=== PATIENT | female | born 1955 | race Caucasian/White ===

== ENCOUNTER 2016-05-05 12:58 | Emergency (ER) | payer MEDICARE, OTHER ==
[~2016-05-05] VITALS: Ht 172.7 cm; Wt 81.6 kg
[2016-05-05] MEDS ORDERED: HYDROCODONE/APAP 5/325MG TABLET. PO ONE (14:00)
[2016-05-05] MEDS ORDERED: IBUPROFEN 600 MG TABLET. PO ONE (14:00)
--- NOTE | 2016-05-05 15:07 | RAD ---
EXAM: 1. Left hand 3 views. 2. Left forearm 2 views. HISTORY: Fall with left hand and forearm pain/swelling. COMPARISON: None. FINDINGS: There are projectional limitations. There is a comminuted intra-articular fracture of the distal radius with 30 degrees dorsal inclination of the distal radial articular surface. A coronally oriented fracture line results in a 4 mm articular surface gap. A sagittally oriented fracture line results in a 5 mm gap. The distal radioulnar joint is also involved but normally aligned. There is mild distraction fracture of the ulnar styloid. Radiocarpal and intercarpal joint spaces and alignment appear maintained. The fingers are not fully extended, but no fractures are appreciated within the hand. Osteopenia is at least moderate. There is diffuse soft tissue swelling throughout the dorsum of the hand and distal forearm. No fractures are appreciated within the proximal forearm. Joint spaces and alignment at the elbow appear maintained. IMPRESSION: 1. Comminuted intra-articular fracture of the distal radius with approximately 30 degrees dorsal angulation of the distal radial articular surface, and articular surface gaps that measure up to 5 mm. 2. Ulnar styloid fracture.
[2016-05-05] MEDS ORDERED: OXYCODONE IR 5 MG TABLET. PO ONE (15:15)
[2016-05-05] MEDS ORDERED: IBUP-1007 PO (15:28)
[2016-05-05] MEDS ORDERED: OXYC-323 PO (15:28)
--- NOTE | 2016-05-05 15:28 | PHYS DOC ---
Past Medical History Past Medical History: Depression, Diabetes-Type II, Other Additional Past Medical Histor: "liver problems", Past Surgical History: Appendectomy, Hysterectomy, Tonsillectomy Alcohol Use: None Drug Use: None Adult General Chief Complaint Chief Complaint: UPPER EXTREMITY INJURY HPI HPI Patient is a 60 year old female who presents status post mechanical fall. Patient reports 2 days ago she was sitting on a couch, was wrapped up in the covers. When she tries to stand, her legs were tangled in the covers and she fell, landing on her left wrist. She did not hit her head or lose consciousness. She presents now with persistent pain and swelling in her left hand and wrist. She has tried Tylenol at home with insufficient relief. No other acute complaints. Review of Systems Review of Systems Constitutional: Denies fever or chills Respiratory: Denies cough or shortness of breath Cardiovascular: Denies chest pain GI: Denies abdominal pain, nausea, vomiting, or diarrhea Neurologic: Denies headache, focal weakness or sensory changes Musculoskeletal: L wrist/hand pain Current Medications Current Medications Current Medications Medications (Trade) Dose Ordered Sig/Jevon Start Time Stop Time Status Last Admin Dose Admin Acetaminophen/ Hydrocodone Bitart (Lortab 5/325) 1 tab 1X ONCE 05/05/16 14:00 05/05/16 14:01 DC 05/05/16 14:08 1 TAB Ibuprofen (Motrin) 600 mg 1X ONCE 05/05/16 14:00 05/05/16 14:01 DC 05/05/16 14:08 600 MG Oxycodone HCl (Roxicodone) 5 mg 1X ONCE 05/05/16 15:15 05/05/16 15:16 DC 05/05/16 15:26 5 MG Allergies Allergies Allergies Coded Allergies Type Severity Reaction Last Updated Verified No Known Drug Allergies 05/05/16 No Physical Exam Physical Exam Constitutional: Well developed, well nourished, no acute distress, non-toxic appearance HENT: Normocephalic, atraumatic, bilateral external ears normal; dyskinetic movements of mouth and tongue Eyes: EOMI, conjunctiva normal, no discharge Neck: Normal range of motion, no stridor. No midline tenderness, no stepoff Cardiovascular: Heart rate normal, regular rhythm, no murmur Lungs & Thorax: Bilateral breath sounds clear to auscultation Abdomen: Bowel sounds normal, soft, non-distended, no TTP Skin: Warm, dry, no erythema, no rash Back: No midline tenderness, no stepoff Extremities: L hand and wrist swollen and bruised compared to R; motor function preserved (albeit with pain), sensation to light touch intact; 2+ radial pulse Neurologic: Alert and oriented X 3, no gross deficits noted Current Patient Data Vital Signs Vital Signs Date Time Temp Pulse Resp B/P Pulse Ox O2 Delivery O2 Flow Rate FiO2 05/05/16 15:26 16 Room Air 05/05/16 13:07 98.0 96 170/80 96 98.0 EKG EKG [] Radiology/Procedures Radiology/Procedures X-ray L hand/wrist/forearm: IMPRESSION: 1. Comminuted intra-articular fracture of the distal radius with approximately 30 degrees dorsal angulation of the distal radial articular surface, and articular surface gaps that measure up to 5 mm. 2. Ulnar styloid fracture. Course & Med Decision Making Course & Med Decision Making Pertinent Labs and Imaging studies reviewed. (See chart for details) Patient is 60-year-old female who presents with left hand and wrist swelling and pain after a mechanical fall 2 days ago. Will obtain x-rays to evaluate for fracture. Oral pain medication ordered for patient comfort. Imaging results as above. Does not appear amenable to attempt at reduction. Discussed results with patient. Splint applied, with sensation, motor function in fingers, and cap refill all intact afterward. Will discharge with prescription for pain medication, instructions for close follow-up with ortho, return precautions. Dragon Disclaimer Dragon Disclaimer This electronic medical record was generated, in whole or in part, using a voice recognition dictation system. Departure Departure Impression: Primary Impression: Wrist fracture, left Disposition: 01 HOME, SELF-CARE Condition: STABLE Referrals: JOSEPH HODGE (PCP) MO LOO MD Patient Instructions: Wrist Exercises, Generic-SportsMed Additional Instructions: Thank you for allowing us to provide care today in the Emergency Department. Take the provided medication as directed. Use caution after taking the pain medication as it can make you drowsy. Schedule a follow up appointment with an orthopedic surgeon using the provided contact information. Return promptly to the Emergency Department if you develop any new or concerning symptoms. Scripts Ibuprofen 600 Mg [id number] Mg PO PRN Q6HRS PRN PAIN #25 TAB Prov:JARROD PRYOR MD 05/05/16 Oxycodone/Apap 5-325 (Percocet 5-325 Mg Tablet)1 Each Tablet1 Tab PO Q4-6HRS PRN PAIN #25 TAB Ref 0 Prov:JARROD PRYOR MD 05/05/16 JARROD PRYOR MD May 05, 2016 15:28
[2016-05-05 16:00] VITALS: BP 159/90
[2016-05-10] MEDS ORDERED: ATOR20TA58 PO (17:06)
[2016-05-10] MEDS ORDERED: GLIP5TAB10 PO (17:06)
[2016-05-10] MEDS ORDERED: SERT100T PO (17:07)
[2016-05-10] MEDS ORDERED: ASPI-482 PO (17:22)
[2016-05-10] MEDS ORDERED: MILK500C PO (17:24)
== END 2016-05-05 16:11 | disposition home or self-care (01) ==
LOC: ER 12:58
DX: S62.102A Fracture of unspecified carpal bone, left wrist, initial encounter for closed fracture (principal); E11.9 Type 2 diabetes mellitus without complications; W17.89XA Other fall from one level to another, initial encounter; Y93.89 Activity, other specified; Y92.89 Other specified places as the place of occurrence of the external cause; Y99.8 Other external cause status
CPT/HCPCS: 29125; 73090; 73130; 99284-25

== ENCOUNTER 2016-05-17 11:18 | Day surgery (SDC) | payer OTHER ==
[~2016-05-17] VITALS: Ht 172.7 cm; Wt 81.6 kg
[~2016-05-17 11:18] MED LIST: ASPI-482 PO; ATOR20TA58 PO; CEFAZOLIN 1GM IVPB FOR OMNI 50 ML IV ONE; FENTANYL PF 100 MCG/2 ML VIAL. IV PRN; GLIP5TAB10 PO; HYDROMORPHONE 2 MG/ML VIAL. IV PRN; IBUP-1007 PO; IV RINGERS,LACTATED 1000ML 1,000 ML IV SCH; LIDOCAINE 1% 1 ML SYRINGE. ID PRN; MILK500C PO; MORPHINE SULFATE 2 MG/ML DISP.SYRIN. IV PRN; ONDANSETRON PF 4 MG/2 ML VIAL. IV PRN; OXYC-323 PO; PROCHLORPERAZINE 10 MG/2 ML VIAL. IV PRN; SERT100T PO
[2016-05-17] MEDS ORDERED: FAMOTIDINE 20 MG/2 ML VIAL ONE (12:14)
[2016-05-17] MEDS ORDERED: LIDOCAINE 2% 100 MG/5 ML DISP.SYRIN. ONE (12:14)
[2016-05-17] MEDS ORDERED: PROPOFOL 20 ML IV ONE (12:14)
[2016-05-17] MEDS ORDERED: DEXAMETHASONE SOD PHOS 20 MG/5 ML VIAL. ONE (12:14)
[2016-05-17] MEDS ORDERED: FENTANYL PF 100 MCG/2 ML VIAL. ONE (12:15)
[2016-05-17] MEDS ORDERED: ROCURONIUM 50 MG/5 ML VIAL. ONE ×2 (12:15→12:16)
[2016-05-17] MEDS ORDERED: ONDANSETRON PF 4 MG/2 ML VIAL. ONE (12:15)
[2016-05-17] MEDS ORDERED: GLYCOPYRROLATE 1 MG/5 ML VIAL. ONE (12:38)
[2016-05-17] MEDS ORDERED: NEOSTIGMINE METHYLSULFATE 5 MG/5 ML SYRINGE. ONE (12:38)
[2016-05-17] MEDS ORDERED: KETOROLAC 60 MG/2 ML SYRINGE FOR OR. ONE (12:38)
[2016-05-17] MEDS ORDERED: DESFLURANE > 120 MINUTES IH ONE (12:49)
--- NOTE | 2016-05-17 13:08 | DISCH ---
DISCHARGE INSTRUCTIONS Condition on Discharge Condition on Discharge: Stable Activity After Discharge Activity Instructions for Disc: Other, see below Bathing Instructions: Shower-keep dressing dry Weight Bearing Status after Di: Non weight bearing Diet after Discharge Diet after Discharge: Regular Wound Incision Care Wound/Incision Care: Ice to area for comfort, Keep wound/cast CDI, Keep wound elevated, Do not change dressing Contacting the DRMaira after DC Call your doctor for: Concerns you may have Follow-Up Follow up with: Ananda in 2wks ALEK CRUZ II, MD May 17, 2016 13:08
--- NOTE | 2016-05-17 13:09 | PDOC ---
BRIEF OPERATIVE NOTE Date: May 17, 2016 Pre-Op Diagnosis Displaced, closed, L DR cox Post-Op Diagnosis same Procedure Performed ORIF L DR cox Surgeon Ananda Anesthesiologist [facility] Anesthesia Type: General Blood Loss 25mL Complications none ALEK CRUZ II, MD May 17, 2016 13:09
[2016-05-17] MEDS ORDERED: BUPIVACAINE MPF 0.5% 30 ML VIAL. ONE (13:35)
[2016-05-17] MEDS ORDERED: LIDOCAINE 1% 20 ML VIAL. ONE (13:35)
[2016-05-17] MEDS ORDERED: ACETAMINOPHEN INTRAVENOUS 100 ML IV ONE (13:57)
[2016-05-17] MEDS ORDERED: CEFAZOLIN 1GM IVPB FOR OMNI 50 ML IV ONE (13:57)
[2016-05-17] MEDS ORDERED: SEVOFLURANE 61 TO 120 MINUTES. IH ONE (14:53)
[2016-05-17] MEDS ORDERED: ONDA4TAB10 SL (15:24)
[2016-05-17] MEDS ORDERED: OXYC-244 PO (15:24)
[2016-05-17] MEDS: FENTANYL PF 100 MCG/2 ML VIAL. IV PRN ×4 (15:32→16:00)
[2016-05-17] MEDS ORDERED: OXYCODONE/APAP 7.5/325 TABLET. PO ONE (16:00)
[2016-05-17 16:32] VITALS: BP 121/74
--- NOTE | 2016-05-17 18:59 | OP ---
DATE OF SURGERY: 05/17/2016 SURGEON: Israel Cruz MD. CUT IN WORKER: None. ANESTHESIA: General. PREOPERATIVE DIAGNOSIS: Displaced malangulated comminuted intra-articular closed left distal radius fracture. POSTOPERATIVE DIAGNOSIS: Displaced malangulated comminuted intraarticular closed left distal radius fracture. PROCEDURE PERFORMED: Open reduction and internal fixation of left distal radius fracture. COMPONENTS INSERTED: 1. Quesada and Nephew standard with volar distal radius locking plate. TOURNIQUET TIME: 37 minutes. ESTIMATED BLOOD LOSS: 25 mL. COMPLICATIONS: None. REASON FOR PROCEDURE: The patient is a very pleasant 61-year-old female who sustained a ground-level fall onto an outstretched left upper extremity and presented to our Emergency Department where she underwent splinting and referral to my clinic for definitive management. Because of the fracture pattern, I had a discussion of risks, benefits, alternatives of proceeding with the above surgery, and she elected to proceed. DESCRIPTION OF PROCEDURE: The patient was greeted in the preoperative area by myself. Correct extremity was marked and verified. She was taken to the operative suite and antibiotics were started en route. Once in the OR, she was transferred gently supine to the OR table and secured to the bed with all pressure points padded and underwent successful induction of general anesthesia. We then applied a nonsterile tourniquet to her left arm as well as the arm board attachment to the bed. We then proceeded to pre-scrub her arm with chlorhexidine and then dried, and she underwent our standard prepping and draping. We then conducted our standard preoperative timeout. I palpated and marked for FCR tendon and radial pulses and made a skin staci for my standard volar distal radius approach. The extremity was exsanguinated with an Esmarch and tourniquet insufflated to 200 mmHg. I then made my skin incision. I cauterized bleeders with electrocautery and dissected down just on the radial border of the FCR tendon with tenotomy. I incised the fascia in line with skin incision and bluntly dissected down the level of the pronator quadratus and divided this with the needle tip electrocautery. I then used an elevator to sweep aside the periosteum and muscle in anticipation of my plate application. I identified the fracture site and debrided this. She did not have much soft callus at all present. I then performed a reduction maneuver recreating the fracture deformity followed by pulling traction through digits 2 and 3 and direct digital pressure. I then used a [place] elevator to the fracture site to try to hold in good position as well. Once I was satisfied with this, I provisionally pinned the plate into position and then checked my C-arm images. I then placed 2 nonlocking screws through the medial 2 holes and secured the distal end of the plate to the fracture site followed by a locking screw there. I then placed another screw into the radial styloid. I did not have really any purchase at all, so I removed and placed 1 at the hole just proximal to that. I had checked trajectory of my screws on fluoroscopy to ensure extraarticular position. After this, I levered the plate back into place and apposed it against the radial shaft. I then secured it with 3 nonlocking screws. I then took my final images and was happy with the plate position and fracture reduction. I then irrigated out the operative field with sterile normal saline and then let the tourniquet down and cauterized a couple of bleeders with bipolar electrocautery. I then reapproximated the pronator quadratus with a [id number] 2-0 Vicryl. I then closed subcutaneous tissue with inverted interrupted 2-0 followed by 3-0 nylon in a mattress fashion. After this, I cleansed out the arm and injected approximately 5 mL of a local anesthetic mixture after ensuring extravascular placement with the needle into the alba-incisional area. I then placed Steri-Strips, Xeroform, sterile dressing, and sterile cast padding. We then took the drapes and the tourniquet down, and I applied a well-padded sugar-tong splint and held the mold. The patient was then awakened from anesthesia. She tolerated surgery well. Prior to completion of wound closure, all counts were reported correct x 2. No complications. Postop plan is to discharge her home. She was given splint care instructions. She will follow up with me in 2 weeks, sooner should problems arise. ISRAEL CRUZ MD DR: MAGDI/gio JOB#: [id number] / [id number] MTDD
== END 2016-05-17 17:00 | disposition home or self-care (01) ==
LOC: SURG 11:18
PROVIDERS: ATTEND Orthopaedic Surgery Sports Medicine
DX: S52.572A Other intraarticular fracture of lower end of left radius, initial encounter for closed fracture (principal); E78.00 Pure hypercholesterolemia, unspecified; E66.9 Obesity, unspecified; I48.91 Unspecified atrial fibrillation; M19.90 Unspecified osteoarthritis, unspecified site; X58.XXXA Exposure to other specified factors, initial encounter; Y93.9 Activity, unspecified; Y92.9 Unspecified place or not applicable; Y99.9 Unspecified external cause status; Z72.89 Other problems related to lifestyle
CPT/HCPCS: 25607; 76000; 82947; C1713; J0131; J0690; J0780; J1100; J1885; J2405; J2704; J2710; J3010; J3490; S0028

== ENCOUNTER 2016-06-07 08:10 | Day surgery (SDC) | payer MEDICARE ==
[~2016-06-07] VITALS: Ht 172.7 cm; Wt 89.4 kg
[~2016-06-07 08:10] MED LIST changes: -MORPHINE SULFATE 2 MG/ML DISP.SYRIN. IV PRN; +ONDA4TAB10 SL; +OXYC-244 PO; +OXYC-250 PO; -PROCHLORPERAZINE 10 MG/2 ML VIAL. IV PRN
[2016-06-07] MEDS ORDERED: BUPIVACAINE MPF 0.5% 30 ML VIAL. ONE (08:17)
[2016-06-07] MEDS ORDERED: LIDOCAINE 1% 20 ML VIAL. ONE (08:17)
[2016-06-07] MEDS ORDERED: IV RINGERS,LACTATED 1000ML 1,000 ML IV SCH (09:00)
[2016-06-07] MEDS ORDERED: LIDOCAINE 1% PF 5 ML VIAL. ONE (09:20)
[2016-06-07] MEDS ORDERED: ROCURONIUM 50 MG/5 ML VIAL. ONE (09:20)
[2016-06-07] MEDS ORDERED: FAMOTIDINE 20 MG/2 ML VIAL ONE (09:20)
[2016-06-07] MEDS ORDERED: DEXAMETHASONE SOD PHOS 20 MG/5 ML VIAL. ONE (09:20)
[2016-06-07] MEDS ORDERED: ONDANSETRON PF 4 MG/2 ML VIAL. ONE (09:20)
[2016-06-07] MEDS ORDERED: MIDAZOLAM HCL/PF 2 MG/2 ML VIAL. ONE (09:20)
[2016-06-07] MEDS ORDERED: PROPOFOL 20 ML IV ONE (09:20)
[2016-06-07] MEDS ORDERED: FENTANYL PF 100 MCG/2 ML VIAL. ONE ×2 (09:21→10:15)
--- NOTE | 2016-06-07 09:43 | DISCH ---
DISCHARGE INSTRUCTIONS Condition on Discharge Condition on Discharge: Stable Activity After Discharge Activity Instructions for Disc: Other, see below Other activity instructions: No use of LUE Bathing Instructions: Shower-keep dressing dry Weight Bearing Status after Di: Non weight bearing Diet after Discharge Diet after Discharge: Regular Wound Incision Care Wound/Incision Care: Ice to area for comfort, Keep wound/cast CDI, Keep wound elevated, Do not change dressing Contacting the DR. after DC Call your doctor for: Concerns you may have Follow-Up Follow up with: Cody in 2 wks Treatment/Equipment after DC Adaptive Equipment Issued: None ALEK CRUZ II, MD Jun 07, 2016 09:43
[2016-06-07] MEDS ORDERED: LABETALOL 20 MG/4 ML DISP.SYRIN. ONE (10:30)
[2016-06-07] MEDS ORDERED: NEOSTIGMINE METHYLSULFATE 5 MG/5 ML SYRINGE. ONE (11:00)
[2016-06-07] MEDS ORDERED: GLYCOPYRROLATE 1 MG/5 ML VIAL. ONE (11:00)
[2016-06-07] MEDS ORDERED: SEVOFLURANE 61 TO 120 MINUTES. IH ONE (11:09)
[2016-06-07] MEDS: PROCHLORPERAZINE 10 MG/2 ML VIAL. IV PRN ×2 (11:45→12:27)
[2016-06-07] MEDS: FENTANYL PF 100 MCG/2 ML VIAL. IV PRN ×4 (11:46→12:27)
[2016-06-07] MEDS: MORPHINE SULFATE 2 MG/ML DISP.SYRIN. IV PRN ×4 (11:47→12:29)
[2016-06-07] MEDS ORDERED: OXYCODONE ER 10 MG TAB.ER.12H. PO ONE (12:00)
[2016-06-07] MEDS ORDERED: OXYCODONE/APAP 10/325 TABLET. PO ONE (12:00)
[2016-06-07] MEDS ORDERED: OXYC10TA32 PO (12:21)
[2016-06-07] MEDS ORDERED: DOCU-27 PO (12:22)
[2016-06-07 12:49] VITALS: BP 156/70
--- NOTE | 2016-06-07 18:13 | OP ---
DATE OF SURGERY: 06/07/2016 SURGEON: Israel Cruz M.D. HUMAN RESOURCE CONSULTANT: None. PREOPERATIVE DIAGNOSIS: Malunion after a fall, after open reduction and internal fixation left distal radius. POSTOPERATIVE DIAGNOSIS: Malunion after a fall, after open reduction and internal fixation left distal radius. PROCEDURE PERFORMED: Revision open reduction internal fixation of left distal radius fracture. COMPLICATIONS: None. ESTIMATED BLOOD LOSS: 10 mL. TOURNIQUET TIME: 54 minutes. COMPONENTS INSERTED: A Quesada and Nephew standard with volar distal radius locking plate. FINDINGS: Intraoperatively, there is essentially no evident callus present. REASON FOR PROCEDURE: The patient is a very pleasant 61-year-old female, who sustained a left distal radius fracture treated with surgery by myself initially, approximately 3 weeks ago. She presented to our outpatient orthopedic surgery clinic for followup and revealed she had a fall and tried to catch herself with her left arm. She has developed a lot of pain after that. X-rays revealed a malpositioned hardware and loss of reduction. Therefore, I had discussion of risks, benefits, alternatives of proceeding with a revision surgery, and she elected to proceed. DESCRIPTION OF PROCEDURE: The patient was greeted in the preoperative area with myself where the correct extremity was marked and verified. She was taken to the operative suite and antibiotics were started en route. Once in the OR, she was transferred gently supine to the OR table and secured to the bed with all pressure points padded. Tourniquet was placed on her left upper extremity. We then proceeded to prep and drape of the left upper extremity in usual sterile fashion and conducted a standard preoperative timeout. I then exsanguinated the extremity with an Esmarch and insufflated the tourniquet to 250 mmHg. I then incised skin through my prior volar distal radius incision and identified the FCR tendon. I incised her scar tissue just radial to this. I then bluntly dissected down. The pronator quadratus was noted overlying the distal radius. I did use a combination of a [place] and a brown handled round elevator to free up the adherent fibrotic tissue over the plate. I then dissected the subcutaneous tissue ulnar to the FCR tendon and identified the prominent screw head there and removed that screw without complication. I then proceeded to remove the rest of the screws and removed the plate. I did feel that the plate still had a good position, and that this was essentially new trauma and loss of fixation at the screw bone interface, but nonetheless I opted to place a different plate. I sized for a standard and wide, her bone was too narrow for the wide plate. Therefore, I opened the standard with the packaging. After this, I performed a repeat reduction maneuver consisting of retrieving the fracture deformity and pulling traction. Her radial: Indirect pressure of the fracture fragments. I then felt that the reduction was then as good as I wanted it after checking under AP, oblique, and lateral imaging. Therefore, I inserted [place] to the fracture site. I then carefully weathered the fragments back into better position and pinning with the K wires through the radial styloid and this achieved better alignment. I then placed my plate down and sizing it provisionally, pinned it after I had an acceptable position. I then placed a nonlocking screw in the distal column to secure the plate to the bone, followed by filling the remainder of the holes with locking screws. I then traded out the nonlocking screw and replaced it with a locking screw. I did take fluoroscopic images with each screw to ensure extraarticular placement. I then secured the plate to bone with a nonlocking screw and then placed two more locking screws to secure the plate to the shaft. I traded all my initial locking screw as it was a little too long. After this, I took my final images and was happy with the plate position and fracture reduction. I then irrigated out the operative field with sterile normal saline, let the tourniquet down. There was some venous oozing that I cauterized. I then closed subcutaneous tissue with inverted interrupted 2-0 followed by 2-0 nylon in mattress fashion. The arm was then cleansed and dried and sterile dressing was applied followed by a well-padded sugar-tong splint. Postop plan is for her to be nonweightbearing x 6 weeks. We will see her back in my clinic in 2 weeks, sooner should problems arise. Prior to completion of wound closure, all counts reported correct x 2. At the conclusion of the surgery, she was awakened from anesthesia, extubated, and transferred gently supine to the recovery room cart and taken to PACU in stable and extubated condition. ISRAEL CRUZ MD DR: MAGDI/gio JOB#: [id number] / [id number] MTDD
== END 2016-06-07 13:34 | disposition home or self-care (01) ==
LOC: SURG 08:10
PROVIDERS: ATTEND Orthopaedic Surgery Sports Medicine
DX: T85.628D Displacement of other specified internal prosthetic devices, implants and grafts, subsequent encounter (principal); E78.00 Pure hypercholesterolemia, unspecified; E66.9 Obesity, unspecified; M19.90 Unspecified osteoarthritis, unspecified site; F41.9 Anxiety disorder, unspecified; F32.9 Major depressive disorder, single episode, unspecified; E11.9 Type 2 diabetes mellitus without complications; Z72.89 Other problems related to lifestyle
CPT/HCPCS: 25400; 76000; 82947; C1713; J0690; J0780; J1100; J2250; J2270; J2405; J2704; J2710; J3010; J3490; J7120; S0028

== ENCOUNTER 2018-05-28 00:52 | Inpatient (IN) | payer MEDICARE ==
[~2018-05-28] VITALS: Ht 172.7 cm; Wt 89.9 kg
[~2018-05-28 00:52] MED LIST changes: -CEFAZOLIN 1GM IVPB FOR OMNI 50 ML IV ONE; +DOCU-109 PO; -FENTANYL PF 100 MCG/2 ML VIAL. IV PRN; -HYDROMORPHONE 2 MG/ML VIAL. IV PRN; -IV RINGERS,LACTATED 1000ML 1,000 ML IV SCH; -LIDOCAINE 1% 1 ML SYRINGE. ID PRN; -ONDANSETRON PF 4 MG/2 ML VIAL. IV PRN; -OXYC-244 PO; -OXYC-250 PO; -OXYC-323 PO; +OXYC10TA46 PO; +OXYC1TAB15 PO; +OXYC1TAB19 PO; +OXYC1TAB22 PO
[2018-05-28 01:26] LABS: BASE EXCESS COOX 1 mmol/L (-3-3); HCO3 COOX 31 mmol/L (21-28); METHEMOGLOBIN 0.1 % (0.0-1.9); OXYHEMOGLOBIN 91.8 %; PO2 COOX 75 mmHg (65-108); SAT O2 COOX 93 % (92-99)
[2018-05-28] MEDS ORDERED: IPRATRPIUM/ALBUTEROL 0.5/2.5MG 3 ML NEBU. NEB ONE (01:30)
[2018-05-28] MEDS ORDERED: methylPREDNISolone SOD SUCC PF 125 MG/2 ML VIAL. IV ONE (01:30)
[2018-05-28] MEDS ORDERED: ASPIRIN 325 MG TABLET PO ONE (01:30)
[2018-05-28 01:33] LABS: BASO % 0 % (0-3); EOS % 0 % (0-3); HEMATOCRIT 48.5 % (36.0-47.0); HEMOGLOBIN 16.2 g/dL (12.0-15.5); LYMPH # 0.5 x10^3/uL (1.0-4.8); LYMPH % 5 % (24-48); MEAN CORPUSCULAR HEMOGLOBIN 30 pg (25-35); MEAN CORPUSCULAR HGB CONC 33 g/dL (31-37); MEAN CORPUSCULAR VOLUME 88 fL (79-100); MONO # 0.8 x10^3/uL (0.0-1.1); MONO % 7 % (0-9); NEUT # 9.6 x10^3uL (1.8-7.7); NEUT % 88 % (31-73); PLATELET COUNT 160 x10^3/uL (140-400); RED CELL DISTRIBUTION WIDTH 14.2 % (11.5-14.5); WHITE BLOOD COUNT 10.9 x10^3/uL (4.0-11.0)
[2018-05-28] MEDS ORDERED: IV NORMAL SALINE 1000ML BAG 1,000 ML IV SCH (01:42)
--- NOTE | 2018-05-28 01:42 | PHYS DOC ---
Past Medical History Past Medical History: COPD, Depression, Diabetes-Type II, Other Additional Past Medical Histor: "liver problems", Past Surgical History: Appendectomy, Hysterectomy, Tonsillectomy Additional Information: 2PACK DAILY Alcohol Use: None Drug Use: None Adult General Chief Complaint Chief Complaint: SHORTNESS OF BREATH [facility] HPI Patient is a 63 year old female presented to the ER today for evaluation of shortness of air and productive cough for 3 days. She is a heavy smoker, has history of COPD, not on any oxygen at home. She has coughed so much that her chest hurt. She denied any fever, no abdominal pain, no nausea or vomiting. EMS found her in respiratory distress, put her on nonrebreather, gave her a duoneb, bought her here for evaluation . Review of Systems Review of Systems Constitutional: Denies fever or chills [] Eyes: Denies change in visual acuity, redness, or eye pain [] HENT: Denies nasal congestion or sore throat [] Respiratory: Positive for cough and shortness of breath [] Cardiovascular: No additional information not addressed in HPI [] GI: Denies abdominal pain, nausea, vomiting, bloody stools or diarrhea [] : Denies dysuria or hematuria [] Musculoskeletal: Denies back pain or joint pain [] Integument: Denies rash or skin lesions [] Neurologic: Denies headache, focal weakness or sensory changes [] Endocrine: Denies polyuria or polydipsia [] All other systems were reviewed and found to be within normal limits, except as documented in this note. Current Medications Current Medications Current Medications Medications (Trade) Dose Ordered Sig/[facility] Start Time Stop Time Status Last Admin Dose Admin Albuterol/ Ipratropium (Duoneb) 3 ml 1X ONCE 05/28/18 01:30 05/28/18 01:31 DC 05/28/18 01:15 3 ML Aspirin (Linnette Aspirin) 325 mg 1X ONCE 05/28/18 01:30 05/28/18 01:31 DC 05/28/18 01:34 325 MG Methylprednisolone Sodium Succinate (SOLU-Medrol 125MG VIAL) 125 mg 1X ONCE 05/28/18 01:30 05/28/18 01:31 DC 05/28/18 01:34 125 MG Allergies Allergies Allergies Coded Allergies Type Severity Reaction Last Updated Verified No Known Drug Allergies 4/10/17 No Physical Exam Physical Exam Constitutional: Well developed, well nourished, IN MODERATE acute distress DUE TO SHORTNESS OF AIR, non-toxic appearance. [] HENT: Normocephalic, atraumatic, bilateral external ears normal, oropharynx moist, no oral exudates, nose normal. [] Eyes: PERRLA, EOMI, conjunctiva normal, no discharge. [] Neck: Normal range of motion, no tenderness, supple, no stridor. [] Cardiovascular: Sinus tachycardia, with regular rhythm, no murmur [] Lungs & Thorax: tachypnic, decreased air movement in all lung guerra. Abdomen: Bowel sounds normal, soft, no tenderness, no masses, no pulsatile masses. [] Skin: Warm, dry, no erythema, no rash. [] Back: No tenderness, no CVA tenderness. [] Extremities: No tenderness, no cyanosis, no clubbing, ROM intact, no edema. [] Neurologic: Alert and oriented X 3, normal motor function, normal sensory function, no focal deficits noted. [] Psychologic: Affect normal, judgement normal, mood normal. [] Current Patient Data Vital Signs Vital Signs Date Time Temp Pulse Resp B/P (MAP) Pulse Ox O2 Delivery O2 Flow Rate FiO2 05/28/18 01:36 94 BiPAP/CPAP 05/28/18 01:33 118 26 182/83 (116) 05/28/18 01:17 15.0 05/28/18 01:00 97.8 97.8 Lab Values Laboratory Tests Test 05/28/18 01:00 05/28/18 01:09 O2 Saturation 93 % (92-99) Arterial Blood pH 7.27 (7.35-7.45) L Arterial Blood pCO2 at Patient Temp 68 mmHg (35-46) *H Arterial Blood pO2 at Patient Temp 75 mmHg (65-108) Arterial Blood HCO3 31 mmol/L (21-28) H Arterial Blood Base Excess 1 mmol/L (-3-3) Oxyhemoglobin 91.8 % Methemoglobin 0.1 % (0.0-1.9) Carbon Monoxide, Quantitative 1.5 % (0.0-1.9) FiO2 50 White Blood Count 10.9 x10^3/uL (4.0-11.0) Red Blood Count 5.50 x10^6/uL (3.50-5.40) H Hemoglobin 16.2 g/dL (12.0-15.5) H Hematocrit 48.5 % (36.0-47.0) H Mean Corpuscular Volume 88 fL (79-100) Mean Corpuscular Hemoglobin 30 pg (25-35) Mean Corpuscular Hemoglobin Concent 33 g/dL (31-37) Red Cell Distribution Width 14.2 % (11.5-14.5) Platelet Count 160 x10^3/uL (140-400) Neutrophils (%) (Auto) 88 % (31-73) H Lymphocytes (%) (Auto) 5 % (24-48) L Monocytes (%) (Auto) 7 % (0-9) Eosinophils (%) (Auto) 0 % (0-3) Basophils (%) (Auto) 0 % (0-3) Neutrophils # (Auto) 9.6 x10^3uL (1.8-7.7) H Lymphocytes # (Auto) 0.5 x10^3/uL (1.0-4.8) L Monocytes # (Auto) 0.8 x10^3/uL (0.0-1.1) Eosinophils # (Auto) 0.0 x10^3/uL (0.0-0.7) Basophils # (Auto) 0.0 x10^3/uL (0.0-0.2) Platelet Estimate Pending Prothrombin Time 14.5 SEC (11.7-14.0) H Prothrombin Time INR 1.2 (0.8-1.1) H Sodium Level 135 mmol/L (136-145) L Potassium Level 3.8 mmol/L (3.5-5.1) Chloride Level 93 mmol/L (98-107) L Carbon Dioxide Level 31 mmol/L (21-32) Anion Gap 11 (6-14) Blood Urea Nitrogen 9 mg/dL (7-20) Creatinine 0.8 mg/dL (0.6-1.0) Estimated GFR (Cockcroft-Gault) 72.0 BUN/Creatinine Ratio 11 (6-20) Glucose Level 300 mg/dL (70-99) H Calcium Level 9.1 mg/dL (8.5-10.1) Magnesium Level 2.1 mg/dL (1.8-2.4) Total Bilirubin 0.7 mg/dL (0.2-1.0) Aspartate Amino Transferase (AST) 46 U/L (15-37) H Alanine Aminotransferase (ALT) 30 U/L (14-59) Alkaline Phosphatase 116 U/L (46-116) Creatine Kinase 1178 U/L (26-192) H Creatine Kinase MB (Mass) 12.3 ng/mL (0.0-3.6) H Creatine Kinase MB Relative Index 1.0 % (0-4) Troponin I Quantitative 0.083 ng/mL (0.000-0.055) GQ-Nxy-H-Type Natriuretic Peptide 2981 pg/mL (0-124) H Total Protein 7.2 g/dL (6.4-8.2) Albumin 3.7 g/dL (3.4-5.0) Albumin/Globulin Ratio 1.1 (1.0-1.7) Lipase 38 U/L (73-393) L Laboratory Tests 05/28/18 01:09 Laboratory Tests 05/28/18 01:09 EKG EKG EKG was read by this physician at 0105, rate of 119 BPM, sinus rhythm , no STEMI. Radiology/Procedures Radiology/Procedures CHEST XRAY: NO ACUTE CONSOLIDATION OR INFILTRATION. Course & Med Decision Making Course & Med Decision Making Pertinent Labs and Imaging studies reviewed. (See chart for details) [] Dragon Disclaimer Dragon Disclaimer This electronic medical record was generated, in whole or in part, using a voice recognition dictation system. Departure Departure Impression: Primary Impression: COPD exacerbation Disposition: ADMITTED INPATIENT Admitting Physician: David Del Rio Condition: IMPROVED Referrals: JOSEPH HODGE (PCP) ESTEFANIA HANSEN DO May 28, 2018 01:42
[2018-05-28 01:43] LABS: PROTHROMBIN TIME PATIENT 14.5 SEC (11.7-14.0)
[2018-05-28] MEDS ORDERED: NITROGLYCERIN SUBLINGUAL 0.4 MG BOTTLE OF 25. SL PRN (01:45)
[2018-05-28] MEDS ORDERED: ONDANSETRON PF 4 MG/2 ML VIAL. IV PRN (01:45)
[2018-05-28] MEDS ORDERED: MORPHINE SULFATE 2 MG/ML VIAL. IV PRN (01:45)
[2018-05-28 01:46] LABS: PCO2 COOX 68 mmHg (35-46)
[2018-05-28 01:49] LABS: CALCIUM 9.1 mg/dL (8.5-10.1); CREATININE 0.8 mg/dL (0.6-1.0); POTASSIUM 3.8 mmol/L (3.5-5.1)
--- NOTE | 2018-05-28 02:01 | RAD ---
PORTABLE CHEST 1V Clinical History: SHORT OF AIR Technique: AP view of the chest was obtained at 05/28/2018 1:00 AM. Comparison: None. Findings: The cardiomediastinal silhouette is normal. The pulmonary vasculature is normal. The lungs and pleural margins are clear. Impression: No evidence of an acute cardiopulmonary process. Electronically signed by: Morris Toribio III, MD (05/28/2018 1:57 AM) [id number]
[2018-05-28 02:05] LABS: ALBUMIN 3.7 g/dL (3.4-5.0); ALBUMIN/GLOBULIN RATIO 1.1 (1.0-1.7); MAGNESIUM 2.1 mg/dL (1.8-2.4); TOTAL BILIRUBIN 0.7 mg/dL (0.2-1.0); TOTAL PROTEIN 7.2 g/dL (6.4-8.2)
[2018-05-28 02:30] VITALS: BP 141/69
[2018-05-28] MEDS ORDERED: METF10007 (03:27)
[2018-05-28] MEDS ORDERED: DULO30CA43 (03:27)
[2018-05-28] MEDS ORDERED: DULO60CA44 (03:27)
[2018-05-28 05:19] LABS: % BANDS 12 % (0-9); % LYMPHS 3 % (24-48); % MONOS 3 % (0-10); % SEGS 82 % (35-66); PLT ESTIMATE ADEQUATE (ADEQUATE)
[2018-05-28 07:00] VITALS: BP 148/83
[2018-05-28] MEDS ORDERED: IPRATRPIUM/ALBUTEROL 0.5/2.5MG 3 ML NEBU. NEB SCH (08:00)
[2018-05-28] MEDS ORDERED: ALBUTEROL SULFATE 2.5 MG/3 ML NEBU. NEB PRN (09:15)
[2018-05-28] MEDS ORDERED: BENZOCAINE/MENTHOL LOZENGE. PO PRN (09:15)
[2018-05-28] MEDS ORDERED: DEXTROSE 50% 25 GM / 50ML DISP.SYRIN. IV PRN (09:15)
--- NOTE | 2018-05-28 09:19 | PDOC1 ---
History and Physical Date of Admission Date of Admission DATE: 05/28/18 TIME: 09:12 Identification/Chief Complaint Chief Complaint soa, cough x 3 days, productive Source Source: Caregiver, Chart review, Patient History of Present Illness History of Present Illness 2 pack a day smoker, 3 day hx productive cough, no fever, severe soa, even just walking to bathroom, CXR no infiltrates, but needing BIPAP, first time, NEver intubated, AN+BG pH 7.27 Co2 68, O2 good - NO recent sick contacts/travel, Asks when she can go home Past Medical History Pulmonary: Bronchitis, COPD Endocrine: Diabetes Past Surgical History Past Surgical History: No pertinent history Family History Family History: No Significant Social History Smoke: 2 packs per day ALCOHOL: none Drugs: None Current Problem List Problem List Problems Medical Problems: (1) COPD exacerbation Status: Acute Current Medications Current Medications Current Medications Aspirin (Linnette Aspirin) 325 mg 1X ONCE PO Last administered on 05/28/18at 01:34 ; Start 05/28/18 at 01:30; Stop 05/28/18 at 01:31; Status DC Albuterol/ Ipratropium (Duoneb) 3 ml 1X ONCE NEB Last administered on at 01:15; Start 05/28/18 at 01:30; Stop 05/28/18 at 01:31; Status DC Methylprednisolone Sodium Succinate (SOLU-Medrol 125MG VIAL) 125 mg 1X ONCE IV Last administered on 05/28/18at 01:34; Start 05/28/18 at 01:30; Stop 05/28/18 at 01:31; Status DC Ondansetron HCl (Zofran) 4 mg PRN Q8HRS PRN IV NAUSEA/VOMITING 1ST CHOICE; Start 05/28/18 at 01:45; Stop 05/29/18 at 01:44 Morphine Sulfate (Morphine Sulfate) 2 mg PRN Q2HR PRN IV SEVERE PAIN; Start at 01:45; Stop 05/29/18 at 01:44 Sodium Chloride 1,000 ml @ 75 mls/hr [id number] IV Last administered on at 03:39; Start 05/28/18 at 01:42; Stop 05/29/18 at 01:41 Nitroglycerin (Nitrostat) 0.4 mg PRN Q5MIN PRN SL CHEST PAIN; Start 05/28/18 at 01:45; Stop 05/29/18 at 01:44 Albuterol/ Ipratropium (Duoneb) 3 ml RTQID NEB Last administered on 05/28/18at 08:19; Start 05/28/18 at 08:00; Stop 05/29/18 at 07:59 Active Scripts Active Reported Duloxetine Hcl 30 Mg Capsule. 30 DAILY Duloxetine Hcl 60 Mg Capsule. 60 DAILY Metformin Hcl 1,000 Mg Tablet 1,000 BID Milk Thistle 500 Mg Capsule 2,000 Mg PO DAILY Aspir 81 (Aspirin) 81 Mg Tablet. 1 Tab PO DAILY Atorvastatin Calcium 20 Mg Tablet 1 Tab PO QHS Glipizide 5 Mg Tablet 1 Tab PO BID Allergies Allergies: Coded Allergies: No Known Drug Allergies (Unverified , 06/07/16) ROS Review of System as per HPI< rest of 14 pt neg Physical Exam General: Alert, Oriented X3, Cooperative, No acute distress HEENT: Atraumatic, PERRLA Lungs: Normal air movement, Other (SCE< some wheezing, no crackles) Cardiovascular: S1, S2, Other (sinus tachy) Rectal Exam: not examined PELVIC: Nml ext genitalia Extremities: No clubbing, No cyanosis, No edema, Normal pulses, No tenderness/ swelling Skin: No rashes, No breakdown, No significant lesion Neuro: Normal gait, Normal speech, Strength at 5/5 X4 ext, Normal tone, Sensation intact, Cranial nerves 3-12 NL, Reflexes 2+ Psych/Mental Status: Mental status NL, Mood NL Vitals Vitals Vital Signs Date Time Temp Pulse Resp B/P (MAP) Pulse Ox O2 Delivery O2 Flow Rate FiO2 05/28/18 08:11 94 BiPAP/CPAP 05/28/18 07:00 97.3 91 25 148/83 (104) 97.3 05/28/18 02:15 12.0 Labs Labs Laboratory Tests Test 05/28/18 01:00 05/28/18 01:09 O2 Saturation 93 % (92-99) Arterial Blood pH 7.27 (7.35-7.45) Arterial Blood pCO2 at Patient Temp 68 mmHg (35-46) Arterial Blood pO2 at Patient Temp 75 mmHg (65-108) Arterial Blood HCO3 31 mmol/L (21-28) Arterial Blood Base Excess 1 mmol/L (-3-3) Oxyhemoglobin 91.8 % Methemoglobin 0.1 % (0.0-1.9) Carbon Monoxide, Quantitative 1.5 % (0.0-1.9) FiO2 50 White Blood Count 10.9 x10^3/uL (4.0-11.0) Red Blood Count 5.50 x10^6/uL (3.50-5.40) Hemoglobin 16.2 g/dL (12.0-15.5) Hematocrit 48.5 % (36.0-47.0) Mean Corpuscular Volume 88 fL (79-100) Mean Corpuscular Hemoglobin 30 pg (25-35) Mean Corpuscular Hemoglobin Concent 33 g/dL (31-37) Red Cell Distribution Width 14.2 % (11.5-14.5) Platelet Count 160 x10^3/uL (140-400) Neutrophils (%) (Auto) 88 % (31-73) Lymphocytes (%) (Auto) 5 % (24-48) Monocytes (%) (Auto) 7 % (0-9) Eosinophils (%) (Auto) 0 % (0-3) Basophils (%) (Auto) 0 % (0-3) Neutrophils # (Auto) 9.6 x10^3uL (1.8-7.7) Lymphocytes # (Auto) 0.5 x10^3/uL (1.0-4.8) Monocytes # (Auto) 0.8 x10^3/uL (0.0-1.1) Eosinophils # (Auto) 0.0 x10^3/uL (0.0-0.7) Basophils # (Auto) 0.0 x10^3/uL (0.0-0.2) Segmented Neutrophils % 82 % (35-66) Band Neutrophils % 12 % (0-9) Lymphocytes % 3 % (24-48) Monocytes % 3 % (0-10) Platelet Estimate Adequate (ADEQUATE) Prothrombin Time 14.5 SEC (11.7-14.0) Prothromb Time International Ratio 1.2 (0.8-1.1) Sodium Level 135 mmol/L (136-145) Potassium Level 3.8 mmol/L (3.5-5.1) Chloride Level 93 mmol/L (98-107) Carbon Dioxide Level 31 mmol/L (21-32) Anion Gap 11 (6-14) Blood Urea Nitrogen 9 mg/dL (7-20) Creatinine 0.8 mg/dL (0.6-1.0) Estimated GFR (Cockcroft-Gault) 72.0 BUN/Creatinine Ratio 11 (6-20) Glucose Level 300 mg/dL (70-99) Calcium Level 9.1 mg/dL (8.5-10.1) Magnesium Level 2.1 mg/dL (1.8-2.4) Total Bilirubin 0.7 mg/dL (0.2-1.0) Aspartate Amino Transf (AST/SGOT) 46 U/L (15-37) Alanine Aminotransferase (ALT/SGPT) 30 U/L (14-59) Alkaline Phosphatase 116 U/L (46-116) Creatine Kinase 1178 U/L (26-192) Creatine Kinase MB (Mass) 12.3 ng/mL (0.0-3.6) Creatine Kinase MB Relative Index 1.0 % (0-4) Troponin I Quantitative 0.083 ng/mL (0.000-0.055) SS-Ysd-D-Type Natriuretic Peptide 2981 pg/mL (0-124) Total Protein 7.2 g/dL (6.4-8.2) Albumin 3.7 g/dL (3.4-5.0) Albumin/Globulin Ratio 1.1 (1.0-1.7) Lipase 38 U/L (73-393) Laboratory Tests Test 05/28/18 01:00 05/28/18 01:09 O2 Saturation 93 % (92-99) Arterial Blood pH 7.27 (7.35-7.45) Arterial Blood pCO2 at Patient Temp 68 mmHg (35-46) Arterial Blood pO2 at Patient Temp 75 mmHg (65-108) Arterial Blood HCO3 31 mmol/L (21-28) Arterial Blood Base Excess 1 mmol/L (-3-3) Oxyhemoglobin 91.8 % Methemoglobin 0.1 % (0.0-1.9) Carbon Monoxide, Quantitative 1.5 % (0.0-1.9) FiO2 50 White Blood Count 10.9 x10^3/uL (4.0-11.0) Red Blood Count 5.50 x10^6/uL (3.50-5.40) Hemoglobin 16.2 g/dL (12.0-15.5) Hematocrit 48.5 % (36.0-47.0) Mean Corpuscular Volume 88 fL (79-100) Mean Corpuscular Hemoglobin 30 pg (25-35) Mean Corpuscular Hemoglobin Concent 33 g/dL (31-37) Red Cell Distribution Width 14.2 % (11.5-14.5) Platelet Count 160 x10^3/uL (140-400) Neutrophils (%) (Auto) 88 % (31-73) Lymphocytes (%) (Auto) 5 % (24-48) Monocytes (%) (Auto) 7 % (0-9) Eosinophils (%) (Auto) 0 % (0-3) Basophils (%) (Auto) 0 % (0-3) Neutrophils # (Auto) 9.6 x10^3uL (1.8-7.7) Lymphocytes # (Auto) 0.5 x10^3/uL (1.0-4.8) Monocytes # (Auto) 0.8 x10^3/uL (0.0-1.1) Eosinophils # (Auto) 0.0 x10^3/uL (0.0-0.7) Basophils # (Auto) 0.0 x10^3/uL (0.0-0.2) Segmented Neutrophils % 82 % (35-66) Band Neutrophils % 12 % (0-9) Lymphocytes % 3 % (24-48) Monocytes % 3 % (0-10) Platelet Estimate Adequate (ADEQUATE) Prothrombin Time 14.5 SEC (11.7-14.0) Prothromb Time International Ratio 1.2 (0.8-1.1) Sodium Level 135 mmol/L (136-145) Potassium Level 3.8 mmol/L (3.5-5.1) Chloride Level 93 mmol/L (98-107) Carbon Dioxide Level 31 mmol/L (21-32) Anion Gap 11 (6-14) Blood Urea Nitrogen 9 mg/dL (7-20) Creatinine 0.8 mg/dL (0.6-1.0) Estimated GFR (Cockcroft-Gault) 72.0 BUN/Creatinine Ratio 11 (6-20) Glucose Level 300 mg/dL (70-99) Calcium Level 9.1 mg/dL (8.5-10.1) Magnesium Level 2.1 mg/dL (1.8-2.4) Total Bilirubin 0.7 mg/dL (0.2-1.0) Aspartate Amino Transf (AST/SGOT) 46 U/L (15-37) Alanine Aminotransferase (ALT/SGPT) 30 U/L (14-59) Alkaline Phosphatase 116 U/L (46-116) Creatine Kinase 1178 U/L (26-192) Creatine Kinase MB (Mass) 12.3 ng/mL (0.0-3.6) Creatine Kinase MB Relative Index 1.0 % (0-4) Troponin I Quantitative 0.083 ng/mL (0.000-0.055) HB-Cnf-G-Type Natriuretic Peptide 2981 pg/mL (0-124) Total Protein 7.2 g/dL (6.4-8.2) Albumin 3.7 g/dL (3.4-5.0) Albumin/Globulin Ratio 1.1 (1.0-1.7) Lipase 38 U/L (73-393) VTE Prophylaxis Ordered VTE Prophylaxis Devices: Yes VTE Pharmacological Prophylaxi: Yes Assessment/Plan Assessment/Plan acute bronchitis COPD exacerbation 2 pack a day smoker HYpercpneic RF on NIPPV Obesity BMI 31 DM 2 on OHA PLAN: BIPAP< pulmo ADA SSI SOlu 40 IV q 8 COugh med, nebs ABG maybe tmr or later tpday - recheck Response of Co2 to bipap HOme meds I have reconciled SMOking cessation 1:1 done < 30 mins ROHINI FRANCIS MD May 28, 2018 09:19
[2018-05-28] MEDS ORDERED: DULoxetine HCL 30 MG CAPSULE.DR PO SCH (09:30)
--- NOTE | 2018-05-28 09:43 | EKG ---
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
[2018-05-28] MEDS: ASPIRIN ENTERIC COATED 81 MG TABLET.DR. PO SCH (09:52)
[2018-05-28] MEDS: glipiZIDE 5 MG TABLET PO SCH ×2 (09:52→16:43)
[2018-05-28] MEDS: BENZONATATE 100 MG CAPSULE. PO SCH ×3 (09:52→20:43)
[2018-05-28] MEDS: metFORMIN 500 MG TABLET PO SCH ×2 (09:52→16:43)
[2018-05-28] MEDS: DULoxetine HCL 30 MG CAPSULE.DR PO SCH (10:11)
[2018-05-28] MEDS: methylPREDNISolone SOD SUCC PF 40 MG/ML VIAL. IV SCH ×2 (10:47→22:17)
[2018-05-28 10:52] VITALS: BP 135/77
[2018-05-28] MEDS: IPRATRPIUM/ALBUTEROL 0.5/2.5MG 3 ML NEBU. NEB SCH ×3 (11:48→20:13)
[2018-05-28] MEDS: INSULIN LISPRO 300 UNITS/3 ML INSULN.PEN. SQ SCH ×2 (12:29→16:47)
--- NOTE | 2018-05-28 13:59 | PDOC ---
PULMONARY PROGRESS NOTES Vitals Vital Signs Date Time Temp Pulse Resp B/P (MAP) Pulse Ox O2 Delivery O2 Flow Rate FiO2 05/28/18 12:53 94 BiPAP/CPAP 05/28/18 10:52 97.5 107 21 135/77 (96) 97.5 05/28/18 08:00 12.0 Cardiovascular: S1, S2, Other (sinus tachy) Labs Laboratory Tests Test 05/28/18 01:00 05/28/18 01:09 05/28/18 12:16 05/28/18 12:20 O2 Saturation 93 % (92-99) Arterial Blood pH 7.27 (7.35-7.45) Arterial Blood pCO2 at Patient Temp 68 mmHg (35-46) Arterial Blood pO2 at Patient Temp 75 mmHg (65-108) Arterial Blood HCO3 31 mmol/L (21-28) Arterial Blood Base Excess 1 mmol/L (-3-3) Oxyhemoglobin 91.8 % Methemoglobin 0.1 % (0.0-1.9) Carbon Monoxide, Quantitative 1.5 % (0.0-1.9) FiO2 50 White Blood Count 10.9 x10^3/uL (4.0-11.0) Red Blood Count 5.50 x10^6/uL (3.50-5.40) Hemoglobin 16.2 g/dL (12.0-15.5) Hematocrit 48.5 % (36.0-47.0) Mean Corpuscular Volume 88 fL (79-100) Mean Corpuscular Hemoglobin 30 pg (25-35) Mean Corpuscular Hemoglobin Concent 33 g/dL (31-37) Red Cell Distribution Width 14.2 % (11.5-14.5) Platelet Count 160 x10^3/uL (140-400) Neutrophils (%) (Auto) 88 % (31-73) Lymphocytes (%) (Auto) 5 % (24-48) Monocytes (%) (Auto) 7 % (0-9) Eosinophils (%) (Auto) 0 % (0-3) Basophils (%) (Auto) 0 % (0-3) Neutrophils # (Auto) 9.6 x10^3uL (1.8-7.7) Lymphocytes # (Auto) 0.5 x10^3/uL (1.0-4.8) Monocytes # (Auto) 0.8 x10^3/uL (0.0-1.1) Eosinophils # (Auto) 0.0 x10^3/uL (0.0-0.7) Basophils # (Auto) 0.0 x10^3/uL (0.0-0.2) Segmented Neutrophils % 82 % (35-66) Band Neutrophils % 12 % (0-9) Lymphocytes % 3 % (24-48) Monocytes % 3 % (0-10) Platelet Estimate Adequate (ADEQUATE) Prothrombin Time 14.5 SEC (11.7-14.0) Prothromb Time International Ratio 1.2 (0.8-1.1) Sodium Level 135 mmol/L (136-145) Potassium Level 3.8 mmol/L (3.5-5.1) Chloride Level 93 mmol/L (98-107) Carbon Dioxide Level 31 mmol/L (21-32) Anion Gap 11 (6-14) Blood Urea Nitrogen 9 mg/dL (7-20) Creatinine 0.8 mg/dL (0.6-1.0) Estimated GFR (Cockcroft-Gault) 72.0 BUN/Creatinine Ratio 11 (6-20) Glucose Level 300 mg/dL (70-99) Calcium Level 9.1 mg/dL (8.5-10.1) Magnesium Level 2.1 mg/dL (1.8-2.4) Total Bilirubin 0.7 mg/dL (0.2-1.0) Aspartate Amino Transf (AST/SGOT) 46 U/L (15-37) Alanine Aminotransferase (ALT/SGPT) 30 U/L (14-59) Alkaline Phosphatase 116 U/L (46-116) Creatine Kinase 1178 U/L (26-192) Creatine Kinase MB (Mass) 12.3 ng/mL (0.0-3.6) Creatine Kinase MB Relative Index 1.0 % (0-4) Troponin I Quantitative 0.083 ng/mL (0.000-0.055) 0.102 ng/mL (0.000-0.055) JX-Vpe-I-Type Natriuretic Peptide 2981 pg/mL (0-124) Total Protein 7.2 g/dL (6.4-8.2) Albumin 3.7 g/dL (3.4-5.0) Albumin/Globulin Ratio 1.1 (1.0-1.7) Lipase 38 U/L (73-393) Glucose (Fingerstick) 312 mg/dL (70-99) Laboratory Tests Test 05/28/18 01:00 05/28/18 01:09 05/28/18 12:16 05/28/18 12:20 O2 Saturation 93 % (92-99) Arterial Blood pH 7.27 (7.35-7.45) Arterial Blood pCO2 at Patient Temp 68 mmHg (35-46) Arterial Blood pO2 at Patient Temp 75 mmHg (65-108) Arterial Blood HCO3 31 mmol/L (21-28) Arterial Blood Base Excess 1 mmol/L (-3-3) Oxyhemoglobin 91.8 % Methemoglobin 0.1 % (0.0-1.9) Carbon Monoxide, Quantitative 1.5 % (0.0-1.9) FiO2 50 White Blood Count 10.9 x10^3/uL (4.0-11.0) Red Blood Count 5.50 x10^6/uL (3.50-5.40) Hemoglobin 16.2 g/dL (12.0-15.5) Hematocrit 48.5 % (36.0-47.0) Mean Corpuscular Volume 88 fL (79-100) Mean Corpuscular Hemoglobin 30 pg (25-35) Mean Corpuscular Hemoglobin Concent 33 g/dL (31-37) Red Cell Distribution Width 14.2 % (11.5-14.5) Platelet Count 160 x10^3/uL (140-400) Neutrophils (%) (Auto) 88 % (31-73) Lymphocytes (%) (Auto) 5 % (24-48) Monocytes (%) (Auto) 7 % (0-9) Eosinophils (%) (Auto) 0 % (0-3) Basophils (%) (Auto) 0 % (0-3) Neutrophils # (Auto) 9.6 x10^3uL (1.8-7.7) Lymphocytes # (Auto) 0.5 x10^3/uL (1.0-4.8) Monocytes # (Auto) 0.8 x10^3/uL (0.0-1.1) Eosinophils # (Auto) 0.0 x10^3/uL (0.0-0.7) Basophils # (Auto) 0.0 x10^3/uL (0.0-0.2) Segmented Neutrophils % 82 % (35-66) Band Neutrophils % 12 % (0-9) Lymphocytes % 3 % (24-48) Monocytes % 3 % (0-10) Platelet Estimate Adequate (ADEQUATE) Prothrombin Time 14.5 SEC (11.7-14.0) Prothromb Time International Ratio 1.2 (0.8-1.1) Sodium Level 135 mmol/L (136-145) Potassium Level 3.8 mmol/L (3.5-5.1) Chloride Level 93 mmol/L (98-107) Carbon Dioxide Level 31 mmol/L (21-32) Anion Gap 11 (6-14) Blood Urea Nitrogen 9 mg/dL (7-20) Creatinine 0.8 mg/dL (0.6-1.0) Estimated GFR (Cockcroft-Gault) 72.0 BUN/Creatinine Ratio 11 (6-20) Glucose Level 300 mg/dL (70-99) Calcium Level 9.1 mg/dL (8.5-10.1) Magnesium Level 2.1 mg/dL (1.8-2.4) Total Bilirubin 0.7 mg/dL (0.2-1.0) Aspartate Amino Transf (AST/SGOT) 46 U/L (15-37) Alanine Aminotransferase (ALT/SGPT) 30 U/L (14-59) Alkaline Phosphatase 116 U/L (46-116) Creatine Kinase 1178 U/L (26-192) Creatine Kinase MB (Mass) 12.3 ng/mL (0.0-3.6) Creatine Kinase MB Relative Index 1.0 % (0-4) Troponin I Quantitative 0.083 ng/mL (0.000-0.055) 0.102 ng/mL (0.000-0.055) HN-Iqo-R-Type Natriuretic Peptide 2981 pg/mL (0-124) Total Protein 7.2 g/dL (6.4-8.2) Albumin 3.7 g/dL (3.4-5.0) Albumin/Globulin Ratio 1.1 (1.0-1.7) Lipase 38 U/L (73-393) Glucose (Fingerstick) 312 mg/dL (70-99) Medications Active Scripts Medications Dose Route/Sig Max Daily Dose Days Date Category Duloxetine Hcl 30 Mg Capsule. 30 DAILY 05/28/18 Reported Duloxetine Hcl 60 Mg Capsule.dr 60 DAILY 05/28/18 Reported Metformin Hcl 1,000 Mg Tablet 1,000 BID 05/28/18 Reported Milk Thistle 500 Mg Capsule 2,000 Mg PO DAILY 05/10/16 Reported Aspir 81 (Aspirin) 81 Mg Tablet.dr 1 Tab PO DAILY 05/10/16 Reported Atorvastatin Calcium 20 Mg Tablet 1 Tab PO QHS 05/10/16 Reported Glipizide 5 Mg Tablet 1 Tab PO BID 05/10/16 Reported Impression . A/C RESP FAILURE AECOPD SEE ORDERS THANKS HOLA RAIN MD May 28, 2018 13:59
[2018-05-28 15:37] VITALS: BP 143/73
[2018-05-28 19:00] VITALS: BP 155/74
[2018-05-28] MEDS: ATORVASTATIN CALCIUM 20 MG TABLET PO SCH (20:43)
[2018-05-28] MEDS: MONTELUKAST SODIUM 10 MG TABLET. PO SCH (20:43)
[2018-05-28] MEDS ORDERED: INSULIN LISPRO 300 UNITS/3 ML INSULN.PEN. SQ ONE (22:15)
[2018-05-28] MEDS ORDERED: ZOLP10TA4 PO (22:16)
[2018-05-28] MEDS ORDERED: CLON1TAB11 PO (22:16)
[2018-05-28] MEDS: diphenhydrAMINE HCL 25 MG CAPSULE PO PRN (22:17)
[2018-05-28 23:00] VITALS: BP 125/69
[2018-05-29 03:00] VITALS: BP 98/79
[2018-05-29] MEDS: MORPHINE SULFATE 2 MG/ML VIAL. IV PRN ×4 (03:30→11:00)
[2018-05-29] MEDS: oxyCODONE/APAP 5/325 1 TAB TABLET PO PRN ×2 (05:35→13:42)
[2018-05-29] MEDS: methylPREDNISolone SOD SUCC PF 40 MG/ML VIAL. IV SCH ×3 (05:35→20:34)
[2018-05-29 07:00] VITALS: BP 164/50
[2018-05-29] MEDS: glipiZIDE 5 MG TABLET PO SCH ×2 (07:52→16:42)
[2018-05-29] MEDS ORDERED: DULOXETINE HCL SCH (09:00)
[2018-05-29] MEDS ORDERED: MILK THISTLE PO SCH (09:00)
--- NOTE | 2018-05-29 09:02 | PDOC ---
PULMONARY PROGRESS NOTES Subjective PT FEELS BETTER OFF BIPAP NOW ON 3 LITERS Vitals Vital Signs Date Time Temp Pulse Resp B/P (MAP) Pulse Ox O2 Delivery O2 Flow Rate FiO2 05/29/18 07:56 22 BiPAP/CPAP 05/29/18 07:00 97.4 85 164/50 (88) 98 97.4 05/28/18 22:50 20.0 ROS: No Nausea, No Chest Pain, No Increase Cough Lungs: Other (POOR AIRFLOW) Cardiovascular: S1, S2, Other (sinus tachy) Abdomen: Soft Neuro Exam: Alert Extremities: No Edema Skin: Warm Labs Laboratory Tests Test 05/28/18 01:00 05/28/18 01:09 05/28/18 12:16 05/28/18 12:20 O2 Saturation 93 % (92-99) Arterial Blood pH 7.27 (7.35-7.45) Arterial Blood pCO2 at Patient Temp 68 mmHg (35-46) Arterial Blood pO2 at Patient Temp 75 mmHg (65-108) Arterial Blood HCO3 31 mmol/L (21-28) Arterial Blood Base Excess 1 mmol/L (-3-3) Oxyhemoglobin 91.8 % Methemoglobin 0.1 % (0.0-1.9) Carbon Monoxide, Quantitative 1.5 % (0.0-1.9) FiO2 50 White Blood Count 10.9 x10^3/uL (4.0-11.0) Red Blood Count 5.50 x10^6/uL (3.50-5.40) Hemoglobin 16.2 g/dL (12.0-15.5) Hematocrit 48.5 % (36.0-47.0) Mean Corpuscular Volume 88 fL (79-100) Mean Corpuscular Hemoglobin 30 pg (25-35) Mean Corpuscular Hemoglobin Concent 33 g/dL (31-37) Red Cell Distribution Width 14.2 % (11.5-14.5) Platelet Count 160 x10^3/uL (140-400) Neutrophils (%) (Auto) 88 % (31-73) Lymphocytes (%) (Auto) 5 % (24-48) Monocytes (%) (Auto) 7 % (0-9) Eosinophils (%) (Auto) 0 % (0-3) Basophils (%) (Auto) 0 % (0-3) Neutrophils # (Auto) 9.6 x10^3uL (1.8-7.7) Lymphocytes # (Auto) 0.5 x10^3/uL (1.0-4.8) Monocytes # (Auto) 0.8 x10^3/uL (0.0-1.1) Eosinophils # (Auto) 0.0 x10^3/uL (0.0-0.7) Basophils # (Auto) 0.0 x10^3/uL (0.0-0.2) Segmented Neutrophils % 82 % (35-66) Band Neutrophils % 12 % (0-9) Lymphocytes % 3 % (24-48) Monocytes % 3 % (0-10) Platelet Estimate Adequate (ADEQUATE) Prothrombin Time 14.5 SEC (11.7-14.0) Prothromb Time International Ratio 1.2 (0.8-1.1) Sodium Level 135 mmol/L (136-145) Potassium Level 3.8 mmol/L (3.5-5.1) Chloride Level 93 mmol/L (98-107) Carbon Dioxide Level 31 mmol/L (21-32) Anion Gap 11 (6-14) Blood Urea Nitrogen 9 mg/dL (7-20) Creatinine 0.8 mg/dL (0.6-1.0) Estimated GFR (Cockcroft-Gault) 72.0 BUN/Creatinine Ratio 11 (6-20) Glucose Level 300 mg/dL (70-99) Calcium Level 9.1 mg/dL (8.5-10.1) Magnesium Level 2.1 mg/dL (1.8-2.4) Total Bilirubin 0.7 mg/dL (0.2-1.0) Aspartate Amino Transf (AST/SGOT) 46 U/L (15-37) Alanine Aminotransferase (ALT/SGPT) 30 U/L (14-59) Alkaline Phosphatase 116 U/L (46-116) Creatine Kinase 1178 U/L (26-192) Creatine Kinase MB (Mass) 12.3 ng/mL (0.0-3.6) Creatine Kinase MB Relative Index 1.0 % (0-4) Troponin I Quantitative 0.083 ng/mL (0.000-0.055) 0.102 ng/mL (0.000-0.055) ES-Cfx-O-Type Natriuretic Peptide 2981 pg/mL (0-124) Total Protein 7.2 g/dL (6.4-8.2) Albumin 3.7 g/dL (3.4-5.0) Albumin/Globulin Ratio 1.1 (1.0-1.7) Lipase 38 U/L (73-393) Glucose (Fingerstick) 312 mg/dL (70-99) Test 05/28/18 16:39 05/28/18 18:15 05/28/18 21:00 05/29/18 00:01 Glucose (Fingerstick) 201 mg/dL (70-99) 148 mg/dL (70-99) Troponin I Quantitative 0.104 ng/mL (0.000-0.055) 0.097 ng/mL (0.000-0.055) Laboratory Tests Test 05/28/18 12:16 05/28/18 12:20 05/28/18 16:39 05/28/18 18:15 Glucose (Fingerstick) 312 mg/dL (70-99) 201 mg/dL (70-99) Troponin I Quantitative 0.102 ng/mL (0.000-0.055) 0.104 ng/mL (0.000-0.055) Test 05/28/18 21:00 05/29/18 00:01 Glucose (Fingerstick) 148 mg/dL (70-99) Troponin I Quantitative 0.097 ng/mL (0.000-0.055) Medications Active Scripts Medications Dose Route/Sig Max Daily Dose Days Date Category Duloxetine Hcl 30 Mg Capsule.dr 30 DAILY 05/28/18 Reported Duloxetine Hcl 60 Mg Capsule.dr 60 DAILY 05/28/18 Reported Metformin Hcl 1,000 Mg Tablet 1,000 BID 05/28/18 Reported Milk Thistle 500 Mg Capsule 2,000 Mg PO DAILY 05/10/16 Reported Aspir 81 (Aspirin) 81 Mg Tablet.dr 1 Tab PO DAILY 05/10/16 Reported Atorvastatin Calcium 20 Mg Tablet 1 Tab PO QHS 05/10/16 Reported Glipizide 5 Mg Tablet 1 Tab PO BID 05/10/16 Reported Impression . IMPRESSION: 1. Acute on chronic hypoxemic hypercapnic respiratory failure. 2. Acute exacerbation of chronic obstructive pulmonary disease. 3. Polycythemia, suspect secondary to chronic hypoxemia. 4. Tobacco dependence. 5. Obesity. Plan . PRN BIPAP D/C SMOKING 6 MW PRIOR TO D/C RESP STATUS SIGHTLY BETTER TODAY 1. The patient will continue BiPAP. 2. Steroids. 3. The patient instructed on the importance of discontinuing tobacco use. 4. Add Singulair for possible allergies. 5. Nebulized treatments. 6. DVT and GI prophylaxis. HOLA RAIN MD May 29, 2018 09:02
--- NOTE | 2018-05-29 09:05 | PDOC ---
PROGRESS NOTES Chief Complaint Chief Complaint Acute bronchitis COPD exacerbation 2 pack a day smoker Acute Hypercapneic RF on NIPPV Obesity BMI 31 DM 2 on OHA History of Present Illness History of Present Illness Ms Woods is a 2 pack a day smoker, 3 day hx productive cough, no fever, severe sob, even just walking to bathroom, CXR no infiltrates, but needing BIPAP for ABG pH 7.27 Co2 68, O2 good - NO recent sick contacts/travel. Seen by pulmonology. On BIPAP almost 36 hours, off BIPAP now. Still with severe wheezing. Unable to expectorate well. Plan: Aggressive pulm toileting Nicotine patch Vitals Vitals Vital Signs Date Time Temp Pulse Resp B/P (MAP) Pulse Ox O2 Delivery O2 Flow Rate FiO2 05/29/18 07:56 22 BiPAP/CPAP 05/29/18 07:00 97.4 85 164/50 (88) 98 97.4 05/28/18 22:50 20.0 Physical Exam General: Alert, Oriented X3, Cooperative, No acute distress Extremities: No clubbing, No cyanosis, No edema, Normal pulses, No tenderness/ swelling Skin: No rashes, No breakdown, No significant lesion Labs LABS Laboratory Tests Test 05/28/18 12:16 05/28/18 12:20 05/28/18 16:39 05/28/18 18:15 Glucose (Fingerstick) 312 mg/dL (70-99) 201 mg/dL (70-99) Troponin I Quantitative 0.102 ng/mL (0.000-0.055) 0.104 ng/mL (0.000-0.055) Test 05/28/18 21:00 05/29/18 00:01 Glucose (Fingerstick) 148 mg/dL (70-99) Troponin I Quantitative 0.097 ng/mL (0.000-0.055) Assessment and Plan Assessmemt and Plan Problems Medical Problems: (1) COPD exacerbation Status: Acute Comment Review of Relevant I have reviewed the following items staci (where applicable) has been applied. Labs Laboratory Tests Test 05/28/18 01:00 05/28/18 01:09 05/28/18 12:16 05/28/18 12:20 O2 Saturation 93 % (92-99) Arterial Blood pH 7.27 (7.35-7.45) Arterial Blood pCO2 at Patient Temp 68 mmHg (35-46) Arterial Blood pO2 at Patient Temp 75 mmHg (65-108) Arterial Blood HCO3 31 mmol/L (21-28) Arterial Blood Base Excess 1 mmol/L (-3-3) Oxyhemoglobin 91.8 % Methemoglobin 0.1 % (0.0-1.9) Carbon Monoxide, Quantitative 1.5 % (0.0-1.9) FiO2 50 White Blood Count 10.9 x10^3/uL (4.0-11.0) Red Blood Count 5.50 x10^6/uL (3.50-5.40) Hemoglobin 16.2 g/dL (12.0-15.5) Hematocrit 48.5 % (36.0-47.0) Mean Corpuscular Volume 88 fL (79-100) Mean Corpuscular Hemoglobin 30 pg (25-35) Mean Corpuscular Hemoglobin Concent 33 g/dL (31-37) Red Cell Distribution Width 14.2 % (11.5-14.5) Platelet Count 160 x10^3/uL (140-400) Neutrophils (%) (Auto) 88 % (31-73) Lymphocytes (%) (Auto) 5 % (24-48) Monocytes (%) (Auto) 7 % (0-9) Eosinophils (%) (Auto) 0 % (0-3) Basophils (%) (Auto) 0 % (0-3) Neutrophils # (Auto) 9.6 x10^3uL (1.8-7.7) Lymphocytes # (Auto) 0.5 x10^3/uL (1.0-4.8) Monocytes # (Auto) 0.8 x10^3/uL (0.0-1.1) Eosinophils # (Auto) 0.0 x10^3/uL (0.0-0.7) Basophils # (Auto) 0.0 x10^3/uL (0.0-0.2) Segmented Neutrophils % 82 % (35-66) Band Neutrophils % 12 % (0-9) Lymphocytes % 3 % (24-48) Monocytes % 3 % (0-10) Platelet Estimate Adequate (ADEQUATE) Prothrombin Time 14.5 SEC (11.7-14.0) Prothromb Time International Ratio 1.2 (0.8-1.1) Sodium Level 135 mmol/L (136-145) Potassium Level 3.8 mmol/L (3.5-5.1) Chloride Level 93 mmol/L (98-107) Carbon Dioxide Level 31 mmol/L (21-32) Anion Gap 11 (6-14) Blood Urea Nitrogen 9 mg/dL (7-20) Creatinine 0.8 mg/dL (0.6-1.0) Estimated GFR (Cockcroft-Gault) 72.0 BUN/Creatinine Ratio 11 (6-20) Glucose Level 300 mg/dL (70-99) Calcium Level 9.1 mg/dL (8.5-10.1) Magnesium Level 2.1 mg/dL (1.8-2.4) Total Bilirubin 0.7 mg/dL (0.2-1.0) Aspartate Amino Transf (AST/SGOT) 46 U/L (15-37) Alanine Aminotransferase (ALT/SGPT) 30 U/L (14-59) Alkaline Phosphatase 116 U/L (46-116) Creatine Kinase 1178 U/L (26-192) Creatine Kinase MB (Mass) 12.3 ng/mL (0.0-3.6) Creatine Kinase MB Relative Index 1.0 % (0-4) Troponin I Quantitative 0.083 ng/mL (0.000-0.055) 0.102 ng/mL (0.000-0.055) MT-Faa-H-Type Natriuretic Peptide 2981 pg/mL (0-124) Total Protein 7.2 g/dL (6.4-8.2) Albumin 3.7 g/dL (3.4-5.0) Albumin/Globulin Ratio 1.1 (1.0-1.7) Lipase 38 U/L (73-393) Glucose (Fingerstick) 312 mg/dL (70-99) Test 05/28/18 16:39 05/28/18 18:15 05/28/18 21:00 05/29/18 00:01 Glucose (Fingerstick) 201 mg/dL (70-99) 148 mg/dL (70-99) Troponin I Quantitative 0.104 ng/mL (0.000-0.055) 0.097 ng/mL (0.000-0.055) Laboratory Tests Test 05/28/18 12:16 05/28/18 12:20 05/28/18 16:39 05/28/18 18:15 Glucose (Fingerstick) 312 mg/dL (70-99) 201 mg/dL (70-99) Troponin I Quantitative 0.102 ng/mL (0.000-0.055) 0.104 ng/mL (0.000-0.055) Test 05/28/18 21:00 05/29/18 00:01 Glucose (Fingerstick) 148 mg/dL (70-99) Troponin I Quantitative 0.097 ng/mL (0.000-0.055) Medications Current Medications Aspirin (Linnette Aspirin) 325 mg 1X ONCE PO Last administered on 05/28/18at 01:34 ; Start 05/28/18 at 01:30; Stop 05/28/18 at 01:31; Status DC Albuterol/ Ipratropium (Duoneb) 3 ml 1X ONCE NEB Last administered on at 01:15; Start 05/28/18 at 01:30; Stop 05/28/18 at 01:31; Status DC Methylprednisolone Sodium Succinate (SOLU-Medrol 125MG VIAL) 125 mg 1X ONCE IV Last administered on 05/28/18at 01:34; Start 05/28/18 at 01:30; Stop 05/28/18 at 01:31; Status DC Ondansetron HCl (Zofran) 4 mg PRN Q8HRS PRN IV NAUSEA/VOMITING 1ST CHOICE; Start 05/28/18 at 01:45; Stop 05/29/18 at 01:44; Status DC Morphine Sulfate (Morphine Sulfate) 2 mg PRN Q2HR PRN IV SEVERE PAIN Last administered on 05/28/18at 22:18; Start 05/28/18 at 01:45; Stop 05/29/18 at 01:44 ; Status DC Sodium Chloride 1,000 ml @ 75 mls/hr [id number] IV Last administered on at 03:39; Start 05/28/18 at 01:42; Stop 05/28/18 at 09:17; Status DC Nitroglycerin (Nitrostat) 0.4 mg PRN Q5MIN PRN SL CHEST PAIN; Start 05/28/18 at 01:45; Stop 05/29/18 at 01:44; Status DC Albuterol/ Ipratropium (Duoneb) 3 ml RTQID NEB Last administered on 05/28/18 08:19; Start 05/28/18 at 08:00; Stop 05/28/18 at 10:28; Status DC Aspirin (Ecotrin) 81 mg DAILY PO Last administered on 05/28/18at 09:52; Start at 09:30 Atorvastatin Calcium (Lipitor) 20 mg QHS PO Last administered on 05/28/18at 20: 43; Start 05/28/18 at 21:00 Duloxetine HCl (Cymbalta) 30 mg DAILY PO ; Start 05/28/18 at 09:30; Stop at 09:43; Status DC Glipizide (Glucotrol) 5 mg BIDAC PO Last administered on 05/29/18at 07:52; Start 05/28/18 at 09:30 Non-Formulary Medication (Duloxetine Hcl ) 60 % DAILY .ROUTE ; Start 05/29/18 at 09:00; Stop 05/29/18 at 09:00; Status DC Metformin HCl (Glucophage) 1,000 mg BIDWMEALS PO Last administered on 16:43; Start 05/28/18 at 09:30 Non-Formulary Medication (Milk Thistle ) 2,000 mg DAILY PO ; Start 05/29/18 at 09 :00; Status UNV Albuterol/ Ipratropium (Duoneb) 3 ml RTQID NEB Last administered on 05/28/18at 20:13; Start 05/28/18 at 12:00 Benzonatate (Tessalon Perle) 100 mg [id number] PO Last administered on 05/28/18at 20 :43; Start 05/28/18 at 09:30 Guaifenesin (Robitussin Dm) 10 ml PRN Q6HRS PRN PO COUGH; Start 05/28/18 at 09: 15 Diphenhydramine HCl (Benadryl) 25 mg PRN QHS PRN PO INSOMNIA Last administered on 05/28/18at 22:17; Start 05/28/18 at 09:15 Albuterol Sulfate (Ventolin Neb Soln) 2.5 mg PRN Q4HRS PRN NEB SHORTNESS OF BREATH; Start 05/28/18 at 09:15 Throat Lozenges (Cepacol Sore Throat Lozenge) 1 tracy PRN Q2HRS PRN PO SORE THROAT; Start 05/28/18 at 09:15 Methylprednisolone Sodium Succinate (SOLU-Medrol 40MG VIAL) 40 mg Q8HRS IV Last administered on 05/29/18at 05:35; Start 05/28/18 at 11:00 Insulin Human Lispro (HumaLOG) 0-9 UNITS TIDWMEALS SQ Last administered on 05/28at 16:47; Start 05/28/18 at 12:00 Dextrose (Dextrose 50%-Water Syringe) 12.5 gm PRN Q15MIN PRN IV SEE COMMENTS; Start 05/28/18 at 09:15 Duloxetine HCl (Cymbalta) 120 mg DAILY PO Last administered on 05/28/18at 10:11 ; Start 05/28/18 at 10:00 Montelukast Sodium (Singulair) 10 mg QHS PO Last administered on 05/28/18at 20: 43; Start 05/28/18 at 21:00 Insulin Human Lispro (HumaLOG) 3 units 1X ONCE SQ ; Start 05/28/18 at 22:15; Stop 05/28/18 at 22:16; Status Cancel Oxycodone/ Acetaminophen (Percocet 5/325) 1 tab PRN Q6HRS PRN PO SEVERE PAIN Last administered on 05/29/18at 05:35; Start 05/29/18 at 03:15 Morphine Sulfate (Morphine Sulfate) 2 mg PRN Q2HR PRN IV SEVERE PAIN Last administered on 05/29/18at 07:56; Start 05/29/18 at 03:15 Active Scripts Active Reported Zolpidem Tartrate 10 Mg Tablet 10 Mg PO HS Clonazepam 1 Mg Tablet 1 Mg PO TID MDD 3mg Duloxetine Hcl 30 Mg Capsule. 30 DAILY Duloxetine Hcl 60 Mg Capsule.dr 60 DAILY Metformin Hcl 1,000 Mg Tablet 1,000 BID Milk Thistle 500 Mg Capsule 2,000 Mg PO DAILY Aspir 81 (Aspirin) 81 Mg Tablet. 1 Tab PO DAILY Atorvastatin Calcium 20 Mg Tablet 1 Tab PO QHS Glipizide 5 Mg Tablet 1 Tab PO BID Vitals/I & O Vital Sign - Last 24 Hours 05/28/18 05/28/18 05/28/18 3/31/19 10:52 11:44 12:53 15:37 Temp 97.5 97.3 97.5 97.3 Pulse 107 63 Resp 21 27 B/P (MAP) 135/77 (96) 143/73 (96) Pulse Ox 92 94 94 92 O2 Delivery BiPAP/CPAP BiPAP/CPAP BiPAP/CPAP BiPAP/CPAP 05/28/18 05/28/18 05/28/18 05/28/18 16:12 19:00 20:13 20:30 Temp 99.6 99.6 Pulse 99 Resp 27 B/P (MAP) 155/74 (101) Pulse Ox 95 92 96 O2 Delivery BiPAP/CPAP BiPAP/CPAP BiPAP/CPAP Bi-pap O2 Flow Rate 20.0 05/28/18 05/28/18 05/28/18 05/28/18 22:18 22:50 23:00 23:35 Temp 98.0 98.0 Pulse 90 Resp 18 B/P (MAP) 125/69 (87) Pulse Ox 96 98 O2 Delivery BiPAP/CPAP BiPAP/CPAP BiPAP/CPAP BiPAP/CPAP O2 Flow Rate 20.0 20.0 05/29/18 05/29/18 05/29/18 05/29/18 01:30 03:00 03:30 04:27 Temp 98.9 98.9 Pulse 102 Resp 16 B/P (MAP) 98/79 (85) Pulse Ox 97 98 99 O2 Delivery BiPAP/CPAP BiPAP/CPAP BiPAP/CPAP BiPAP/CPAP 05/29/18 05/29/18 05/29/18 05/29/18 05:35 05:35 06:05 06:20 O2 Delivery BiPAP/CPAP BiPAP/CPAP BiPAP/CPAP BiPAP/CPAP 05/29/18 05/29/18 07:00 07:56 Temp 97.4 97.4 Pulse 85 Resp 18 22 B/P (MAP) 164/50 (88) Pulse Ox 98 O2 Delivery BiPAP/CPAP BiPAP/CPAP TEODORO BETTENCOURT MD May 29, 2018 09:05
[2018-05-29] MEDS: metFORMIN 500 MG TABLET PO SCH ×2 (09:21→16:42)
[2018-05-29] MEDS: DULoxetine HCL 30 MG CAPSULE.DR PO SCH (09:21)
[2018-05-29] MEDS: BENZONATATE 100 MG CAPSULE. PO SCH ×3 (09:21→20:34)
[2018-05-29] MEDS: ASPIRIN ENTERIC COATED 81 MG TABLET.DR. PO SCH (09:21)
[2018-05-29] MEDS: IPRATRPIUM/ALBUTEROL 0.5/2.5MG 3 ML NEBU. NEB SCH ×4 (09:26→19:14)
[2018-05-29] MEDS: guaiFENesin DM 200MG/20MG 10 ML SYRUP PO PRN ×2 (10:06→15:50)
[2018-05-29] MEDS: INSULIN LISPRO 300 UNITS/3 ML INSULN.PEN. SQ SCH ×3 (10:11→16:59)
[2018-05-29] MEDS: NICOTINE 21MG PATCH. TD SCH (10:14)
[2018-05-29 11:00] VITALS: BP 155/45
--- NOTE | 2018-05-29 11:13 | CONS ---
DATE OF CONSULTATION: 05/28/2018 ATTENDING PHYSICIAN: Dr. Green. REASON FOR CONSULTATION: The patient is seen in pulmonary consultation at the request of Dr. Green for acute on chronic hypoxemic hypercapnic respiratory failure. HISTORY OF PRESENT ILLNESS: The patient is a 63-year-old with COPD, continued to smoke up to 2 packs a day, increasing shortness of breath, cough productive of some discolored sputum. No fever or chills. She normally does not wear oxygen at home. She presented with the above complaint. She had an arterial blood gas revealing a pH of 7.27, PaCO2 of 68, pO2 of 75. She is on BiPAP. She is awake, alert, following commands. Denies any hemoptysis. She normally follows a primary care doctor at [facility]. PAST MEDICAL HISTORY: Tobacco dependence, COPD, suspect severe chronic bronchitis, type 2 diabetes. PAST SURGICAL HISTORY: None. FAMILY HISTORY: No family history of early lung disorders. SOCIAL HISTORY: She continues to smoke. ALLERGIES: No known drug allergies. REVIEW OF SYSTEMS: As indicated above, otherwise, a 10-point system was reviewed and negative. PHYSICAL EXAMINATION: VITAL SIGNS: Stable. O2 saturation greater than 92%, currently on BiPAP. HEENT: Eyes, the sclerae were nonicteric. NECK: Jugular venous distention was not elevated. No lymphadenopathy. CHEST: Full expansion. LUNGS: Poor airway flow with expiratory wheeze. CARDIOVASCULAR: Regular rate and rhythm with S1, S2. No S3. ABDOMEN: Soft, nontender, nondistended. EXTREMITIES: No clubbing, cyanosis or edema. NEUROLOGIC: The patient was awake, alert, following commands. A detailed neuro exam was not performed. LABORATORY DATA: Reviewed. White count was 10,000, hemoglobin 16, hematocrit of 48, platelet count was 160. Electrolytes were noted. Sodium was low. Arterial blood gas as indicated above. IMPRESSION: 1. Acute on chronic hypoxemic hypercapnic respiratory failure. 2. Acute exacerbation of chronic obstructive pulmonary disease. 3. Polycythemia, suspect secondary to chronic hypoxemia. 4. Tobacco dependence. 5. Obesity. PLAN: 1. The patient will continue BiPAP. 2. Steroids. 3. The patient instructed on the importance of discontinuing tobacco use. 4. Add Singulair for possible allergies. 5. Nebulized treatments. 6. DVT and GI prophylaxis. I do appreciate the privilege in sharing in the patient's care. HOLA RAIN MD DR: JENNIFER/gio JOB#: [id number] / [id number]
[2018-05-29 15:00] VITALS: BP 125/61
--- NOTE | 2018-05-29 16:38 | NUR ---
SW following for discharge planning. Discussed with RN, pt is from home was on bipap this morning, however is now on 3L NC. Pt does not have oxygen at home currently. SW will continue to follow for discharge planning.
[2018-05-29 19:00] VITALS: BP 167/71
[2018-05-29] MEDS: MONTELUKAST SODIUM 10 MG TABLET. PO SCH (20:34)
[2018-05-29] MEDS: ATORVASTATIN CALCIUM 20 MG TABLET PO SCH (20:34)
[2018-05-29] MEDS: diphenhydrAMINE HCL 25 MG CAPSULE PO PRN (20:58)
[2018-05-29] MEDS: ZOLPIDEM 5 MG TABLET. PO PRN (21:18)
[2018-05-29 23:00] VITALS: BP 135/63
[2018-05-30 03:00] VITALS: BP 129/66
[2018-05-30] MEDS: guaiFENesin DM 200MG/20MG 10 ML SYRUP PO PRN (03:21)
[2018-05-30] MEDS: oxyCODONE/APAP 5/325 1 TAB TABLET PO PRN ×4 (03:22→19:48)
[2018-05-30] MEDS: IPRATRPIUM/ALBUTEROL 0.5/2.5MG 3 ML NEBU. NEB SCH ×4 (07:20→19:34)
[2018-05-30] MEDS: glipiZIDE 5 MG TABLET PO SCH ×2 (07:43→17:09)
[2018-05-30] MEDS: metFORMIN 500 MG TABLET PO SCH ×2 (07:43→17:09)
[2018-05-30 07:51] VITALS: BP 131/99
[2018-05-30] MEDS: INSULIN LISPRO 300 UNITS/3 ML INSULN.PEN. SQ SCH ×3 (07:51→18:24)
[2018-05-30] MEDS: methylPREDNISolone SOD SUCC PF 40 MG/ML VIAL. IV SCH (07:55)
[2018-05-30] MEDS: ASPIRIN ENTERIC COATED 81 MG TABLET.DR. PO SCH (09:12)
[2018-05-30] MEDS: BENZONATATE 100 MG CAPSULE. PO SCH ×3 (09:12→20:37)
[2018-05-30] MEDS: DULoxetine HCL 30 MG CAPSULE.DR PO SCH (09:12)
[2018-05-30] MEDS: NICOTINE 21MG PATCH. TD SCH (09:13)
--- NOTE | 2018-05-30 09:58 | PDOC ---
PROGRESS NOTES Chief Complaint Chief Complaint Acute bronchitis COPD exacerbation 2 pack a day smoker Acute Hypercapneic RF on NIPPV Obesity BMI 31 DM 2 on OHA History of Present Illness History of Present Illness Ms Woods is a 2 pack a day smoker, 3 day hx productive cough, no fever, severe sob, even just walking to bathroom, CXR no infiltrates, but needing BIPAP for ABG pH 7.27 Co2 68, O2 good - NO recent sick contacts/travel. Seen by pulmonology. On BIPAP almost 36 hours, off BIPAP now. Still with severe wheezing. Unable to expectorate well. Overnight was tachycardic, telemetry and EKG with PVCs and sinus tachy. Very small elevation of troponin, likely demand 48 hours ago. Her ABG is better this morning, O2 is still 69 on 3L NCO2 Plan: Aggressive pulm toileting 6 minute walk, likely needs home O2 Nicotine patch D/w pulm, may be ok for home today if O2 status can be assessed and home O2 arranged. Vitals Vitals Vital Signs Date Time Temp Pulse Resp B/P (MAP) Pulse Ox O2 Delivery O2 Flow Rate FiO2 05/30/18 09:14 20 Nasal Cannula 3.0 05/30/18 08:11 95 05/30/18 07:51 98.2 89 131/99 (110) 98.2 Physical Exam General: Alert, Oriented X3, Cooperative, No acute distress Lungs: Other (POOR AIRFLOW) Extremities: No clubbing, No cyanosis, No edema, Normal pulses, No tenderness/ swelling Skin: No rashes, No breakdown, No significant lesion Labs LABS Laboratory Tests Test 05/29/18 11:35 05/29/18 16:49 05/30/18 07:23 Glucose (Fingerstick) 176 mg/dL (70-99) 240 mg/dL (70-99) 187 mg/dL (70-99) Assessment and Plan Assessmemt and Plan Problems Medical Problems: (1) COPD exacerbation Status: Acute Comment Review of Relevant I have reviewed the following items staci (where applicable) has been applied. Labs Laboratory Tests Test 05/28/18 12:16 05/28/18 12:20 05/28/18 16:39 05/28/18 18:15 Glucose (Fingerstick) 312 mg/dL (70-99) 201 mg/dL (70-99) Troponin I Quantitative 0.102 ng/mL (0.000-0.055) 0.104 ng/mL (0.000-0.055) Test 05/28/18 21:00 05/29/18 00:01 05/29/18 09:51 05/29/18 11:35 Glucose (Fingerstick) 148 mg/dL (70-99) 228 mg/dL (70-99) 176 mg/dL (70-99) Troponin I Quantitative 0.097 ng/mL (0.000-0.055) Test 05/29/18 16:49 05/30/18 07:23 Glucose (Fingerstick) 240 mg/dL (70-99) 187 mg/dL (70-99) Laboratory Tests Test 05/29/18 11:35 05/29/18 16:49 05/30/18 07:23 Glucose (Fingerstick) 176 mg/dL (70-99) 240 mg/dL (70-99) 187 mg/dL (70-99) Medications Current Medications Aspirin (Linnette Aspirin) 325 mg 1X ONCE PO Last administered on 05/28/18at 01:34 ; Start 05/28/18 at 01:30; Stop 05/28/18 at 01:31; Status DC Albuterol/ Ipratropium (Duoneb) 3 ml 1X ONCE NEB Last administered on at 01:15; Start 05/28/18 at 01:30; Stop 05/28/18 at 01:31; Status DC Methylprednisolone Sodium Succinate (SOLU-Medrol 125MG VIAL) 125 mg 1X ONCE IV Last administered on 05/28/18at 01:34; Start 05/28/18 at 01:30; Stop 05/28/18 at 01:31; Status DC Ondansetron HCl (Zofran) 4 mg PRN Q8HRS PRN IV NAUSEA/VOMITING 1ST CHOICE; Start 05/28/18 at 01:45; Stop 05/29/18 at 01:44; Status DC Morphine Sulfate (Morphine Sulfate) 2 mg PRN Q2HR PRN IV SEVERE PAIN Last administered on 05/28/18at 22:18; Start 05/28/18 at 01:45; Stop 05/29/18 at 01:44 ; Status DC Sodium Chloride 1,000 ml @ 75 mls/hr [id number] IV Last administered on at 03:39; Start 05/28/18 at 01:42; Stop 05/28/18 at 09:17; Status DC Nitroglycerin (Nitrostat) 0.4 mg PRN Q5MIN PRN SL CHEST PAIN; Start 05/28/18 at 01:45; Stop 05/29/18 at 01:44; Status DC Albuterol/ Ipratropium (Duoneb) 3 ml RTQID NEB Last administered on 05/28/18at 08:19; Start 05/28/18 at 08:00; Stop 05/28/18 at 10:28; Status DC Aspirin (Ecotrin) 81 mg DAILY PO Last administered on 05/30/18 09:12; Start at 09:30 Atorvastatin Calcium (Lipitor) 20 mg QHS PO Last administered on 05/29/18at 20:34 ; Start 05/28/18 at 21:00 Duloxetine HCl (Cymbalta) 30 mg DAILY PO ; Start 05/28/18 at 09:30; Stop at 09:43; Status DC Glipizide (Glucotrol) 5 mg BIDAC PO Last administered on 05/30/18at 07:43; Start 05/28/18 at 09:30 Non-Formulary Medication (Duloxetine Hcl ) 60 % DAILY .ROUTE ; Start 05/29/18 at 09:00; Stop 05/29/18 at 09:00; Status DC Metformin HCl (Glucophage) 1,000 mg BIDWMEALS PO Last administered on 05/30/18at 07:43; Start 05/28/18 at 09:30 Non-Formulary Medication (Milk Thistle ) 2,000 mg DAILY PO ; Start 05/29/18 at 09 :00; Status UNV Albuterol/ Ipratropium (Duoneb) 3 ml RTQID NEB Last administered on 05/30/18at 07 :20; Start 05/28/18 at 12:00 Benzonatate (Tessalon Perle) 100 mg [id number] PO Last administered on 05/30/18at 09: 12; Start 05/28/18 at 09:30 Guaifenesin (Robitussin Dm) 10 ml PRN Q6HRS PRN PO COUGH Last administered on 03:21; Start 05/28/18 at 09:15 Diphenhydramine HCl (Benadryl) 25 mg PRN QHS PRN PO INSOMNIA Last administered on 05/29/18 20:58; Start 05/28/18 at 09:15 Albuterol Sulfate (Ventolin Neb Soln) 2.5 mg PRN Q4HRS PRN NEB SHORTNESS OF BREATH; Start 05/28/18 at 09:15 Throat Lozenges (Cepacol Sore Throat Lozenge) 1 tracy PRN Q2HRS PRN PO SORE THROAT Last administered on 05/29/18 12:02; Start 05/28/18 at 09:15 Methylprednisolone Sodium Succinate (SOLU-Medrol 40MG VIAL) 40 mg Q8HRS IV Last administered on 05/30/18 07:55; Start 05/28/18 at 11:00 Insulin Human Lispro (HumaLOG) 0-9 UNITS TIDWMEALS SQ Last administered on 07:51; Start 05/28/18 at 12:00 Dextrose (Dextrose 50%-Water Syringe) 12.5 gm PRN Q15MIN PRN IV SEE COMMENTS; Start 05/28/18 at 09:15 Duloxetine HCl (Cymbalta) 120 mg DAILY PO Last administered on 05/30/18 09:12; Start 05/28/18 at 10:00 Montelukast Sodium (Singulair) 10 mg QHS PO Last administered on 05/29/18 20:34 ; Start 05/28/18 at 21:00 Insulin Human Lispro (HumaLOG) 3 units 1X ONCE SQ ; Start 05/28/18 at 22:15; Stop 05/28/18 at 22:16; Status Cancel Oxycodone/ Acetaminophen (Percocet 5/325) 1 tab PRN Q6HRS PRN PO SEVERE PAIN Last administered on 05/30/18 09:14; Start 05/29/18 at 03:15 Morphine Sulfate (Morphine Sulfate) 2 mg PRN Q2HR PRN IV SEVERE PAIN Last administered on 05/29/18 11:00; Start 05/29/18 at 03:15 Nicotine (Nicoderm Cq 21mg) 1 patch DAILY TD Last administered on 4/2/19at 09: 13; Start 05/29/18 at 10:30 Zolpidem Tartrate (Ambien) 5 mg PRN QHS PRN PO INSOMNIA Last administered on 05/29/18at 21:18; Start 05/29/18 at 21:15 Active Scripts Active Reported Zolpidem Tartrate 10 Mg Tablet 10 Mg PO HS Clonazepam 1 Mg Tablet 1 Mg PO TID MDD 3mg Duloxetine Hcl 30 Mg Capsule. 30 DAILY Duloxetine Hcl 60 Mg Capsule.dr 60 DAILY Metformin Hcl 1,000 Mg Tablet 1,000 BID Milk Thistle 500 Mg Capsule 2,000 Mg PO DAILY Aspir 81 (Aspirin) 81 Mg Tablet. 1 Tab PO DAILY Atorvastatin Calcium 20 Mg Tablet 1 Tab PO QHS Glipizide 5 Mg Tablet 1 Tab PO BID Vitals/I & O Vital Sign - Last 24 Hours 05/29/18 05/29/18 05/29/18 05/29/18 11:00 11:00 11:42 12:14 Temp 97.6 97.6 Pulse 82 Resp 24 B/P (MAP) 155/45 (81) Pulse Ox 97 91 O2 Delivery BiPAP/CPAP Simple Mask Room Air O2 Flow Rate 15.0 05/29/18 05/29/18 05/29/18 05/29/18 13:42 15:00 15:17 15:43 Temp 97.6 97.6 Pulse 91 Resp 22 B/P (MAP) 125/61 (82) Pulse Ox 96 96 O2 Delivery Nasal Cannula High Flow Nasal Cannula Nasal Cannula Nasal Cannula O2 Flow Rate 3.0 3.0 3.0 05/29/18 05/29/18 05/29/18 05/29/18 19:00 19:15 20:20 23:00 Temp 98.1 97.7 98.1 97.7 Pulse 90 96 Resp 18 B/P (MAP) 167/71 (103) 135/63 (87) Pulse Ox 96 95 96 O2 Delivery High Flow Nasal Cannula Nasal Cannula High Flow Nasal Cannula O2 Flow Rate 3.0 3.0 05/30/18 05/30/18 05/30/18 05/30/18 03:00 03:22 07:51 08:11 Temp 97.6 98.2 97.6 98.2 Pulse 100 89 Resp 16 20 20 B/P (MAP) 129/66 (87) 131/99 (110) Pulse Ox 92 94 95 O2 Delivery High Flow Nasal Cannula Nasal Cannula High Flow Nasal Cannula O2 Flow Rate 3.0 3.0 05/30/18 09:14 Resp 20 O2 Delivery Nasal Cannula O2 Flow Rate 3.0 Intake and Output 05/29/18 05/29/18 05/30/18 14:59 22:59 06:59 Intake Total 1200 ml 240 ml Balance 1200 ml 240 ml TEODORO BETTENCOURT MD May 30, 2018 09:58
[2018-05-30 11:02] LABS: BASE EXCESS ABG 9 mmol/L (-3-3); HCO3 ABG 36 mmol/L (21-28); PCO2 ABG 57 mmHg (35-46); PO2 ABG 69 mmHg (65-108); SAT O2 ABG 93 % (92-99)
[2018-05-30 11:21] VITALS: BP 109/54
--- NOTE | 2018-05-30 13:22 | PDOC ---
PULMONARY PROGRESS NOTES Subjective PT FEELS BETTER OFF BIPAP NOW ON 3 LITERS Vitals Vital Signs Date Time Temp Pulse Resp B/P (MAP) Pulse Ox O2 Delivery O2 Flow Rate FiO2 05/30/18 11:28 96 3.0 05/30/18 11:21 97.3 78 20 109/54 (72) Nasal Cannula 97.3 ROS: No Nausea, No Chest Pain, No Increase Cough Lungs: Clear Cardiovascular: S1, S2, Other (sinus tachy) Abdomen: Soft Neuro Exam: Alert Extremities: No Edema Skin: Warm Labs Laboratory Tests Test 05/28/18 16:39 05/28/18 18:15 05/28/18 21:00 05/29/18 00:01 Glucose (Fingerstick) 201 mg/dL (70-99) 148 mg/dL (70-99) Troponin I Quantitative 0.104 ng/mL (0.000-0.055) 0.097 ng/mL (0.000-0.055) Test 05/29/18 09:51 05/29/18 11:35 05/29/18 16:49 05/30/18 07:23 Glucose (Fingerstick) 228 mg/dL (70-99) 176 mg/dL (70-99) 240 mg/dL (70-99) 187 mg/dL (70-99) Test 05/30/18 11:58 Glucose (Fingerstick) 92 mg/dL (70-99) Laboratory Tests Test 05/29/18 16:49 05/30/18 07:23 05/30/18 11:58 Glucose (Fingerstick) 240 mg/dL (70-99) 187 mg/dL (70-99) 92 mg/dL (70-99) Medications Active Scripts Medications Dose Route/Sig Max Daily Dose Days Date Category Duloxetine Hcl 30 Mg Capsule. 30 DAILY 05/28/18 Reported Duloxetine Hcl 60 Mg Capsule. 60 DAILY 05/28/18 Reported Metformin Hcl 1,000 Mg Tablet 1,000 BID 05/28/18 Reported Milk Thistle 500 Mg Capsule 2,000 Mg PO DAILY 05/10/16 Reported Aspir 81 (Aspirin) 81 Mg Tablet. 1 Tab PO DAILY 05/10/16 Reported Atorvastatin Calcium 20 Mg Tablet 1 Tab PO QHS 05/10/16 Reported Glipizide 5 Mg Tablet 1 Tab PO BID 05/10/16 Reported Impression . IMPRESSION: 1. Acute on chronic hypoxemic hypercapnic respiratory failure. 2. Acute exacerbation of chronic obstructive pulmonary disease. 3. Polycythemia, suspect secondary to chronic hypoxemia. 4. Tobacco dependence. 5. Obesity. Plan . PRN BIPAP D/C SMOKING 6 MW PRIOR TO D/C RESP STATUS BETTER TODAY 1. Repeat ABG ordered this am , not done yet 2. Steroids taper 3. The patient instructed on the importance of discontinuing tobacco use. 4. Singulair for possible allergies. 5. Nebulized treatments. 6. DVT and GI prophylaxis. dc home if ABG compensated JOHN JAMES MD May 30, 2018 13:22
[2018-05-30 13:44] LABS: FIO2 ABG 32
[2018-05-30] MEDS ORDERED: BUDE10.22 IH (14:34)
[2018-05-30] MEDS ORDERED: ALBU2.5V8 NEB (14:34)
[2018-05-30] MEDS ORDERED: MONT10TA9 PO (14:34)
[2018-05-30] MEDS ORDERED: PRED20TA PO (14:34)
[2018-05-30] MEDS ORDERED: DOXY100T PO (14:34)
[2018-05-30] MEDS: predniSONE 20 MG TABLET PO SCH (14:40)
[2018-05-30 15:00] VITALS: BP 145/86
[2018-05-30] MEDS: DOXYCYCLINE HYCLATE 100 MG TABLET PO SCH ×2 (15:54→20:37)
--- NOTE | 2018-05-30 15:56 | NUR ---
SW following, pt had 6 minute walk, script written for 2LNC at rest, and 4LNC with exertion. Pt does not have a preference as to which provider, just wants to make sure it isn't going to cost her too much money, and that the will deliver to [place]. SW contacted [facility], they take pt's insurance and are checking about serving [place]. Pt is not discharging today, SW will follow up in the morning (05/31/18).
[2018-05-30 19:30] VITALS: BP 143/79
[2018-05-30] MEDS: BUDESONIDE 0.5 MG/2 ML NEBU. NEB SCH (19:34)
[2018-05-30] MEDS: ATORVASTATIN CALCIUM 20 MG TABLET PO SCH (20:37)
[2018-05-30] MEDS: MONTELUKAST SODIUM 10 MG TABLET. PO SCH (20:37)
[2018-05-30] MEDS: ZOLPIDEM 5 MG TABLET. PO PRN (20:37)
[2018-05-30 23:46] VITALS: BP 128/68
[2018-05-31] MEDS: guaiFENesin DM 200MG/20MG 10 ML SYRUP PO PRN (00:13)
[2018-05-31] MEDS: oxyCODONE/APAP 5/325 1 TAB TABLET PO PRN ×3 (00:14→09:03)
[2018-05-31 03:23] VITALS: BP 129/60
[2018-05-31 07:00] VITALS: BP 150/60
[2018-05-31] MEDS: BUDESONIDE 0.5 MG/2 ML NEBU. NEB SCH (07:37)
[2018-05-31] MEDS: IPRATRPIUM/ALBUTEROL 0.5/2.5MG 3 ML NEBU. NEB SCH ×2 (07:37→11:46)
[2018-05-31] MEDS: INSULIN LISPRO 300 UNITS/3 ML INSULN.PEN. SQ SCH (08:00)
[2018-05-31] MEDS: glipiZIDE 5 MG TABLET PO SCH (08:02)
[2018-05-31] MEDS: metFORMIN 500 MG TABLET PO SCH (08:03)
[2018-05-31] MEDS: DULoxetine HCL 30 MG CAPSULE.DR PO SCH (09:02)
[2018-05-31] MEDS: DOXYCYCLINE HYCLATE 100 MG TABLET PO SCH (09:02)
[2018-05-31] MEDS: BENZONATATE 100 MG CAPSULE. PO SCH (09:02)
[2018-05-31] MEDS: predniSONE 20 MG TABLET PO SCH (09:02)
[2018-05-31] MEDS: ASPIRIN ENTERIC COATED 81 MG TABLET.DR. PO SCH (09:03)
[2018-05-31] MEDS: NICOTINE 21MG PATCH. TD SCH (09:04)
--- NOTE | 2018-05-31 10:10 | NUR ---
SW following. Discussed with RN, SW faxed referral to [facility] for pt's oxygen. SW awaiting confirmation on whether there will be a copay for pt. SW will continue to follow.
[2018-05-31 11:00] VITALS: BP 132/86
--- NOTE | 2018-05-31 11:23 | PDOC ---
PULMONARY PROGRESS NOTES Subjective PT FEELS BETTER OFF BIPAP NOW ON 3 LITERS Vitals Vital Signs Date Time Temp Pulse Resp B/P (MAP) Pulse Ox O2 Delivery O2 Flow Rate FiO2 05/31/18 10:03 18 Nasal Cannula 3.0 05/31/18 07:39 100 05/31/18 07:00 97.9 64 150/60 (90) 97.9 ROS: No Nausea, No Chest Pain, No Increase Cough Lungs: Clear Cardiovascular: S1, S2, Other (sinus tachy) Abdomen: Soft Neuro Exam: Alert Extremities: No Edema Skin: Warm Labs Laboratory Tests Test 05/29/18 11:35 05/29/18 16:49 05/30/18 07:23 05/30/18 08:15 Glucose (Fingerstick) 176 mg/dL (70-99) 240 mg/dL (70-99) 187 mg/dL (70-99) O2 Saturation 93 % (92-99) Arterial Blood pH 7.41 (7.35-7.45) Arterial Blood pCO2 at Patient Temp 57 mmHg (35-46) Arterial Blood pO2 at Patient Temp 69 mmHg (65-108) Arterial Blood HCO3 36 mmol/L (21-28) Arterial Blood Base Excess 9 mmol/L (-3-3) FiO2 32 Test 05/30/18 11:58 05/30/18 17:16 05/30/18 21:06 05/31/18 07:56 Glucose (Fingerstick) 92 mg/dL (70-99) 335 mg/dL (70-99) 130 mg/dL (70-99) 63 mg/dL (70-99) Test 05/31/18 10:44 Glucose (Fingerstick) 93 mg/dL (70-99) Laboratory Tests Test 05/30/18 11:58 05/30/18 17:16 05/30/18 21:06 05/31/18 07:56 Glucose (Fingerstick) 92 mg/dL (70-99) 335 mg/dL (70-99) 130 mg/dL (70-99) 63 mg/dL (70-99) Test 05/31/18 10:44 Glucose (Fingerstick) 93 mg/dL (70-99) Medications Active Scripts Medications Dose Route/Sig Max Daily Dose Days Date Category Duloxetine Hcl 30 Mg Capsule.dr 30 DAILY 05/28/18 Reported Duloxetine Hcl 60 Mg Capsule. 60 DAILY 05/28/18 Reported Metformin Hcl 1,000 Mg Tablet 1,000 BID 05/28/18 Reported Milk Thistle 500 Mg Capsule 2,000 Mg PO DAILY 05/10/16 Reported Aspir 81 (Aspirin) 81 Mg Tablet. 1 Tab PO DAILY 05/10/16 Reported Atorvastatin Calcium 20 Mg Tablet 1 Tab PO QHS 05/10/16 Reported Glipizide 5 Mg Tablet 1 Tab PO BID 05/10/16 Reported Impression . IMPRESSION: 1. Acute on chronic hypoxemic hypercapnic respiratory failure. 2. Acute exacerbation of chronic obstructive pulmonary disease. 3. Polycythemia, suspect secondary to chronic hypoxemia. 4. Tobacco dependence. 5. Obesity. Plan . OFF BIPAP D/C SMOKING 6 MW DONE, WILL NEED HOME OXYGEN RESP STATUS BETTER 1. Repeat ABG COMPENSATED 2. Steroids taper 3. The patient instructed on the importance of discontinuing tobacco use. 4. Singulair for possible allergies. 5. Nebulized treatments. 6. DVT and GI prophylaxis. [facility] JOHN JAMES MD May 31, 2018 11:23
[2018-05-31] MEDS ORDERED: GUAI118L13 PO (11:59)
[2018-05-31] MEDS ORDERED: NICO1PAT21 TP (11:59)
--- NOTE | 2018-05-31 12:03 | PDOC ---
PROGRESS NOTES Chief Complaint Chief Complaint Acute bronchitis COPD exacerbation 2 pack a day smoker Acute Hypercapneic RF on NIPPV Obesity BMI 31 DM 2 on OHA History of Present Illness History of Present Illness Ms Woods is a 2 pack a day smoker, 3 day hx productive cough, no fever, severe sob, even just walking to bathroom, CXR no infiltrates, but needing BIPAP for ABG pH 7.27 Co2 68, O2 good - NO recent sick contacts/travel. Seen by pulmonology. On BIPAP almost 36 hours, off BIPAP now. Still with severe wheezing. Unable to expectorate well. 05/29: Overnight was tachycardic, telemetry and EKG with PVCs and sinus tachy. Very small elevation of troponin, likely demand 48 hours ago. Her ABG is better this morning, O2 was still 69 on 3L NCO2. Needed 4L on 6 minute walk and 2L at rest. Today breathing is better. O2 sats at rest and on ambulation are 89-92%. She has coughed up considerable mucous Plan: Aggressive pulm toileting 6 minute walk, does not need home O2, the extra overnight helped Nicotine patch, cough D/w pulm, may be ok for home today as she no longer needs home O2 arranged. Vitals Vitals Vital Signs Date Time Temp Pulse Resp B/P (MAP) Pulse Ox O2 Delivery O2 Flow Rate FiO2 05/31/18 11:00 98.0 64 18 132/86 (101) 92 Nasal Cannula 3.0 98.0 Physical Exam General: Alert, Oriented X3, Cooperative, No acute distress Lungs: Clear Extremities: No clubbing, No cyanosis, No edema, Normal pulses, No tenderness/ swelling Skin: No rashes, No breakdown, No significant lesion Labs LABS Laboratory Tests Test 05/30/18 17:16 05/30/18 21:06 05/31/18 07:56 05/31/18 10:44 Glucose (Fingerstick) 335 mg/dL (70-99) 130 mg/dL (70-99) 63 mg/dL (70-99) 93 mg/dL (70-99) Assessment and Plan Assessmemt and Plan Problems Medical Problems: (1) COPD exacerbation Status: Acute Comment Review of Relevant I have reviewed the following items staci (where applicable) has been applied. Labs Laboratory Tests Test 05/29/18 16:49 05/30/18 07:23 05/30/18 08:15 05/30/18 11:58 Glucose (Fingerstick) 240 mg/dL (70-99) 187 mg/dL (70-99) 92 mg/dL (70-99) O2 Saturation 93 % (92-99) Arterial Blood pH 7.41 (7.35-7.45) Arterial Blood pCO2 at Patient Temp 57 mmHg (35-46) Arterial Blood pO2 at Patient Temp 69 mmHg (65-108) Arterial Blood HCO3 36 mmol/L (21-28) Arterial Blood Base Excess 9 mmol/L (-3-3) FiO2 32 Test 05/30/18 17:16 05/30/18 21:06 05/31/18 07:56 05/31/18 10:44 Glucose (Fingerstick) 335 mg/dL (70-99) 130 mg/dL (70-99) 63 mg/dL (70-99) 93 mg/dL (70-99) Laboratory Tests Test 05/30/18 17:16 05/30/18 21:06 05/31/18 07:56 05/31/18 10:44 Glucose (Fingerstick) 335 mg/dL (70-99) 130 mg/dL (70-99) 63 mg/dL (70-99) 93 mg/dL (70-99) Medications Current Medications Aspirin (Linnette Aspirin) 325 mg 1X ONCE PO Last administered on 05/28/18at 01:34 ; Start 05/28/18 at 01:30; Stop 05/28/18 at 01:31; Status DC Albuterol/ Ipratropium (Duoneb) 3 ml 1X ONCE NEB Last administered on at 01:15; Start 05/28/18 at 01:30; Stop 05/28/18 at 01:31; Status DC Methylprednisolone Sodium Succinate (SOLU-Medrol 125MG VIAL) 125 mg 1X ONCE IV Last administered on 05/28/18at 01:34; Start 05/28/18 at 01:30; Stop 05/28/18 at 01:31; Status DC Ondansetron HCl (Zofran) 4 mg PRN Q8HRS PRN IV NAUSEA/VOMITING 1ST CHOICE; Start 05/28/18 at 01:45; Stop 05/29/18 at 01:44; Status DC Morphine Sulfate (Morphine Sulfate) 2 mg PRN Q2HR PRN IV SEVERE PAIN Last administered on 05/28/18at 22:18; Start 05/28/18 at 01:45; Stop 05/29/18 at 01:44 ; Status DC Sodium Chloride 1,000 ml @ 75 mls/hr [id number] IV Last administered on at 03:39; Start 05/28/18 at 01:42; Stop 05/28/18 at 09:17; Status DC Nitroglycerin (Nitrostat) 0.4 mg PRN Q5MIN PRN SL CHEST PAIN; Start 05/28/18 at 01:45; Stop 05/29/18 at 01:44; Status DC Albuterol/ Ipratropium (Duoneb) 3 ml RTQID NEB Last administered on 05/28/18at 08:19; Start 05/28/18 at 08:00; Stop 05/28/18 at 10:28; Status DC Aspirin (Ecotrin) 81 mg DAILY PO Last administered on 05/31/18at 09:03; Start at 09:30 Atorvastatin Calcium (Lipitor) 20 mg QHS PO Last administered on 05/30/18at 20:37 ; Start 05/28/18 at 21:00 Duloxetine HCl (Cymbalta) 30 mg DAILY PO ; Start 05/28/18 at 09:30; Stop at 09:43; Status DC Glipizide (Glucotrol) 5 mg BIDAC PO Last administered on 05/31/18at 08:02; Start 05/28/18 at 09:30 Non-Formulary Medication (Duloxetine Hcl ) 60 % DAILY .ROUTE ; Start 05/29/18 at 09:00; Stop 05/29/18 at 09:00; Status DC Metformin HCl (Glucophage) 1,000 mg BIDWMEALS PO Last administered on 05/31/18at 08:03; Start 05/28/18 at 09:30 Non-Formulary Medication (Milk Thistle ) 2,000 mg DAILY PO ; Start 05/29/18 at 09 :00; Status UNV Albuterol/ Ipratropium (Duoneb) 3 ml RTQID NEB Last administered on 05/31/18at 07 :37; Start 05/28/18 at 12:00 Benzonatate (Tessalon Perle) 100 mg [id number] PO Last administered on 05/31/18 09: 02; Start 05/28/18 at 09:30 Guaifenesin (Robitussin Dm) 10 ml PRN Q6HRS PRN PO COUGH Last administered on 00:13; Start 05/28/18 at 09:15 Diphenhydramine HCl (Benadryl) 25 mg PRN QHS PRN PO INSOMNIA Last administered on 05/29/18 20:58; Start 05/28/18 at 09:15 Albuterol Sulfate (Ventolin Neb Soln) 2.5 mg PRN Q4HRS PRN NEB SHORTNESS OF BREATH; Start 05/28/18 at 09:15 Throat Lozenges (Cepacol Sore Throat Lozenge) 1 tracy PRN Q2HRS PRN PO SORE THROAT Last administered on 05/29/18 12:02; Start 05/28/18 at 09:15 Methylprednisolone Sodium Succinate (SOLU-Medrol 40MG VIAL) 40 mg Q8HRS IV Last administered on 05/30/18 07:55; Start 05/28/18 at 11:00; Stop 05/30/18 at 13 :03; Status DC Insulin Human Lispro (HumaLOG) 0-9 UNITS TIDWMEALS SQ Last administered on 18:24; Start 05/28/18 at 12:00 Dextrose (Dextrose 50%-Water Syringe) 12.5 gm PRN Q15MIN PRN IV SEE COMMENTS; Start 05/28/18 at 09:15 Duloxetine HCl (Cymbalta) 120 mg DAILY PO Last administered on 05/31/18 09:02; Start 05/28/18 at 10:00 Montelukast Sodium (Singulair) 10 mg QHS PO Last administered on 05/30/18 20:37 ; Start 05/28/18 at 21:00 Insulin Human Lispro (HumaLOG) 3 units 1X ONCE SQ ; Start 05/28/18 at 22:15; Stop 05/28/18 at 22:16; Status Cancel Oxycodone/ Acetaminophen (Percocet 5/325) 1 tab PRN Q6HRS PRN PO SEVERE PAIN Last administered on 05/30/18 14:51; Start 05/29/18 at 03:15; Stop 05/30/18 at 19: 31; Status DC Morphine Sulfate (Morphine Sulfate) 2 mg PRN Q2HR PRN IV SEVERE PAIN Last administered on 05/29/18 11:00; Start 05/29/18 at 03:15; Stop 05/30/18 at 13:03; Status DC Nicotine (Nicoderm Cq 21mg) 1 patch DAILY TD Last administered on 05/31/18 09: 04; Start 05/29/18 at 10:30 Zolpidem Tartrate (Ambien) 5 mg PRN QHS PRN PO INSOMNIA Last administered on 20:37; Start 05/29/18 at 21:15 Prednisone (Prednisone) 20 mg DAILY PO Last administered on 05/31/18 09:02; Start 05/30/18 at 13:15 Doxycycline Hyclate (Vibra-Tab) 100 mg BID PO Last administered on 05/31/18 09: 02; Start 05/30/18 at 14:30 Budesonide (Pulmicort) 0.5 mg RTBID NEB Last administered on 05/31/18 07:37; Start 05/30/18 at 20:00 Oxycodone/ Acetaminophen (Percocet 5/325) 1 tab PRN Q4HRS PRN PO SEVERE PAIN Last administered on 05/31/18 09:03; Start 05/30/18 at 19:45 Active Scripts Active Guaifenesin-Codeine Syrup (Guaifenesin/Codeine Phosphate) 118 Ml Liquid 5 Ml PO Q6HRS NICODERM CQ 21mg (Nicotine) 1 Each Patch.td24 1 Patch TP DAILY Proair Hfa (Albuterol Sulfate) 8.5 Gm Hfa.aer.ad 2.5 Mg NEB PRN Q4HRS PRN 30 Days Symbicort 80-4.5 Mcg Inhaler (Budesonide/Formoterol Fumarate) 10.2 Gm Hfa.aer.ad 2 Puff IH BID Prednisone 20 Mg Tablet 20 Mg PO DAILY 5 Days Montelukast Sodium Tablet (Montelukast Sodium) 10 Mg Tablet 10 Mg PO QHS 30 Days Doxycycline Hyclate 100 Mg Tablet 100 Mg PO BID 5 Days Reported Zolpidem Tartrate 10 Mg Tablet 10 Mg PO HS Clonazepam 1 Mg Tablet 1 Mg PO TID MDD 3mg Duloxetine Hcl 30 Mg Capsule.dr 30 DAILY Duloxetine Hcl 60 Mg Capsule.dr 60 DAILY Metformin Hcl 1,000 Mg Tablet 1,000 BID Milk Thistle 500 Mg Capsule 2,000 Mg PO DAILY Aspir 81 (Aspirin) 81 Mg Tablet. 1 Tab PO DAILY Atorvastatin Calcium 20 Mg Tablet 1 Tab PO QHS Glipizide 5 Mg Tablet 1 Tab PO BID Vitals/I & O Vital Sign - Last 24 Hours 05/30/18 05/30/18 05/30/18 05/30/18 14:51 15:00 15:30 19:30 Temp 98.3 98.0 98.3 98.0 Pulse 56 58 Resp 20 21 22 B/P (MAP) 145/86 (105) 143/79 (100) Pulse Ox 96 96 94 O2 Delivery Nasal Cannula Nasal Cannula Nasal Cannula O2 Flow Rate 3.0 3.0 3.0 05/30/18 05/30/18 05/30/18 05/30/18 19:35 19:36 19:48 19:55 Pulse Ox 96 96 O2 Delivery Nasal Cannula Nasal Cannula O2 Flow Rate 3.0 3.0 3.0 3.0 05/30/18 05/30/18 05/31/18 05/31/18 20:48 23:46 00:14 03:23 Temp 98.3 98.1 98.3 98.1 Pulse 125 69 Resp 18 18 B/P (MAP) 128/68 (88) 129/60 (83) Pulse Ox 96 99 99 97 O2 Delivery Nasal Cannula Nasal Cannula Nasal Cannula O2 Flow Rate 3.0 3.0 3.0 05/31/18 05/31/18 05/31/18 05/31/18 05:09 07:00 07:39 08:30 Temp 97.9 97.9 Pulse 64 Resp 18 B/P (MAP) 150/60 (90) Pulse Ox 97 63 100 O2 Delivery Nasal Cannula Room Air Nasal Cannula Nasal Cannula O2 Flow Rate 3.0 3.0 3.0 05/31/18 05/31/18 05/31/18 09:03 10:03 11:00 Temp 98.0 98.0 Pulse 64 Resp 20 18 18 B/P (MAP) 132/86 (101) Pulse Ox 92 O2 Delivery Nasal Cannula Nasal Cannula Nasal Cannula O2 Flow Rate 3.0 3.0 3.0 Intake and Output 05/30/18 05/30/18 05/31/18 15:00 23:00 07:00 Intake Total 480 ml Balance 480 ml TEODORO BETTENCOURT MD May 31, 2018 12:03
--- NOTE | 2018-05-31 12:12 | PDOC3 ---
Discharge Summary Visit Information Date of Admission: May 28, 2018 Date of Discharge: May 31, 2018 Admitting Diagnosis: COPD exacerbation Final Diagnosis Problems Medical Problems: (1) COPD exacerbation Status: Acute Brief Hospital Course Allergies Allergies Coded Allergies Type Severity Reaction Last Updated Verified No Known Drug Allergies 06/07/16 No Vital Signs Vital Signs Date Time Temp Pulse Resp B/P (MAP) Pulse Ox O2 Delivery O2 Flow Rate FiO2 05/31/18 11:00 98.0 64 18 132/86 (101) 92 Nasal Cannula 3.0 98.0 Lab Results Laboratory Tests Test 05/29/18 16:49 05/30/18 07:23 05/30/18 08:15 05/30/18 11:58 Glucose (Fingerstick) 240 mg/dL (70-99) 187 mg/dL (70-99) 92 mg/dL (70-99) O2 Saturation 93 % (92-99) Arterial Blood pH 7.41 (7.35-7.45) Arterial Blood pCO2 at Patient Temp 57 mmHg (35-46) Arterial Blood pO2 at Patient Temp 69 mmHg (65-108) Arterial Blood HCO3 36 mmol/L (21-28) Arterial Blood Base Excess 9 mmol/L (-3-3) FiO2 32 Test 05/30/18 17:16 05/30/18 21:06 05/31/18 07:56 05/31/18 10:44 Glucose (Fingerstick) 335 mg/dL (70-99) 130 mg/dL (70-99) 63 mg/dL (70-99) 93 mg/dL (70-99) Laboratory Tests Test 05/30/18 17:16 05/30/18 21:06 05/31/18 07:56 05/31/18 10:44 Glucose (Fingerstick) 335 mg/dL (70-99) 130 mg/dL (70-99) 63 mg/dL (70-99) 93 mg/dL (70-99) Brief Hospital Course Ms Woods is a 2 pack a day smoker, 3 day hx productive cough, no fever, severe sob, even just walking to bathroom, CXR no infiltrates, but needing BIPAP for ABG pH 7.27 Co2 68, O2 good - NO recent sick contacts/travel. Seen by pulmonology. On BIPAP almost 36 hours, off BIPAP now. Still with severe wheezing. Unable to expectorate well. 4/1: Overnight was tachycardic, telemetry and EKG with PVCs and sinus tachy. Very small elevation of troponin, likely demand 48 hours ago. Her ABG is better this morning, O2 was still 69 on 3L NCO2. Needed 4L on 6 minute walk and 2L at rest. Today breathing is better. O2 sats at rest and on ambulation are 89-92%. She has coughed up considerable mucous Plan: Aggressive pulm toileting 6 minute walk, does not need home O2, the extra overnight helped Nicotine patch, cough D/w pulm, may be ok for home today as she no longer needs home O2 arranged. Acute bronchitis COPD exacerbation 2 pack a day smoker Acute Hypercapneic RF on NIPPV Obesity BMI 31 DM 2 on OHA Greater than 30 minutes spent on discharge Discharge Information Condition at Discharge: Improved Follow Up: Weeks (2) Disposition/Orders: D/C to Home Scheduled Aspirin (Aspir 81) 81 Mg Tablet.dr, 1 TAB PO DAILY, #30 Ref 5 (Reported) Entered as Reported by: THA SWAN on 05/10/16 1722 Last Action: Continued on 05/28/18913 by ROHINI FRANCIS Atorvastatin Calcium (Atorvastatin Calcium) 20 Mg Tablet, 1 TAB PO QHS, #30 Ref 5 (Reported) Entered as Reported by: THA SWAN on 05/10/16 1706 Last Action: Continued on 05/28/1814 by ROHINI FRANCIS Budesonide/Formoterol Fumarate (Symbicort 80-4.5 Mcg Inhaler) 10.2 Gm Hfa.aer.ad , 2 PUFF IH BID for COPD, #10.2 Ref 5 Prescribed by: TEODORO BETTENCOURT MD on 05/30/18 1434 Clonazepam (Clonazepam) 1 Mg Tablet, 1 MG PO TID for Sleep MDD 3mg, (Reported) Entered as Reported by: EVERT GARCIA RN on 05/28/182215 Last Taken: Unknown Dose on Unknown Date & Time Last Action: New Order on 05/28/182215 by EVERT GARCIA RN Doxycycline Hyclate (Doxycycline Hyclate) 100 Mg Tablet, 100 MG PO BID for bronchitis for 5 Days, #10 Prescribed by: TEODORO BETTENCOURT MD on 05/30/18 1434 Duloxetine Hcl (Duloxetine Hcl) 60 Mg Capsule., 60 DAILY for Depression, ( Reported) Entered as Reported by: EVERT GARCIA RN on 05/28/18326 Last Taken: Unknown Dose on Unknown Date & Time Last Action: Converted on 05/28/18913 by ROHINI FRANCIS Duloxetine Hcl (Duloxetine Hcl) 30 Mg Capsule., 30 DAILY for Depression, ( Reported) Entered as Reported by: EVERT GARCIA RN on 05/28/18326 Last Taken: Unknown Dose on Unknown Date & Time Last Action: Continued on 05/28/18913 by ROHINI FRANCIS Glipizide (Glipizide) 5 Mg Tablet, 1 TAB PO BID, #60 Ref 3 (Reported) Entered as Reported by: THA SWAN on 05/10/16 1706 Last Action: Continued on 05/28/18913 by ROHINI FRANCIS Guaifenesin/Codeine Phosphate (Guaifenesin-Codeine Syrup) 118 Ml Liquid, 5 ML PO Q6HRS for Cough/Pain, #120 Prescribed by: TEODORO BETTENCOURT MD on 05/31/18 1159 Metformin Hcl (Metformin Hcl) 1,000 Mg Tablet, 1,000 BID for Diabetes, (Reported ) Entered as Reported by: EVERT GARCIA RN on 05/28/18326 Last Taken: Unknown Dose on Unknown Date & Time Last Action: Converted on 05/28/18913 by ROHINI FRANCIS Milk Thistle (Milk Thistle) 500 Mg Capsule, 2,000 MG PO DAILY, (Reported) Entered as Reported by: THA SWAN on 05/10/16 1724 Last Action: Converted on 05/28/18913 by ROHINI FRANCIS Montelukast Sodium (Montelukast Sodium Tablet) 10 Mg Tablet, 10 MG PO QHS for COPD for 30 Days, #30 Prescribed by: TEODORO BETTENCOURT MD on 05/30/18 1434 Nicotine (NICODERM CQ 21mg) 1 Each Patch.td24, 1 PATCH TP DAILY for SMoking cessation, #28 Ref 11 Prescribed by: TEODORO BETTENCOURT MD on 05/31/18 1159 Prednisone (Prednisone) 20 Mg Tablet, 20 MG PO DAILY for COPD exacerbation for 5 Days, #5 Prescribed by: TEODORO BETTENCOURT MD on 05/30/18 1434 Zolpidem Tartrate (Zolpidem Tartrate) 10 Mg Tablet, 10 MG PO HS for insomnia, ( Reported) Entered as Reported by: EVERT GARCIA RN on 05/28/182215 Last Taken: Unknown Dose on Unknown Date & Time Last Action: Converted on 05/29/182057 by TEODORO BETTENCOURT MD Scheduled PRN Albuterol Sulfate (Proair Hfa) 8.5 Gm Hfa.aer.ad, 2.5 MG NEB PRN Q4HRS PRN for SHORTNESS OF BREATH for 30 Days, #1 Ref 2 Prescribed by: TEODORO BETTENCOURT MD on 05/30/181433 Discontinued Medications Docusate Sodium (Colace) 100 Mg Capsule, 1 CAP PO BID for CONSTIPATION, #60 ( Reported) Entered as Reported by: EBONI MONTANO on 06/07/16 1222 Last Action: Discontinued on 05/28/18326 by EVERT GARCIA RN Ondansetron (Zofran Odt) 4 Mg Tab.rapdis, 1 TAB SL Q8HRS PRN for NAUSEA/VOMITING , #10 (Reported) Entered as Reported by: Mahendra Guzman on 05/17/16 1524 Last Action: Discontinued on 05/28/18326 by EVERT GARCIA RN Oxycodone Hcl (Oxycontin ) 10 Mg Tab.er.12h, 10 MG PO BID for PAIN, #10 ( Reported) LAST DOSE GIVEN: DATE: TIME: Entered as Reported by: EBONI MONTANO on 06/07/16 1221 Last Action: Discontinued on 05/28/18326 by EVERT GARCIA RN Oxycodone/Apap 10-325 (Percocet 10-325 Mg Tablet ) 1 Each Tablet, 2 TAB PO Q4- 6HRS, #40 (Reported) Entered as Reported by: CHIARA YEUNG on 06/02/16 1441 Last Action: Discontinued on 05/28/18326 by EVERT GARCIA RN Sertraline Hcl (Zoloft) 100 Mg Tablet, 1 TAB PO BID, #30 Ref 5 (Reported) Entered as Reported by: THA SWAN on 05/10/16 170 Last Action: Discontinued on 05/28/18 0327 by LUIS FELIPE RAVI CHRISTOPHER S MD May 31, 2018 12:12
--- NOTE | 2018-05-31 13:10 | NUR ---
Discharge orders placed. Discharge instructions/medications discussed with pt. Explained pt will need to fill rx's tonight so medication will resume at home. Pt voices understanding. Explained pt will need to f/u with Dr. Wellington and PCP in 2 weeks. Pt voices understanding. Oxygen saturation without O2 ranging between 89-90%. Pt wheeled out to hospital exit accompanied by YOUSUF Mcdonald without complications.
== END 2018-05-31 13:10 | disposition home or self-care (01) | DRG 189 ==
LOC: ER 00:52 → 4 NORTH 01:40
PROVIDERS: ADMIT Family Medicine; ATTEND Family Medicine
PROC: 5A09457 Assistance with Respiratory Ventilation, 24-96 Consecutive Hours, Continuous Positive Airway Pressure (ICD-10-PCS; principal; 2018-05-28)
DX: J96.21 Acute and chronic respiratory failure with hypoxia (principal); J44.1 Chronic obstructive pulmonary disease with (acute) exacerbation; J44.0 Chronic obstructive pulmonary disease with (acute) lower respiratory infection; J96.22 Acute and chronic respiratory failure with hypercapnia; J20.9 Acute bronchitis, unspecified; E66.9 Obesity, unspecified; F32.9 Major depressive disorder, single episode, unspecified; D75.1 Secondary polycythemia; E11.9 Type 2 diabetes mellitus without complications; F17.210 Nicotine dependence, cigarettes, uncomplicated; Z68.31 Body mass index [BMI] 31.0-31.9, adult; Z90.49 Acquired absence of other specified parts of digestive tract; Z90.710 Acquired absence of both cervix and uterus; Z79.84 Long term (current) use of oral hypoglycemic drugs; I49.3 Ventricular premature depolarization
CPT/HCPCS: 36415; 36600; 71045; 80053; 82550; 82553; 82805; 82962; 83690; 83735; 83880; 84484; 85007; 85025; 85610; 93005; 94618; 94640; 94660; 94760; J1815; J2270; J2920; J2930; J7030; J7512; J7620; J7626; Q0163; 97110; 97116; 97530; 97535; 99285-25

== ENCOUNTER 2020-02-05 23:57 | Inpatient (IN) | payer BC ==
[~2020-02-05] VITALS: Ht 172.7 cm; Wt 75.7 kg
[~2020-02-05 23:57] MED LIST changes: +ACET325T9 PO; +ALBU2.5V8 NEB; +BUDE10.22 IH; +CLONAZEPAM1 MG PO; +DOCU-153 PO; +DOXY100T PO; +DULO30CA44; +DULO60CA45; +GUAI118L13 PO; +METF10007; +MONT10TA49 PO; +NICO1PAT21 TP; +OLAN5TAB7 PO; +POTA20TA4 PO; +PRED20TA PO; +ZOLP10TA4 PO
[2020-02-06] VITALS (11 sets, daily range): BP systolic 115–141; BP diastolic 57–80
--- NOTE | 2020-02-06 00:12 | PHYS DOC ---
Past Medical History Past Medical History: COPD, Depression, Diabetes-Type II, Other Additional Past Medical Histor: "liver problems", Past Surgical History: Appendectomy, Hysterectomy, Tonsillectomy Smoking Status: Current Every Day Smoker Alcohol Use: None Drug Use: None General Adult EDM: Chief Complaint: LOWEREXTREMITY INJURY HPI: HPI: Patient is a 64 year old female patient reports she was at home chasing the cat, when she had tripped over the cat and fallen, landing on the floor and started have some discomfort in her left hip and leg. Patient states she laid on the floor for 20 to 30 minutes before they came to help her. States she was unable to get up. Denies hitting head, denies loss of consciousness, denies taking blood thinners. Denies any nausea, vomiting, diarrhea. Reports she can feel some discomfort all the way down to her toes Review of Systems: Review of Systems: Constitutional: Denies fever or chills. [] Eyes: Denies change in visual acuity. [] HENT: Denies nasal congestion or sore throat. [] Respiratory: Denies cough or shortness of breath. [] Cardiovascular: Denies chest pain or edema. [] GI: Denies abdominal pain, nausea, vomiting, bloody stools or diarrhea. [] : Denies dysuria. [] Musculoskeletal: Denies back pain or joint pain. Complains of pain to left hip and left leg [] Integument: Denies rash. [] Neurologic: Denies headache, focal weakness or sensory changes. [] Endocrine: Denies polyuria or polydipsia. [] Lymphatic: Denies swollen glands. [] Psychiatric: Denies depression or anxiety. [] Heart Score: Risk Factors: Risk Factors: DM, Current or recent (<one month) smoker, HTN, HLP, family history of CAD, obesity. Risk Scores: Score 0 - 3: 2.5% MACE over next 6 weeks - Discharge Home Score 4 - 6: 20.3% MACE over next 6 weeks - Admit for Clinical Observation Score 7 - 10: 72.7% MACE over next 6 weeks - Early Invasive Strategies Allergies: Allergies: Allergies Coded Allergies Type Severity Reaction Last Updated Verified No Known Drug Allergies 06/07/16 No Physical Exam: PE: Constitutional: Well developed, well nourished, no acute distress, non-toxic appearance. Conversational [] HENT: Normocephalic, atraumatic, bilateral external ears normal, oropharynx moist, no oral exudates, nose normal. [] Eyes: PERRLA, EOMI, conjunctiva normal, no discharge. [] Neck: Normal range of motion, no tenderness, supple, no stridor. [] Cardiovascular:Heart rate regular rhythm, no murmur [] Lungs & Thorax: Bilateral breath sounds clear to auscultation [] Abdomen: Bowel sounds normal, soft, no tenderness, no masses, no pulsatile deena s. [] Skin: Warm, dry, no erythema, no rash. [] Back: No tenderness, no CVA tenderness. [] Extremities: Tenderness noted to lateral aspect of hip, left leg noted externally rotated. Patient unable to raise left leg. Able to raise right leg with normal strength. Sensation intact distally to left leg. Brisk capillary refill.] Neurologic: Alert and oriented X 3, normal motor function, normal sensory function, no focal deficits noted. [] Psychologic: Affect normal, judgement normal, mood normal. [] EKG: EKG: [] Radiology/Procedures: Radiology/Procedures: []Per Dr Romo - unremarkable chest x ray. Left Hip with Intertrochanteric femur fracture. Course & Med Decision Making: Course & Med Decision Making Pertinent Labs and Imaging studies reviewed. (See chart for details) []@0027 - Discussed with Dr Ren, advising of findings. Admission to hospitalist, patient NPO. 0030 - Discussed with Dr Romo, will admit patient to hospitalist. Orders in Patient aware of plan. Harriet Disclaimer: Harriet Disclaimer: This electronic medical record was generated, in whole or in part, using a voice recognition dictation system. Departure Departure Impression: Primary Impression: Fracture, intertrochanteric, left femur Qualified Codes: S72.142A - Displaced intertrochanteric fracture of left femur, initial encounter for closed fracture Additional Impression: Fall as cause of accidental injury at home as place of occurrence Qualified Codes: W19.XXXA - Unspecified fall, initial encounter; Y92.009 - Unspecified place in unspecified non-institutional (private) residence as the place of occurrence of the external cause Disposition: 09 ADMITTED INPT THIS HOSP [facility] Referrals: JOSEPH HODGE (PCP) MANINDER SARABIA APRN Feb 06, 2020 00:12
[2020-02-06] MEDS ORDERED: fentaNYL PF VIAL 100 MCG/2 ML VIAL IVP PRN (00:15)
[2020-02-06 00:18] LABS: BASO # 0.1 x10^3/uL (0.0-0.2); BASO % 1 % (0-3); EOS # 0.3 x10^3/uL (0.0-0.7); EOS % 2 % (0-3); HEMATOCRIT 42.2 % (36.0-47.0); LYMPH # 3.2 x10^3/uL (1.0-4.8); LYMPH % 28 % (24-48); MEAN CORPUSCULAR HEMOGLOBIN 29 pg (25-35); MEAN CORPUSCULAR HGB CONC 33 g/dL (31-37); MEAN CORPUSCULAR VOLUME 88 fL (79-100); MONO # 0.7 x10^3/uL (0.0-1.1); MONO % 7 % (0-9); NEUT # 6.8 x10^3/uL (1.8-7.7); NEUT % 62 % (31-73); PLATELET COUNT 211 x10^3/uL (140-400); RED BLOOD COUNT 4.82 x10^6/uL (3.50-5.40); RED CELL DISTRIBUTION WIDTH 14.4 % (11.5-14.5); WHITE BLOOD COUNT 11.1 x10^3/uL (4.0-11.0)
[2020-02-06 00:22] LABS: CALCIUM 9.7 mg/dL (8.5-10.1); CREATININE 1.3 mg/dL (0.6-1.0); POTASSIUM 4.7 mmol/L (3.5-5.1)
[2020-02-06 00:28] LABS: ALBUMIN 3.5 g/dL (3.4-5.0); TOTAL BILIRUBIN 0.5 mg/dL (0.2-1.0); TOTAL PROTEIN 6.9 g/dL (6.4-8.2)
[2020-02-06] MEDS ORDERED: NICOTINE 21MG PATCH. TD PRN (00:45)
[2020-02-06] MEDS ORDERED: ONDANSETRON PF 4 MG/2 ML VIAL. IV PRN ×3 (00:45→13:00)
[2020-02-06] MEDS ORDERED: IV NORMAL SALINE 1000ML BAG 1,000 ML IV ONE (01:00)
[2020-02-06] MEDS: IV NORMAL SALINE 1000ML BAG 1,000 ML IV SCH ×3 (01:00→17:26)
--- NOTE | 2020-02-06 01:10 | RAD ---
CHEST AP ONLY History: Reason: left hip pain after fall / Spl. Instructions: / History: Comparison: January 12, 2020 Findings: Linear right basilar opacity. No consolidation or pleural effusion. No pneumothorax. Impression: 1. Mild right basilar linear atelectasis. Electronically signed by: Delano Carroll DO (02/06/2020 1:07 AM) [facility] [place]
--- NOTE | 2020-02-06 01:20 | RAD ---
HIP LEFT 2V WITH PELVIS History: Reason: left hip pain after fall / Spl. Instructions: / History: Technique: AP view the pelvis and 2 additional views of the left hip. Comparison: None. Findings: Acute displaced left intertrochanteric femur fracture. No dislocation. Lower lumbar spondylosis. Impression: 1. Acute displaced left intertrochanteric femur fracture. Electronically signed by: Delano Carroll DO (02/06/2020 1:17 AM) ESTRELLA
[2020-02-06] MEDS: fentaNYL PF VIAL 100 MCG/2 ML VIAL IV PRN ×6 (01:27→17:45)
[2020-02-06] MEDS: MORPHINE SULFATE 2 MG/ML VIAL. IV PRN ×5 (02:34→18:03)
[2020-02-06 02:46] LABS: BILIRUBIN,URINE NEGATIVE (NEG); CLARITY,URINE CLEAR; COLOR,URINE YELLOW; NITRITE,URINE NEGATIVE (NEG); PROTEIN,URINE NEGATIVE (NEG-TRACE); UROBILINOGEN,URINE 0.2 mg/dL (0.2 mg/dL)
[2020-02-06 02:58] LABS: BACTERIA,URINE 0 /HPF (0-FEW); HYALINE CASTS, URINE FEW /HPF; RBC,URINE 0 /HPF (0-2); WBC,URINE 0 /HPF (0-4)
--- NOTE | 2020-02-06 03:54 | NUR ---
ADMIT NOTE The patient, RHINA WILLIAMSON, 64 y/o, F admitted by BABAR PINEDA III, DO, was given written information regarding hospital policies, unit procedures and contact persons. Patient afebrile and VSS on admit to floor. Patient orientated to room, admit packet reviewed and plan of care discussed; reinforcement needed as pt noted to be confused and forgetful at times. Patient's allergies and home medication reviewed All patient belongings checked and left in room with patient. Patient given CHG bath and Delarosa catheter placed per fracture protocol. Patient declined placement of SCDs or Rikki hose d/t pain. Patient now in bed, bed in lowest/locked position, and call light within reach; no other needs voiced at this time.
[2020-02-06] MEDS ORDERED: OMEP40CA45 PO (04:56)
[2020-02-06] MEDS ORDERED: ATOR40TA59 PO (04:56)
[2020-02-06] MEDS ORDERED: LIOT25TA4 PO (04:56)
[2020-02-06] MEDS ORDERED: BUPR150T6 PO (04:56)
[2020-02-06] MEDS ORDERED: LITH450T PO (04:56)
[2020-02-06] MEDS ORDERED: ZOLP5TAB5 PO (04:56)
[2020-02-06] MEDS ORDERED: ARIP2TAB3 PO (04:56)
[2020-02-06] MEDS ORDERED: CLONAZEPAM1 MG PO (04:56)
[2020-02-06] MEDS ORDERED: ALPR2TAB5 PO (04:56)
[2020-02-06] MEDS ORDERED: CYCL10TA2 PO (04:56)
--- NOTE | 2020-02-06 07:25 | PDOC1 ---
History and Physical Date of Admission Date of Admission DATE: 02/06/20 TIME: 07:10 Identification/Chief Complaint Chief Complaint Fall Source Source: Chart review, Patient History of Present Illness History of Present Illness Ms Woods is a 64 year old female w/ PMHx 2ppd smoker, COPD, depression, DM2, fatty liver admitted after a fall at home. She was at home chasing the cat, when she had tripped over the cat and fallen, landing on the floor and started have some discomfort in her left hip and leg. Patient states she laid on the floor for 20 to 30 minutes before they came to help her. States she was unable to get up. Unable to bear weight in the ED with left leg appearing shorter than right. Denies hitting head, denies loss of consciousness, denies taking blood thinners. Denies any nausea, vomiting, diarrhea EKG with heart rate 77 beats per minute. No ST segment elevation prolonged QT interval 448 MS. Labs significant for WBC WBC 11.1, Hb 14 platelets 211, NA 136, K4.7, BUN 13, CR 1.3, glucose 116 Chest radiograph unchanged from prior no acute abnormality. Left hip x-ray confirms left intertrochanteric hip fracture. Admitted for further care. Past Medical History Pulmonary: COPD Past Surgical History Past Surgical History: Appendectomy, Tonsillectomy, Hysterectomy Family History Family History: Family History Unknown Social History Smoke: 1 pack per day ALCOHOL: none Drugs: None Current Problem List Problem List Problems Medical Problems: (1) Fall as cause of accidental injury at home as place of occurrence Status: Acute (2) Fracture, intertrochanteric, left femur Status: Acute Current Medications Current Medications Current Medications Fentanyl Citrate (Fentanyl 2ml Vial) 50 mcg PRN Q20MIN PRN IVP SEVERE PAIN 7- 10; Start 02/06/20 at 00:15; Stop 02/06/20 at 01:15; Status DC Sodium Chloride 1,000 ml @ 125 mls/hr 1X ONCE IV Last administered on 02/06/20at 00:56; Start 02/06/20 at 01:00; Stop 02/06/20 at 08:59 Ondansetron HCl (Zofran) 4 mg PRN Q8HRS PRN IV NAUSEA/VOMITING 1ST CHOICE Last administered on 02/06/20at 01:26; Start 02/06/20 at 00:45; Stop 02/07/20 at 00:44 Morphine Sulfate (Morphine Sulfate) 2 mg PRN Q2HR PRN IV SEVERE PAIN 7-10 Last administered on 02/06/20at 05:59; Start 02/06/20 at 00:45; Stop 02/07/20 at 00:44 Fentanyl Citrate (Fentanyl 2ml Vial) 50 mcg PRN Q1HR PRN IV SEVERE PAIN 7-10 Last administered on 02/06/20at 04:09; Start 02/06/20 at 00:45; Stop 02/07/20 at 00:44 Sodium Chloride 1,000 ml @ 125 mls/hr Q8H IV ; Start 02/06/20 at 01:00; Stop 02/07/20 at 00:59 Nicotine (Nicoderm Cq 21mg) 1 patch PRN DAILY PRN TD SMOKING CESSATION; Start 02/06/20 at 00:45 Active Scripts Active Dok (Docusate Sodium) 100 Mg Capsule 100 Mg PO PRN BID PRN 30 Days Olanzapine Odt (Olanzapine) 5 Mg Tab.rapdis 5 Mg PO PRN BID PRN 30 Days Tylenol (Acetaminophen) 325 Mg Tablet 650 Mg PO PRN Q4HRS PRN 30 Days NICODERM CQ 21mg (Nicotine) 1 Each Patch.td24 1 Patch TP DAILY Proair Hfa (Albuterol Sulfate) 8.5 Gm Hfa.aer.ad 2.5 Mg NEB PRN Q4HRS PRN 30 Days Symbicort 80-4.5 Mcg Inhaler (Budesonide/Formoterol Fumarate) 10.2 Gm Hfa.aer.ad 2 Puff IH BID Reported Zolpidem Tartrate 5 Mg Tablet 10 Mg PO PRN QHS PRN Omeprazole 40 Mg Capsule.dr 40 Mg PO DAILY Alprazolam 2 Mg Tablet 1 Tab PO BID PRN Cyclobenzaprine Hcl 10 Mg Tablet 1 Tab PO QHS Clonazepam 1 Mg Tablet 3 Mg PO HS Twilight Carbonate 450 Mg Tablet.er 450 Mg PO HS Abilify (Aripiprazole) 2 Mg Tablet 1 Tab PO DAILY 30 Days Bupropion Xl (Bupropion Hcl) 150 Mg Tab.er.24h 3 Tab PO DAILYWBKFT Liothyronine Sodium 25 Mcg Tablet 1 Tab PO DAILY 30 Days Atorvastatin Calcium 40 Mg Tablet 40 Mg PO DAILY Metformin Hcl 1,000 Mg Tablet 1,000 BID Aspir 81 (Aspirin) 81 Mg Tablet. 1 Tab PO DAILY Glipizide 5 Mg Tablet 1 Tab PO BID Allergies Allergies: Coded Allergies: No Known Drug Allergies (Unverified , 06/07/16) ROS General: YES: Fatigue, Malaise; No: Chills, Night Sweats, Appetite, Other PSYCHOLOGICAL ROS: No: Anxiety, Behavioral Disorder, Concentration difficultie, Decreased libido, Depression, Disorientation, Hallucinations, Hostility, Irritablity, Memory difficulties, Mood Swings, Obsessive thoughts, Physical abuse, Sexual abuse, Sleep disturbances, Suicidal ideation, Other Eyes: No Blurry vision, No Decreased vision, No Double vision, No Dry eyes, No Excessive tearing, No Eye Pain, No Itchy Eyes, No Loss of vision, No Photophobia, No Scotomata, No Uses contacts, No Uses glasses, No Other HEENT: No: Heacaches, Visual Changes, Hearing change, Nasal congestion, Nasal discharge, Oral lesions, Sinus pain, Sore Throat, Epistaxis, Sneezing, Snoring, Tinnitus, Vertigo, Vocal changes, Other ALLERGY AND IMMUNOLOGY: No: Hives, Insect Bite Sensitivity, Itchy/Watery Eyes, Nasal Congestion, Post Nasal Drip, Seasonal Allergies, Other Hematological and Lymphatic: No: Bleeding Problems, Blood Clots, Blood Transfusions, Brusing, Night Sweats, Pallor, Swollen Lymph Nodes, Other ENDOCRINE: No: Breast Changes, Galactorrhea, Hair Pattern Changes, Hot Flashes, Malaise/lethargy, Mood Swings, Palpitations, Polydipsia/polyuria, Skin Changes, Temperature Intolerance, Unexpected Weight Changes, Other Breast: No New/Changing Breast Lumps, No Nipple changes, No Nipple discharge, No Other Respiratory: No: Cough, Hemoptysis, Orthopnea, Pleuritic Pain, Shortness of breath, SOB with excertion, Sputum Changes, Stridor, Tachypnea, Wheezing, Other Cardiovascular: No Chest Pain, No Palpitations, No Orthopnea, No Paroxysmal Noc. Dyspnea, No Edema, No Lt Headedness, No Other Gastrointestinal: No Nausea, No Vomiting, No Abdominal Pain, No Diarrhea, No Constipation, No Melena, No Hematochezia, No Other Genitourinary: No Dysuria, No Frequency, No Incontinence, No Hematuria, No Retention, No Discharge, No Urgency, No Pain, No Flank Pain, No Other, No , No , No , No , No , No , No Musculoskeletal: Yes Gait Disturbance; No Joint Pain, No Joint Stiffness, No Joint Swelling, No Muscle Pain, No Muscular Weakness, No Pain In:, No Swelling In:, No Other Neurological: No Behavorial Changes, No Bowel/Bladder ControlChng, No Confusion, No Dizziness, No Gait Disturbance, No Headaches, No Impaired Coord/balance, No Memory Loss, No Numbness/Tingling, No Seizures, No Speech Problems, No Tremors, No Visual Changes, No Weakness, No Other Skin: No Dry Skin, No Eczema, No Hair Changes, No Lumps, No Mole Changes, No Mottling, No Nail Changes, No Pruritus, No Rash, No Skin Lesion Changes, No Other, No Acne Physical Exam General: Alert, Oriented X3, Cooperative, mild distress HEENT: Atraumatic, PERRLA, EOMI, Mucous membr. moist/pink Lungs: Other (Scattered wheezing bilaterally) Heart: S1S2, RRR, no thrills, no rubs, no gallops, no murmurs Abdomen: Normal bowel sounds, Soft, No tenderness, No hepatosplenomegaly, No masses Extremities: No clubbing, No cyanosis, No edema, Normal pulses, No tenderness/swelling Skin: No rashes, No breakdown, No significant lesion Neuro: Normal speech, Strength at 5/5 X4 ext, Normal tone, Sensation intact, Cranial nerves 3-12 NL, Reflexes 2+ Psych/Mental Status: Mental status NL, Mood NL Vitals Vitals Vital Signs Date Time Temp Pulse Resp B/P (MAP) Pulse Ox O2 Delivery O2 Flow Rate FiO2 02/06/20 06:29 14 95 Room Air 02/06/20 01:40 98.2 106 128/78 (95) 98.2 Labs Labs Laboratory Tests Test 02/06/20 00:01 02/06/20 00:50 02/06/20 02:20 White Blood Count 11.1 x10^3/uL (4.0-11.0) Red Blood Count 4.82 x10^6/uL (3.50-5.40) Hemoglobin 14.0 g/dL (12.0-15.5) Hematocrit 42.2 % (36.0-47.0) Mean Corpuscular Volume 88 fL (79-100) Mean Corpuscular Hemoglobin 29 pg (25-35) Mean Corpuscular Hemoglobin Concent 33 g/dL (31-37) Red Cell Distribution Width 14.4 % (11.5-14.5) Platelet Count 211 x10^3/uL (140-400) Neutrophils (%) (Auto) 62 % (31-73) Lymphocytes (%) (Auto) 28 % (24-48) Monocytes (%) (Auto) 7 % (0-9) Eosinophils (%) (Auto) 2 % (0-3) Basophils (%) (Auto) 1 % (0-3) Neutrophils # (Auto) 6.8 x10^3/uL (1.8-7.7) Lymphocytes # (Auto) 3.2 x10^3/uL (1.0-4.8) Monocytes # (Auto) 0.7 x10^3/uL (0.0-1.1) Eosinophils # (Auto) 0.3 x10^3/uL (0.0-0.7) Basophils # (Auto) 0.1 x10^3/uL (0.0-0.2) Sodium Level 136 mmol/L (136-145) Potassium Level 4.7 mmol/L (3.5-5.1) Chloride Level 100 mmol/L (98-107) Carbon Dioxide Level 28 mmol/L (21-32) Anion Gap 8 (6-14) Blood Urea Nitrogen 15 mg/dL (7-20) Creatinine 1.3 mg/dL (0.6-1.0) Estimated GFR (Cockcroft-Gault) 41.0 BUN/Creatinine Ratio 12 (6-20) Glucose Level 116 mg/dL (70-99) Calcium Level 9.7 mg/dL (8.5-10.1) Total Bilirubin 0.5 mg/dL (0.2-1.0) Aspartate Amino Transf (AST/SGOT) 28 U/L (15-37) Alanine Aminotransferase (ALT/SGPT) 38 U/L (14-59) Alkaline Phosphatase 144 U/L (46-116) Total Protein 6.9 g/dL (6.4-8.2) Albumin 3.5 g/dL (3.4-5.0) Albumin/Globulin Ratio 1.0 (1.0-1.7) SARS-CoV-2 Antigen (Rapid) Negative (NEGATIVE) Urine Collection Type Unknown Urine Color Yellow Urine Clarity Clear Urine pH 6.0 (<5.0-8.0) Urine Specific [place] 1.010 (1.000-1.030) Urine Protein Negative mg/dL (NEG-TRACE) Urine Glucose (UA) Negative mg/dL (NEG) Urine Ketones (Stick) Negative mg/dL (NEG) Urine Blood Negative (NEG) Urine Nitrite Negative (NEG) Urine Bilirubin Negative (NEG) Urine Urobilinogen Dipstick 0.2 mg/dL (0.2 mg/dL) Urine Leukocyte Esterase Negative (NEG) Urine RBC 0 /HPF (0-2) Urine WBC 0 /HPF (0-4) Urine Squamous Epithelial Cells Occ /LPF Urine Bacteria 0 /HPF (0-FEW) Urine Hyaline Casts Few /HPF Urine Mucus Slight /LPF Laboratory Tests Test 02/06/20 00:01 02/06/20 00:50 02/06/20 02:20 White Blood Count 11.1 x10^3/uL (4.0-11.0) Red Blood Count 4.82 x10^6/uL (3.50-5.40) Hemoglobin 14.0 g/dL (12.0-15.5) Hematocrit 42.2 % (36.0-47.0) Mean Corpuscular Volume 88 fL (79-100) Mean Corpuscular Hemoglobin 29 pg (25-35) Mean Corpuscular Hemoglobin Concent 33 g/dL (31-37) Red Cell Distribution Width 14.4 % (11.5-14.5) Platelet Count 211 x10^3/uL (140-400) Neutrophils (%) (Auto) 62 % (31-73) Lymphocytes (%) (Auto) 28 % (24-48) Monocytes (%) (Auto) 7 % (0-9) Eosinophils (%) (Auto) 2 % (0-3) Basophils (%) (Auto) 1 % (0-3) Neutrophils # (Auto) 6.8 x10^3/uL (1.8-7.7) Lymphocytes # (Auto) 3.2 x10^3/uL (1.0-4.8) Monocytes # (Auto) 0.7 x10^3/uL (0.0-1.1) Eosinophils # (Auto) 0.3 x10^3/uL (0.0-0.7) Basophils # (Auto) 0.1 x10^3/uL (0.0-0.2) Sodium Level 136 mmol/L (136-145) Potassium Level 4.7 mmol/L (3.5-5.1) Chloride Level 100 mmol/L (98-107) Carbon Dioxide Level 28 mmol/L (21-32) Anion Gap 8 (6-14) Blood Urea Nitrogen 15 mg/dL (7-20) Creatinine 1.3 mg/dL (0.6-1.0) Estimated GFR (Cockcroft-Gault) 41.0 BUN/Creatinine Ratio 12 (6-20) Glucose Level 116 mg/dL (70-99) Calcium Level 9.7 mg/dL (8.5-10.1) Total Bilirubin 0.5 mg/dL (0.2-1.0) Aspartate Amino Transf (AST/SGOT) 28 U/L (15-37) Alanine Aminotransferase (ALT/SGPT) 38 U/L (14-59) Alkaline Phosphatase 144 U/L (46-116) Total Protein 6.9 g/dL (6.4-8.2) Albumin 3.5 g/dL (3.4-5.0) Albumin/Globulin Ratio 1.0 (1.0-1.7) SARS-CoV-2 Antigen (Rapid) Negative (NEGATIVE) Urine Collection Type Unknown Urine Color Yellow Urine Clarity Clear Urine pH 6.0 (<5.0-8.0) Urine Specific [place] 1.010 (1.000-1.030) Urine Protein Negative mg/dL (NEG-TRACE) Urine Glucose (UA) Negative mg/dL (NEG) Urine Ketones (Stick) Negative mg/dL (NEG) Urine Blood Negative (NEG) Urine Nitrite Negative (NEG) Urine Bilirubin Negative (NEG) Urine Urobilinogen Dipstick 0.2 mg/dL (0.2 mg/dL) Urine Leukocyte Esterase Negative (NEG) Urine RBC 0 /HPF (0-2) Urine WBC 0 /HPF (0-4) Urine Squamous Epithelial Cells Occ /LPF Urine Bacteria 0 /HPF (0-FEW) Urine Hyaline Casts Few /HPF Urine Mucus Slight /LPF Images Images Chest Radiograph: Linear right basilar opacity. No consolidation or pleural effusion. No pneumothorax. Impression: 1. Mild right basilar linear atelectasis. Left Hip Radiograph: Acute displaced left intertrochanteric femur fracture. No dislocation. Lower lumbar spondylosis. Impression: 1. Acute displaced left intertrochanteric femur fracture. VTE Prophylaxis Ordered VTE Prophylaxis Devices: No VTE Pharmacological Prophylaxi: Yes Assessment/Plan Assessment/Plan A/P: Acute left intertrochanteric hip fracture - traumatic due to fall. NPO. Ortho consulted. Pain control iv. No further testing prior to surgery. Rapid COVID 19 pending Fall at home - traumatic per patient OPAL - likely vasomotor nephropathy, will hydrate Tobacco dependence - counseled on cessation COPD - will place on nebs prn Type 2 diabetes - will place on sliding scale Hearing impairment - not wearing hearing aides Mild cognitive impairment - likely progressing to Alzheimers dementia as her mother and father did. FEN - ADA diet PPX - lovenox FULL CODE Dispo - inpatient Justifications for Admission Other Justification TEODORO BETTENCOURT MD Feb 06, 2020 07:25
[2020-02-06] MEDS ORDERED: ALBUTEROL SULFATE 2.5 MG/3 ML NEBU. NEB PRN (07:30)
[2020-02-06] MEDS ORDERED: DOCUSATE SODIUM 100 MG CAPSULE. PO PRN (07:30)
[2020-02-06] MEDS ORDERED: ACETAMINOPHEN 325 MG TABLET. PO PRN (07:30)
[2020-02-06] MEDS: BUDESONIDE 0.5 MG/2 ML NEBU. NEB SCH ×3 (08:00→20:20)
[2020-02-06] MEDS: buPROPion XL 150 MG TAB.ER.24H. PO SCH (08:48)
[2020-02-06] MEDS: ARIPiprazole 2 MG TABLET PO SCH (08:48)
[2020-02-06] MEDS: ALBUTEROL SULFATE 2.5 MG/3 ML NEBU. NEB SCH ×4 (08:51→20:20)
[2020-02-06] MEDS: LIOTHYRONINE 5 MCG TABLET. PO SCH (09:00)
[2020-02-06] MEDS: glipiZIDE 5 MG TABLET PO SCH ×3 (09:00→21:38)
[2020-02-06] MEDS ORDERED: NON FORMULARY ITEM (Budesonide/Formoterol Fumarate (Symbicort 80-4.5 Mcg Inhaler) 2 PUFF) IH SCH (09:00)
[2020-02-06] MEDS ORDERED: ASPIRIN ENTERIC COATED 81 MG TABLET.DR. PO SCH (09:00)
--- NOTE | 2020-02-06 10:06 | NUR ---
SW following. Discussed with RN, pt from home alone, room air, NPO, rapid COVID-19 negative. Ortho consulted. Per RN, pt is wanting to go home, she does not want to go to a rehab. Pt discharged home with [facility] last admission. SW will continue to follow.
--- NOTE | 2020-02-06 10:38 | PDOC2 ---
CONSULT Date of Consult Date of Consult DATE: 02/06/20 TIME: 10:35 Reason for Consult Reason for Consult: left hip fracture Identification/Chief Complaint Chief Complaint left hip pain after a fall Source Source: Chart review, Patient History of Present Illness Reason for Visit: Ms. Woods is a 64 year old female w/ PMHx 2ppd smoker, COPD, depression, DM2, fatty liver admitted after a fall at home. She was at home chasing the cat, when she had tripped over the cat and fallen, landing on the floor and started have some discomfort in her left hip and leg. Patient states she laid on the floor for 20 to 30 minutes before they came to help her. States she was unable to get up. Unable to bear weight in the ED with left leg appearing shorter than right. Denies hitting head, denies loss of consciousness, and denies taking blood thinners. Denies any nausea, vomiting, diarrhea Past Medical History Pulmonary: COPD Past Surgical History Past Surgical History: Appendectomy, Tonsillectomy, Hysterectomy Family History Family History: Family History Unknown Social History 2 packs per day ALCOHOL: none Drugs: None Current Problem List Problem List Problems Medical Problems: (1) Fall as cause of accidental injury at home as place of occurrence Status: Acute (2) Fracture, intertrochanteric, left femur Status: Acute Current Medications Current Medications Current Medications Fentanyl Citrate (Fentanyl 2ml Vial) 50 mcg PRN Q20MIN PRN IVP SEVERE PAIN 7- 10; Start 02/06/20 at 00:15; Stop 02/06/20 at 01:15; Status DC Sodium Chloride 1,000 ml @ 125 mls/hr 1X ONCE IV Last administered on 02/06/20at 00:56; Start 02/06/20 at 01:00; Stop 02/06/20 at 08:59; Status DC Ondansetron HCl (Zofran) 4 mg PRN Q8HRS PRN IV NAUSEA/VOMITING 1ST CHOICE Last administered on 02/06/20at 01:26; Start 02/06/20 at 00:45; Stop 02/06/20 at 07:22; Status DC Morphine Sulfate (Morphine Sulfate) 2 mg PRN Q2HR PRN IV SEVERE PAIN 7-10 Last administered on 02/06/20at 08:47; Start 02/06/20 at 00:45; Stop 02/07/20 at 00:44 Fentanyl Citrate (Fentanyl 2ml Vial) 50 mcg PRN Q1HR PRN IV SEVERE PAIN 7-10 Last administered on 02/06/20at 09:55; Start 02/06/20 at 00:45; Stop 02/07/20 at 00:44 Sodium Chloride 1,000 ml @ 125 mls/hr Q8H IV Last administered on 02/06/20at 09:56; Start 02/06/20 at 01:00; Stop 02/07/20 at 00:59 Nicotine (Nicoderm Cq 21mg) 1 patch PRN DAILY PRN TD SMOKING CESSATION; Start 02/06/20 at 00:45 Ondansetron HCl (Zofran) 4 mg PRN Q4HRS PRN IV NAUSEA/VOMITING 1ST CHOICE Last administered on 02/06/20at 08:47; Start 02/06/20 at 07:30 Acetaminophen (Tylenol) 650 mg PRN Q4HRS PRN PO TEMP OVER 100.4F OR MILD PAIN; Start 02/06/20 at 07:30 Albuterol Sulfate (Ventolin Neb Soln) 2.5 mg PRN Q4HRS PRN NEB SHORTNESS OF BREATH; Start 02/06/20 at 07:30 Aripiprazole (Abilify) 2 mg DAILY PO Last administered on 02/06/20at 08:48; Start 02/06/20 at 09:00 Aspirin (Ecotrin) 81 mg DAILY PO ; Start 02/06/20 at 09:00 Atorvastatin Calcium (Lipitor) 40 mg QHS PO ; Start 02/06/20 at 21:00 Bupropion HCl (Wellbutrin Xl) 450 mg DAILYWBKFT PO Last administered on 02/06/20at 08:48; Start 02/06/20 at 08:00 Cyclobenzaprine HCl (Flexeril) 10 mg QHS PO ; Start 02/06/20 at 21:00 Docusate Sodium (Colace) 100 mg PRN BID PRN PO HARD STOOLS; Start 02/06/20 at 07:30 Glipizide (Glucotrol) 5 mg BID PO ; Start 02/06/20 at 09:00 Olanzapine (ZyPREXA ZYDIS) 5 mg PRN BID PRN PO ANXIETY / AGITATION; Start 02/06/20 at 07:30 Non-Formulary Medication (Budesonide/ Formoterol Fumarate (Symbicort 80-4.5 Mcg Inhaler)) 2 puff BID IH ; Start 02/06/20 at 09:00; Status UNV Liothyronine Sodium (Cytomel) 25 mcg DAILY PO ; Start 02/06/20 at 09:00 [place] Carbonate ([place] Carbonate) 450 mg HS PO ; Start 02/06/20 at 21:00 Alprazolam (Xanax) 1 mg PRN Q8HRS PRN PO ANXIETY / AGITATION; Start 02/06/20 at 07:30 Albuterol Sulfate (Ventolin Neb Soln) 2.5 mg RTQID NEB ; Start 02/06/20 at 08:00 Budesonide (Pulmicort) 0.5 mg RTBID NEB ; Start 02/06/20 at 08:00 Active Scripts Active Dok (Docusate Sodium) 100 Mg Capsule 100 Mg PO PRN BID PRN 30 Days Olanzapine Odt (Olanzapine) 5 Mg Tab.rapdis 5 Mg PO PRN BID PRN 30 Days Tylenol (Acetaminophen) 325 Mg Tablet 650 Mg PO PRN Q4HRS PRN 30 Days NICODERM CQ 21mg (Nicotine) 1 Each Patch.td24 1 Patch TP DAILY Proair Hfa (Albuterol Sulfate) 8.5 Gm Hfa.aer.ad 2.5 Mg NEB PRN Q4HRS PRN 30 Days Symbicort 80-4.5 Mcg Inhaler (Budesonide/Formoterol Fumarate) 10.2 Gm Hfa.aer.ad 2 Puff IH BID Reported Zolpidem Tartrate 5 Mg Tablet 10 Mg PO PRN QHS PRN Omeprazole 40 Mg Capsule.dr 40 Mg PO DAILY Alprazolam 2 Mg Tablet 1 Tab PO BID PRN Cyclobenzaprine Hcl 10 Mg Tablet 1 Tab PO QHS Clonazepam 1 Mg Tablet 3 Mg PO HS [place] Carbonate 450 Mg Tablet.er 450 Mg PO HS Abilify (Aripiprazole) 2 Mg Tablet 1 Tab PO DAILY 30 Days Bupropion Xl (Bupropion Hcl) 150 Mg Tab.er.24h 3 Tab PO DAILYWBKFT Liothyronine Sodium 25 Mcg Tablet 1 Tab PO DAILY 30 Days Atorvastatin Calcium 40 Mg Tablet 40 Mg PO DAILY Metformin Hcl 1,000 Mg Tablet 1,000 BID Aspir 81 (Aspirin) 81 Mg Tablet.dr 1 Tab PO DAILY Glipizide 5 Mg Tablet 1 Tab PO BID Allergies Allergies: Coded Allergies: No Known Drug Allergies (Unverified , 06/07/16) ROS General: No: Chills, Night Sweats PSYCHOLOGICAL ROS: YES: Concentration difficultie Eyes: No Double vision HEENT: No: Heacaches Hematological and Lymphatic: No: Blood Clots Respiratory: No: Cough, Shortness of breath Cardiovascular: No Chest Pain, No Palpitations, No Edema Gastrointestinal: No Nausea, No Vomiting, No Diarrhea, No Constipation Genitourinary: No Hematuria Musculoskeletal: Yes Joint Pain Neurological: Yes Memory Loss Skin: No Mole Changes Physical Exam General: Alert, Cooperative HEENT: Atraumatic Lungs: Normal air movement Heart: Regular rate Abdomen: Soft Extremities: Other (There is tenderness of the left hip. There is pain with any attempted motion. The skin is intact without ecchymosis. The extremity is shortened and externally rotated. Light touch sensation is intact at the foot and toes. Capillary refill and pulses are intact without evidence of ischemia. Slight dorsiflexion and plantarflexion are possible without evidence of sciatic nerve injury.) Skin: No breakdown, No significant lesion, Other (multiple actinic keratoses) Neuro: Normal speech, Sensation intact Psych/Mental Status: Mood NL, Other (confused at times, consistent with dementia) MUSCULOSKELETAL: Abnormal exam of left (hip as above) Vitals VITALS Vital Signs Date Time Temp Pulse Resp B/P (MAP) Pulse Ox O2 Delivery O2 Flow Rate FiO2 02/06/20 08:47 Nasal Cannula 02/06/20 07:00 98.0 106 17 131/72 (91) 93 98.0 Labs Labs Laboratory Tests Test 02/06/20 00:01 02/06/20 00:50 02/06/20 02:20 02/06/20 08:08 White Blood Count 11.1 x10^3/uL (4.0-11.0) Red Blood Count 4.82 x10^6/uL (3.50-5.40) Hemoglobin 14.0 g/dL (12.0-15.5) Hematocrit 42.2 % (36.0-47.0) Mean Corpuscular Volume 88 fL (79-100) Mean Corpuscular Hemoglobin 29 pg (25-35) Mean Corpuscular Hemoglobin Concent 33 g/dL (31-37) Red Cell Distribution Width 14.4 % (11.5-14.5) Platelet Count 211 x10^3/uL (140-400) Neutrophils (%) (Auto) 62 % (31-73) Lymphocytes (%) (Auto) 28 % (24-48) Monocytes (%) (Auto) 7 % (0-9) Eosinophils (%) (Auto) 2 % (0-3) Basophils (%) (Auto) 1 % (0-3) Neutrophils # (Auto) 6.8 x10^3/uL (1.8-7.7) Lymphocytes # (Auto) 3.2 x10^3/uL (1.0-4.8) Monocytes # (Auto) 0.7 x10^3/uL (0.0-1.1) Eosinophils # (Auto) 0.3 x10^3/uL (0.0-0.7) Basophils # (Auto) 0.1 x10^3/uL (0.0-0.2) Sodium Level 136 mmol/L (136-145) Potassium Level 4.7 mmol/L (3.5-5.1) Chloride Level 100 mmol/L (98-107) Carbon Dioxide Level 28 mmol/L (21-32) Anion Gap 8 (6-14) Blood Urea Nitrogen 15 mg/dL (7-20) Creatinine 1.3 mg/dL (0.6-1.0) Estimated GFR (Cockcroft-Gault) 41.0 BUN/Creatinine Ratio 12 (6-20) Glucose Level 116 mg/dL (70-99) Calcium Level 9.7 mg/dL (8.5-10.1) Total Bilirubin 0.5 mg/dL (0.2-1.0) Aspartate Amino Transf (AST/SGOT) 28 U/L (15-37) Alanine Aminotransferase (ALT/SGPT) 38 U/L (14-59) Alkaline Phosphatase 144 U/L (46-116) Total Protein 6.9 g/dL (6.4-8.2) Albumin 3.5 g/dL (3.4-5.0) Albumin/Globulin Ratio 1.0 (1.0-1.7) SARS-CoV-2 Antigen (Rapid) Negative (NEGATIVE) Urine Collection Type Unknown Urine Color Yellow Urine Clarity Clear Urine pH 6.0 (<5.0-8.0) Urine Specific Jerome 1.010 (1.000-1.030) Urine Protein Negative mg/dL (NEG-TRACE) Urine Glucose (UA) Negative mg/dL (NEG) Urine Ketones (Stick) Negative mg/dL (NEG) Urine Blood Negative (NEG) Urine Nitrite Negative (NEG) Urine Bilirubin Negative (NEG) Urine Urobilinogen Dipstick 0.2 mg/dL (0.2 mg/dL) Urine Leukocyte Esterase Negative (NEG) Urine RBC 0 /HPF (0-2) Urine WBC 0 /HPF (0-4) Urine Squamous Epithelial Cells Occ /LPF Urine Bacteria 0 /HPF (0-FEW) Urine Hyaline Casts Few /HPF Urine Mucus Slight /LPF Glucose (Fingerstick) 166 mg/dL (70-99) Laboratory Tests Test 02/06/20 00:01 02/06/20 00:50 02/06/20 02:20 02/06/20 08:08 White Blood Count 11.1 x10^3/uL (4.0-11.0) Red Blood Count 4.82 x10^6/uL (3.50-5.40) Hemoglobin 14.0 g/dL (12.0-15.5) Hematocrit 42.2 % (36.0-47.0) Mean Corpuscular Volume 88 fL (79-100) Mean Corpuscular Hemoglobin 29 pg (25-35) Mean Corpuscular Hemoglobin Concent 33 g/dL (31-37) Red Cell Distribution Width 14.4 % (11.5-14.5) Platelet Count 211 x10^3/uL (140-400) Neutrophils (%) (Auto) 62 % (31-73) Lymphocytes (%) (Auto) 28 % (24-48) Monocytes (%) (Auto) 7 % (0-9) Eosinophils (%) (Auto) 2 % (0-3) Basophils (%) (Auto) 1 % (0-3) Neutrophils # (Auto) 6.8 x10^3/uL (1.8-7.7) Lymphocytes # (Auto) 3.2 x10^3/uL (1.0-4.8) Monocytes # (Auto) 0.7 x10^3/uL (0.0-1.1) Eosinophils # (Auto) 0.3 x10^3/uL (0.0-0.7) Basophils # (Auto) 0.1 x10^3/uL (0.0-0.2) Sodium Level 136 mmol/L (136-145) Potassium Level 4.7 mmol/L (3.5-5.1) Chloride Level 100 mmol/L (98-107) Carbon Dioxide Level 28 mmol/L (21-32) Anion Gap 8 (6-14) Blood Urea Nitrogen 15 mg/dL (7-20) Creatinine 1.3 mg/dL (0.6-1.0) Estimated GFR (Cockcroft-Gault) 41.0 BUN/Creatinine Ratio 12 (6-20) Glucose Level 116 mg/dL (70-99) Calcium Level 9.7 mg/dL (8.5-10.1) Total Bilirubin 0.5 mg/dL (0.2-1.0) Aspartate Amino Transf (AST/SGOT) 28 U/L (15-37) Alanine Aminotransferase (ALT/SGPT) 38 U/L (14-59) Alkaline Phosphatase 144 U/L (46-116) Total Protein 6.9 g/dL (6.4-8.2) Albumin 3.5 g/dL (3.4-5.0) Albumin/Globulin Ratio 1.0 (1.0-1.7) SARS-CoV-2 Antigen (Rapid) Negative (NEGATIVE) Urine Collection Type Unknown Urine Color Yellow Urine Clarity Clear Urine pH 6.0 (<5.0-8.0) Urine Specific Jerome 1.010 (1.000-1.030) Urine Protein Negative mg/dL (NEG-TRACE) Urine Glucose (UA) Negative mg/dL (NEG) Urine Ketones (Stick) Negative mg/dL (NEG) Urine Blood Negative (NEG) Urine Nitrite Negative (NEG) Urine Bilirubin Negative (NEG) Urine Urobilinogen Dipstick 0.2 mg/dL (0.2 mg/dL) Urine Leukocyte Esterase Negative (NEG) Urine RBC 0 /HPF (0-2) Urine WBC 0 /HPF (0-4) Urine Squamous Epithelial Cells Occ /LPF Urine Bacteria 0 /HPF (0-FEW) Urine Hyaline Casts Few /HPF Urine Mucus Slight /LPF Glucose (Fingerstick) 166 mg/dL (70-99) Images Images Report reviewed and images independently reviewed. Traumatic appearing displaced intertrochanteric three-part left femur fracture. [facility] [address] [place], [place] [id number] IMAGING REPORT Signed PATIENT: RHINA WOODS ACCOUNT: [id number] : 1955 LOCATION: ER AGE: 64 SEX: F EXAM STATUS: REG ER ORD. PHYSICIAN: MANINDER SARABIA APRN REASON: left hip pain after fall PROCEDURE: HIP LEFT 2V WITH PELVIS HIP LEFT 2V WITH PELVIS History: Reason: left hip pain after fall / Spl. Instructions: / History: Technique: AP view the pelvis and 2 additional views of the left hip. Comparison: None. Findings: Acute displaced left intertrochanteric femur fracture. No dislocation. Lower lumbar spondylosis. Impression: 1. Acute displaced left intertrochanteric femur fracture. Electronically signed by: Delano Carroll DO (02/06/2020 1:17 AM) [facility] DICTATED and SIGNED BY: DELANO CARROLL DO DATE: 02/06/20 0117 Assessment/Plan Assessment/Plan Diagnosis Code S72.142A Displaced intertrochanteric fracture of left femur, initial encounter for closed fracture We discussed operative versus nonoperative management. I recommend surgery. The alternative to surgery is bedrest which is generally not well tolerated and has high risks of continued pain, bedsores, pneumonia, and blood clots. Surgery is likely safer than nonoperative treatment. Risks of intramedullary nailing would include malunion, nonunion or hardware failure requiring additional surgery, bleeding, blood clots, neurovascular injury, or other potential surgical or anesthetic complications. All of her questions about surgery were answered and she desires to proceed. GEORGES HAHN MD Feb 06, 2020 10:38
[2020-02-06] MEDS ORDERED: IV RINGERS,LACTATED 1000ML 1,000 ML IV SCH (13:00)
[2020-02-06] MEDS ORDERED: PROCHLORPERAZINE 10 MG/2 ML VIAL. IV PRN (13:00)
[2020-02-06] MEDS ORDERED: HYDROmorphone 2 MG/ML VIAL IV PRN (13:00)
[2020-02-06] MEDS ORDERED: fentaNYL PF VIAL 100 MCG/2 ML VIAL IV PRN ×2 (13:00)
[2020-02-06] MEDS ORDERED: LIDOCAINE 1% PF 2 ML VIAL. ID PRN (13:00)
[2020-02-06] MEDS ORDERED: [UNRECOGNIZED DRUG - REMARK] INT ART ONE (14:00)
[2020-02-06] MEDS ORDERED: LIDOCAINE 2% PF 5 ML VIAL. ONE (14:51)
[2020-02-06] MEDS ORDERED: PROPOFOL 10 MG/ML (20ML) VIAL. IV ONE (14:51)
[2020-02-06] MEDS ORDERED: ONDANSETRON PF 4 MG/2 ML VIAL. ONE (14:51)
[2020-02-06] MEDS ORDERED: DEXAMETHASONE SOD PHOS 4 MG/ML VIAL ONE (14:51)
[2020-02-06] MEDS ORDERED: SEVOFLURANE 61 TO 120 MINUTES. IH ONE (16:51)
[2020-02-06] MEDS ORDERED: fentaNYL PF VIAL 100 MCG/2 ML VIAL ONE ×2 (16:52→17:30)
--- NOTE | 2020-02-06 17:10 | PDOC4 ---
Operative Note Operative Note Date of Procedure: February 06, 2020 Pre-Op Diagnosis: Displaced intertrochanteric fracture of left femur, initial encounter for closed fracture, S72.142A Post-Op Diagnosis: same Procedure: left hip treatment of intertrochanteric femoral fracture with intramedullary implant, with interlocking screws, CPT 81402 Surgeon: Georges Ren MD Anesthesia Type: General EBL: 200 mL Specimens Obtained: none Complications: None Implant Company: [email or web address] Implants: Gamma 3 Locking Nail 11 mm x 180 mm x 125; Gamma 3 system Lag Screw Titanium 10.5 mm x 90 mm; locking screw fully threaded 5 mm x 40 mm INDICATION FOR PROCEDURE: This patient is 64 years old, and fell, sustaining a left hip fracture. X-rays show an unstable intertrochanteric hip fracture. The patient and I discussed the risks, benefits and alternatives of treatment. The alternative for treatment is bedrest, which I generally do not recommend. I recommended intramedullary nailing, and I talked to her about the potential risks of this, including bleeding, infection, blood clots, malunion, nonunion or other potential surgical or anesthetic complications. All of the questions about surgery were answered, and she desired to proceed. A written consent was obtained. PROCEDURE IN DETAIL: The patient was identified in the preoperative holding area. The correct left hip was marked by me. The patient was taken to the operating room, where the patient was anesthetized by the Department of Anesthesia. Preoperative antibiotics were given intravenously. The HANA table was used and the well leg was placed in a padded lithotomy leg tse while the foot of the left leg was placed in a traction foot boot. A time-out procedure was performed. The image intensifier was used, and a preliminary reduction performed. All of the images were interpreted intraoperatively by me, and the image intensifier was used throughout the case. The left hip area was prepared in sterile fashion with ChloraPrep solution and a sterile barrier Ioban hip drape was used. An incision was made over the superior aspect of the greater trochanter. A 3.2 mm guide pin was placed at the tip of the greater trochanter, and advanced into the intramedullary canal. The one step conical reamer was used over the guidewire, and a reamer sleeve was used to protect the soft tissues. No intram edullary reaming was required.The chosen nail was attached to the targeting device with the Nail Holding Screw. The nail was placed down the canal on the targeting device and the position confirmed on the image intensifier. A second incision was now used over the lower part of the greater trochanter, to place a guide pin through the guide, near the center-center position of the f emoral head, and measured. The tunnel for the lag screw was reamed using the cannulated Lag Screw Step Drill. The chosen lag screw was inserted using the guide and advanced until there was a low tip-apex distance, by using sequential checks on the image intensifier. Traction on the HANA table was released. A Set Screw was now placed to lock the Lag Screw. Finally, a 5.0 mm diameter Distal Cross Lock Screw was, using the targeting guide after predrilling, and measuring. Satisfactory fracture reduction and hardware position was obtained using image intensifier views in multiple planes. Copious irrigation was used and the fascia was closed with #2 Vicryl. Bovie electrocautery was used for hemostasis. I completed the closure with 2-0 Vicryl and janis. I used a multidrug injection for hemostasis and pain relief which includes ropivacaine, epinephrine, and morphine.A bulky sterile dressing was applied. The patient was gently transferred from the fracture table back to a hospital bed. There were no apparent complications. GEORGES REN MD Feb 06, 2020 17:10
[2020-02-06] MEDS ORDERED: DEXTROSE 50% 25 GM / 50ML DISP.SYRIN. IV PRN (17:15)
[2020-02-06] MEDS ORDERED: POLYETHYLENE GLYCOL 3350 17 GM PACKET. PO PRN (17:15)
[2020-02-06] MEDS ORDERED: MORPHINE SULFATE 2 MG/ML VIAL. IVP PRN (17:15)
[2020-02-06] MEDS ORDERED: MORPHINE SULFATE 2 MG/ML VIAL. ONE (17:51)
[2020-02-06] MEDS: ASPIRIN ENTERIC COATED 325 MG TABLET.DR. PO SCH (21:02)
[2020-02-06] MEDS: LITHIUM CARBONATE 150 MG CAPSULE. PO SCH (21:02)
[2020-02-06] MEDS: ALPRAZolam 1 MG TABLET PO PRN (21:02)
[2020-02-06] MEDS: ATORVASTATIN CALCIUM 40 MG TABLET. PO SCH (21:03)
[2020-02-06] MEDS: CYCLOBENZAPRINE 10 MG TABLET. PO SCH (21:03)
[2020-02-06] MEDS: oxyCODONE/APAP 5/325 1 TAB TABLET PO PRN (21:18)
[2020-02-06] MEDS: IV 1/2 NORMAL SALINE 1,000 ML IV SCH (21:19)
[2020-02-07 03:00] VITALS: BP 130/76
[2020-02-07] MEDS: oxyCODONE/APAP 5/325 1 TAB TABLET PO PRN ×4 (04:34→20:41)
[2020-02-07] MEDS: ALPRAZolam 1 MG TABLET PO PRN ×2 (05:35→20:41)
[2020-02-07] MEDS: IV 1/2 NORMAL SALINE 1,000 ML IV SCH ×2 (05:36→19:55)
[2020-02-07] MEDS ORDERED: MAGNESIUM HYDROXIDE 2,400 MG/30 ML ORAL.SUSP. PO PRN (06:00)
[2020-02-07 07:00] VITALS: BP 109/78
--- NOTE | 2020-02-07 07:23 | PDOC ---
[facility] PROGRESS NOTE Date of Service DOS: DATE: 02/07/20 TIME: 07:21 Chief Complaint Chief Complaint A/P: Acute left intertrochanteric hip fracture - traumatic due to fall. Ortho consulted s/p IM nailing. Pain control iv. Rapid COVID 19 negative. PT/OT post op Fall at home - traumatic per patient OPAL - likely vasomotor nephropathy, will hydrate Tobacco dependence - counseled on cessation COPD - will place on nebs prn Type 2 diabetes - will place on sliding scale Hearing impairment - not wearing hearing aides Mild cognitive impairment - likely progressing to Alzheimers dementia as her mother and father did. FEN - ADA diet PPX - lovenox FULL CODE Dispo - inpatient History of Present Illness History of Present Illness Ms Woods is a 64 year old female w/ PMHx 2ppd smoker, COPD, depression, DM2, fatty liver admitted after a fall at home. She was at home chasing the cat, when she had tripped over the cat and fallen, landing on the floor and started have some discomfort in her left hip and leg. Patient states she laid on the floor for 20 to 30 minutes before they came to help her. States she was unable to get up. Unable to bear weight in the ED with left leg appearing shorter than right. Denies hitting head, denies loss of consciousness, denies taking blood thinners. Denies any nausea, vomiting, diarrhea EKG with heart rate 77 beats per minute. No ST segment elevation prolonged QT interval 448 MS. Labs significant for WBC WBC 11.1, Hb 14 platelets 211, NA 136, K4.7, BUN 13, CR 1.3, glucose 116 Chest radiograph unchanged from prior no acute abnormality. Left hip x-ray confirms left intertrochanteric hip fracture. Admitted for further care. S/p intramedullary implant, with interlocking screws on 02/06/2020. Has some cramping in her right thigh. No CP or SOB. No swelling Vitals/I&O Vitals/I&O: Vital Signs Date Time Temp Pulse Resp B/P (MAP) Pulse Ox O2 Delivery O2 Flow Rate FiO2 02/07/20 05:36 14 97 Room Air 2.0 02/07/20 03:00 98.0 95 130/76 (94) 98.0 I & O 02/06/20 02/06/20 02/07/20 15:00 23:00 07:00 Intake Total 0 ml 1150 ml 950 ml Output Total 250 ml 2000 ml Balance 0 ml 900 ml -1050 ml Physical Exam General: Alert, Cooperative Heart: Regular rate Lungs: Clear, Wheezing Abdomen: Soft Extremities: Other (There is tenderness of the left hip. There is pain with any attempted motion. The skin is intact without ecchymosis. The extremity is shortened and externally rotated. Light touch sensation is intact at the foot and toes. Capillary refill and pulses are intact without evidence of ischemia. Slight dorsiflexion and plantarflexion are possible without evidence of sciatic nerve injury.) Skin: No breakdown, No significant lesion, Other (multiple actinic keratoses) Labs Labs: Laboratory Tests Test 02/06/20 08:08 02/06/20 11:28 02/06/20 14:17 02/06/20 17:29 Glucose (Fingerstick) 166 mg/dL (70-99) 137 mg/dL (70-99) 119 mg/dL (70-99) 145 mg/dL (70-99) Test 02/06/20 20:25 Glucose (Fingerstick) 245 mg/dL (70-99) Assessment and Plan Assessmemt and Plan Problems Medical Problems: (1) Fall as cause of accidental injury at home as place of occurrence Status: Acute (2) Fracture, intertrochanteric, left femur Status: Acute Comment Review of Relevant I have reviewed the following items staci (where applicable) has been applied. Medications: Current Medications Medications (Trade) Dose Ordered Sig/Jevon Route PRN Reason Start Time Stop Time Status Last Admin Dose Admin Ondansetron HCl (Zofran) 4 mg PRN Q4HRS PRN IV NAUSEA/VOMITING 1ST CHOICE 02/06/20 07:30 02/06/20 19:05 DC 02/06/20 08:47 Aripiprazole (Abilify) 2 mg DAILY PO 02/06/20 09:00 02/06/20 08:48 Atorvastatin Calcium (Lipitor) 40 mg QHS PO 02/06/20 21:00 02/06/20 21:03 Bupropion HCl (Wellbutrin Xl) 450 mg DAILYWBKFT PO 02/06/20 08:00 02/06/20 08:48 Cyclobenzaprine HCl (Flexeril) 10 mg QHS PO 02/06/20 21:00 02/06/20 21:03 Glipizide (Glucotrol) 5 mg BID PO 02/06/20 09:00 02/06/20 21:38 Olanzapine (ZyPREXA ZYDIS) 5 mg PRN BID PRN PO ANXIETY / AGITATION 02/06/20 07:30 02/07/20 00:47 [place] Carbonate ([place] Carbonate) 450 mg HS PO 02/06/20 21:00 02/06/20 21:02 Alprazolam (Xanax) 1 mg PRN Q8HRS PRN PO ANXIETY / AGITATION 02/06/20 07:30 02/07/20 05:35 Albuterol Sulfate (Ventolin Neb Soln) 2.5 mg RTQID NEB 02/06/20 08:00 02/06/20 20:20 Budesonide (Pulmicort) 0.5 mg RTBID NEB 02/06/20 08:00 02/06/20 20:20 Cefazolin Sodium/ Dextrose 50 ml @ 100 mls/hr 1X PREOP PRN IV SEE COMMENTS 02/06/20 11:00 02/06/20 19:05 DC 02/06/20 16:15 Ropivacaine 53.3 ml/Epinephrine HCl 0.6 mg/ Morphine Sulfate 5 mg/Sodium Chloride 100 ml @ 100 mls/hr 1X ONCE INT ART 02/06/20 14:00 02/06/20 14:59 DC 02/06/20 16:34 Morphine Sulfate (Morphine Sulfate) 1 mg PRN Q10MIN PRN IV SEVERE PAIN 7-10 02/06/20 13:00 02/07/20 12:59 02/06/20 18:03 Sodium Chloride 1,000 ml @ 75 mls/hr [id number] IV 02/06/20 17:15 02/06/20 21:19 Cefazolin Sodium/ Dextrose 50 ml @ 100 mls/hr Q6H IV 02/06/20 17:30 02/07/20 05:59 DC 02/07/20 05:36 Oxycodone/ Acetaminophen (Percocet 5/325) 1 tab PRN Q4HRS PRN PO PAIN 02/06/20 17:15 02/07/20 04:34 Aspirin (Ecotrin) 325 mg BID PO 12/9/20 21:00 02/06/20 21:02 Justifications for Admission Other Justification TEODORO BETTENCOURT MD Feb 07, 2020 07:23
[2020-02-07] MEDS: ALBUTEROL SULFATE 2.5 MG/3 ML NEBU. NEB SCH ×4 (07:39→21:00)
[2020-02-07] MEDS: BUDESONIDE 0.5 MG/2 ML NEBU. NEB SCH ×2 (07:39→21:00)
[2020-02-07] MEDS: buPROPion XL 150 MG TAB.ER.24H. PO SCH (07:51)
[2020-02-07] MEDS: glipiZIDE 5 MG TABLET PO SCH ×2 (07:51→20:41)
[2020-02-07] MEDS: MULTIVITAMIN with MINERAL TABLET. PO SCH (07:52)
[2020-02-07] MEDS: SENNOSIDES/DOCUSATE 8.6/50MG TABLET. PO SCH (07:52)
[2020-02-07] MEDS: LIOTHYRONINE 5 MCG TABLET. PO SCH (07:52)
[2020-02-07] MEDS: ASPIRIN ENTERIC COATED 325 MG TABLET.DR. PO SCH ×2 (07:52→20:41)
[2020-02-07] MEDS: ARIPiprazole 2 MG TABLET PO SCH (07:52)
[2020-02-07] MEDS: MORPHINE SULFATE 4 MG/ML VIAL. IVP PRN ×2 (07:53→17:56)
[2020-02-07] MEDS ORDERED: CHOLECALCIFEROL (VITAMIN D3) 1,000 UNIT TABLET PO SCH (09:00)
[2020-02-07 09:57] LABS: CALCIUM 9.4 mg/dL (8.5-10.1); GFR 55.5; POTASSIUM 4.7 mmol/L (3.5-5.1)
[2020-02-07] MEDS ORDERED: tiZANidine 4 MG TABLET. PO ONE (10:00)
--- NOTE | 2020-02-07 10:05 | NUR ---
SW following. Discussed with RN, pt on 1L oxygen, NPO. Pt had hip nailing done yesterday. Pt still wanting to go home. SW spoke with [facility], they actually never got pt on service with them as they could not make contact with the pt. [facility] Driscoll RN is planning to meet with pt today. PT/OT ordered. SW will continue to follow.
[2020-02-07 11:00] VITALS: BP 110/68
[2020-02-07] MEDS: ONDANSETRON PF 4 MG/2 ML VIAL. IVP PRN ×2 (13:15→17:56)
[2020-02-07] MEDS: fentaNYL PF VIAL 100 MCG/2 ML VIAL IVP PRN (13:18)
[2020-02-07 15:00] VITALS: BP 130/68
[2020-02-07] MEDS ORDERED: BISACODYL 10 MG SUPP.RECT. PR PRN (16:00)
[2020-02-07 17:52] LABS: HEMATOCRIT 34.2 % (36.0-47.0); HEMOGLOBIN 11.2 g/dL (12.0-15.5)
[2020-02-07] MEDS ORDERED: HALOPERIDOL LACTATE 5 MG/ML VIAL. IVP PRN (18:15)
[2020-02-07] MEDS: HALOPERIDOL 5 MG TABLET. PO PRN (18:23)
[2020-02-07 19:30] VITALS: BP 121/63
[2020-02-07] MEDS ORDERED: ZIPRASIDONE IM 20 MG VIAL. IM ONE (19:30)
[2020-02-07] MEDS: LITHIUM CARBONATE 150 MG CAPSULE. PO SCH (20:40)
[2020-02-07] MEDS: ATORVASTATIN CALCIUM 40 MG TABLET. PO SCH (20:41)
[2020-02-07] MEDS: CYCLOBENZAPRINE 10 MG TABLET. PO SCH (20:41)
[2020-02-07 23:13] VITALS: BP 103/63
--- NOTE | 2020-02-08 00:23 | NUR ---
Pt.'s sister Heidi called this evening to check on pt.'s status. Update was given by this RN. Will continue to monitor. Addendum: 02/08/20 at 0401 by TOMMY SALCIDO RN Pt.'s sister states pt. does not seem safe to go back home and thinks it is better to place patient in half-way care. Apparently patient has been very forgetful and confused for a while now. Heidi thinks pt. is lying to them about what she takes on a daily basis and feels like pt. takes too much of certain medications or is mixing medications with other substances.
[2020-02-08 03:16] VITALS: BP 108/60
[2020-02-08] MEDS: MORPHINE SULFATE 4 MG/ML VIAL. IVP PRN (05:42)
[2020-02-08 07:00] VITALS: BP 117/65
[2020-02-08] MEDS: ALBUTEROL SULFATE 2.5 MG/3 ML NEBU. NEB SCH ×4 (07:51→19:42)
[2020-02-08] MEDS: BUDESONIDE 0.5 MG/2 ML NEBU. NEB SCH ×2 (07:51→19:42)
--- NOTE | 2020-02-08 08:13 | PDOC ---
[facility] PROGRESS NOTE Date of Service DOS: DATE: 02/08/20 TIME: 08:12 Chief Complaint Chief Complaint A/P: Acute left intertrochanteric hip fracture - traumatic due to fall. Ortho consulted s/p IM nailing. Pain control iv. Rapid COVID 19 negative. PT/OT post op Fall at home - traumatic per patient OPAL - likely vasomotor nephropathy, will hydrate Tobacco dependence - counseled on cessation COPD - will place on nebs prn Type 2 diabetes - will place on sliding scale Hearing impairment - not wearing hearing aides Mild cognitive impairment - likely progressing to Alzheimers dementia as her mother and father did. Vitamin D deficiency - 5000u daily FEN - ADA diet PPX - lovenox FULL CODE Dispo - inpatient History of Present Illness History of Present Illness Ms Woods is a 64 year old female w/ PMHx 2ppd smoker, COPD, depression, DM2, fatty liver admitted after a fall at home. She was at home chasing the cat, when she had tripped over the cat and fallen, landing on the floor and started have some discomfort in her left hip and leg. Patient states she laid on the floor for 20 to 30 minutes before they came to help her. States she was unable to get up. Unable to bear weight in the ED with left leg appearing shorter than right. Denies hitting head, denies loss of consciousness, denies taking blood thinners. Denies any nausea, vomiting, diarrhea EKG with heart rate 77 beats per minute. No ST segment elevation prolonged QT interval 448 MS. Labs significant for WBC WBC 11.1, Hb 14 platelets 211, NA 136, K4.7, BUN 13, CR 1.3, glucose 116 Chest radiograph unchanged from prior no acute abnormality. Left hip x-ray confirms left intertrochanteric hip fracture. Admitted for further care. 02/06: S/p intramedullary implant, with interlocking screws on 02/06/2020. Has some cramping in her right thigh. No CP or SOB. No swelling Afebrile, sitting up in chair. A bit confused today. No CP or SOB. Asked me if I would like to get high with her. Vitals/I&O Vitals/I&O: Vital Signs Date Time Temp Pulse Resp B/P (MAP) Pulse Ox O2 Delivery O2 Flow Rate FiO2 02/08/20 07:52 94 Room Air 2.0 02/08/20 07:00 98.4 106 18 117/65 (82) 98.4 I & O 02/07/20 02/07/20 02/08/20 15:00 23:00 07:00 Intake Total 100 ml 240 ml Output Total 1500 ml 300 ml Balance 100 ml -1500 ml -60 ml Physical Exam General: Alert, Cooperative Heart: Regular rate Lungs: Clear, Wheezing Abdomen: Soft Extremities: Other (There is tenderness of the left hip. There is pain with any attempted motion. The skin is intact without ecchymosis. The extremity is shortened and externally rotated. Light touch sensation is intact at the foot and toes. Capillary refill and pulses are intact without evidence of ischemia. Slight dorsiflexion and plantarflexion are possible without evidence of sciatic nerve injury.) Skin: No breakdown, No significant lesion, Other (multiple actinic keratoses) Labs Labs: Laboratory Tests Test 02/07/20 08:40 02/07/20 10:56 02/07/20 16:56 02/07/20 17:45 Sodium Level 137 mmol/L (136-145) Potassium Level 4.7 mmol/L (3.5-5.1) Chloride Level 103 mmol/L (98-107) Carbon Dioxide Level 26 mmol/L (21-32) Anion Gap 8 (6-14) Blood Urea Nitrogen 15 mg/dL (7-20) Creatinine 1.0 mg/dL (0.6-1.0) Estimated GFR (Cockcroft-Gault) 55.5 Glucose Level 168 mg/dL (70-99) Calcium Level 9.4 mg/dL (8.5-10.1) 25-Hydroxy Vitamin D Total 6.6 ng/mL (30-100) Glucose (Fingerstick) 103 mg/dL (70-99) 105 mg/dL (70-99) Hemoglobin 11.2 g/dL (12.0-15.5) Hematocrit 34.2 % (36.0-47.0) Mean Corpuscular Hemoglobin Concent 33 g/dL (31-37) Test 02/08/20 07:19 Glucose (Fingerstick) 92 mg/dL (70-99) Assessment and Plan Assessmemt and Plan Problems Medical Problems: (1) Fall as cause of accidental injury at home as place of occurrence Status: Acute (2) Fracture, intertrochanteric, left femur Status: Acute Comment Review of Relevant I have reviewed the following items staci (where applicable) has been applied. Medications: Current Medications Medications (Trade) Dose Ordered Sig/Jevon Route PRN Reason Start Time Stop Time Status Last Admin Dose Admin Multivitamins (Thera M Plus) 1 tab DAILY PO 02/07/20 09:00 02/07/20 07:52 Senna/Docusate Sodium (Senna Plus) 1 tab DAILY PO 02/07/20 09:00 02/07/20 07:52 Vitamin D (Vitamin D3) 1,000 unit DAILY PO 02/07/20 09:00 02/07/20 07:52 Oxycodone/ Acetaminophen (Percocet 5/325) 2 tab PRN Q4HRS PRN PO SEVERE PAIN 02/07/20 09:30 02/07/20 20:41 Tizanidine HCl (Zanaflex) 4 mg 1X ONCE PO 02/07/20 10:00 02/07/20 10:01 DC 02/07/20 10:22 Haloperidol (Haldol) 5 mg PRN Q6HRS PRN PO AGITATION 02/07/20 18:15 02/07/20 18:23 Ziprasidone (Geodon Im) 10 mg 1X ONCE IM 02/07/20 19:30 02/07/20 19:31 DC 02/07/20 19:28 Justifications for Admission Other Justification TEODORO BETTENCOURT MD Feb 08, 2020 08:13
[2020-02-08] MEDS: buPROPion XL 150 MG TAB.ER.24H. PO SCH (08:34)
[2020-02-08] MEDS: LIOTHYRONINE 5 MCG TABLET. PO SCH (08:35)
[2020-02-08] MEDS: MULTIVITAMIN with MINERAL TABLET. PO SCH (08:36)
[2020-02-08] MEDS: SENNOSIDES/DOCUSATE 8.6/50MG TABLET. PO SCH (08:36)
[2020-02-08] MEDS: ASPIRIN ENTERIC COATED 325 MG TABLET.DR. PO SCH ×2 (08:36→20:43)
[2020-02-08] MEDS: ARIPiprazole 2 MG TABLET PO SCH (08:36)
[2020-02-08] MEDS: glipiZIDE 5 MG TABLET PO SCH ×2 (08:36→20:43)
[2020-02-08] MEDS: CHOLECALCIFEROL (VITAMIN D3) 5,000 UNIT CAPSULE PO SCH (08:38)
[2020-02-08] MEDS ORDERED: ENOXAPARIN 40 MG/0.4 ML SYRINGE. SQ SCH (09:00)
[2020-02-08] MEDS: IV 1/2 NORMAL SALINE 1,000 ML IV SCH ×2 (09:15→22:35)
[2020-02-08 10:37] VITALS: BP 141/72
[2020-02-08] MEDS: oxyCODONE/APAP 5/325 1 TAB TABLET PO PRN ×2 (10:46→20:43)
--- NOTE | 2020-02-08 12:36 | NUR ---
ADRIANNE following. Discussed with RN, pt from home, room air, ada diet. PT/OT recommending SNU. ADRIANNE met with pt (no isolation precautions at the time) pt does not want to go to SNU but did give SW permission to send facesheet to [facility] to check insurance benefits. Pt wants to think about whether she is agreeable to SNU or not. ADRIANNE phoned and faxed facesheet to [facility]. ADRIANNE will meet with pt again later today. ADRIANNE will continue to follow. Addendum: 02/08/20 at 1348 by IZABELLA SILVER RN contacted ADRIANNE to advise pt is agreeable to SNU after conversation with Dr. Linton. RN spoke with pt, pt does not have a preference of where to go just wants her own room. ADRIANNE faxed referral to [facility], awaiting acceptance decision and insurance auth. ADRIANNE will continue to follow. Addendum: 02/08/20 at 1437 by IZABELLA SILVER Pt accepted at [facility] pending insurance auth. RN notified.
[2020-02-08 14:44] VITALS: BP 113/75
[2020-02-08 19:20] VITALS: BP 146/79
[2020-02-08] MEDS: CYCLOBENZAPRINE 10 MG TABLET. PO SCH (20:42)
[2020-02-08] MEDS: ATORVASTATIN CALCIUM 40 MG TABLET. PO SCH (20:43)
[2020-02-08] MEDS: LITHIUM CARBONATE 150 MG CAPSULE. PO SCH (20:43)
[2020-02-08 23:06] VITALS: BP 135/83
[2020-02-08] MEDS: diphenhydrAMINE HCL 25 MG CAPSULE PO PRN (23:13)
[2020-02-08] MEDS: fentaNYL PF VIAL 100 MCG/2 ML VIAL IVP PRN (23:18)
[2020-02-09] MEDS: oxyCODONE/APAP 5/325 1 TAB TABLET PO PRN ×4 (02:09→20:47)
[2020-02-09 03:15] VITALS: BP 134/75
[2020-02-09 07:00] VITALS: BP 143/73
[2020-02-09] MEDS: BUDESONIDE 0.5 MG/2 ML NEBU. NEB SCH ×2 (07:48→19:47)
[2020-02-09] MEDS: ALBUTEROL SULFATE 2.5 MG/3 ML NEBU. NEB SCH ×4 (07:48→19:47)
[2020-02-09] MEDS: ARIPiprazole 2 MG TABLET PO SCH (08:28)
[2020-02-09] MEDS: buPROPion XL 150 MG TAB.ER.24H. PO SCH (08:28)
[2020-02-09] MEDS: LIOTHYRONINE 5 MCG TABLET. PO SCH (08:29)
[2020-02-09] MEDS: glipiZIDE 5 MG TABLET PO SCH ×2 (08:29→20:45)
[2020-02-09] MEDS: ASPIRIN ENTERIC COATED 325 MG TABLET.DR. PO SCH (08:29)
[2020-02-09] MEDS: SENNOSIDES/DOCUSATE 8.6/50MG TABLET. PO SCH (08:29)
[2020-02-09] MEDS: MULTIVITAMIN with MINERAL TABLET. PO SCH (08:29)
[2020-02-09] MEDS: CHOLECALCIFEROL (VITAMIN D3) 5,000 UNIT CAPSULE PO SCH (08:29)
[2020-02-09] MEDS: IV 1/2 NORMAL SALINE 1,000 ML IV SCH (08:31)
--- NOTE | 2020-02-09 08:33 | PDOC ---
[facility] PROGRESS NOTE Date of Service DOS: DATE: 02/09/20 TIME: 08:33 Chief Complaint Chief Complaint A/P: Acute left intertrochanteric hip fracture - traumatic due to fall. Ortho consulted s/p IM nailing. Pain control iv. Rapid COVID 19 negative. PT/OT post op Fall at home - traumatic per patient OPAL - likely vasomotor nephropathy, will hydrate Tobacco dependence - counseled on cessation COPD - will place on nebs prn Type 2 diabetes - will place on sliding scale Hearing impairment - not wearing hearing aides Mild cognitive impairment - likely progressing to Alzheimers dementia as her mother and father did. Vitamin D deficiency - 5000u daily FEN - ADA diet PPX - lovenox for Hip fracture surgery, ok to change to ASA possibly at day 5 post-operatively FULL CODE Dispo - inpatient History of Present Illness History of Present Illness Ms Woods is a 64 year old female w/ PMHx 2ppd smoker, COPD, depression, DM2, fatty liver admitted after a fall at home. She was at home chasing the cat, when she had tripped over the cat and fallen, landing on the floor and started have some discomfort in her left hip and leg. Patient states she laid on the floor for 20 to 30 minutes before they came to help her. States she was unable to get up. Unable to bear weight in the ED with left leg appearing shorter than right. Denies hitting head, denies loss of consciousness, denies taking blood thinners. Denies any nausea, vomiting, diarrhea EKG with heart rate 77 beats per minute. No ST segment elevation prolonged QT interval 448 MS. Labs significant for WBC WBC 11.1, Hb 14 platelets 211, NA 136, K4.7, BUN 13, CR 1.3, glucose 116 Chest radiograph unchanged from prior no acute abnormality. Left hip x-ray confirms left intertrochanteric hip fracture. Admitted for further care. 02/06: S/p intramedullary implant, with interlocking screws on 02/06/2020. Has some cramping in her right thigh. No CP or SOB. No swelling 02/07: Afebrile, sitting up in chair. A bit confused today. No CP or SOB. Asked me if I would like to get high with her. Afebrile, sitting in chair. Was smoking in room, counseled against this. Confused today. No CP or SOB. Vitals/I&O Vitals/I&O: Vital Signs Date Time Temp Pulse Resp B/P (MAP) Pulse Ox O2 Delivery O2 Flow Rate FiO2 02/09/20 07:48 97 Nasal Cannula 2.0 02/09/20 07:00 98.4 98 16 143/73 (96) 98.4 I & O 0 02/08/20 02/08/20 02/09/20 15:00 23:00 07:00 Intake Total 480 ml 600 ml Output Total 450 ml Balance 30 ml 600 ml Physical Exam General: Alert, Cooperative Heart: Regular rate Lungs: Clear, Wheezing Abdomen: Soft Extremities: Other (There is tenderness of the left hip. There is pain with any attempted motion. The skin is intact without ecchymosis. The extremity is shortened and externally rotated. Light touch sensation is intact at the foot and toes. Capillary refill and pulses are intact without evidence of ischemia. Slight dorsiflexion and plantarflexion are possible without evidence of sciatic nerve injury.) Skin: No breakdown, No significant lesion, Other (multiple actinic keratoses) Labs Labs: Laboratory Tests Test 02/08/20 11:12 02/08/20 16:15 02/08/20 20:01 02/09/20 07:57 Glucose (Fingerstick) 90 mg/dL (70-99) 107 mg/dL (70-99) 164 mg/dL (70-99) 108 mg/dL (70-99) Assessment and Plan Assessmemt and Plan Problems Medical Problems: (1) Fall as cause of accidental injury at home as place of occurrence Status: Acute (2) Fracture, intertrochanteric, left femur Status: Acute Comment Review of Relevant I have reviewed the following items staci (where applicable) has been applied. Medications: Current Medications Medications (Trade) Dose Ordered Sig/Jevon Route PRN Reason Start Time Stop Time Status Last Admin Dose Admin Enoxaparin Sodium (Lovenox 40mg Syringe) 40 mg DAILY SQ 02/08/20 09:00 02/08/20 15:28 DC 02/08/20 08:36 Vitamin D (Vitamin D3) 5,000 unit DAILY PO 02/08/20 09:00 02/09/20 08:29 Diphenhydramine HCl (Benadryl) 50 mg PRN QHS PRN PO INSOMNIA 02/08/20 23:00 02/08/20 23:13 Justifications for Admission Other Justification TEODORO BETTENCOURT MD Feb 09, 2020 08:33
[2020-02-09] MEDS: ENOXAPARIN 40 MG/0.4 ML SYRINGE. SQ SCH (09:27)
[2020-02-09 11:00] VITALS: BP 138/74
[2020-02-09] MEDS: HALOPERIDOL 5 MG TABLET. PO PRN (12:49)
[2020-02-09 15:00] VITALS: BP 129/82
[2020-02-09 19:30] VITALS: BP 136/82
[2020-02-09] MEDS: CYCLOBENZAPRINE 10 MG TABLET. PO SCH (20:45)
[2020-02-09] MEDS: LITHIUM CARBONATE 150 MG CAPSULE. PO SCH (20:46)
[2020-02-09] MEDS: ATORVASTATIN CALCIUM 40 MG TABLET. PO SCH (20:46)
[2020-02-09] MEDS: diphenhydrAMINE HCL 25 MG CAPSULE PO PRN (21:49)
[2020-02-09 23:14] VITALS: BP 126/73
[2020-02-10] MEDS: HALOPERIDOL 5 MG TABLET. PO PRN (00:44)
[2020-02-10] MEDS: oxyCODONE/APAP 5/325 1 TAB TABLET PO PRN ×2 (00:44→22:00)
[2020-02-10] MEDS: IV 1/2 NORMAL SALINE 1,000 ML IV SCH ×2 (01:15→10:27)
[2020-02-10 03:09] VITALS: BP 143/76
[2020-02-10 07:00] VITALS: BP 152/80
[2020-02-10] MEDS: buPROPion XL 150 MG TAB.ER.24H. PO SCH (08:00)
[2020-02-10] MEDS: BUDESONIDE 0.5 MG/2 ML NEBU. NEB SCH ×2 (08:10→20:35)
[2020-02-10] MEDS: ALBUTEROL SULFATE 2.5 MG/3 ML NEBU. NEB SCH ×4 (08:10→20:35)
--- NOTE | 2020-02-10 08:23 | PDOC ---
[facility] PROGRESS NOTE Date of Service DOS: DATE: 02/10/20 TIME: 08:21 Chief Complaint Chief Complaint A/P: Acute left intertrochanteric hip fracture - traumatic due to fall. Ortho consulted s/p IM nailing. Pain control iv. Rapid COVID 19 negative. PT/OT post op Fall at home - traumatic per patient OPAL - likely vasomotor nephropathy, will hydrate Tobacco dependence - counseled on cessation COPD - will place on nebs prn Type 2 diabetes - will place on sliding scale Hearing impairment - not wearing hearing aides Mild cognitive impairment - likely progressing to Alzheimers dementia as her mother and father did. Vitamin D deficiency - 5000u daily FEN - ADA diet PPX - lovenox for Hip fracture surgery, ok to change to ASA possibly at day 5 post-operatively FULL CODE Dispo - inpatient History of Present Illness History of Present Illness Ms Woods is a 64 year old female w/ PMHx 2ppd smoker, COPD, depression, DM2, fatty liver admitted after a fall at home. She was at home chasing the cat, when she had tripped over the cat and fallen, landing on the floor and started have some discomfort in her left hip and leg. Patient states she laid on the floor for 20 to 30 minutes before they came to help her. States she was unable to get up. Unable to bear weight in the ED with left leg appearing shorter than right. Denies hitting head, denies loss of consciousness, denies taking blood thinners. Denies any nausea, vomiting, diarrhea EKG with heart rate 77 beats per minute. No ST segment elevation prolonged QT interval 448 MS. Labs significant for WBC WBC 11.1, Hb 14 platelets 211, NA 136, K4.7, BUN 13, CR 1.3, glucose 116 Chest radiograph unchanged from prior no acute abnormality. Left hip x-ray confirms left intertrochanteric hip fracture. Admitted for further care. 02/06: S/p intramedullary implant, with interlocking screws on 02/06/2020. Has some cramping in her right thigh. No CP or SOB. No swelling 02/07: Afebrile, sitting up in chair. A bit confused today. No CP or SOB. Asked me if I would like to get high with her. 02/08: Afebrile, sitting in chair. Was smoking in room, counseled against this. Confused today. No CP or SOB. Afebrile. Seen in bed. Pain well controlled. No CP or SOB. Still confused Plan: Skilled rehab Check TSH, lithium level, CBC Cont PT, rehab Vitals/I&O Vitals/I&O: Vital Signs Date Time Temp Pulse Resp B/P (MAP) Pulse Ox O2 Delivery O2 Flow Rate FiO2 02/10/20 08:14 98 Nasal Cannula 2.0 02/10/20 07:00 98.1 106 16 152/80 (104) 98.1 I & O 02/09/20 02/09/20 02/10/20 15:00 23:00 07:00 Intake Total 350 ml 60 ml 480 ml Balance 350 ml 60 ml 480 ml Physical Exam General: Alert, Cooperative Heart: Regular rate Lungs: Clear, Wheezing Abdomen: Soft Extremities: Other (There is tenderness of the left hip. There is pain with any attempted motion. The skin is intact without ecchymosis. The extremity is shortened and externally rotated. Light touch sensation is intact at the foot and toes. Capillary refill and pulses are intact without evidence of ischemia. Slight dorsiflexion and plantarflexion are possible without evidence of sciatic nerve injury.) Skin: No breakdown, No significant lesion, Other (multiple actinic keratoses) Labs Labs: Laboratory Tests Test 02/09/20 11:41 02/09/20 16:59 02/09/20 20:48 02/10/20 07:58 Glucose (Fingerstick) 168 mg/dL (70-99) 337 mg/dL (70-99) 234 mg/dL (70-99) 184 mg/dL (70-99) Assessment and Plan Assessmemt and Plan Problems Medical Problems: (1) Fall as cause of accidental injury at home as place of occurrence Status: Acute (2) Fracture, intertrochanteric, left femur Status: Acute Comment Review of Relevant I have reviewed the following items staci (where applicable) has been applied. Medications: Current Medications Medications (Trade) Dose Ordered Sig/Jevon Route PRN Reason Start Time Stop Time Status Last Admin Dose Admin Enoxaparin Sodium (Lovenox 40mg Syringe) 40 mg Q24H SQ 02/09/20 09:00 02/11/20 09:01 02/09/20 09:27 Justifications for Admission Other Justification TEODORO BETTENCOURT MD Feb 10, 2020:23
[2020-02-10] MEDS: CHOLECALCIFEROL (VITAMIN D3) 5,000 UNIT CAPSULE PO SCH (09:00)
[2020-02-10] MEDS: ENOXAPARIN 40 MG/0.4 ML SYRINGE. SQ SCH (09:00)
[2020-02-10] MEDS: ARIPiprazole 2 MG TABLET PO SCH (09:00)
[2020-02-10] MEDS: MULTIVITAMIN with MINERAL TABLET. PO SCH (09:00)
[2020-02-10] MEDS: SENNOSIDES/DOCUSATE 8.6/50MG TABLET. PO SCH (09:00)
[2020-02-10] MEDS: LIOTHYRONINE 5 MCG TABLET. PO SCH (09:00)
[2020-02-10] MEDS: glipiZIDE 5 MG TABLET PO SCH ×2 (09:00→21:57)
[2020-02-10 11:00] VITALS: BP 155/71
[2020-02-10] MEDS ORDERED: NICOTINE POLACRILEX 2MG GUM PACKAGE of 12. BC PRN (14:45)
[2020-02-10 15:00] VITALS: BP 122/86
[2020-02-10 19:35] VITALS: BP 134/83
[2020-02-10] MEDS: CYCLOBENZAPRINE 10 MG TABLET. PO SCH (21:57)
[2020-02-10] MEDS: ATORVASTATIN CALCIUM 40 MG TABLET. PO SCH (21:57)
[2020-02-10] MEDS: LITHIUM CARBONATE 150 MG CAPSULE. PO SCH (21:57)
[2020-02-10 23:23] VITALS: BP 147/82
[2020-02-11 03:10] VITALS: BP 132/84
[2020-02-11] MEDS: IV 1/2 NORMAL SALINE 1,000 ML IV SCH (03:55)
[2020-02-11] MEDS: oxyCODONE/APAP 5/325 1 TAB TABLET PO PRN ×3 (06:20→16:24)
[2020-02-11 07:00] VITALS: BP 138/81
[2020-02-11] MEDS: ALBUTEROL SULFATE 2.5 MG/3 ML NEBU. NEB SCH ×2 (07:26→11:33)
[2020-02-11] MEDS: BUDESONIDE 0.5 MG/2 ML NEBU. NEB SCH (07:26)
[2020-02-11] MEDS: LIOTHYRONINE 5 MCG TABLET. PO SCH (08:39)
[2020-02-11] MEDS: MULTIVITAMIN with MINERAL TABLET. PO SCH (08:40)
[2020-02-11] MEDS: ARIPiprazole 2 MG TABLET PO SCH (08:40)
[2020-02-11] MEDS: SENNOSIDES/DOCUSATE 8.6/50MG TABLET. PO SCH (08:40)
[2020-02-11] MEDS: glipiZIDE 5 MG TABLET PO SCH (08:40)
[2020-02-11] MEDS: buPROPion XL 150 MG TAB.ER.24H. PO SCH (08:40)
[2020-02-11] MEDS: ENOXAPARIN 40 MG/0.4 ML SYRINGE. SQ SCH (08:41)
[2020-02-11] MEDS: CHOLECALCIFEROL (VITAMIN D3) 5,000 UNIT CAPSULE PO SCH (08:41)
[2020-02-11 09:23] LABS: BASO # 0.2 x10^3/uL (0.0-0.2); BASO % 1 % (0-3); EOS # 0.3 x10^3/uL (0.0-0.7); EOS % 2 % (0-3); HEMATOCRIT 33.5 % (36.0-47.0); HEMOGLOBIN 11.2 g/dL (12.0-15.5); LYMPH # 3.5 x10^3/uL (1.0-4.8); LYMPH % 23 % (24-48); MEAN CORPUSCULAR HEMOGLOBIN 30 pg (25-35); MEAN CORPUSCULAR HGB CONC 34 g/dL (31-37); MEAN CORPUSCULAR VOLUME 88 fL (79-100); MONO # 1.1 x10^3/uL (0.0-1.1); MONO % 7 % (0-9); NEUT % 66 % (31-73); PLATELET COUNT 284 x10^3/uL (140-400); RED BLOOD COUNT 3.79 x10^6/uL (3.50-5.40); RED CELL DISTRIBUTION WIDTH 14.5 % (11.5-14.5); WHITE BLOOD COUNT 15.1 x10^3/uL (4.0-11.0)
[2020-02-11 09:49] LABS: ALBUMIN 3.1 g/dL (3.4-5.0); ALBUMIN/GLOBULIN RATIO 0.8 (1.0-1.7); CALCIUM 9.9 mg/dL (8.5-10.1); CREATININE 1.2 mg/dL (0.6-1.0); GFR 44.9; TOTAL BILIRUBIN 0.9 mg/dL (0.2-1.0); TOTAL PROTEIN 7.1 g/dL (6.4-8.2)
--- NOTE | 2020-02-11 10:15 | PDOC ---
PROGRESS NOTES Date of Service: DATE: 02/11/20 TIME: 10:14 Chief Complaint Chief Complaint impression Acute left intertrochanteric hip fracture - traumatic due to fall. Ortho consulted s/p IM nailing. Pain control iv. Rapid COVID 19 negative. PT/OT post op Fall at home - traumatic per patient OPAL - likely vasomotor nephropathy, CONT hydrate Tobacco dependence - counseled on cessation COPD - will place on nebs prn Type 2 diabetes - will place on sliding scale Hearing impairment - not wearing hearing aides Mild cognitive impairment - likely progressing to Alzheimers dementia as her mother and father Vitamin D deficiency - 5000u daily GAIT INSTABILITY POST-OP FEN - ADA diet PPX - lovenox for Hip fracture surgery, ok to change to ASA possibly at day 5 post-operatively FULL CODE Dispo - inpatient pt/ot D/W RN PLAN TO SNF WHEN BED AVAILABLE History of Present Illness History of Present Illness Ms Woods is a 64 year old female w/ PMHx 2ppd smoker, COPD, depression, DM2, fatty liver admitted after a fall at home. She was at home chasing the cat, when she had tripped over the cat and fallen, landing on the floor and started have some discomfort in her left hip and leg. Patient states she laid on the floor for 20 to 30 minutes before they came to help her. States she was unable to get up. Unable to bear weight in the ED with left leg appearing shorter than right. Denies hitting head, denies loss of consciousness, denies taking blood thinners. Denies any nausea, vomiting, diarrhea EKG with heart rate 77 beats per minute. No ST segment elevation prolonged QT interval 448 MS. Labs significant for WBC WBC 11.1, Hb 14 platelets 211, NA 136, K4.7, BUN 13, CR 1.3, glucose 116 Chest radiograph unchanged from prior no acute abnormality. Left hip x-ray confirms left intertrochanteric hip fracture. Admitted for further care. 02/06: S/p intramedullary implant, with interlocking screws on 02/06/2020. Has some cramping in her right thigh. No CP or SOB. No swelling 02/07: Afebrile, sitting up in chair. A bit confused today. No CP or SOB. Asked me if I would like to get high with her. 02/08: Afebrile, sitting in chair. Was smoking in room, counseled against this. Confused today. No CP or SOB. Afebrile. Seen in bed. Pain well controlled. No CP or SOB. Still confused Plan: Skilled rehab Check TSH, lithium level, CBC Cont PT, rehab Vitals Vitals Vital Signs Date Time Temp Pulse Resp B/P (MAP) Pulse Ox O2 Delivery O2 Flow Rate FiO2 02/11/20 07:27 16 Room Air 02/11/20 07:26 94 02/11/20 07:00 97.8 102 138/81 (100) 97.8 02/10/20 11:43 2.0 Physical Exam Physical Exam General: Alert, Cooperative Heart: Regular rate Lungs: Clear, Wheezing Abdomen: Soft Extremities: skin is intact without ecchymosis.. Capillary refill and pulses are intact without evidence of ischemia. Slight dorsiflexion and plantarflexion are possible without evidence of sciatic nerve injury.) Skin: No breakdown, No significant lesion, Other (multiple actinic keratoses) General: Alert, Cooperative, No acute distress Heart: Regular rate, Normal S1 Lungs: Clear, Wheezing Abdomen: Soft Extremities: No cyanosis, Other (There is tenderness of the left hip. There is pain with any attempted motion. The skin is intact without ecchymosis. The extremity is shortened and externally rotated. Light touch sensation is intact at the foot and toes. Capillary refill and pulses are intact without evidence of ischemia. Slight dorsiflexion and plantarflexion are possible without evidence of sciatic nerve injury.) Skin: No breakdown, No significant lesion, Other (multiple actinic keratoses) Labs LABS Patient condition at conclusion of therapy * Pt in chair * Personal alarm on * Call light in reach * Phone in reach * PtIn no apparent distress * Pt denies further needs Communicated Patient Care With (Name, Title) * Mega RN; Leah KAHN Goal 1 - Bed Mobility Assistance Required * Supervision Goal 1 Assessment * Appropriate - Continue Goal 2 - Transfers Assistance Required * Supervision Goal 2 - Transfer Type * Sit to Stand Goal 2 Assessment * Appropriate - Continue Goal 3 - Ambulation Assistance Required * Contact Guard Assist Goal 3 - Ambulation Distance * 50' Goal 3 - Ambulation Device * Roller Walker Goal 3 Assessment * Goal Revised Treatment Plan * Therapeutic Exercise * Bed Mobility Training * Transfer training * Gait Training * Dynamic Balance Training Frequency of Treatment Expected * 12 visits/week Duration of Treatment Expected * 2 weeks Discharge Recommendations * Group Home Unit Discharge Recommendation - DME * Rolling Walker needed * in order to complete ADLs * and ambulation safely Discharge Recommendation Comments * cont. to assess REASON: left hip pain after fall PROCEDURE: HIP LEFT 2V WITH PELVIS HIP LEFT 2V WITH PELVIS History: Reason: left hip pain after fall / Spl. Instructions: / History: Technique: AP view the pelvis and 2 additional views of the left hip. Comparison: None. Findings: Acute displaced left intertrochanteric femur fracture. No dislocation. Lower lumbar spondylosis. Impression: 1. Acute displaced left intertrochanteric femur fracture. Electronically signed by: Delano Severino DO (02/06/2020 1:17 AM) [facility] DICTATED and SIGNED BY: DELANO SEVERINO DO DATE: 02/06/20 [id number] Laboratory Tests Test 02/10/20 10:57 02/10/20 16:54 02/10/20 21:04 02/11/20 06:46 Glucose (Fingerstick) 192 mg/dL (70-99) 220 mg/dL (70-99) 192 mg/dL (70-99) 128 mg/dL (70-99) Test 02/11/20 09:02 White Blood Count 15.1 x10^3/uL (4.0-11.0) Red Blood Count 3.79 x10^6/uL (3.50-5.40) Hemoglobin 11.2 g/dL (12.0-15.5) Hematocrit 33.5 % (36.0-47.0) Mean Corpuscular Volume 88 fL (79-100) Mean Corpuscular Hemoglobin 30 pg (25-35) Mean Corpuscular Hemoglobin Concent 34 g/dL (31-37) Red Cell Distribution Width 14.5 % (11.5-14.5) Platelet Count 284 x10^3/uL (140-400) Neutrophils (%) (Auto) 66 % (31-73) Lymphocytes (%) (Auto) 23 % (24-48) Monocytes (%) (Auto) 7 % (0-9) Eosinophils (%) (Auto) 2 % (0-3) Basophils (%) (Auto) 1 % (0-3) Neutrophils # (Auto) 10.0 x10^3/uL (1.8-7.7) Lymphocytes # (Auto) 3.5 x10^3/uL (1.0-4.8) Monocytes # (Auto) 1.1 x10^3/uL (0.0-1.1) Eosinophils # (Auto) 0.3 x10^3/uL (0.0-0.7) Basophils # (Auto) 0.2 x10^3/uL (0.0-0.2) Sodium Level 138 mmol/L (136-145) Potassium Level 4.0 mmol/L (3.5-5.1) Chloride Level 99 mmol/L (98-107) Carbon Dioxide Level 31 mmol/L (21-32) Anion Gap 8 (6-14) Blood Urea Nitrogen 27 mg/dL (7-20) Creatinine 1.2 mg/dL (0.6-1.0) Estimated GFR (Cockcroft-Gault) 44.9 BUN/Creatinine Ratio 23 (6-20) Glucose Level 193 mg/dL (70-99) Calcium Level 9.9 mg/dL (8.5-10.1) Total Bilirubin 0.9 mg/dL (0.2-1.0) Aspartate Amino Transf (AST/SGOT) 18 U/L (15-37) Alanine Aminotransferase (ALT/SGPT) 21 U/L (14-59) Alkaline Phosphatase 112 U/L (46-116) Total Protein 7.1 g/dL (6.4-8.2) Albumin 3.1 g/dL (3.4-5.0) Albumin/Globulin Ratio 0.8 (1.0-1.7) Thyroid Stimulating Hormone (TSH) 2.500 uIU/mL (0.358-3.74) [place] Level 1.0 mmol/L (0.6-1.2) [place] Last Dose Date 02/09/20 [place] Last Dose Time 2100 Assessment and Plan Assessmemt and Plan Problems Medical Problems: (1) Fall as cause of accidental injury at home as place of occurrence Status: Acute (2) Fracture, intertrochanteric, left femur Status: Acute Comment Review of Relevant I have reviewed the following items staci (where applicable) has been applied. Labs Laboratory Tests Test 02/09/20 11:41 02/09/20 16:59 02/09/20:48 02/10/20 07:58 Glucose (Fingerstick) 168 mg/dL (70-99) 337 mg/dL (70-99) 234 mg/dL (70-99) 184 mg/dL (70-99) Test 02/10/20 10:57 02/10/20 16:54 02/10/20 21:04 02/11/20 06:46 Glucose (Fingerstick) 192 mg/dL (70-99) 220 mg/dL (70-99) 192 mg/dL (70-99) 128 mg/dL (70-99) Test 02/11/20 09:02 White Blood Count 15.1 x10^3/uL (4.0-11.0) Red Blood Count 3.79 x10^6/uL (3.50-5.40) Hemoglobin 11.2 g/dL (12.0-15.5) Hematocrit 33.5 % (36.0-47.0) Mean Corpuscular Volume 88 fL (79-100) Mean Corpuscular Hemoglobin 30 pg (25-35) Mean Corpuscular Hemoglobin Concent 34 g/dL (31-37) Red Cell Distribution Width 14.5 % (11.5-14.5) Platelet Count 284 x10^3/uL (140-400) Neutrophils (%) (Auto) 66 % (31-73) Lymphocytes (%) (Auto) 23 % (24-48) Monocytes (%) (Auto) 7 % (0-9) Eosinophils (%) (Auto) 2 % (0-3) Basophils (%) (Auto) 1 % (0-3) Neutrophils # (Auto) 10.0 x10^3/uL (1.8-7.7) Lymphocytes # (Auto) 3.5 x10^3/uL (1.0-4.8) Monocytes # (Auto) 1.1 x10^3/uL (0.0-1.1) Eosinophils # (Auto) 0.3 x10^3/uL (0.0-0.7) Basophils # (Auto) 0.2 x10^3/uL (0.0-0.2) Sodium Level 138 mmol/L (136-145) Potassium Level 4.0 mmol/L (3.5-5.1) Chloride Level 99 mmol/L (98-107) Carbon Dioxide Level 31 mmol/L (21-32) Anion Gap 8 (6-14) Blood Urea Nitrogen 27 mg/dL (7-20) Creatinine 1.2 mg/dL (0.6-1.0) Estimated GFR (Cockcroft-Gault) 44.9 BUN/Creatinine Ratio 23 (6-20) Glucose Level 193 mg/dL (70-99) Calcium Level 9.9 mg/dL (8.5-10.1) Total Bilirubin 0.9 mg/dL (0.2-1.0) Aspartate Amino Transf (AST/SGOT) 18 U/L (15-37) Alanine Aminotransferase (ALT/SGPT) 21 U/L (14-59) Alkaline Phosphatase 112 U/L (46-116) Total Protein 7.1 g/dL (6.4-8.2) Albumin 3.1 g/dL (3.4-5.0) Albumin/Globulin Ratio 0.8 (1.0-1.7) Thyroid Stimulating Hormone (TSH) 2.500 uIU/mL (0.358-3.74) [place] Level 1.0 mmol/L (0.6-1.2) [place] Last Dose Date 02/09/20 [place] Last Dose Time 2100 Laboratory Tests Test 02/10/20 10:57 02/10/20 16:54 02/10/20 21:04 02/11/20 06:46 Glucose (Fingerstick) 192 mg/dL (70-99) 220 mg/dL (70-99) 192 mg/dL (70-99) 128 mg/dL (70-99) Test 02/11/20 09:02 White Blood Count 15.1 x10^3/uL (4.0-11.0) Red Blood Count 3.79 x10^6/uL (3.50-5.40) Hemoglobin 11.2 g/dL (12.0-15.5) Hematocrit 33.5 % (36.0-47.0) Mean Corpuscular Volume 88 fL (79-100) Mean Corpuscular Hemoglobin 30 pg (25-35) Mean Corpuscular Hemoglobin Concent 34 g/dL (31-37) Red Cell Distribution Width 14.5 % (11.5-14.5) Platelet Count 284 x10^3/uL (140-400) Neutrophils (%) (Auto) 66 % (31-73) Lymphocytes (%) (Auto) 23 % (24-48) Monocytes (%) (Auto) 7 % (0-9) Eosinophils (%) (Auto) 2 % (0-3) Basophils (%) (Auto) 1 % (0-3) Neutrophils # (Auto) 10.0 x10^3/uL (1.8-7.7) Lymphocytes # (Auto) 3.5 x10^3/uL (1.0-4.8) Monocytes # (Auto) 1.1 x10^3/uL (0.0-1.1) Eosinophils # (Auto) 0.3 x10^3/uL (0.0-0.7) Basophils # (Auto) 0.2 x10^3/uL (0.0-0.2) Sodium Level 138 mmol/L (136-145) Potassium Level 4.0 mmol/L (3.5-5.1) Chloride Level 99 mmol/L (98-107) Carbon Dioxide Level 31 mmol/L (21-32) Anion Gap 8 (6-14) Blood Urea Nitrogen 27 mg/dL (7-20) Creatinine 1.2 mg/dL (0.6-1.0) Estimated GFR (Cockcroft-Gault) 44.9 BUN/Creatinine Ratio 23 (6-20) Glucose Level 193 mg/dL (70-99) Calcium Level 9.9 mg/dL (8.5-10.1) Total Bilirubin 0.9 mg/dL (0.2-1.0) Aspartate Amino Transf (AST/SGOT) 18 U/L (15-37) Alanine Aminotransferase (ALT/SGPT) 21 U/L (14-59) Alkaline Phosphatase 112 U/L (46-116) Total Protein 7.1 g/dL (6.4-8.2) Albumin 3.1 g/dL (3.4-5.0) Albumin/Globulin Ratio 0.8 (1.0-1.7) Thyroid Stimulating Hormone (TSH) 2.500 uIU/mL (0.358-3.74) [place] Level 1.0 mmol/L (0.6-1.2) [place] Last Dose Date 02/09/20 [place] Last Dose Time 2100 Medications Current Medications Fentanyl Citrate (Fentanyl 2ml Vial) 50 mcg PRN Q20MIN PRN IVP SEVERE PAIN 7- 10; Start 02/06/20 at 00:15; Stop 02/06/20 at 01:15; Status DC Sodium Chloride 1,000 ml @ 125 mls/hr 1X ONCE IV Last administered on 02/06/20at 00:56; Start 02/06/20 at 01:00; Stop 02/06/20 at 08:59; Status DC Ondansetron HCl (Zofran) 4 mg PRN Q8HRS PRN IV NAUSEA/VOMITING 1ST CHOICE Last administered on 02/06/20at 01:26; Start 02/06/20 at 00:45; Stop 02/06/20 at 07:22; Status DC Morphine Sulfate (Morphine Sulfate) 2 mg PRN Q2HR PRN IV SEVERE PAIN 7-10 Last administered on 02/06/20at 08:47; Start 02/06/20 at 00:45; Stop 02/07/20 at 00:44; Status DC Fentanyl Citrate (Fentanyl 2ml Vial) 50 mcg PRN Q1HR PRN IV SEVERE PAIN 7-10 Last administered on 02/06/20at 17:45; Start 02/06/20 at 00:45; Stop 02/07/20 at 00:44; Status DC Sodium Chloride 1,000 ml @ 125 mls/hr Q8H IV Last administered on 02/06/20at 17:26; Start 02/06/20 at 01:00; Stop 02/07/20 at 00:59; Status DC Nicotine (Nicoderm Cq 21mg) 1 patch PRN DAILY PRN TD SMOKING CESSATION; Start 02/06/20 at 00:45 Ondansetron HCl (Zofran) 4 mg PRN Q4HRS PRN IV NAUSEA/VOMITING 1ST CHOICE Last administered on 02/06/20at 08:47; Start 02/06/20 at 07:30; Stop 02/06/20 at 19:05; Status DC Acetaminophen (Tylenol) 650 mg PRN Q4HRS PRN PO TEMP OVER 100.4F OR MILD PAIN; Start 02/06/20 at 07:30 Albuterol Sulfate (Ventolin Neb Soln) 2.5 mg PRN Q4HRS PRN NEB SHORTNESS OF BR EATH; Start 02/06/20 at 07:30 Aripiprazole (Abilify) 2 mg DAILY PO Last administered on 02/11/20 08:40; Start 02/06/20 at 09:00 Aspirin (Ecotrin) 81 mg DAILY PO ; Start 02/06/20 at 09:00; Stop 02/06/20 at 17:20; Status DC Atorvastatin Calcium (Lipitor) 40 mg QHS PO Last administered on 02/10/20 21:57; Start 02/06/20 at 21:00 Bupropion HCl (Wellbutrin Xl) 450 mg DAILYWBKFT PO Last administered on 02/11/20 08:40; Start 02/06/20 at 08:00 Cyclobenzaprine HCl (Flexeril) 10 mg QHS PO Last administered on 02/10/20 21:57; Start 02/06/20 at 21:00 Docusate Sodium (Colace) 100 mg PRN BID PRN PO HARD STOOLS; Start 02/06/20 at 07:30 Glipizide (Glucotrol) 5 mg BID PO Last administered on 02/11/20 08:40; Start 02/06/20 at 09:00 Olanzapine (ZyPREXA ZYDIS) 5 mg PRN BID PRN PO ANXIETY / AGITATION Last administered on 02/07/20 15:59; Start 02/06/20 at 07:30 Non-Formulary Medication (Budesonide/ Formoterol Fumarate (Symbicort 80-4.5 Mcg Inhaler)) 2 puff BID IH ; Start 02/06/20 at 09:00; Status UNV Liothyronine Sodium (Cytomel) 25 mcg DAILY PO Last administered on 02/11/20 08:39; Start 02/06/20 at 09:00 [place] Carbonate ([place] Carbonate) 450 mg HS PO Last administered on 02/10/20 21:57; Start 02/06/20 at 21:00 Alprazolam (Xanax) 1 mg PRN Q8HRS PRN PO ANXIETY / AGITATION Last administered on 02/07/20 20:41; Start 02/06/20 at 07:30 Albuterol Sulfate (Ventolin Neb Soln) 2.5 mg RTQID NEB Last administered on 02/11/20at 07:26; Start 02/06/20 at 08:00 Budesonide (Pulmicort) 0.5 mg RTBID NEB Last administered on 02/11/20at 07:26; Start 02/06/20 at 08:00 Cefazolin Sodium/ Dextrose 50 ml @ 100 mls/hr 1X PREOP PRN IV SEE COMMENTS Last administered on 02/06/20at 16:15; Start 02/06/20 at 11:00; Stop 02/06/20 at 19:05; Status DC Ropivacaine 53.3 ml/Epinephrine HCl 0.6 mg/ Morphine Sulfate 5 mg/Sodium Chloride 100 ml @ 100 mls/hr 1X ONCE INT ART Last administered on 02/06/20at 16:34; Start 02/06/20 at 14:00; Stop 02/06/20 at 14:59; Status DC Ondansetron HCl (Zofran) 4 mg PRN Q6HRS PRN IV NAUSEA/VOMITING; Start 02/06/20 at 13:00; Stop 02/07/20 at 09:18; Status DC Fentanyl Citrate (Fentanyl 2ml Vial) 25 mcg PRN Q5MIN PRN IV MILD PAIN 1-3; Start 02/06/20 at 13:00; Stop 02/07/20 at 09:18; Status DC Fentanyl Citrate (Fentanyl 2ml Vial) 50 mcg PRN Q5MIN PRN IV MODERATE TO SEVERE PAIN; Start 02/06/20 at 13:00; Stop 02/07/20 at 09:18; Status DC Morphine Sulfate (Morphine Sulfate) 1 mg PRN Q10MIN PRN IV SEVERE PAIN 7-10 Last administered on 02/06/20at 18:03; Start 02/06/20 at 13:00; Stop 02/07/20 at 09:18; Status DC Ringer's Solution 1,000 ml @ 30 mls/hr Q24H IV ; Start 02/06/20 at 13:00; Stop 02/07/20 at 00:59; Status DC Lidocaine HCl (Xylocaine-Mpf 1% 2ml Vial) 2 ml PRN 1X PRN ID PRIOR TO IV START; Start 02/06/20 at 13:00; Stop 02/07/20 at 09:18; Status DC Hydromorphone HCl (Dilaudid) 0.5 mg PRN Q10MIN PRN IV SEV PAIN, Second choice; Start 02/06/20 at 13:00; Stop 02/07/20 at 09:18; Status DC Prochlorperazine Edisylate (Compazine) 5 mg PACU PRN PRN IV NAUSEA, MRX1; Start 02/06/20 at 13:00; Stop 02/07/20 at 09:19; Status DC Propofol (Diprivan) 200 mg STK-MED ONCE IV ; Start 02/06/20 at 14:51; Stop 02/06/20 at 14:51; Status DC Dexamethasone Sodium Phosphate (Decadron) 4 mg STK-MED ONCE .ROUTE ; Start 02/06/20 at 14:51; Stop 02/06/20 at 14:51; Status DC Lidocaine HCl (Lidocaine Pf 2% Vial) 5 ml STK-MED ONCE .ROUTE ; Start 02/06/20 at 14:51; Stop 02/06/20 at 14:51; Status DC Ondansetron HCl (Zofran) 4 mg STK-MED ONCE .ROUTE ; Start 02/06/20 at 14:51; Stop 02/06/20 at 14:51; Status DC Sevoflurane (Ultane) 60 ml STK-MED ONCE IH ; Start 02/06/20 at 16:51; Stop 02/06/20 at 16:52; Status DC Fentanyl Citrate (Fentanyl 2ml Vial) 100 mcg STK-MED ONCE .ROUTE ; Start 02/06/20 at 16:52; Stop 02/06/20 at 16:52; Status DC Morphine Sulfate (Morphine Sulfate) 2 mg PRN Q1HR PRN IVP MILD PAIN 1-3; Start 02/06/20 at 17:15 Fentanyl Citrate (Fentanyl 2ml Vial) 25 mcg PRN Q1HR PRN IVP SEVERE PAIN 7-10 Last administered on 02/08/20at 23:18; Start 02/06/20 at 17:15 Multivitamins (Thera M Plus) 1 tab DAILY PO Last administered on 02/11/20at 08:40; Start 02/07/20 at 09:00 Senna/Docusate Sodium (Senna Plus) 1 tab DAILY PO Last administered on at 08:40; Start 02/07/20 at 09:00 Polyethylene Glycol (miraLAX PACKET) 17 gm PRN DAILY PRN PO CONSTIPATION; Start 02/06/20 at 17:15 Vitamin D (Vitamin D3) 1,000 unit DAILY PO Last administered on 02/07/20at 07:52; Start 02/07/20 at 09:00; Stop 02/08/20 at 08:13; Status DC Sodium Chloride 1,000 ml @ 75 mls/hr [id number] IV Last administered on 02/06/20at 21:19; Start 02/06/20 at 17:15; Stop 02/11/20 at 04:47; Status DC Ondansetron HCl (Zofran) 4 mg PRN Q4HRS PRN IVP NAUSEA/VOMITING Last administ ered on 02/07/20at 17:56; Start 02/06/20 at 17:15 Enoxaparin Sodium (Lovenox 40mg Syringe) 40 mg DAILY SQ Last administered on 02/08/20at 08:36; Start 02/08/20 at 09:00; Stop 02/08/20 at 15:28; Status DC Magnesium Hydroxide (Milk Of Magnesia) 2,400 mg 1X PRN PRN PO CONSTIPATION; Start 02/07/20 at 06:00; Stop 02/08/20 at 05:59; Status DC Bisacodyl (Dulcolax Supp) 10 mg 1X PRN PRN [place] CONSTIPATION; Start 02/07/20 at 16:00; Stop 02/08/20 at 15:59; Status DC Morphine Sulfate (Morphine Sulfate) 4 mg PRN Q2HR PRN IVP MODERATE PAIN Last administered on 02/08/20at 05:42; Start 02/06/20 at 17:15 Dextrose (Dextrose 50%-Water Syringe) 12.5 gm PRN Q15MIN PRN IV SEE COMMENTS; Start 02/06/20 at 17:15 Cefazolin Sodium/ Dextrose 50 ml @ 100 mls/hr Q6H IV Last administered on 02/07/20at 05:36; Start 02/06/20 at 17:30; Stop 02/07/20 at 05:59; Status DC Oxycodone/ Acetaminophen (Percocet 5/325) 1 tab PRN Q4HRS PRN PO MODERATE PAIN Last administered on 02/08/20at 20:43; Start 02/06/20 at 17:15 Aspirin (Ecotrin) 325 mg BID PO Last administered on 02/09/20at 08:29; Start 02/06/20 at 21:00; Stop 02/09/20 at 08:33; Status DC Fentanyl Citrate (Fentanyl 2ml Vial) 100 mcg STK-MED ONCE .ROUTE ; Start 02/06/20 at 17:30; Stop 02/06/20 at 17:30; Status DC Morphine Sulfate (Morphine Sulfate) 2 mg STK-MED ONCE .ROUTE ; Start 02/06/20 at 17:51; Stop 02/06/20 at 17:52; Status DC Oxycodone/ Acetaminophen (Percocet 5/325) 2 tab PRN Q4HRS PRN PO SEVERE PAIN Last administered on 02/11/20at 06:20; Start 02/07/20 at 09:30 Tizanidine HCl (Zanaflex) 4 mg 1X ONCE PO Last administered on 02/07/20at 10:22; Start 02/07/20 at 10:00; Stop 02/07/20 at 10:01; Status DC Haloperidol Lactate (Haldol Inj) 5 mg PRN Q6HRS PRN IVP AGITATION; Start 02/07/20 at 18:15 Haloperidol (Haldol) 5 mg PRN Q6HRS PRN PO AGITATION Last administered on 02/10/20at 00:44; Start 02/07/20 at 18:15 Ziprasidone (Geodon Im) 10 mg 1X ONCE IM Last administered on 02/07/20at 19:28; Start 02/07/20 at 19:30; Stop 02/07/20 at 19:31; Status DC Vitamin D (Vitamin D3) 5,000 unit DAILY PO Last administered on 02/11/20at 08:41; Start 02/08/20 at 09:00 Diphenhydramine HCl (Benadryl) 50 mg PRN QHS PRN PO INSOMNIA Last administered on 02/09/20at 21:49; Start 02/08/20 at 23:00 Aspirin (Ecotrin) 325 mg BID PO ; Start 02/11/20 at 21:00 Enoxaparin Sodium (Lovenox 40mg Syringe) 40 mg Q24H SQ Last administered on 02/11/20at 08:41; Start 02/09/20 at 09:00; Stop 02/11/20 at 09:01; Status DC Nicotine Polacrilex (Nicorette Gum) 1 each PRN Q1HR PRN BC SMOKING CESSATION Last administered on 02/10/20at 15:07; Start 02/10/20 at 14:45 Active Scripts Active Dok (Docusate Sodium) 100 Mg Capsule 100 Mg PO PRN BID PRN 30 Days Olanzapine Odt (Olanzapine) 5 Mg Tab.rapdis 5 Mg PO PRN BID PRN 30 Days Tylenol (Acetaminophen) 325 Mg Tablet 650 Mg PO PRN Q4HRS PRN 30 Days NICODERM CQ 21mg (Nicotine) 1 Each Patch.td24 1 Patch TP DAILY Proair Hfa (Albuterol Sulfate) 8.5 Gm Hfa.aer.ad 2.5 Mg NEB PRN Q4HRS PRN 30 Days Symbicort 80-4.5 Mcg Inhaler (Budesonide/Formoterol Fumarate) 10.2 Gm Hfa.aer.ad 2 Puff IH BID Reported Zolpidem Tartrate 5 Mg Tablet 10 Mg PO PRN QHS PRN Omeprazole 40 Mg Capsule.dr 40 Mg PO DAILY Alprazolam 2 Mg Tablet 1 Tab PO BID PRN Cyclobenzaprine Hcl 10 Mg Tablet 1 Tab PO QHS Clonazepam 1 Mg Tablet 3 Mg PO HS [place] Carbonate 450 Mg Tablet.er 450 Mg PO HS Abilify (Aripiprazole) 2 Mg Tablet 1 Tab PO DAILY 30 Days Bupropion Xl (Bupropion Hcl) 150 Mg Tab.er.24h 3 Tab PO DAILYWBKFT Liothyronine Sodium 25 Mcg Tablet 1 Tab PO DAILY 30 Days Atorvastatin Calcium 40 Mg Tablet 40 Mg PO DAILY Metformin Hcl 1,000 Mg Tablet 1,000 BID Aspir 81 (Aspirin) 81 Mg Tablet.dr 1 Tab PO DAILY Glipizide 5 Mg Tablet 1 Tab PO BID Vitals/I & O Vital Sign - Last 24 Hours 02/10/20 02/10/20 02/10/20 02/10/20 11:00 11:43 15:00 15:31 Temp 98.4 98.2 98.4 98.2 Pulse 109 102 Resp 18 16 B/P (MAP) 155/71 (99) 122/86 (98) Pulse Ox 94 97 96 97 O2 Delivery Room Air Nasal Cannula Room Air Room Air O2 Flow Rate 2.0 02/10/20 02/10/20 02/10/20 02/10/20 19:35 20:00 20:36 22:00 Temp 99.2 99.2 Pulse 104 Resp 22 B/P (MAP) 134/83 (100) Pulse Ox 95 96 O2 Delivery Room Air Room Air Room Air Room Air 02/10/20 02/10/20 02/11/20 02/11/20 23:11 23:23 03:10 06:20 Temp 98.0 98.3 98.0 98.3 Pulse 97 98 Resp 18 18 B/P (MAP) 147/82 (103) 132/84 (100) Pulse Ox 93 94 O2 Delivery Room Air Room Air Room Air Room Air 02/11/20 02/11/20 02/11/20 07:00 07:26 07:27 Temp 97.8 97.8 Pulse 102 Resp 18 16 B/P (MAP) 138/81 (100) Pulse Ox 99 94 O2 Delivery Room Air Room Air Room Air Intake and Output 02/10/20 02/10/20 02/11/20 15:00 23:00 07:00 Intake Total 250 ml 360 ml Balance 250 ml 360 ml Justicifation of Admission Dx: Justifications for Admission: Justification of Admission Dx: Yes Altered Mental Status: Altered Mental Status SHERIDAN CAMEJO MD Feb 11, 2020 10:15
[2020-02-11 10:45] VITALS: BP 126/51
--- NOTE | 2020-02-11 10:53 | NUR ---
ADRIANNE following. Discussed with RN, pt from home, room air, ada diet. Pt accepted at [facility] pending insurance auth. Family requesting [facility] ADRIANNE spoke with sister, Heidi - ADRIANNE explained the process of referral and insurance auth. Heidi verbalized understanding and is okay with [facility]. Awaiting insurance auth. ADRIANNE will continue to follow. Addendum: 02/11/20 at 1345 by IZABELLA SILVER Insurance approved pt to transfer to [facility] for [facility]. ADRIANNE notified Dr. Jasso - awaiting discharge orders. RN notified. ADRIANNE will continue to follow. Addendum: 02/11/20 at 1444 by IZABELLA SILVER Discharge orders faxed to [facility]. Transportation arranged with [facility] for between [id number]. RN and family notified.
--- NOTE | 2020-02-11 13:56 | PDOC3 ---
Discharge Summary Date of Admission: Feb 06, 2020 Date of Discharge: Feb 11, 2020 Follow-Up: 1-2 days Admitting Diagnosis comment: DISCHARGE DX Chief Complaint impression Acute left intertrochanteric hip fracture - traumatic due to fall. Ortho consulted s/p IM nailing. Pain control iv. Rapid COVID 19 negative. PT/OT post op Fall at home - traumatic per patient OPAL - likely vasomotor nephropathy, CONT hydrate Tobacco dependence - counseled on cessation COPD - will place on nebs prn Type 2 diabetes - will place on sliding scale Hearing impairment - not wearing hearing aides Mild cognitive impairment - likely progressing to Alzheimers dementia as her mother and father Vitamin D deficiency - 5000u daily GAIT INSTABILITY POST-OP FEN - ADA diet PPX - lovenox for Hip fracture surgery, ok to change to ASA possibly at day 5 post-operatively FULL CODE Dispo - inpatient pt/ot D/W RN PLAN TO SNF WHEN BED AVAILABLE D/C PLANNING 33 MIN History of Present Illness History of Present Illness Ms Woods is a 64 year old female w/ PMHx 2ppd smoker, COPD, depression, DM2, fatty liver admitted after a fall at home. She was at home chasing the cat, when she had tripped over the cat and fallen, landing on the floor and started have some discomfort in her left hip and leg. Patient states she laid on the floor for 20 to 30 minutes before they came to help her. States she was unable to get up. Unable to bear weight in the ED with left leg appearing shorter than right. Denies hitting head, denies loss of consciousness, denies taking blood thinners. Denies any nausea, vomiting, diarrhea EKG with heart rate 77 beats per minute. No ST segment elevation prolonged QT interval 448 MS. Labs significant for WBC WBC 11.1, Hb 14 platelets 211, NA 136, K4.7, BUN 13, CR 1.3, glucose 116 Chest radiograph unchanged from prior no acute abnormality. Left hip x-ray confirms left intertrochanteric hip fracture. Admitted for further care. 02/06: S/p intramedullary implant, with interlocking screws on 02/06/2020. Has some cramping in her right thigh. No CP or SOB. No swelling 02/07: Afebrile, sitting up in chair. A bit confused today. No CP or SOB. Asked me if I would like to get high with her. 02/08: Afebrile, sitting in chair. Was smoking in room, counseled against this. Confused today. No CP or SOB. Afebrile. Seen in bed. Pain well controlled. No CP or SOB. Still confused Plan: Skilled rehab Check TSH, lithium level, CBC Cont PT, rehab Vitals Vitals Vital Signs Date Time Temp Pulse Resp B/P (MAP) Pulse Ox O2 Delivery O2 Flow Rate FiO2 02/11/20 07:27 16 Room Air 02/11/20 07:26 94 02/11/20 07:00 97.8 102 138/81 (100) 97.8 02/10/20 11:43 2.0 Physical Exam Physical Exam General: Alert, Cooperative, CONFUSED TO DETAILS Heart: Regular rate Lungs: Clear, Wheezing Abdomen: Soft Extremities: skin is intact without ecchymosis.. Capillary refill and pulses are intact without evidence of ischemia. Skin: No breakdown, No significant lesion, Other (multiple actinic keratoses) General: Alert, Cooperative, No acute distress Heart: Regular rate, Normal S1 Lungs: Clear, Abdomen: Soft FINAL DIAGNOSIS Problems Medical Problems: (1) Fall as cause of accidental injury at home as place of occurrence Status: Acute (2) Fracture, intertrochanteric, left femur Status: Acute Brief Hospital Course Ms. Woods is a 64 old [sex] who presented with [LEFT HIP FRACTURE., FALL ] CONDITION AT DISCHARGE: Improved Discharge Medications Current Medications Fentanyl Citrate (Fentanyl 2ml Vial) 50 mcg PRN Q20MIN PRN IVP SEVERE PAIN 7- 10; Start 02/06/20 at 00:15; Stop 02/06/20 at 01:15; Status DC Sodium Chloride 1,000 ml @ 125 mls/hr 1X ONCE IV Last administered on 02/06/20at 00:56; Start 02/06/20 at 01:00; Stop 02/06/20 at 08:59; Status DC Ondansetron HCl (Zofran) 4 mg PRN Q8HRS PRN IV NAUSEA/VOMITING 1ST CHOICE Last administered on 02/06/20at 01:26; Start 02/06/20 at 00:45; Stop 02/06/20 at 07:22; Status DC Morphine Sulfate (Morphine Sulfate) 2 mg PRN Q2HR PRN IV SEVERE PAIN 7-10 Last administered on 02/06/20at 08:47; Start 02/06/20 at 00:45; Stop 02/07/20 at 00:44; Status DC Fentanyl Citrate (Fentanyl 2ml Vial) 50 mcg PRN Q1HR PRN IV SEVERE PAIN 7-10 Last administered on 02/06/20at 17:45; Start 02/06/20 at 00:45; Stop 02/07/20 at 00:44; Status DC Sodium Chloride 1,000 ml @ 125 mls/hr Q8H IV Last administered on 02/06/20at 17:26; Start 02/06/20 at 01:00; Stop 02/07/20 at 00:59; Status DC Nicotine (Nicoderm Cq 21mg) 1 patch PRN DAILY PRN TD SMOKING CESSATION; Start 02/06/20 at 00:45 Ondansetron HCl (Zofran) 4 mg PRN Q4HRS PRN IV NAUSEA/VOMITING 1ST CHOICE Last administered on 02/06/20at 08:47; Start 02/06/20 at 07:30; Stop 02/06/20 at 19:05; Status DC Acetaminophen (Tylenol) 650 mg PRN Q4HRS PRN PO TEMP OVER 100.4F OR MILD PAIN; Start 02/06/20 at 07:30 Albuterol Sulfate (Ventolin Neb Soln) 2.5 mg PRN Q4HRS PRN NEB SHORTNESS OF BREATH; Start 02/06/20 at 07:30 Aripiprazole (Abilify) 2 mg DAILY PO Last administered on 02/11/20at 08:40; Start 02/06/20 at 09:00 Aspirin (Ecotrin) 81 mg DAILY PO ; Start 02/06/20 at 09:00; Stop 02/06/20 at 17:20; Status DC Atorvastatin Calcium (Lipitor) 40 mg QHS PO Last administered on 02/10/20at 21:57; Start 02/06/20 at 21:00 Bupropion HCl (Wellbutrin Xl) 450 mg DAILYWBKFT PO Last administered on 02/11/20at 08:40; Start 02/06/20 at 08:00 Cyclobenzaprine HCl (Flexeril) 10 mg QHS PO Last administered on 02/10/20at 21:57; Start 02/06/20 at 21:00 Docusate Sodium (Colace) 100 mg PRN BID PRN PO HARD STOOLS; Start 02/06/20 at 07:30 Glipizide (Glucotrol) 5 mg BID PO Last administered on 02/11/20 08:40; Start 02/06/20 at 09:00 Olanzapine (ZyPREXA ZYDIS) 5 mg PRN BID PRN PO ANXIETY / AGITATION Last administered on 02/07/20at 15:59; Start 02/06/20 at 07:30 Non-Formulary Medication (Budesonide/ Formoterol Fumarate (Symbicort 80-4.5 Mcg Inhaler)) 2 puff BID IH ; Start 02/06/20 at 09:00; Status UNV Liothyronine Sodium (Cytomel) 25 mcg DAILY PO Last administered on 02/11/20at 08:39; Start 02/06/20 at 09:00 Remington Carbonate (Remington Carbonate) 450 mg HS PO Last administered on 02/10/20at 21:57; Start 02/06/20 at 21:00 Alprazolam (Xanax) 1 mg PRN Q8HRS PRN PO ANXIETY / AGITATION Last administered on 02/07/20at 20:41; Start 02/06/20 at 07:30 Albuterol Sulfate (Ventolin Neb Soln) 2.5 mg RTQID NEB Last administered on 02/11/20at 11:33; Start 02/06/20 at 08:00 Budesonide (Pulmicort) 0.5 mg RTBID NEB Last administered on 02/11/20at 07:26; Start 02/06/20 at 08:00 Cefazolin Sodium/ Dextrose 50 ml @ 100 mls/hr 1X PREOP PRN IV SEE COMMENTS Last administered on 02/06/20at 16:15; Start 02/06/20 at 11:00; Stop 02/06/20 at 19:05; Status DC Ropivacaine 53.3 ml/Epinephrine HCl 0.6 mg/ Morphine Sulfate 5 mg/Sodium Chloride 100 ml @ 100 mls/hr 1X ONCE INT ART Last administered on 02/06/20at 16:34; Start 02/06/20 at 14:00; Stop 02/06/20 at 14:59; Status DC Ondansetron HCl (Zofran) 4 mg PRN Q6HRS PRN IV NAUSEA/VOMITING; Start 02/06/20 at 13:00; Stop 02/07/20 at 09:18; Status DC Fentanyl Citrate (Fentanyl 2ml Vial) 25 mcg PRN Q5MIN PRN IV MILD PAIN 1-3; Start 02/06/20 at 13:00; Stop 02/07/20 at 09:18; Status DC Fentanyl Citrate (Fentanyl 2ml Vial) 50 mcg PRN Q5MIN PRN IV MODERATE TO SEVERE PAIN; Start 02/06/20 at 13:00; Stop 02/07/20 at 09:18; Status DC Morphine Sulfate (Morphine Sulfate) 1 mg PRN Q10MIN PRN IV SEVERE PAIN 7-10 Last administered on 02/06/20at 18:03; Start 02/06/20 at 13:00; Stop 02/07/20 at 09:18; Status DC Ringer's Solution 1,000 ml @ 30 mls/hr Q24H IV ; Start 02/06/20 at 13:00; Stop 02/07/20 at 00:59; Status DC Lidocaine HCl (Xylocaine-Mpf 1% 2ml Vial) 2 ml PRN 1X PRN ID PRIOR TO IV START; Start 02/06/20 at 13:00; Stop 02/07/20 at 09:18; Status DC Hydromorphone HCl (Dilaudid) 0.5 mg PRN Q10MIN PRN IV SEV PAIN, Second choice; Start 02/06/20 at 13:00; Stop 02/07/20 at 09:18; Status DC Prochlorperazine Edisylate (Compazine) 5 mg PACU PRN PRN IV NAUSEA, MRX1; Start 02/06/20 at 13:00; Stop 02/07/20 at 09:19; Status DC Propofol (Diprivan) 200 mg STK-MED ONCE IV ; Start 02/06/20 at 14:51; Stop 02/06/20 at 14:51; Status DC Dexamethasone Sodium Phosphate (Decadron) 4 mg STK-MED ONCE .ROUTE ; Start 02/06/20 at 14:51; Stop 02/06/20 at 14:51; Status DC Lidocaine HCl (Lidocaine Pf 2% Vial) 5 ml STK-MED ONCE .ROUTE ; Start 02/06/20 at 14:51; Stop 02/06/20 at 14:51; Status DC Ondansetron HCl (Zofran) 4 mg STK-MED ONCE .ROUTE ; Start 02/06/20 at 14:51; Stop 02/06/20 at 14:51; Status DC Sevoflurane (Ultane) 60 ml STK-MED ONCE IH ; Start 02/06/20 at 16:51; Stop 02/06/20 at 16:52; Status DC Fentanyl Citrate (Fentanyl 2ml Vial) 100 mcg STK-MED ONCE .ROUTE ; Start 02/06/20 at 16:52; Stop 02/06/20 at 16:52; Status DC Morphine Sulfate (Morphine Sulfate) 2 mg PRN Q1HR PRN IVP MILD PAIN 1-3; Start 02/06/20 at 17:15 Fentanyl Citrate (Fentanyl 2ml Vial) 25 mcg PRN Q1HR PRN IVP SEVERE PAIN 7-10 Last administered on 02/08/20at 23:18; Start 02/06/20 at 17:15 Multivitamins (Thera M Plus) 1 tab DAILY PO Last administered on 02/11/20at 08:40; Start 02/07/20 at 09:00 Senna/Docusate Sodium (Senna Plus) 1 tab DAILY PO Last administered on 02/11/20at 08:40; Start 02/07/20 at 09:00 Polyethylene Glycol (miraLAX PACKET) 17 gm PRN DAILY PRN PO CONSTIPATION; Start 02/06/20 at 17:15 Vitamin D (Vitamin D3) 1,000 unit DAILY PO Last administered on 02/07/20at 07 :52; Start 02/07/20 at 09:00; Stop 02/08/20 at 08:13; Status DC Sodium Chloride 1,000 ml @ 75 mls/hr [id number] IV Last administered on 02/06/20at 21:19; Start 02/06/20 at 17:15; Stop 02/11/20 at 04:47; Status DC Ondansetron HCl (Zofran) 4 mg PRN Q4HRS PRN IVP NAUSEA/VOMITING Last administered on 02/07/20at 17:56; Start 02/06/20 at 17:15 Enoxaparin Sodium (Lovenox 40mg Syringe) 40 mg DAILY SQ Last administered on 02/08/20at 08:36; Start 02/08/20 at 09:00; Stop 02/08/20 at 15:28; Status DC Magnesium Hydroxide (Milk Of Magnesia) 2,400 mg 1X PRN PRN PO CONSTIPATION; Start 02/07/20 at 06:00; Stop 02/08/20 at 05:59; Status DC Bisacodyl (Dulcolax Supp) 10 mg 1X PRN PRN [place] CONSTIPATION; Start 02/07/20 at 16:00; Stop 02/08/20 at 15:59; Status DC Morphine Sulfate (Morphine Sulfate) 4 mg PRN Q2HR PRN IVP MODERATE PAIN Last administered on 02/08/20at 05:42; Start 02/06/20 at 17:15 Dextrose (Dextrose 50%-Water Syringe) 12.5 gm PRN Q15MIN PRN IV SEE COMMENTS; Start 02/06/20 at 17:15 Cefazolin Sodium/ Dextrose 50 ml @ 100 mls/hr Q6H IV Last administered on 02/07/20at 05:36; Start 02/06/20 at 17:30; Stop 02/07/20 at 05:59; Status DC Oxycodone/ Acetaminophen (Percocet 5/325) 1 tab PRN Q4HRS PRN PO MODERATE PAIN Last administered on 02/08/20at 20:43; Start 02/06/20 at 17:15 Aspirin (Ecotrin) 325 mg BID PO Last administered on 02/09/20at 08:29; Start 02/06/20 at 21:00; Stop 02/09/20 at 08:33; Status DC Fentanyl Citrate (Fentanyl 2ml Vial) 100 mcg STK-MED ONCE .ROUTE ; Start 02/06/20 at 17:30; Stop 02/06/20 at 17:30; Status DC Morphine Sulfate (Morphine Sulfate) 2 mg STK-MED ONCE .ROUTE ; Start 02/06/20 at 17:51; Stop 02/06/20 at 17:52; Status DC Oxycodone/ Acetaminophen (Percocet 5/325) 2 tab PRN Q4HRS PRN PO SEVERE PAIN Last administered on 02/11/20at 11:25; Start 02/07/20 at 09:30 Tizanidine HCl (Zanaflex) 4 mg 1X ONCE PO Last administered on 02/07/20at 10:22; Start 02/07/20 at 10:00; Stop 02/07/20 at 10:01; Status DC Haloperidol Lactate (Haldol Inj) 5 mg PRN Q6HRS PRN IVP AGITATION; Start at 18:15 Haloperidol (Haldol) 5 mg PRN Q6HRS PRN PO AGITATION Last administered on 02/10/20at 00:44; Start 02/07/20 at 18:15 Ziprasidone (Geodon Im) 10 mg 1X ONCE IM Last administered on 02/07/20at 19:28; Start 02/07/20 at 19:30; Stop 02/07/20 at 19:31; Status DC Vitamin D (Vitamin D3) 5,000 unit DAILY PO Last administered on 02/11/20at 08:41; Start 02/08/20 at 09:00 Diphenhydramine HCl (Benadryl) 50 mg PRN QHS PRN PO INSOMNIA Last administered on 02/09/20at 21:49; Start 02/08/20 at 23:00 Aspirin (Ecotrin) 325 mg BID PO ; Start 02/11/20 at 21:00 Enoxaparin Sodium (Lovenox 40mg Syringe) 40 mg Q24H SQ Last administered on 02/11/20at 08:41; Start 02/09/20 at 09:00; Stop 02/11/20 at 09:01; Status DC Nicotine Polacrilex (Nicorette Gum) 1 each PRN Q1HR PRN BC SMOKING CESSATION Last administered on 02/10/20at 15:07; Start 02/10/20 at 14:45 Active Scripts Active Dok (Docusate Sodium) 100 Mg Capsule 100 Mg PO PRN BID PRN 30 Days Olanzapine Odt (Olanzapine) 5 Mg Tab.rapdis 5 Mg PO PRN BID PRN 30 Days Tylenol (Acetaminophen) 325 Mg Tablet 650 Mg PO PRN Q4HRS PRN 30 Days NICODERM CQ 21mg (Nicotine) 1 Each Patch.td24 1 Patch TP DAILY Proair Hfa (Albuterol Sulfate) 8.5 Gm Hfa.aer.ad 2.5 Mg NEB PRN Q4HRS PRN 30 Days Symbicort 80-4.5 Mcg Inhaler (Budesonide/Formoterol Fumarate) 10.2 Gm Hfa.aer.ad 2 Puff IH BID Reported Zolpidem Tartrate 5 Mg Tablet 10 Mg PO PRN QHS PRN Omeprazole 40 Mg Capsule.dr 40 Mg PO DAILY Alprazolam 2 Mg Tablet 1 Tab PO BID PRN Cyclobenzaprine Hcl 10 Mg Tablet 1 Tab PO QHS Clonazepam 1 Mg Tablet 3 Mg PO HS [place] Carbonate 450 Mg Tablet.er 450 Mg PO HS Abilify (Aripiprazole) 2 Mg Tablet 1 Tab PO DAILY 30 Days Bupropion Xl (Bupropion Hcl) 150 Mg Tab.er.24h 3 Tab PO DAILYWBKFT Liothyronine Sodium 25 Mcg Tablet 1 Tab PO DAILY 30 Days Atorvastatin Calcium 40 Mg Tablet 40 Mg PO DAILY Metformin Hcl 1,000 Mg Tablet 1,000 BID Aspir 81 (Aspirin) 81 Mg Tablet.dr 1 Tab PO DAILY Glipizide 5 Mg Tablet 1 Tab PO BID Vital Signs Vital Signs Date Time Temp Pulse Resp B/P (MAP) Pulse Ox O2 Delivery O2 Flow Rate FiO2 02/11/20 11:33 95 Room Air 02/11/20 10:45 97.8 99 18 126/51 (76) 97.8 02/10/20 11:43 2.0 Labs Laboratory Tests Test 02/09/20 16:59 02/09/20 20:48 02/10/20 07:58 02/10/20 10:57 Glucose (Fingerstick) 337 mg/dL (70-99) 234 mg/dL (70-99) 184 mg/dL (70-99) 192 mg/dL (70-99) Test 02/10/20 16:54 02/10/20 21:04 02/11/20 06:46 02/11/20 09:02 Glucose (Fingerstick) 220 mg/dL (70-99) 192 mg/dL (70-99) 128 mg/dL (70-99) White Blood Count 15.1 x10^3/uL (4.0-11.0) Red Blood Count 3.79 x10^6/uL (3.50-5.40) Hemoglobin 11.2 g/dL (12.0-15.5) Hematocrit 33.5 % (36.0-47.0) Mean Corpuscular Volume 88 fL (79-100) Mean Corpuscular Hemoglobin 30 pg (25-35) Mean Corpuscular Hemoglobin Concent 34 g/dL (31-37) Red Cell Distribution Width 14.5 % (11.5-14.5) Platelet Count 284 x10^3/uL (140-400) Neutrophils (%) (Auto) 66 % (31-73) Lymphocytes (%) (Auto) 23 % (24-48) Monocytes (%) (Auto) 7 % (0-9) Eosinophils (%) (Auto) 2 % (0-3) Basophils (%) (Auto) 1 % (0-3) Neutrophils # (Auto) 10.0 x10^3/uL (1.8-7.7) Lymphocytes # (Auto) 3.5 x10^3/uL (1.0-4.8) Monocytes # (Auto) 1.1 x10^3/uL (0.0-1.1) Eosinophils # (Auto) 0.3 x10^3/uL (0.0-0.7) Basophils # (Auto) 0.2 x10^3/uL (0.0-0.2) Sodium Level 138 mmol/L (136-145) Potassium Level 4.0 mmol/L (3.5-5.1) Chloride Level 99 mmol/L (98-107) Carbon Dioxide Level 31 mmol/L (21-32) Anion Gap 8 (6-14) Blood Urea Nitrogen 27 mg/dL (7-20) Creatinine 1.2 mg/dL (0.6-1.0) Estimated GFR (Cockcroft-Gault) 44.9 BUN/Creatinine Ratio 23 (6-20) Glucose Level 193 mg/dL (70-99) Calcium Level 9.9 mg/dL (8.5-10.1) Total Bilirubin 0.9 mg/dL (0.2-1.0) Aspartate Amino Transf (AST/SGOT) 18 U/L (15-37) Alanine Aminotransferase (ALT/SGPT) 21 U/L (14-59) Alkaline Phosphatase 112 U/L (46-116) Total Protein 7.1 g/dL (6.4-8.2) Albumin 3.1 g/dL (3.4-5.0) Albumin/Globulin Ratio 0.8 (1.0-1.7) Thyroid Stimulating Hormone (TSH) 2.500 uIU/mL (0.358-3.74) Remington Level 1.0 mmol/L (0.6-1.2) Remington Last Dose Date 02/09/20 [place]ington Last Dose Time 2100 Test 02/11/20 11:24 Glucose (Fingerstick) 162 mg/dL (70-99) Laboratory Tests Test 02/10/20 16:54 02/10/20 21:04 02/11/20 06:46 02/11/20 09:02 Glucose (Fingerstick) 220 mg/dL (70-99) 192 mg/dL (70-99) 128 mg/dL (70-99) White Blood Count 15.1 x10^3/uL (4.0-11.0) Red Blood Count 3.79 x10^6/uL (3.50-5.40) Hemoglobin 11.2 g/dL (12.0-15.5) Hematocrit 33.5 % (36.0-47.0) Mean Corpuscular Volume 88 fL (79-100) Mean Corpuscular Hemoglobin 30 pg (25-35) Mean Corpuscular Hemoglobin Concent 34 g/dL (31-37) Red Cell Distribution Width 14.5 % (11.5-14.5) Platelet Count 284 x10^3/uL (140-400) Neutrophils (%) (Auto) 66 % (31-73) Lymphocytes (%) (Auto) 23 % (24-48) Monocytes (%) (Auto) 7 % (0-9) Eosinophils (%) (Auto) 2 % (0-3) Basophils (%) (Auto) 1 % (0-3) Neutrophils # (Auto) 10.0 x10^3/uL (1.8-7.7) Lymphocytes # (Auto) 3.5 x10^3/uL (1.0-4.8) Monocytes # (Auto) 1.1 x10^3/uL (0.0-1.1) Eosinophils # (Auto) 0.3 x10^3/uL (0.0-0.7) Basophils # (Auto) 0.2 x10^3/uL (0.0-0.2) Sodium Level 138 mmol/L (136-145) Potassium Level 4.0 mmol/L (3.5-5.1) Chloride Level 99 mmol/L (98-107) Carbon Dioxide Level 31 mmol/L (21-32) Anion Gap 8 (6-14) Blood Urea Nitrogen 27 mg/dL (7-20) Creatinine 1.2 mg/dL (0.6-1.0) Estimated GFR (Cockcroft-Gault) 44.9 BUN/Creatinine Ratio 23 (6-20) Glucose Level 193 mg/dL (70-99) Calcium Level 9.9 mg/dL (8.5-10.1) Total Bilirubin 0.9 mg/dL (0.2-1.0) Aspartate Amino Transf (AST/SGOT) 18 U/L (15-37) Alanine Aminotransferase (ALT/SGPT) 21 U/L (14-59) Alkaline Phosphatase 112 U/L (46-116) Total Protein 7.1 g/dL (6.4-8.2) Albumin 3.1 g/dL (3.4-5.0) Albumin/Globulin Ratio 0.8 (1.0-1.7) Thyroid Stimulating Hormone (TSH) 2.500 uIU/mL (0.358-3.74) Remington Level 1.0 mmol/L (0.6-1.2) Remington Last Dose Date 02/09/20 Remington Last Dose Time 2100 Test 02/11/20 11:24 Glucose (Fingerstick) 162 mg/dL (70-99) Allergies Allergies Coded Allergies Type Severity Reaction Last Updated Verified No Known Drug Allergies 06/07/16 No Disposition/Orders: Other (D/C TO SNF, [facility]) Justicifation of Admission Dx: Justifications for Admission: Justification of Admission Dx: Yes Altered Mental Status: Altered Mental Status SHERIDAN CAMEJO MD Feb 11, 2020 13:56
[2020-02-11] MEDS ORDERED: MULT1TAB90 PO (14:02)
[2020-02-11] MEDS ORDERED: OXYC1TAB15 PO (14:02)
[2020-02-11] MEDS ORDERED: SENN-22 PO (14:02)
[2020-02-11] MEDS ORDERED: ASPI325T11 PO (14:02)
[2020-02-11] MEDS ORDERED: POLY17PO28 PO (14:02)
[2020-02-11] MEDS ORDERED: CHOL500051 PO (14:02)
--- NOTE | 2020-02-11 14:03 | SNU/HH DC ---
DISCHARGE ORDERS DISCHARGE INFORMATION: DISCHARGE DATE: Feb 11, 2020 FINAL DIAGNOSIS Problems Medical Problems: (1) Fall as cause of accidental injury at home as place of occurrence Status: Acute (2) Fracture, intertrochanteric, left femur Status: Acute CONDITION ON DISCHARGE: Stable CODE STATUS: Code Status: Full SENIOR CARE: SNF STAY <30 DAYS: Yes HOSPICE: HOSPICE: No HOSPICE EVAL & TREAT: No LTAC: ADMIT TO LTAC: No POST DISCHARGE ORDERS: ACTIVITY ORDERS: No restrictions, Resume previous activity, Activity as tolerated WEIGHT BEARING STATUS: No restrictions, Full weight bearing, As tolerated BATHING ORDERS: Shower-keep dressing dry DIET AFTER DISCHARGE: Cardiac WOUND/INCISION CARE: No wound care needed CHECKS AFTER DISCHARGE: CHECKS AFTER DISCHARGE: Check blood press - daily, Check blood sugar, ac/hs, Check your Temp as needed TREATMENT/EQUIPMENT ORDERS: ADAPTIVE EQUIPMENT NEEDED: None, Front wheeled walker Physical Therapy For: Evalulation/Treatment Occupational Therapy For: Evaluation/Treatment Speech Language Pathology For: Evaluation/Treatment DISCHARGE MEDICATIONS: Home Meds Active Scripts Oxycodone/Apap 5-325 (PERCOCET 5-325 MG TABLET ) 1 Each Tablet, 1 TAB PO PRN Q4HRS PRN for MODERATE PAIN for 10 Days, #30 TAB Prov:SHERIDAN CAMEJO MD 02/11/20 Multivits,Ca,Minerals/Iron/Fa (THERA-M TABLET) 1 Each Tablet, 1 TAB PO DAILY for SUPPLEMENT for 30 Days, #30 TAB Prov:SHERIDAN CAMEJO MD 02/11/20 Cholecalciferol (Vitamin D3) (Vitamin D3) 125 Mcg Capsule, 5000 UNIT PO DAILY for SUPPLEMENT for 30 Days, #30 CAP Prov:SHERIDAN CAMEJO MD 02/11/20 Sennosides/Docusate Sodium (SENNA-TIME S TABLET) 1 Each Tablet, 1 TAB PO DAILY for PRN CONSTIPATION for 14 Days, #14 TAB Prov:SHERIDAN CAMEJO MD 02/11/20 Polyethylene Glycol 3350 (POLYETHYLENE GLYCOL 3350) 17 Gm Powd.pack, 17 GM PO PRN DAILY PRN for CONSTIPATION for 14 Days, #14 PKT Prov:SHERIDAN CAMEJO MD 02/11/20 Aspirin (ASPIRIN EC) 325 Mg Tablet.dr, 325 MG PO BID for DVT PROPHYLAXIS for 30 Days, #60 TAB.SR Prov:SHERIDAN CAMEJO MD 02/11/20 Docusate Sodium (DOK) 100 Mg Capsule, 100 MG PO PRN BID PRN for HARD STOOLS for 30 Days, #60 CAP Prov:SHERIDAN CAMEJO MD 01/15/20 Olanzapine (OLANZAPINE ODT) 5 Mg Tab.rapdis, 5 MG PO PRN BID PRN for ANXIETY / AGITATION for 30 Days, #60 TAB Prov:SHERIDAN CAMEJO MD 01/15/20 Acetaminophen (TYLENOL) 325 Mg Tablet, 650 MG PO PRN Q4HRS PRN for TEMP OVER 100.4F OR MILD PAIN for 30 Days, #60 TAB Prov:SHERIDAN CAMEJO MD 01/15/20 Nicotine (NICODERM CQ 21mg) 1 Each Patch.td24, 1 PATCH TP DAILY for SMoking cessation, #28 PATCH 11 Refills Prov:TEODORO BETTENCOURT MD 05/31/18 Albuterol Sulfate (Proair Hfa) 8.5 Gm Hfa.aer.ad, 2.5 MG NEB PRN Q4HRS PRN for SHORTNESS OF BREATH for 30 Days, #1 INHALER 2 Refills Prov:TEODORO BETTENCOURT MD 05/30/18 Budesonide/Formoterol Fumarate (SYMBICORT 80-4.5 MCG INHALER) 10.2 Gm Hfa.aer.ad, 2 PUFF IH BID for COPD, #10.2 GM 5 Refills Prov:TEODORO BETTENCOURT MD 05/30/18 Reported Medications Omeprazole (OMEPRAZOLE) 40 Mg Capsule.dr, 40 MG PO DAILY for GERD, CAP 02/06/20 Alprazolam (ALPRAZOLAM) 2 Mg Tablet, 1 TAB PO BID PRN for ANXIETY / AGITATION, #60 TAB 02/06/20 Cyclobenzaprine Hcl (CYCLOBENZAPRINE HCL) 10 Mg Tablet, 1 TAB PO QHS for muscle spasms, #30 TAB 02/06/20 [place] Carbonate (LITHIUM CARBONATE) 450 Mg Tablet.er, 450 MG PO HS for bipolar, TAB.SR 02/06/20 Aripiprazole (ABILIFY) 2 Mg Tablet, 1 TAB PO DAILY for depression for 30 Days, #30 TAB 0 Refills 02/06/20 Bupropion Hcl (BUPROPION XL) 150 Mg Tab.er.24h, 3 TAB PO DAILYWBKFT for depression, #30 TAB 2 Refills 02/06/20 Liothyronine Sodium (LIOTHYRONINE SODIUM) 25 Mcg Tablet, 1 TAB PO DAILY for thyroid for 30 Days, #30 TAB 0 Refills 02/06/20 Atorvastatin Calcium (ATORVASTATIN CALCIUM) 40 Mg Tablet, 40 MG PO DAILY for FOR CHOLESTEROL, #30 TAB 0 Refills 02/06/20 Glipizide (GLIPIZIDE) 5 Mg Tablet, 1 TAB PO BID, #60 TAB 3 Refills 05/10/16 Discontinued Reported Medications Zolpidem Tartrate (ZOLPIDEM TARTRATE) 5 Mg Tablet, 10 MG PO PRN QHS PRN for IN SOMNIA, TAB 0 Refills 02/06/20 Clonazepam (CLONAZEPAM) 1 Mg Tablet, 3 MG PO HS for FOR ANXIETY, TAB 02/06/20 Metformin Hcl (METFORMIN HCL) 1,000 Mg Tablet, 1000 BID for Diabetes 05/28/18 Aspirin (ASPIR 81) 81 Mg Tablet., 1 TAB PO DAILY, #30 TAB 5 Refills 05/10/16 SHERIDAN CAMEJO MD Feb 11, 2020 14:03
--- NOTE | 2020-02-11 15:08 | NUR ---
Patient accepted at [facility]. Report given to Sabrina BRISCOE @[id number] ext line. 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 Addendum: 02/11/20 at 1634 by BOB MERCEDES RN RN Patient picked up by transport and taken to with daughter accompaning
[2020-02-11] MEDS ORDERED: ASPIRIN ENTERIC COATED 325 MG TABLET.DR. PO SCH (21:00)
== END 2020-02-11 16:46 | DRG 480 ==
LOC: ER 23:57 → 4 NORTH 02-06 00:28
PROVIDERS: ADMIT Internal Medicine; ATTEND Internal Medicine
PROC: 0QS706Z Reposition Left Upper Femur with Intramedullary Internal Fixation Device, Open Approach (ICD-10-PCS; principal; 2020-02-06 15:30)
DX: S72.142A Displaced intertrochanteric fracture of left femur, initial encounter for closed fracture (principal); N17.0 Acute kidney failure with tubular necrosis; J98.11 Atelectasis; E11.9 Type 2 diabetes mellitus without complications; E55.9 Vitamin D deficiency, unspecified; F02.80 Dementia in other diseases classified elsewhere, unspecified severity, without behavioral disturbance, psychotic disturbance, mood disturbance, and anxiety; F17.210 Nicotine dependence, cigarettes, uncomplicated; G30.9 Alzheimer's disease, unspecified; H91.90 Unspecified hearing loss, unspecified ear; J44.9 Chronic obstructive pulmonary disease, unspecified; K76.0 Fatty (change of) liver, not elsewhere classified; M47.816 Spondylosis without myelopathy or radiculopathy, lumbar region; Z20.828 Contact with and (suspected) exposure to other viral communicable diseases; Z90.49 Acquired absence of other specified parts of digestive tract; Z90.710 Acquired absence of both cervix and uterus; F32.9 Major depressive disorder, single episode, unspecified; W01.0XXA Fall on same level from slipping, tripping and stumbling without subsequent striking against object, initial encounter; R94.31 Abnormal electrocardiogram [ECG] [EKG]; Z71.6 Tobacco abuse counseling; R26.89 Other abnormalities of gait and mobility; W18.31XA Fall on same level due to stepping on an object, initial encounter; Y93.89 Activity, other specified; Y92.098 Other place in other non-institutional residence as the place of occurrence of the external cause; Y99.8 Other external cause status; Z79.899 Other long term (current) drug therapy
CPT/HCPCS: 36415; 71045; 73502; 76000; 80048; 80053; 80178; 81001; 82306; 82962; 84443; 85014; 85018; 85025; 87426; 87641; 94640; 94760; 96361; 96374; 96375; 96376; C1713; C1887; J0171; J0690; J1100; J1650; J2270; J2274; J2405; J2704; J2795; J3010; J3486; J3490; J7030; U0003; 97110-GP; 97116-GP; 97530-GO; 97530-GP; 97535-GO; 99285-25; G0378; J7613; J7626; Q0163

== ENCOUNTER → 2020-02-27 | Outpatient (CLI) | payer BC ==
[2020-02-11 10:45] VITALS: BP 126/51
[~2020-02-27] MED LIST changes: +ALPR1TAB6 PO; +ALPR2TAB5 PO; +ARIP2TAB3 PO; +ASPI325T11 PO; +ATOR40TA59 PO; +BUPR150T21 PO; +CHOL5000 PO; +CYCL10TA2 PO; +LIOT25TA4 PO; +LITH450T PO; +MIRT-7 PO; +MULT1TAB92 PO; +OMEP40CA7 PO; +POLY17PO52 PO; +SENN-22 PO; +ZOLP5TAB5 PO
[2020-02-27 10:17] LABS: BASO % 1 % (0-3); EOS # 0.2 x10^3/uL (0.0-0.7); EOS % 3 % (0-3); HEMATOCRIT 37.7 % (36.0-47.0); HEMOGLOBIN 12.2 g/dL (12.0-15.5); LYMPH # 1.7 x10^3/uL (1.0-4.8); LYMPH % 25 % (24-48); MEAN CORPUSCULAR HEMOGLOBIN 29 pg (25-35); MEAN CORPUSCULAR HGB CONC 32 g/dL (31-37); MEAN CORPUSCULAR VOLUME 89 fL (79-100); MONO # 0.4 x10^3/uL (0.0-1.1); MONO % 6 % (0-9); NEUT # 4.5 x10^3/uL (1.8-7.7); NEUT % 67 % (31-73); PLATELET COUNT 269 x10^3/uL (140-400); RED BLOOD COUNT 4.22 x10^6/uL (3.50-5.40); RED CELL DISTRIBUTION WIDTH 16.1 % (11.5-14.5); WHITE BLOOD COUNT 6.8 x10^3/uL (4.0-11.0)
[2020-02-27 10:35] LABS: CALCIUM 9.5 mg/dL (8.5-10.1); CREATININE 0.9 mg/dL (0.6-1.0); GFR 62.6; POTASSIUM 3.8 mmol/L (3.5-5.1)
== END ==
LOC: SPEC 09:15 → EDSTATUS 09:24 → SPEC 09:32
PROVIDERS: ATTEND Internal Medicine
DX: E78.5 Hyperlipidemia, unspecified (principal); J44.9 Chronic obstructive pulmonary disease, unspecified; Z87.891 Personal history of nicotine dependence
CPT/HCPCS: 36415; 80048; 85025

== ENCOUNTER 2020-03-02 18:25 | Inpatient (IN) | payer BC, MEDICARE ==
[~2020-03-02] VITALS: Ht 172.7 cm; Wt 75.2 kg
[~2020-03-02 18:25] MED LIST changes: -ALPR1TAB6 PO; -MIRT-7 PO
[2020-03-02 19:02] LABS: BASO # 0.1 x10^3/uL (0.0-0.2); BASO % 1 % (0-3); EOS # 0.2 x10^3/uL (0.0-0.7); EOS % 2 % (0-3); HEMATOCRIT 34.9 % (36.0-47.0); HEMOGLOBIN 11.5 g/dL (12.0-15.5); LYMPH # 1.8 x10^3/uL (1.0-4.8); LYMPH % 23 % (24-48); MEAN CORPUSCULAR HEMOGLOBIN 29 pg (25-35); MEAN CORPUSCULAR HGB CONC 33 g/dL (31-37); MEAN CORPUSCULAR VOLUME 89 fL (79-100); MONO # 0.5 x10^3/uL (0.0-1.1); MONO % 6 % (0-9); NEUT # 5.1 x10^3/uL (1.8-7.7); NEUT % 68 % (31-73); PLATELET COUNT 216 x10^3/uL (140-400); RED BLOOD COUNT 3.93 x10^6/uL (3.50-5.40); RED CELL DISTRIBUTION WIDTH 15.9 % (11.5-14.5); WHITE BLOOD COUNT 7.6 x10^3/uL (4.0-11.0)
[2020-03-02 19:12] LABS: CALCIUM 9.7 mg/dL (8.5-10.1); CREATININE 1.1 mg/dL (0.6-1.0); GFR 49.7; POTASSIUM 3.3 mmol/L (3.5-5.1)
[2020-03-02 19:18] LABS: ALBUMIN 3.1 g/dL (3.4-5.0); MAGNESIUM 2.2 mg/dL (1.8-2.4); TOTAL BILIRUBIN 0.5 mg/dL (0.2-1.0); TOTAL PROTEIN 6.2 g/dL (6.4-8.2)
--- NOTE | 2020-03-02 19:25 | RAD ---
Exam: CT head INDICATION: Altered mental status, fall TECHNIQUE: Sequential axial images through the head were obtained without the administration of IV co ntrast. Comparisons: 01/12/2020 FINDINGS: No focal parenchymal lesion or hemorrhage is identified. There is no midline shift or sulcal effaceme nt. Mild patchy evidence in the periventricular white matter, similar to prior exam. No acute vascular te rritory infarction is identified. Zhu-white distinction is preserved. The ventricular system is within normal limits without compression hydrocephalus. The basal cisterns are well maintained. The visualized portions of the paranasal sinuses and mastoid air cells are well-pneumatized. No acute fractures. IMPRESSION: No acute traumatic intracranial abnormality. Exposure: One or more of the following in the visualized dose reduction techniques were utilized for this examination: 1. Automated exposure control 2. Adjustment of the MA and/or KV according to patient size Use of iterative of reconstructive technique Electronically signed by: Wilner Lezama MD (03/02/2020 7:22 PM) [facility]
--- NOTE | 2020-03-02 20:25 | RAD ---
EXAM: 1. Frontal pelvis with two-view left hip. 2. Left knee 3 views. HISTORY: Fall, pain. COMPARISON: 02/26/2020. FINDINGS: There are changes of gamma nail fixation of a left femoral intertrochanteric fracture in ex pected alignment. The antegrade intramedullary nail is fixed distally by one screw. Developing perios teal reaction is consistent with healing response. Overlying subcutaneous swelling is noted. There is some heterotopic calcification along the left buttock. The joint spaces of both hips are maintained. Soft tissue swelling is noted throughout the remainder of the left leg. No fractures are appreciated at the left knee. There is no clear joint effusion. Osteophytosis indicates mild tricompartmental ost eoarthritis. IMPRESSION: 1. Healing internally fixed fracture of the left intertrochanteric femur. 2. 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 3. Diffuse soft tissue swelling of the left lower cavity. Electronically signed by: Donna Plunkett MD (03/02/2020 8:22 PM) [facility]
--- NOTE | 2020-03-02 20:36 | ED.ADGEN ---
Past Medical History Past Medical History: COPD, Depression, Diabetes-Type II, Other Additional Past Medical Histor: "liver problems", FALLS, POOR HISTORIAN Past Surgical History: Appendectomy, Hysterectomy, Tonsillectomy Smoking Status: Current Every Day Smoker Alcohol Use: Rarely Drug Use: None General Adult EDM: Chief Complaint: ALTERED MENTAL STATUS HPI: HPI: Patient is a 64 year old female who presents the emergency department via EMS after a reported fall. EMS reports that they were called out for a lift assist and when they got on the scene the patient began to complain of left knee pain. The patient took a Xanax while EMS was on the scene and is now less responsive than when EMS initially arrived. EMS reported the patient had been discharged from rehab 3 days prior. She had previously been admitted to rehab facility after a fall with a left hip dislocation and fracture. Patient is confused to year and president. Patient inappropriately answering questions when asked about her medical history, therefore HPI is limited. Review of Systems: Review of Systems: Complete ROS is negative unless otherwise noted in HPI. Allergies: Allergies: Allergies Coded Allergies Type Severity Reaction Last Updated Verified No Known Drug Allergies 06/07/16 No Physical Exam: PE: See Above Constitutional: Well developed, well nourished, no acute distress, non-toxic appearance. [] HENT: Normocephalic, atraumatic, bilateral external ears normal, nose normal. [] Eyes: PERRLA, EOMI, conjunctiva normal, no discharge. [] Neck: Normal range of motion, no stridor. [] Cardiovascular:Heart rate regular rhythm Lungs & Thorax: Respirations even and unlabored, no retractions, no respiratory distress Skin: Warm, dry, no erythema, no rash, fluid-filled blister noted to dorsal aspect of left foot. [] Extremities: Left knee: No obvious deformity, no crepitus, no cyanosis, ROM intact, 2+ edema; left hip: No obvious shortening or rotation, ROM intact, no bruising, no crepitus, lateral tenderness to palpation Neurologic: Alert and oriented X 2, no focal deficits noted. [] Psychologic: Affect normal, judgement normal, mood normal. [] Current Patient Data: Labs: Laboratory Tests Test 03/02/20 18:55 03/02/20 21:30 White Blood Count 7.6 x10^3/uL (4.0-11.0) Red Blood Count 3.93 x10^6/uL (3.50-5.40) Hemoglobin 11.5 g/dL (12.0-15.5) L Hematocrit 34.9 % (36.0-47.0) L Mean Corpuscular Volume 89 fL (79-100) Mean Corpuscular Hemoglobin 29 pg (25-35) Mean Corpuscular Hemoglobin Concent 33 g/dL (31-37) Red Cell Distribution Width 15.9 % (11.5-14.5) H Platelet Count 216 x10^3/uL (140-400) Neutrophils (%) (Auto) 68 % (31-73) Lymphocytes (%) (Auto) 23 % (24-48) L Monocytes (%) (Auto) 6 % (0-9) Eosinophils (%) (Auto) 2 % (0-3) Basophils (%) (Auto) 1 % (0-3) Neutrophils # (Auto) 5.1 x10^3/uL (1.8-7.7) Lymphocytes # (Auto) 1.8 x10^3/uL (1.0-4.8) Monocytes # (Auto) 0.5 x10^3/uL (0.0-1.1) Eosinophils # (Auto) 0.2 x10^3/uL (0.0-0.7) Basophils # (Auto) 0.1 x10^3/uL (0.0-0.2) Sodium Level 138 mmol/L (136-145) Potassium Level 3.3 mmol/L (3.5-5.1) L Chloride Level 99 mmol/L (98-107) Carbon Dioxide Level 32 mmol/L (21-32) Anion Gap 7 (6-14) Blood Urea Nitrogen 11 mg/dL (7-20) Creatinine 1.1 mg/dL (0.6-1.0) H Estimated GFR (Cockcroft-Gault) 49.7 BUN/Creatinine Ratio 10 (6-20) Glucose Level 129 mg/dL (70-99) H Calcium Level 9.7 mg/dL (8.5-10.1) Magnesium Level 2.2 mg/dL (1.8-2.4) Total Bilirubin 0.5 mg/dL (0.2-1.0) Aspartate Amino Transferase (AST) 17 U/L (15-37) Alanine Aminotransferase (ALT) 23 U/L (14-59) Alkaline Phosphatase 390 U/L (46-116) H Troponin I Quantitative < 0.017 ng/mL (0.000-0.055) LW-Byd-T-Type Natriuretic Peptide 109 pg/mL (0-124) Total Protein 6.2 g/dL (6.4-8.2) L Albumin 3.1 g/dL (3.4-5.0) L Albumin/Globulin Ratio 1.0 (1.0-1.7) Urine Collection Type Unknown Urine Color Yellow Urine Clarity Clear Urine pH 6.0 (<5.0-8.0) Urine Specific [place] <=1.005 (1.000-1.030) Urine Protein Negative mg/dL (NEG-TRACE) Urine Glucose (UA) Negative mg/dL (NEG) Urine Ketones (Stick) Negative mg/dL (NEG) Urine Blood Negative (NEG) Urine Nitrite Negative (NEG) Urine Bilirubin Negative (NEG) Urine Urobilinogen Dipstick 0.2 mg/dL (0.2 mg/dL) Urine Leukocyte Esterase Trace (NEG) Urine RBC 0 /HPF (0-2) Urine WBC Occ /HPF (0-4) Urine Squamous Epithelial Cells Mod /LPF Urine Bacteria Few /HPF (0-FEW) Urine Opiates Screen Neg (NEG) Urine Methadone Screen Neg (NEG) Urine Barbiturates Neg (NEG) Urine Phencyclidine Screen Neg (NEG) Urine Amphetamine/Methamphetamine Neg (NEG) Urine Benzodiazepines Screen Pos (NEG) Urine Cocaine Screen Neg (NEG) Urine Cannabinoids Screen Neg (NEG) Urine Ethyl Alcohol Neg (NEG) Laboratory Tests 03/02/20 18:55 Laboratory Tests 03/02/20 18:55 Vital Signs: Vital Signs Date Time Temp Pulse Resp B/P (MAP) Pulse Ox O2 Delivery O2 Flow Rate FiO2 03/02/20 21:06 88 16 98 03/02/20 18:30 125/69 (87) Room Air EKG: EK-sinus rhythm with rightward axis and incomplete right bundle branch block, no STEMI, rate 90, read by Dr. Sears [] Heart Score: Risk Factors: Risk Factors: DM, Current or recent (<one month) smoker, HTN, HLP, family history of CAD, obesity. Risk Scores: Score 0 - 3: 2.5% MACE over next 6 weeks - Discharge Home Score 4 - 6: 20.3% MACE over next 6 weeks - Admit for Clinical Observation Score 7 - 10: 72.7% MACE over next 6 weeks - Early Invasive Strategies Radiology/Procedures: Radiology/Procedures: PROCEDURE: KNEE LEFT 3V EXAM: 1. Frontal pelvis with two-view left hip. 2. Left knee 3 views. HISTORY: Fall, pain. COMPARISON: 02/26/2020. FINDINGS: There are changes of gamma nail fixation of a left femoral intertrochanteric fracture in expected alignment. The antegrade intramedullary nail is fixed distally by one screw. Developing periosteal reaction is consistent with healing response. Overlying subcutaneous swelling is noted. There is some heterotopic calcification along the left buttock. The joint spaces of both hips are maintained. Soft tissue swelling is noted throughout the remainder of the left leg. No fractures are appreciated at the left knee. There is no clear joint effusion. Osteophytosis indicates mild tricompartmental osteoarthritis. IMPRESSION: 1. Healing internally fixed fracture of the left intertrochanteric femur. 2. 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 3. Diffuse soft tissue swelling of the left lower cavity. PROCEDURE: CT HEAD WO CONTRAST Exam: CT head INDICATION: Altered mental status, fall TECHNIQUE: Sequential axial images through the head were obtained without the administration of IV contrast. Comparisons: 01/12/2020 FINDINGS: No focal parenchymal lesion or hemorrhage is identified. There is no midline shift or sulcal effacement. Mild patchy evidence in the periventricular white matter, similar to prior exam. No acute vascular territory infarction is identified. Zhu-white distinction is preserved. The ventricular system is within normal limits without compression hydrocephalus. The basal cisterns are well maintained. The visualized portions of the paranasal sinuses and mastoid air cells are well- pneumatized. No acute fractures. IMPRESSION: No acute traumatic intracranial abnormality. [] Course & Med Decision Making: Course & Med Decision Making Pertinent Labs and Imaging studies reviewed. (See chart for details) [id number] with Dr. Roman who is the admitting physician, and care was assumed following discussion of patient. Will admit the patient for altered mental status Patient's vital signs stable_. Patient remains afebrile, appears nontoxic, respirations even and unlabored. Patient will be admitted to the medical surgical floor. Patient's case and plan of care also discussed with Dr. Sears [] Harriet Disclaimer: Harriet Disclaimer: This electronic medical record was generated, in whole or in part, using a voice recognition dictation system. Departure Departure Impression: Primary Impression: Altered mental status Referrals: JOSEPH HODGE (PCP) Problem Qualifiers Primary Impression: Altered mental status Altered mental status type: unspecified Qualified Codes: R41.82 - Altered mental status, unspecified GRACIELA CLEMENTS FRENCH CORD BINDER Mar 02, 2020 20:35
[2020-03-02 21:34] LABS: BILIRUBIN,URINE NEGATIVE (NEG); CLARITY,URINE CLEAR; COLOR,URINE YELLOW; NITRITE,URINE NEGATIVE (NEG); PROTEIN,URINE NEGATIVE (NEG-TRACE); UROBILINOGEN,URINE 0.2 mg/dL (0.2 mg/dL)
[2020-03-02 21:40] LABS: BACTERIA,URINE FEW /HPF (0-FEW); RBC,URINE 0 /HPF (0-2); WBC,URINE OCC /HPF (0-4)
[2020-03-02 21:41] LABS: BARBITURATES NEG (NEG); BENZODIAZEPINES POS (NEG); CANNABINOIDS NEG (NEG); COCAINE NEG (NEG); METHADONE NEG (NEG); OPIATES NEG (NEG); PHENCYCLIDINE NEG (NEG)
[2020-03-02 21:45] LABS: AMPHETAMINE/METHAMPHETAMINE NEG (NEG)
[2020-03-03] MEDS ORDERED: ONDANSETRON PF 4 MG/2 ML VIAL. IVP PRN (02:45)
[2020-03-03 03:00] VITALS: BP 124/55
[2020-03-03] MEDS: MORPHINE SULFATE 2 MG/ML VIAL. IV PRN ×4 (03:17→20:43)
[2020-03-03] MEDS: IV NORMAL SALINE 1000ML BAG 1,000 ML IV SCH ×2 (03:22→16:20)
[2020-03-03 07:00] VITALS: BP 103/58
--- NOTE | 2020-03-03 07:29 | NUR ---
Pt. arrived around 0015 from ED. Pt. is A&Ox4 but a little forgetful and repetitive. Call light is within reach and bed in lowest locked position. Will continue to monitor.
--- NOTE | 2020-03-03 07:34 | PDOC1 ---
History and Physical Past Medical History Pulmonary: COPD Past Surgical History Past Surgical History: Appendectomy, Tonsillectomy, Hysterectomy Family History Family History: Family History Unknown Social History ALCOHOL: none Drugs: None Current Problem List Problem List Problems Medical Problems: (1) Altered mental status Status: Acute Current Medications Current Medications Current Medications Medications (Trade) Dose Ordered Sig/Jevon Start Time Stop Time Status Last Admin Dose Admin Morphine Sulfate (Morphine Sulfate) 2 mg PRN Q2HR PRN 03/03/20 02:45 03/03/20 07:24 2 MG Nicotine (Nicoderm Cq 21mg) 1 patch DAILY 03/03/20 09:00 Ondansetron HCl (Zofran) 4 mg PRN Q6HRS PRN 03/03/20 02:45 Sodium Chloride 1,000 ml @ 75 mls/hr [id number] 03/03/20 03:00 03/03/20 03:22 75 MLS/HR Allergies Allergies Allergies Coded Allergies Type Severity Reaction Last Updated Verified No Known Drug Allergies 06/07/16 No ROS Review of System CONSTITUTIONAL: No fever or chills EYES: No recent changes SKIN: No rash or itching CARDIOVASCULAR: No chest pain, syncope, palpitations, or edema RESPIRATORY: No SOB or cough GASTROINTESTINAL: No nausea, vomiting or abdominal pain NEUROLOGICAL: No headaches or weakness ENDOCRINE: No cold or heat intolerance GENITOURINARY: No urgency or frequency of urination MUSCULOSKELETAL: No back pain or joint pain LYMPHATICS: No enlarged lymph nodes PSYCHIATRIC: No anxiety or depression Physical Exam Physical Exam GEN.: No apparent distress. Alert and oriented. HEENT: Head is normocephalic, atraumatic NECK: Supple. LUNGS: Clear to auscultation. HEART: RRR, S1, S2 present. Peripheral pulses intact ABDOMEN: Soft, nontender. Positive bowel sounds. EXTREMITIES: Without any cyanosis. NEUROLOGIC: Normal speech, normal tone PSYCHIATRIC: Normal affect, normal mood. SKIN: No ulcerations Vitals Vitals Vital Signs Date Time Temp Pulse Resp B/P (MAP) Pulse Ox O2 Delivery O2 Flow Rate FiO2 03/03/20 07:24 Room Air 03/03/20 03:00 97.4 80 20 124/55 (78) 97 97.4 Labs Labs Laboratory Tests Test 03/02/20 18:55 03/02/20 21:30 White Blood Count 7.6 x10^3/uL (4.0-11.0) Red Blood Count 3.93 x10^6/uL (3.50-5.40) Hemoglobin 11.5 g/dL (12.0-15.5) Hematocrit 34.9 % (36.0-47.0) Mean Corpuscular Volume 89 fL (79-100) Mean Corpuscular Hemoglobin 29 pg (25-35) Mean Corpuscular Hemoglobin Concent 33 g/dL (31-37) Red Cell Distribution Width 15.9 % (11.5-14.5) Platelet Count 216 x10^3/uL (140-400) Neutrophils (%) (Auto) 68 % (31-73) Lymphocytes (%) (Auto) 23 % (24-48) Monocytes (%) (Auto) 6 % (0-9) Eosinophils (%) (Auto) 2 % (0-3) Basophils (%) (Auto) 1 % (0-3) Neutrophils # (Auto) 5.1 x10^3/uL (1.8-7.7) Lymphocytes # (Auto) 1.8 x10^3/uL (1.0-4.8) Monocytes # (Auto) 0.5 x10^3/uL (0.0-1.1) Eosinophils # (Auto) 0.2 x10^3/uL (0.0-0.7) Basophils # (Auto) 0.1 x10^3/uL (0.0-0.2) Sodium Level 138 mmol/L (136-145) Potassium Level 3.3 mmol/L (3.5-5.1) Chloride Level 99 mmol/L (98-107) Carbon Dioxide Level 32 mmol/L (21-32) Anion Gap 7 (6-14) Blood Urea Nitrogen 11 mg/dL (7-20) Creatinine 1.1 mg/dL (0.6-1.0) Estimated GFR (Cockcroft-Gault) 49.7 BUN/Creatinine Ratio 10 (6-20) Glucose Level 129 mg/dL (70-99) Calcium Level 9.7 mg/dL (8.5-10.1) Magnesium Level 2.2 mg/dL (1.8-2.4) Total Bilirubin 0.5 mg/dL (0.2-1.0) Aspartate Amino Transf (AST/SGOT) 17 U/L (15-37) Alanine Aminotransferase (ALT/SGPT) 23 U/L (14-59) Alkaline Phosphatase 390 U/L (46-116) Troponin I Quantitative < 0.017 ng/mL (0.000-0.055) NE-Cgh-U-Type Natriuretic Peptide 109 pg/mL (0-124) Total Protein 6.2 g/dL (6.4-8.2) Albumin 3.1 g/dL (3.4-5.0) Albumin/Globulin Ratio 1.0 (1.0-1.7) Urine Collection Type Unknown Urine Color Yellow Urine Clarity Clear Urine pH 6.0 (<5.0-8.0) Urine Specific [place] <=1.005 (1.000-1.030) Urine Protein Negative mg/dL (NEG-TRACE) Urine Glucose (UA) Negative mg/dL (NEG) Urine Ketones (Stick) Negative mg/dL (NEG) Urine Blood Negative (NEG) Urine Nitrite Negative (NEG) Urine Bilirubin Negative (NEG) Urine Urobilinogen Dipstick 0.2 mg/dL (0.2 mg/dL) Urine Leukocyte Esterase Trace (NEG) Urine RBC 0 /HPF (0-2) Urine WBC Occ /HPF (0-4) Urine Squamous Epithelial Cells Mod /LPF Urine Bacteria Few /HPF (0-FEW) Urine Opiates Screen Neg (NEG) Urine Methadone Screen Neg (NEG) Urine Barbiturates Neg (NEG) Urine Phencyclidine Screen Neg (NEG) Urine Amphetamine/Methamphetamine Neg (NEG) Urine Benzodiazepines Screen Pos (NEG) Urine Cocaine Screen Neg (NEG) Urine Cannabinoids Screen Neg (NEG) Urine Ethyl Alcohol Neg (NEG) Laboratory Tests Test 03/02/20 18:55 03/02/20 21:30 White Blood Count 7.6 x10^3/uL (4.0-11.0) Red Blood Count 3.93 x10^6/uL (3.50-5.40) Hemoglobin 11.5 g/dL (12.0-15.5) Hematocrit 34.9 % (36.0-47.0) Mean Corpuscular Volume 89 fL (79-100) Mean Corpuscular Hemoglobin 29 pg (25-35) Mean Corpuscular Hemoglobin Concent 33 g/dL (31-37) Red Cell Distribution Width 15.9 % (11.5-14.5) Platelet Count 216 x10^3/uL (140-400) Neutrophils (%) (Auto) 68 % (31-73) Lymphocytes (%) (Auto) 23 % (24-48) Monocytes (%) (Auto) 6 % (0-9) Eosinophils (%) (Auto) 2 % (0-3) Basophils (%) (Auto) 1 % (0-3) Neutrophils # (Auto) 5.1 x10^3/uL (1.8-7.7) Lymphocytes # (Auto) 1.8 x10^3/uL (1.0-4.8) Monocytes # (Auto) 0.5 x10^3/uL (0.0-1.1) Eosinophils # (Auto) 0.2 x10^3/uL (0.0-0.7) Basophils # (Auto) 0.1 x10^3/uL (0.0-0.2) Sodium Level 138 mmol/L (136-145) Potassium Level 3.3 mmol/L (3.5-5.1) Chloride Level 99 mmol/L (98-107) Carbon Dioxide Level 32 mmol/L (21-32) Anion Gap 7 (6-14) Blood Urea Nitrogen 11 mg/dL (7-20) Creatinine 1.1 mg/dL (0.6-1.0) Estimated GFR (Cockcroft-Gault) 49.7 BUN/Creatinine Ratio 10 (6-20) Glucose Level 129 mg/dL (70-99) Calcium Level 9.7 mg/dL (8.5-10.1) Magnesium Level 2.2 mg/dL (1.8-2.4) Total Bilirubin 0.5 mg/dL (0.2-1.0) Aspartate Amino Transf (AST/SGOT) 17 U/L (15-37) Alanine Aminotransferase (ALT/SGPT) 23 U/L (14-59) Alkaline Phosphatase 390 U/L (46-116) Troponin I Quantitative < 0.017 ng/mL (0.000-0.055) IL-Kvi-N-Type Natriuretic Peptide 109 pg/mL (0-124) Total Protein 6.2 g/dL (6.4-8.2) Albumin 3.1 g/dL (3.4-5.0) Albumin/Globulin Ratio 1.0 (1.0-1.7) Urine Collection Type Unknown Urine Color Yellow Urine Clarity Clear Urine pH 6.0 (<5.0-8.0) Urine Specific [place] <=1.005 (1.000-1.030) Urine Protein Negative mg/dL (NEG-TRACE) Urine Glucose (UA) Negative mg/dL (NEG) Urine Ketones (Stick) Negative mg/dL (NEG) Urine Blood Negative (NEG) Urine Nitrite Negative (NEG) Urine Bilirubin Negative (NEG) Urine Urobilinogen Dipstick 0.2 mg/dL (0.2 mg/dL) Urine Leukocyte Esterase Trace (NEG) Urine RBC 0 /HPF (0-2) Urine WBC Occ /HPF (0-4) Urine Squamous Epithelial Cells Mod /LPF Urine Bacteria Few /HPF (0-FEW) Urine Opiates Screen Neg (NEG) Urine Methadone Screen Neg (NEG) Urine Barbiturates Neg (NEG) Urine Phencyclidine Screen Neg (NEG) Urine Amphetamine/Methamphetamine Neg (NEG) Urine Benzodiazepines Screen Pos (NEG) Urine Cocaine Screen Neg (NEG) Urine Cannabinoids Screen Neg (NEG) Urine Ethyl Alcohol Neg (NEG) VTE Prophylaxis Ordered VTE Prophylaxis Devices: Yes VTE Pharmacological Prophylaxi: Yes Assessment/Plan Assessment/Plan Encephalopathy which may have been prompted by benzodiazepine missuse and probably contributing to an underlying cognitive impairment documented on her previous admission History of left intertrochanteric hip fracture - Fall at home - traumatic per patient OPAL - likely vasomotor nephropathy, will hydrate Tobacco dependence - counseled on cessation COPD - will place on nebs prn Type 2 diabetes - will place on sliding scale Hearing impairment - not wearing hearing aides Mild cognitive impairment - likely progressing to Alzheimers dementia as her mother and father did. Vitamin D deficiency - 5000u daily Please see other documented HPI for more details. Justifications for Admission Other Justification NATHANIEL PEREZ MD Mar 03, 2020 07:34
[2020-03-03] MEDS: NICOTINE 21MG PATCH. TD SCH (08:41)
--- NOTE | 2020-03-03 10:11 | EKG ---
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
--- NOTE | 2020-03-03 10:17 | NUR ---
SW following. Discussed with RN, pt from home alone, room air, NPO. Pt was discharged from [facility] on 02/27/2020. [facility] set pt up with [facility]. RN advised pt is very confused today. SW will continue to follow.
[2020-03-03] MEDS ORDERED: ALBUTEROL SULFATE 2.5 MG/3 ML NEBU. NEB PRN (10:45)
[2020-03-03] MEDS ORDERED: DOCUSATE SODIUM 100 MG CAPSULE. PO PRN (10:45)
[2020-03-03] MEDS ORDERED: ACETAMINOPHEN 325 MG TABLET. PO PRN (10:45)
[2020-03-03] MEDS ORDERED: POLYETHYLENE GLYCOL 3350 17 GM PACKET. PO PRN (10:45)
[2020-03-03 11:00] VITALS: BP 108/62
[2020-03-03] MEDS: ALBUTEROL SULFATE 2.5 MG/3 ML NEBU. NEB SCH ×2 (11:45→20:50)
[2020-03-03] MEDS: BUDESONIDE 0.5 MG/2 ML NEBU. NEB SCH ×2 (11:45→20:50)
[2020-03-03] MEDS ORDERED: NICOTINE 21MG PATCH. TD SCH (12:00)
[2020-03-03] MEDS: CHOLECALCIFEROL (VITAMIN D3) 5,000 UNIT CAPSULE PO SCH (12:29)
[2020-03-03] MEDS: SENNOSIDES/DOCUSATE 8.6/50MG TABLET. PO SCH (12:29)
[2020-03-03] MEDS: oxyCODONE/APAP 5/325 1 TAB TABLET PO PRN ×3 (12:29→23:36)
[2020-03-03] MEDS: glipiZIDE 5 MG TABLET PO SCH ×2 (12:29→20:39)
[2020-03-03] MEDS: PANTOPRAZOLE 40 MG TABLET.DR. PO SCH (12:30)
[2020-03-03] MEDS: ARIPiprazole 2 MG TABLET PO SCH (12:30)
[2020-03-03] MEDS: LIOTHYRONINE 5 MCG TABLET. PO SCH (12:30)
[2020-03-03 15:00] VITALS: BP 115/70
[2020-03-03 15:26] LABS: LI 0.2 mmol/L (0.6-1.2)
--- NOTE | 2020-03-03 18:49 | PDOC1 ---
History and Physical Date of Admission Date of Admission 03/03/2020 Identification/Chief Complaint Chief Complaint I dont remember yesterday Source Source: Chart review, Patient History of Present Illness History of Present Illness Ms Woods is a 64 year old female w/ PMHx 2ppd smoker, COPD, depression, DM2, fatty liver admitted after a fall at home. The patient had an admission on january for Acute left intertrochanteric hip fracture - traumatic due to fall. Ortho consulted s/p IM nailing.02/06: S/p intramedullary implant, with interlocking screws on 02/06/2020. She has transitioned from a rehab to her house, she lives by herself and as per patient's sister she may have not been taking her home medications correctly, neurologically she is not exhibiting focal deficits. She had given a history of her parents having Alzheimers, but only her mother was afflicted by the disease. At the time of my visit she is in no acute distress, she denies, fever, no neck stiffness, no sick contacts. No cough sputum productions, no abdominal pain, no nauseas vomiting or diarrhea has been reported. The patient denies urinary symptoms. She has been at [facility] the request of the ER for evaluation of her altered mental status which at the time of my visit has resolved. I also got some details from her sister over the phone which has related concerns about her sister not taking medications at home properly. Plan of care explained detail and all of their concerns were addressed to the best of my abilities Past Medical History Pulmonary: COPD Psych: Depression Past Surgical History Past Surgical History: Appendectomy, Tonsillectomy, Hysterectomy Family History Family History: Family History Unknown Social History ALCOHOL: none Drugs: None Current Problem List Problem List Problems Medical Problems: (1) Altered mental status Status: Acute Current Medications Current Medications Current Medications Medications (Trade) Dose Ordered Sig/Jevon Start Time Stop Time Status Last Admin Dose Admin Acetaminophen (Tylenol) 650 mg PRN Q4HRS PRN 03/03/20 10:45 Albuterol Sulfate (Ventolin Neb Soln) 2.5 mg Q6HRS 03/03/20 12:00 Alprazolam (Xanax) 2 mg PRN BID PRN 03/03/20 11:30 Aripiprazole (Abilify) 2 mg DAILY 03/03/20 11:00 03/03/20 12:30 2 MG Aspirin (Ecotrin) 325 mg BID 03/03/20 21:00 Atorvastatin Calcium (Lipitor) 40 mg QHS 03/03/20 21:00 Budesonide (Pulmicort) 0.5 mg RTBID 03/03/20 12:00 Bupropion HCl (Wellbutrin Xl) 450 mg [id number] 03/04/20 08:00 Cyclobenzaprine HCl (Flexeril) 10 mg QHS 03/03/20 21:00 Docusate Sodium (Colace) 100 mg PRN BID PRN 03/03/20 10:45 Glipizide (Glucotrol) 5 mg BID 03/03/20 11:30 03/03/20 12:29 5 MG Liothyronine Sodium (Cytomel) 25 mcg DAILY 03/03/20 12:00 03/03/20 12:30 25 MCG Remlap Carbonate (Remlap Carbonate) 150 mg TID 03/03/20 21:00 Morphine Sulfate (Morphine Sulfate) 2 mg PRN Q2HR PRN 03/03/20 02:45 03/03/20 15:00 2 MG Multivitamins (Thera M Plus) 1 tab DAILY 03/04/20 09:00 Nicotine (Nicoderm Cq 21mg) 1 patch DAILY 03/03/20 12:00 Cancel Non-Formulary Medication (Budesonide/ Formoterol Fumarate (Symbicort 80-4.5 Mcg Inhaler)) 2 puff BID 03/03/20 21:00 UNV Olanzapine (ZyPREXA ZYDIS) 5 mg PRN BID PRN 03/03/20 10:45 Ondansetron HCl (Zofran) 4 mg PRN Q6HRS PRN 03/03/20 02:45 Oxycodone/ Acetaminophen (Percocet 5/325) 1 tab PRN Q4HRS PRN 03/03/20 10:45 03/03/20 12:29 1 TAB Pantoprazole Sodium (Protonix) 40 mg DAILYAC 03/03/20 11:30 03/03/20 12:30 40 MG Polyethylene Glycol (miraLAX PACKET) 17 gm PRN DAILY PRN 03/03/20 10:45 Senna/Docusate Sodium (Senna Plus) 1 tab DAILY 03/03/20 12:00 03/03/20 12:29 1 TAB Sodium Chloride 1,000 ml @ 75 mls/hr [id number] 03/03/20 03:00 03/03/20 03:22 75 MLS/HR Vitamin D (Vitamin D3) 5,000 unit DAILY 03/03/20 12:00 03/03/20 12:29 5,000 UNIT Allergies Allergies Allergies Coded Allergies Type Severity Reaction Last Updated Verified No Known Drug Allergies 06/07/16 No ROS Review of System CONSTITUTIONAL: No fever or chills EYES: No recent changes SKIN: No rash or itching CARDIOVASCULAR: No chest pain, syncope, palpitations, or edema RESPIRATORY: No SOB or cough GASTROINTESTINAL: No nausea, vomiting or abdominal pain NEUROLOGICAL: No headaches or weakness ENDOCRINE: No cold or heat intolerance GENITOURINARY: No urgency or frequency of urination MUSCULOSKELETAL: No back pain or joint pain LYMPHATICS: No enlarged lymph nodes PSYCHIATRIC: No anxiety or depression Physical Exam Physical Exam GEN.: No apparent distress. Alert and oriented. HEENT: Head is normocephalic, atraumatic NECK: Supple. LUNGS: Clear to auscultation. HEART: RRR, S1, S2 present. Peripheral pulses intact ABDOMEN: Soft, nontender. Positive bowel sounds. EXTREMITIES: Without any cyanosis. NEUROLOGIC: Normal speech, normal tone PSYCHIATRIC: Normal affect, normal mood. SKIN: No ulcerations Vitals Vitals Vital Signs Date Time Temp Pulse Resp B/P (MAP) Pulse Ox O2 Delivery O2 Flow Rate FiO2 03/03/20 15:00 98.0 90 18 115/70 (85) 98 Room Air 98.0 Labs Labs Laboratory Tests Test 03/02/20 18:55 03/02/20 21:30 03/03/20 07:33 03/03/20 11:33 White Blood Count 7.6 x10^3/uL (4.0-11.0) Red Blood Count 3.93 x10^6/uL (3.50-5.40) Hemoglobin 11.5 g/dL (12.0-15.5) Hematocrit 34.9 % (36.0-47.0) Mean Corpuscular Volume 89 fL (79-100) Mean Corpuscular Hemoglobin 29 pg (25-35) Mean Corpuscular Hemoglobin Concent 33 g/dL (31-37) Red Cell Distribution Width 15.9 % (11.5-14.5) Platelet Count 216 x10^3/uL (140-400) Neutrophils (%) (Auto) 68 % (31-73) Lymphocytes (%) (Auto) 23 % (24-48) Monocytes (%) (Auto) 6 % (0-9) Eosinophils (%) (Auto) 2 % (0-3) Basophils (%) (Auto) 1 % (0-3) Neutrophils # (Auto) 5.1 x10^3/uL (1.8-7.7) Lymphocytes # (Auto) 1.8 x10^3/uL (1.0-4.8) Monocytes # (Auto) 0.5 x10^3/uL (0.0-1.1) Eosinophils # (Auto) 0.2 x10^3/uL (0.0-0.7) Basophils # (Auto) 0.1 x10^3/uL (0.0-0.2) Sodium Level 138 mmol/L (136-145) Potassium Level 3.3 mmol/L (3.5-5.1) Chloride Level 99 mmol/L (98-107) Carbon Dioxide Level 32 mmol/L (21-32) Anion Gap 7 (6-14) Blood Urea Nitrogen 11 mg/dL (7-20) Creatinine 1.1 mg/dL (0.6-1.0) Estimated GFR (Cockcroft-Gault) 49.7 BUN/Creatinine Ratio 10 (6-20) Glucose Level 129 mg/dL (70-99) Calcium Level 9.7 mg/dL (8.5-10.1) Magnesium Level 2.2 mg/dL (1.8-2.4) Total Bilirubin 0.5 mg/dL (0.2-1.0) Aspartate Amino Transf (AST/SGOT) 17 U/L (15-37) Alanine Aminotransferase (ALT/SGPT) 23 U/L (14-59) Alkaline Phosphatase 390 U/L (46-116) Troponin I Quantitative < 0.017 ng/mL (0.000-0.055) FR-Ecx-I-Type Natriuretic Peptide 109 pg/mL (0-124) Total Protein 6.2 g/dL (6.4-8.2) Albumin 3.1 g/dL (3.4-5.0) Albumin/Globulin Ratio 1.0 (1.0-1.7) Urine Collection Type Unknown Urine Color Yellow Urine Clarity Clear Urine pH 6.0 (<5.0-8.0) Urine Specific Williams <=1.005 (1.000-1.030) Urine Protein Negative mg/dL (NEG-TRACE) Urine Glucose (UA) Negative mg/dL (NEG) Urine Ketones (Stick) Negative mg/dL (NEG) Urine Blood Negative (NEG) Urine Nitrite Negative (NEG) Urine Bilirubin Negative (NEG) Urine Urobilinogen Dipstick 0.2 mg/dL (0.2 mg/dL) Urine Leukocyte Esterase Trace (NEG) Urine RBC 0 /HPF (0-2) Urine WBC Occ /HPF (0-4) Urine Squamous Epithelial Cells Mod /LPF Urine Bacteria Few /HPF (0-FEW) Urine Opiates Screen Neg (NEG) Urine Methadone Screen Neg (NEG) Urine Barbiturates Neg (NEG) Urine Phencyclidine Screen Neg (NEG) Urine Amphetamine/Methamphetamine Neg (NEG) Urine Benzodiazepines Screen Pos (NEG) Urine Cocaine Screen Neg (NEG) Urine Cannabinoids Screen Neg (NEG) Urine Ethyl Alcohol Neg (NEG) Glucose (Fingerstick) 141 mg/dL (70-99) 168 mg/dL (70-99) Test 03/03/20 13:40 03/03/20 16:40 Remlap Level 0.2 mmol/L (0.6-1.2) Remlap Last Dose Date 03/02/20 Remlap Last Dose Time 0000 Glucose (Fingerstick) 164 mg/dL (70-99) Laboratory Tests Test 03/02/20 18:55 03/02/20 21:30 03/03/20 07:33 03/03/20 11:33 White Blood Count 7.6 x10^3/uL (4.0-11.0) Red Blood Count 3.93 x10^6/uL (3.50-5.40) Hemoglobin 11.5 g/dL (12.0-15.5) Hematocrit 34.9 % (36.0-47.0) Mean Corpuscular Volume 89 fL (79-100) Mean Corpuscular Hemoglobin 29 pg (25-35) Mean Corpuscular Hemoglobin Concent 33 g/dL (31-37) Red Cell Distribution Width 15.9 % (11.5-14.5) Platelet Count 216 x10^3/uL (140-400) Neutrophils (%) (Auto) 68 % (31-73) Lymphocytes (%) (Auto) 23 % (24-48) Monocytes (%) (Auto) 6 % (0-9) Eosinophils (%) (Auto) 2 % (0-3) Basophils (%) (Auto) 1 % (0-3) Neutrophils # (Auto) 5.1 x10^3/uL (1.8-7.7) Lymphocytes # (Auto) 1.8 x10^3/uL (1.0-4.8) Monocytes # (Auto) 0.5 x10^3/uL (0.0-1.1) Eosinophils # (Auto) 0.2 x10^3/uL (0.0-0.7) Basophils # (Auto) 0.1 x10^3/uL (0.0-0.2) Sodium Level 138 mmol/L (136-145) Potassium Level 3.3 mmol/L (3.5-5.1) Chloride Level 99 mmol/L (98-107) Carbon Dioxide Level 32 mmol/L (21-32) Anion Gap 7 (6-14) Blood Urea Nitrogen 11 mg/dL (7-20) Creatinine 1.1 mg/dL (0.6-1.0) Estimated GFR (Cockcroft-Gault) 49.7 BUN/Creatinine Ratio 10 (6-20) Glucose Level 129 mg/dL (70-99) Calcium Level 9.7 mg/dL (8.5-10.1) Magnesium Level 2.2 mg/dL (1.8-2.4) Total Bilirubin 0.5 mg/dL (0.2-1.0) Aspartate Amino Transf (AST/SGOT) 17 U/L (15-37) Alanine Aminotransferase (ALT/SGPT) 23 U/L (14-59) Alkaline Phosphatase 390 U/L (46-116) Troponin I Quantitative < 0.017 ng/mL (0.000-0.055) AK-Hzn-K-Type Natriuretic Peptide 109 pg/mL (0-124) Total Protein 6.2 g/dL (6.4-8.2) Albumin 3.1 g/dL (3.4-5.0) Albumin/Globulin Ratio 1.0 (1.0-1.7) Urine Collection Type Unknown Urine Color Yellow Urine Clarity Clear Urine pH 6.0 (<5.0-8.0) Urine Specific Williams <=1.005 (1.000-1.030) Urine Protein Negative mg/dL (NEG-TRACE) Urine Glucose (UA) Negative mg/dL (NEG) Urine Ketones (Stick) Negative mg/dL (NEG) Urine Blood Negative (NEG) Urine Nitrite Negative (NEG) Urine Bilirubin Negative (NEG) Urine Urobilinogen Dipstick 0.2 mg/dL (0.2 mg/dL) Urine Leukocyte Esterase Trace (NEG) Urine RBC 0 /HPF (0-2) Urine WBC Occ /HPF (0-4) Urine Squamous Epithelial Cells Mod /LPF Urine Bacteria Few /HPF (0-FEW) Urine Opiates Screen Neg (NEG) Urine Methadone Screen Neg (NEG) Urine Barbiturates Neg (NEG) Urine Phencyclidine Screen Neg (NEG) Urine Amphetamine/Methamphetamine Neg (NEG) Urine Benzodiazepines Screen Pos (NEG) Urine Cocaine Screen Neg (NEG) Urine Cannabinoids Screen Neg (NEG) Urine Ethyl Alcohol Neg (NEG) Glucose (Fingerstick) 141 mg/dL (70-99) 168 mg/dL (70-99) Test 03/03/20 13:40 03/03/20 16:40 Remlap Level 0.2 mmol/L (0.6-1.2) Remlap Last Dose Date 03/02/20 Remlap Last Dose Time 0000 Glucose (Fingerstick) 164 mg/dL (70-99) VTE Prophylaxis Ordered VTE Prophylaxis Devices: No VTE Pharmacological Prophylaxi: Yes Assessment/Plan Assessment/Plan Encephalopathy which may have been prompted by benzodiazepine missuse and probably contributing to an underlying cognitive impairment documented on her previous admission History of left intertrochanteric hip fracture - Fall at home - traumatic per patient Hypokalemia OPAL - likely vasomotor nephropathy, will hydrate Tobacco dependence - counseled on cessation COPD - will place on nebs prn Type 2 diabetes - will place on sliding scale Hearing impairment - not wearing hearing aides Mild cognitive impairment - likely progressing to Alzheimers dementia as her mother not her father like she had related in her past admission. Vitamin D deficiency - 5000u daily plan: restart home medications will consult CM for discharge planning PT eval reassess in the am will check b12 level and thyroid panel replace potassium recheck labs in am hopefully discharge in the next 24 to 48 hours. Pending clilnical course. DVT prophylaxis: Lovenox Greater than 60 minutes spent in the admission process of the patient Justifications for Admission Other Justification NATHANIEL PEREZ MD Mar 03, 2020 18:49
[2020-03-03 19:00] VITALS: BP 117/66
[2020-03-03] MEDS: CYCLOBENZAPRINE 10 MG TABLET. PO SCH (19:27)
[2020-03-03] MEDS: ASPIRIN ENTERIC COATED 325 MG TABLET.DR. PO SCH (20:39)
[2020-03-03] MEDS: ATORVASTATIN CALCIUM 40 MG TABLET. PO SCH (20:39)
[2020-03-03] MEDS: LITHIUM CARBONATE 150 MG CAPSULE. PO SCH (21:00)
[2020-03-03] MEDS ORDERED: NON FORMULARY ITEM (Budesonide/Formoterol Fumarate (Symbicort 80-4.5 Mcg Inhaler) 2 PUFF) IH SCH (21:00)
[2020-03-03 23:00] VITALS: BP 122/69
[2020-03-04 03:00] VITALS: BP 136/74
[2020-03-04] MEDS: MORPHINE SULFATE 2 MG/ML VIAL. IV PRN (03:07)
[2020-03-04] MEDS: IV NORMAL SALINE 1000ML BAG 1,000 ML IV SCH ×2 (05:40→13:53)
[2020-03-04 07:00] VITALS: BP 148/75
[2020-03-04] MEDS: ALBUTEROL SULFATE 2.5 MG/3 ML NEBU. NEB SCH ×5 (07:20→20:41)
[2020-03-04] MEDS: BUDESONIDE 0.5 MG/2 ML NEBU. NEB SCH ×2 (07:20→20:40)
--- NOTE | 2020-03-04 08:05 | NUR ---
Pt's BS 56, given apple juice, rechecked at 73.
[2020-03-04 08:18] LABS: BASO % 1 % (0-3); EOS # 0.1 x10^3/uL (0.0-0.7); EOS % 3 % (0-3); HEMATOCRIT 34.4 % (36.0-47.0); HEMOGLOBIN 11.3 g/dL (12.0-15.5); LYMPH # 1.9 x10^3/uL (1.0-4.8); LYMPH % 48 % (24-48); MEAN CORPUSCULAR HEMOGLOBIN 29 pg (25-35); MEAN CORPUSCULAR HGB CONC 33 g/dL (31-37); MEAN CORPUSCULAR VOLUME 89 fL (79-100); MONO # 0.2 x10^3/uL (0.0-1.1); MONO % 6 % (0-9); NEUT # 1.6 x10^3/uL (1.8-7.7); NEUT % 43 % (31-73); PLATELET COUNT 157 x10^3/uL (140-400); RED BLOOD COUNT 3.86 x10^6/uL (3.50-5.40); RED CELL DISTRIBUTION WIDTH 15.8 % (11.5-14.5); WHITE BLOOD COUNT 3.9 x10^3/uL (4.0-11.0)
[2020-03-04] MEDS: PANTOPRAZOLE 40 MG TABLET.DR. PO SCH (08:28)
[2020-03-04] MEDS: CHOLECALCIFEROL (VITAMIN D3) 5,000 UNIT CAPSULE PO SCH (08:28)
[2020-03-04] MEDS: MULTIVITAMIN with MINERAL TABLET. PO SCH (08:28)
[2020-03-04] MEDS: ARIPiprazole 2 MG TABLET PO SCH (08:29)
[2020-03-04] MEDS: SENNOSIDES/DOCUSATE 8.6/50MG TABLET. PO SCH (08:29)
[2020-03-04] MEDS: glipiZIDE 5 MG TABLET PO SCH ×2 (08:29→17:37)
[2020-03-04] MEDS: LIOTHYRONINE 5 MCG TABLET. PO SCH (08:29)
[2020-03-04] MEDS: oxyCODONE/APAP 5/325 1 TAB TABLET PO PRN ×3 (08:29→19:44)
[2020-03-04] MEDS: buPROPion XL 150 MG TAB.ER.24H. PO SCH (08:30)
[2020-03-04] MEDS: NICOTINE 21MG PATCH. TD SCH (08:30)
[2020-03-04] MEDS: ASPIRIN ENTERIC COATED 325 MG TABLET.DR. PO SCH ×2 (08:30→20:38)
[2020-03-04] MEDS: LITHIUM CARBONATE 150 MG CAPSULE. PO SCH ×3 (08:35→20:38)
[2020-03-04 08:48] LABS: C-REACTIVE PROTEIN 21.6 mg/L (0-3.3); CALCIUM 9.3 mg/dL (8.5-10.1); CREATININE 0.9 mg/dL (0.6-1.0); GFR 62.6; POTASSIUM 3.2 mmol/L (3.5-5.1)
--- NOTE | 2020-03-04 09:39 | NUR ---
SW following. Discussed with RN, pt from home alone, room air, ada diet. Pt current with [facility]. Plan will be home health upon discharge. SW will continue to follow.
--- NOTE | 2020-03-04 10:44 | PDOC ---
PROGRESS NOTES Date of Service: DATE: 03/04/20 TIME: 10:32 Chief Complaint Chief Complaint Encephalopathy which may have been prompted by benzodiazepine missuse and probably contributing to an underlying cognitive impairment documented on her previous admission History of left intertrochanteric hip fracture - Fall at home - traumatic per patient Hypokalemia OPAL - likely vasomotor nephropathy, will hydrate Tobacco dependence - counseled on cessation COPD - will place on nebs prn Type 2 diabetes - will place on sliding scale Hearing impairment - not wearing hearing aides Mild cognitive impairment - likely progressing to Alzheimers dementia as her mother not her father like she had related in her past admission. Vitamin D deficiency - 5000u daily plan: assess medication side effects. will consult CM for discharge planning PT eval today to assess her risk for falls. pending B12 level replace potassium recheck labs in am hopefully discharge in the next 24 to 48 hours. Pending clilnical course. DVT prophylaxis: Lovenox History of Present Illness History of Present Illness History of Present Illness Ms Woods is a 64 year old female w/ PMHx 2ppd smoker, COPD, depression, DM2, fatty liver admitted after a fall at home. The patient had an admission on january for Acute left intertrochanteric hip fracture - traumatic due to fall. Ortho consulted s/p IM nailing.02/06: S/p intramedullary implant, with interlocking screws on 02/06/2020. She has transitioned from a rehab to her house, she lives by herself and as per patient's sister she may have not been taking her home medications correctly, neurologically she is not exhibiting focal deficits. She had given a history of her parents having Alzheimers, but only her mother was afflicted by the disease. At the time of my visit she is in no acute distress, she denies, fever, no neck stiffness, no sick contacts. No cough sputum productions, no abdominal pain, no nauseas vomiting or diarrhea has been reported. The patient denies urinary symptoms. She has been at [place] the request of the ER for evaluation of her altered mental status which at the time of my visit has resolved. I also got some details from her sister over the phone which has related concerns about her sister not taking medications at home properly. Plan of care explained detail and all of their concerns were addressed to the best of my abilities 03/04/2020 Patient seems to be waking up more and she is not exhibiting neurological deficits. She will work with PT, patient seems to be procupied with her medication and not beeing able to sleep, I have reassrued her and explained the side effects of benzodiazepines on her mentation. We will cotninue to monitor her evolution clinically Vitals Vitals Vital Signs Date Time Temp Pulse Resp B/P (MAP) Pulse Ox O2 Delivery O2 Flow Rate FiO2 03/04/20 10:29 Room Air 03/04/20 07:35 99 03/04/20 07:00 97.5 75 18 148/75 (99) 97.5 Physical Exam General: Alert, Oriented X3, Cooperative Heart: Regular rate, Normal S1, Normal S2 Lungs: Clear, Wheezing Abdomen: Normal bowel sounds, Soft Extremities: No clubbing, No cyanosis Skin: No rashes, No breakdown Labs LABS Laboratory Tests Test 03/03/20 11:33 03/03/20 13:40 03/03/20 16:40 03/03/20 20:41 Glucose (Fingerstick) 168 mg/dL (70-99) 164 mg/dL (70-99) 143 mg/dL (70-99) [place] Level 0.2 mmol/L (0.6-1.2) [place] Last Dose Date 03/02/20 [place] Last Dose Time 0000 Test 03/04/20 07:44 03/04/20 07:51 03/04/20 08:02 Glucose (Fingerstick) 56 mg/dL (70-99) 74 mg/dL (70-99) White Blood Count 3.9 x10^3/uL (4.0-11.0) Red Blood Count 3.86 x10^6/uL (3.50-5.40) Hemoglobin 11.3 g/dL (12.0-15.5) Hematocrit 34.4 % (36.0-47.0) Mean Corpuscular Volume 89 fL (79-100) Mean Corpuscular Hemoglobin 29 pg (25-35) Mean Corpuscular Hemoglobin Concent 33 g/dL (31-37) Red Cell Distribution Width 15.8 % (11.5-14.5) Platelet Count 157 x10^3/uL (140-400) Neutrophils (%) (Auto) 43 % (31-73) Lymphocytes (%) (Auto) 48 % (24-48) Monocytes (%) (Auto) 6 % (0-9) Eosinophils (%) (Auto) 3 % (0-3) Basophils (%) (Auto) 1 % (0-3) Neutrophils # (Auto) 1.6 x10^3/uL (1.8-7.7) Lymphocytes # (Auto) 1.9 x10^3/uL (1.0-4.8) Monocytes # (Auto) 0.2 x10^3/uL (0.0-1.1) Eosinophils # (Auto) 0.1 x10^3/uL (0.0-0.7) Basophils # (Auto) 0.0 x10^3/uL (0.0-0.2) Sodium Level 146 mmol/L (136-145) Potassium Level 3.2 mmol/L (3.5-5.1) Chloride Level 108 mmol/L (98-107) Carbon Dioxide Level 30 mmol/L (21-32) Anion Gap 8 (6-14) Blood Urea Nitrogen 10 mg/dL (7-20) Creatinine 0.9 mg/dL (0.6-1.0) Estimated GFR (Cockcroft-Gault) 62.6 Glucose Level 76 mg/dL (70-99) Calcium Level 9.3 mg/dL (8.5-10.1) C-Reactive Protein, Quantitative 21.6 mg/L (0-3.3) Thyroid Stimulating Hormone (TSH) 0.618 uIU/mL (0.358-3.74) Assessment and Plan Assessmemt and Plan Problems Medical Problems: (1) Altered mental status Status: Acute Comment Review of Relevant I have reviewed the following items staci (where applicable) has been applied. Labs Laboratory Tests Test 03/02/20 18:55 03/02/20 21:30 03/03/20 07:33 03/03/20 11:33 White Blood Count 7.6 x10^3/uL (4.0-11.0) Red Blood Count 3.93 x10^6/uL (3.50-5.40) Hemoglobin 11.5 g/dL (12.0-15.5) Hematocrit 34.9 % (36.0-47.0) Mean Corpuscular Volume 89 fL (79-100) Mean Corpuscular Hemoglobin 29 pg (25-35) Mean Corpuscular Hemoglobin Concent 33 g/dL (31-37) Red Cell Distribution Width 15.9 % (11.5-14.5) Platelet Count 216 x10^3/uL (140-400) Neutrophils (%) (Auto) 68 % (31-73) Lymphocytes (%) (Auto) 23 % (24-48) Monocytes (%) (Auto) 6 % (0-9) Eosinophils (%) (Auto) 2 % (0-3) Basophils (%) (Auto) 1 % (0-3) Neutrophils # (Auto) 5.1 x10^3/uL (1.8-7.7) Lymphocytes # (Auto) 1.8 x10^3/uL (1.0-4.8) Monocytes # (Auto) 0.5 x10^3/uL (0.0-1.1) Eosinophils # (Auto) 0.2 x10^3/uL (0.0-0.7) Basophils # (Auto) 0.1 x10^3/uL (0.0-0.2) Sodium Level 138 mmol/L (136-145) Potassium Level 3.3 mmol/L (3.5-5.1) Chloride Level 99 mmol/L (98-107) Carbon Dioxide Level 32 mmol/L (21-32) Anion Gap 7 (6-14) Blood Urea Nitrogen 11 mg/dL (7-20) Creatinine 1.1 mg/dL (0.6-1.0) Estimated GFR (Cockcroft-Gault) 49.7 BUN/Creatinine Ratio 10 (6-20) Glucose Level 129 mg/dL (70-99) Calcium Level 9.7 mg/dL (8.5-10.1) Magnesium Level 2.2 mg/dL (1.8-2.4) Total Bilirubin 0.5 mg/dL (0.2-1.0) Aspartate Amino Transf (AST/SGOT) 17 U/L (15-37) Alanine Aminotransferase (ALT/SGPT) 23 U/L (14-59) Alkaline Phosphatase 390 U/L (46-116) Troponin I Quantitative < 0.017 ng/mL (0.000-0.055) VM-Svx-B-Type Natriuretic Peptide 109 pg/mL (0-124) Total Protein 6.2 g/dL (6.4-8.2) Albumin 3.1 g/dL (3.4-5.0) Albumin/Globulin Ratio 1.0 (1.0-1.7) Urine Collection Type Unknown Urine Color Yellow Urine Clarity Clear Urine pH 6.0 (<5.0-8.0) Urine Specific [place] <=1.005 (1.000-1.030) Urine Protein Negative mg/dL (NEG-TRACE) Urine Glucose (UA) Negative mg/dL (NEG) Urine Ketones (Stick) Negative mg/dL (NEG) Urine Blood Negative (NEG) Urine Nitrite Negative (NEG) Urine Bilirubin Negative (NEG) Urine Urobilinogen Dipstick 0.2 mg/dL (0.2 mg/dL) Urine Leukocyte Esterase Trace (NEG) Urine RBC 0 /HPF (0-2) Urine WBC Occ /HPF (0-4) Urine Squamous Epithelial Cells Mod /LPF Urine Bacteria Few /HPF (0-FEW) Urine Opiates Screen Neg (NEG) Urine Methadone Screen Neg (NEG) Urine Barbiturates Neg (NEG) Urine Phencyclidine Screen Neg (NEG) Urine Amphetamine/Methamphetamine Neg (NEG) Urine Benzodiazepines Screen Pos (NEG) Urine Cocaine Screen Neg (NEG) Urine Cannabinoids Screen Neg (NEG) Urine Ethyl Alcohol Neg (NEG) Glucose (Fingerstick) 141 mg/dL (70-99) 168 mg/dL (70-99) Test 03/03/20 13:40 03/03/20 16:40 03/03/20 20:41 03/04/20 07:44 [place] Level 0.2 mmol/L (0.6-1.2) [place] Last Dose Date 03/02/20 [place] Last Dose Time 0000 Glucose (Fingerstick) 164 mg/dL (70-99) 143 mg/dL (70-99) 56 mg/dL (70-99) Test 03/04/20 07:51 03/04/20 08:02 White Blood Count 3.9 x10^3/uL (4.0-11.0) Red Blood Count 3.86 x10^6/uL (3.50-5.40) Hemoglobin 11.3 g/dL (12.0-15.5) Hematocrit 34.4 % (36.0-47.0) Mean Corpuscular Volume 89 fL (79-100) Mean Corpuscular Hemoglobin 29 pg (25-35) Mean Corpuscular Hemoglobin Concent 33 g/dL (31-37) Red Cell Distribution Width 15.8 % (11.5-14.5) Platelet Count 157 x10^3/uL (140-400) Neutrophils (%) (Auto) 43 % (31-73) Lymphocytes (%) (Auto) 48 % (24-48) Monocytes (%) (Auto) 6 % (0-9) Eosinophils (%) (Auto) 3 % (0-3) Basophils (%) (Auto) 1 % (0-3) Neutrophils # (Auto) 1.6 x10^3/uL (1.8-7.7) Lymphocytes # (Auto) 1.9 x10^3/uL (1.0-4.8) Monocytes # (Auto) 0.2 x10^3/uL (0.0-1.1) Eosinophils # (Auto) 0.1 x10^3/uL (0.0-0.7) Basophils # (Auto) 0.0 x10^3/uL (0.0-0.2) Sodium Level 146 mmol/L (136-145) Potassium Level 3.2 mmol/L (3.5-5.1) Chloride Level 108 mmol/L (98-107) Carbon Dioxide Level 30 mmol/L (21-32) Anion Gap 8 (6-14) Blood Urea Nitrogen 10 mg/dL (7-20) Creatinine 0.9 mg/dL (0.6-1.0) Estimated GFR (Cockcroft-Gault) 62.6 Glucose Level 76 mg/dL (70-99) Calcium Level 9.3 mg/dL (8.5-10.1) C-Reactive Protein, Quantitative 21.6 mg/L (0-3.3) Thyroid Stimulating Hormone (TSH) 0.618 uIU/mL (0.358-3.74) Glucose (Fingerstick) 74 mg/dL (70-99) Laboratory Tests Test 03/03/20 11:33 03/03/20 13:40 03/03/20 16:40 03/03/20 20:41 Glucose (Fingerstick) 168 mg/dL (70-99) 164 mg/dL (70-99) 143 mg/dL (70-99) [place] Level 0.2 mmol/L (0.6-1.2) [place] Last Dose Date 03/02/20 [place] Last Dose Time 0000 Test 03/04/20 07:44 03/04/20 07:51 03/04/20 08:02 Glucose (Fingerstick) 56 mg/dL (70-99) 74 mg/dL (70-99) White Blood Count 3.9 x10^3/uL (4.0-11.0) Red Blood Count 3.86 x10^6/uL (3.50-5.40) Hemoglobin 11.3 g/dL (12.0-15.5) Hematocrit 34.4 % (36.0-47.0) Mean Corpuscular Volume 89 fL (79-100) Mean Corpuscular Hemoglobin 29 pg (25-35) Mean Corpuscular Hemoglobin Concent 33 g/dL (31-37) Red Cell Distribution Width 15.8 % (11.5-14.5) Platelet Count 157 x10^3/uL (140-400) Neutrophils (%) (Auto) 43 % (31-73) Lymphocytes (%) (Auto) 48 % (24-48) Monocytes (%) (Auto) 6 % (0-9) Eosinophils (%) (Auto) 3 % (0-3) Basophils (%) (Auto) 1 % (0-3) Neutrophils # (Auto) 1.6 x10^3/uL (1.8-7.7) Lymphocytes # (Auto) 1.9 x10^3/uL (1.0-4.8) Monocytes # (Auto) 0.2 x10^3/uL (0.0-1.1) Eosinophils # (Auto) 0.1 x10^3/uL (0.0-0.7) Basophils # (Auto) 0.0 x10^3/uL (0.0-0.2) Sodium Level 146 mmol/L (136-145) Potassium Level 3.2 mmol/L (3.5-5.1) [place] Level 108 mmol/L (98-107) Carbon Dioxide Level 30 mmol/L (21-32) Anion Gap 8 (6-14) Blood Urea Nitrogen 10 mg/dL (7-20) Creatinine 0.9 mg/dL (0.6-1.0) Estimated GFR (Cockcroft-Gault) 62.6 Glucose Level 76 mg/dL (70-99) Calcium Level 9.3 mg/dL (8.5-10.1) C-Reactive Protein, Quantitative 21.6 mg/L (0-3.3) Thyroid Stimulating Hormone (TSH) 0.618 uIU/mL (0.358-3.74) Medications Current Medications Morphine Sulfate (Morphine Sulfate) 2 mg PRN Q2HR PRN IV SEVERE PAIN 7-10 Last administered on 03/04/20at 03:07; Start 03/03/20 at 02:45 Ondansetron HCl (Zofran) 4 mg PRN Q6HRS PRN IVP NAUSEA/VOMITING 1ST CHOICE; Start 03/03/20 at 02:45 Sodium Chloride 1,000 ml @ 75 mls/hr [id number] IV Last administered on 03/03/20at 03:22; Start 03/03/20 at 03:00 Nicotine (Nicoderm Cq 21mg) 1 patch DAILY TD Last administered on 03/04/20at 08:30; Start 03/03/20 at 09:00 Acetaminophen (Tylenol) 650 mg PRN Q4HRS PRN PO TEMP OVER 100.4F OR MILD PAIN; Start 03/03/20 at 10:45 Albuterol Sulfate (Ventolin Neb Soln) 2.5 mg PRN Q4HRS PRN NEB SHORTNESS OF BREATH; Start 03/03/20 at 10:45 Aripiprazole (Abilify) 2 mg DAILY PO Last administered on 03/04/20at 08:29; Start 03/03/20 at 11:00 Aspirin (Ecotrin) 325 mg BID PO Last administered on 03/04/20at 08:30; Start 03/03/20 at 21:00 Atorvastatin Calcium (Lipitor) 40 mg QHS PO Last administered on 03/03/20 20:39; Start 03/03/20 at 21:00 Bupropion HCl (Wellbutrin Xl) 450 mg DAILYWBKFT PO Last administered on 03/04/20 08:30; Start 03/04/20 at 08:00 Vitamin D (Vitamin D3) 5,000 unit DAILY PO Last administered on 03/04/20at 08:28; Start 03/03/20 at 12:00 Cyclobenzaprine HCl (Flexeril) 10 mg QHS PO Last administered on 03/03/20at 19:27; Start 03/03/20 at 21:00 Docusate Sodium (Colace) 100 mg PRN BID PRN PO HARD STOOLS; Start 03/03/20 at 10:45 Glipizide (Glucotrol) 5 mg BID PO Last administered on 03/04/20at 08:29; Start 03/03/20 at 11:30 Multivitamins (Thera M Plus) 1 tab DAILY PO Last administered on 03/04/20at 08:28; Start 03/04/20 at 09:00 Nicotine (Nicoderm Cq 21mg) 1 patch DAILY TD ; Start 03/03/20 at 12:00; Status Cancel Olanzapine (ZyPREXA ZYDIS) 5 mg PRN BID PRN PO ANXIETY / AGITATION-2ND CHOICE; Start 03/03/20 at 10:45 Oxycodone/ Acetaminophen (Percocet 5/325) 1 tab PRN Q4HRS PRN PO MODERATE PAIN Last administered on 03/04/20at 08:29; Start 03/03/20 at 10:45 Polyethylene Glycol (miraLAX PACKET) 17 gm PRN DAILY PRN PO CONSTIPATION; Start 03/03/20 at 10:45 Senna/Docusate Sodium (Senna Plus) 1 tab DAILY PO Last administered on 03/04/20at 08:29; Start 03/03/20 at 12:00 Alprazolam (Xanax) 2 mg PRN BID PRN PO ANXIETY / AGITATION; Start 03/03/20 at 11:30 Non-Formulary Medication (Budesonide/ Formoterol Fumarate (Symbicort 80-4.5 Mcg Inhaler)) 2 puff BID IH ; Start 03/03/20 at 21:00; Status UNV Liothyronine Sodium (Cytomel) 25 mcg DAILY PO Last administered on 03/04/20 08:29; Start 03/03/20 at 12:00 [place] Carbonate ([place] Carbonate) 150 mg TID PO Last administered on 03/04/20at 08:35; Start 03/03/20 at 21:00 Pantoprazole Sodium (Protonix) 40 mg DAILYAC PO Last administered on 03/04/20at 08:28; Start 03/03/20 at 11:30 Budesonide (Pulmicort) 0.5 mg RTBID NEB Last administered on 03/04/20at 07:20; Start 03/03/20 at 12:00 Albuterol Sulfate (Ventolin Neb Soln) 2.5 mg Q6HRS NEB Last administered on 03/03/20at 20:50; Start 03/03/20 at 12:00; Stop 03/04/20 at 02:01; Status DC Albuterol Sulfate (Ventolin Neb Soln) 2.5 mg RTQID NEB Last administered on 03/04/20at 07:20; Start 03/04/20 at 08:00 Active Scripts Active Percocet 5-325 Mg Tablet (Oxycodone/Acetaminophen) 1 Each Tablet 1 Tab PO PRN Q4HRS PRN 10 Days Thera-M Tablet (Multivits,Ca,Minerals/Iron/Fa) 1 Each Tablet 1 Tab PO DAILY 30 Days Vitamin D3 (Cholecalciferol (Vitamin D3)) 125 Mcg Capsule 5,000 Unit PO DAILY 30 Days Senna-Time S Tablet (Sennosides/Docusate Sodium) 1 Each Tablet 1 Tab PO DAILY 14 Days Polyethylene Glycol 3350 17 Gm Powd.pack 17 Gm PO PRN DAILY PRN 14 Days Aspirin Ec (Aspirin) 325 Mg Tablet.dr 325 Mg PO BID 30 Days Dok (Docusate Sodium) 100 Mg Capsule 100 Mg PO PRN BID PRN 30 Days Olanzapine Odt (Olanzapine) 5 Mg Tab.rapdis 5 Mg PO PRN BID PRN 30 Days Tylenol (Acetaminophen) 325 Mg Tablet 650 Mg PO PRN Q4HRS PRN 30 Days NICODERM CQ 21mg (Nicotine) 1 Each Patch.td24 1 Patch TP DAILY Proair Hfa (Albuterol Sulfate) 8.5 Gm Hfa.aer.ad 2.5 Mg NEB PRN Q4HRS PRN 30 Days Symbicort 80-4.5 Mcg Inhaler (Budesonide/Formoterol Fumarate) 10.2 Gm Hfa.aer.ad 2 Puff IH BID Reported Omeprazole 40 Mg Capsule.dr 40 Mg PO DAILY Alprazolam 2 Mg Tablet 1 Tab PO BID PRN Cyclobenzaprine Hcl 10 Mg Tablet 1 Tab PO QHS [place] Carbonate 450 Mg Tablet.er 450 Mg PO HS Abilify (Aripiprazole) 2 Mg Tablet 1 Tab PO DAILY 30 Days Bupropion Xl (Bupropion Hcl) 150 Mg Tab.er.24h 3 Tab PO DAILYWBKFT Liothyronine Sodium 25 Mcg Tablet 1 Tab PO DAILY 30 Days Atorvastatin Calcium 40 Mg Tablet 40 Mg PO DAILY Glipizide 5 Mg Tablet 1 Tab PO BID Vitals/I & O Vital Sign - Last 24 Hours 03/03/20 03/03/20 03/03/20 03/03/20 11:00 12:29 13:40 15:00 Temp 97.0 97.0 Pulse 92 Resp 18 B/P (MAP) 108/62 (77) Pulse Ox 98 O2 Delivery Room Air Room Air Room Air Room Air 03/03/20 03/03/20 03/03/20 03/03/20 15:00 19:00 19:29 19:45 Temp 98.0 97.9 98.0 97.9 Pulse 90 87 Resp 18 18 20 B/P (MAP) 115/70 (85) 117/66 (83) Pulse Ox 98 96 O2 Delivery Room Air Room Air Room Air Room Air 03/03/20 03/03/20 03/03/20 03/03/20 20:29 20:43 20:50 21:13 Resp 20 20 20 Pulse Ox 96 O2 Delivery Room Air Room Air Room Air Room Air 03/03/20 03/03/20 03/04/20 03/04/20 23:00 23:36 00:36 03:00 Temp 97.9 97.6 97.9 97.6 Pulse 81 77 Resp 18 20 20 18 B/P (MAP) 122/69 (86) 136/74 (94) Pulse Ox 98 99 O2 Delivery Room Air Room Air Room Air Room Air 03/04/20 03/04/20 03/04/20 03/04/20 03:07 03:37 07:00 07:32 Temp 97.5 97.5 Pulse 75 Resp 20 20 18 B/P (MAP) 148/75 (99) Pulse Ox 99 99 O2 Delivery Room Air Room Air Room Air Room Air 03/04/20 03/04/20 03/04/20 07:35 08:29 10:29 Pulse Ox 99 O2 Delivery Room Air Room Air Room Air Intake and Output 03/03/20 03/03/20 03/04/20 15:00 23:00 07:00 Intake Total 600 ml 480 ml 1800 ml Balance 600 ml 480 ml 1800 ml Justicifation of Admission Dx: Justifications for Admission: Justification of Admission Dx: Yes Altered Mental Status: Altered Mental Status NATHANIEL PEREZ MD Mar 04, 2020 10:44
[2020-03-04] MEDS ORDERED: POTASSIUM CHLORIDE 20 MEQ TABLET.ER. PO ONE (10:45)
[2020-03-04 11:00] VITALS: BP 137/67
[2020-03-04 15:00] VITALS: BP 111/55
--- NOTE | 2020-03-04 16:15 | NUR ---
Wound/Ostomy Care Wound Type/Assessment: Pt seen per wound care consult. See wound assessment. pt has DFU intact blister to the left dorsal foot. There is no swelling to the left foot. Pt is unsure how blister initiated. Blister cleansed and assessed. Treatment Recommendations/Plan: Recommendations for skin prep and foam dressing. Most likely blister will reabsorb. Education provided: Pt educated on dressing changes. skin prep and foam applied. Offloading surface/device: N/A Recommended Referrals/Tests: N/A Discharge Recommendations for dressings: Dressing change instructions left in room. No other wounds noted. Wound care will follow up on 03/12/19. for reassessment. Bed lowered and call light in reach.
[2020-03-04 19:00] VITALS: BP 127/67
[2020-03-04] MEDS: CYCLOBENZAPRINE 10 MG TABLET. PO SCH (20:37)
[2020-03-04] MEDS: ATORVASTATIN CALCIUM 40 MG TABLET. PO SCH (20:38)
[2020-03-04 23:00] VITALS: BP 137/48
[2020-03-05] MEDS: oxyCODONE/APAP 5/325 1 TAB TABLET PO PRN ×3 (01:28→19:14)
[2020-03-05 03:00] VITALS: BP 143/78
[2020-03-05] MEDS: IV NORMAL SALINE 1000ML BAG 1,000 ML IV SCH ×2 (03:01→21:40)
[2020-03-05 07:00] VITALS: BP 153/76
[2020-03-05] MEDS: BUDESONIDE 0.5 MG/2 ML NEBU. NEB SCH ×2 (07:18→19:49)
[2020-03-05] MEDS: ALBUTEROL SULFATE 2.5 MG/3 ML NEBU. NEB SCH ×4 (07:19→19:48)
[2020-03-05] MEDS: ASPIRIN ENTERIC COATED 325 MG TABLET.DR. PO SCH ×2 (07:52→20:38)
[2020-03-05] MEDS: LITHIUM CARBONATE 150 MG CAPSULE. PO SCH ×3 (07:52→20:38)
[2020-03-05] MEDS: glipiZIDE 5 MG TABLET PO SCH ×2 (07:52→17:44)
[2020-03-05] MEDS: PANTOPRAZOLE 40 MG TABLET.DR. PO SCH (07:52)
[2020-03-05] MEDS: ARIPiprazole 2 MG TABLET PO SCH (07:52)
[2020-03-05] MEDS: buPROPion XL 150 MG TAB.ER.24H. PO SCH (07:52)
[2020-03-05] MEDS: MULTIVITAMIN with MINERAL TABLET. PO SCH (07:52)
[2020-03-05] MEDS: CHOLECALCIFEROL (VITAMIN D3) 5,000 UNIT CAPSULE PO SCH (07:52)
[2020-03-05] MEDS: SENNOSIDES/DOCUSATE 8.6/50MG TABLET. PO SCH (07:52)
[2020-03-05] MEDS: LIOTHYRONINE 5 MCG TABLET. PO SCH (07:53)
[2020-03-05] MEDS: NICOTINE 21MG PATCH. TD SCH (07:53)
[2020-03-05 11:00] VITALS: BP 148/72
--- NOTE | 2020-03-05 14:00 | PDOC ---
PROGRESS NOTES Date of Service: DATE: 03/05/20 TIME: 13:58 Chief Complaint Chief Complaint Encephalopathy which may have been prompted by benzodiazepine missuse and probably contributing to an underlying cognitive impairment documented on her previous admission History of left intertrochanteric hip fracture - Fall at home - traumatic per patient Hypokalemia OPAL - likely vasomotor nephropathy, will hydrate Tobacco dependence - counseled on cessation COPD - will place on nebs prn Type 2 diabetes - will place on sliding scale Hearing impairment - not wearing hearing aides Mild cognitive impairment - likely progressing to Alzheimers dementia as her mother not her father like she had related in her past admission. Vitamin D deficiency - 5000u daily Vitamin b12 deficiency plan: assess medication side effects. will consult CM for discharge planning PT eval to assess her risk for falls. b12 injection replace potassium recheck labs in am hopefully discharge in the next 24 to 48 hours. Pending clilnical course. DVT prophylaxis: Lovenox History of Present Illness History of Present Illness History of Present Illness Ms Woods is a 64 year old female w/ PMHx 2ppd smoker, COPD, depression, DM2, fatty liver admitted after a fall at home. The patient had an admission on january for Acute left intertrochanteric hip fracture - traumatic due to fall. Ortho consulted s/p IM nailing.02/06: S/p intramedullary implant, with in terlocking screws on 02/06/2020. She has transitioned from a rehab to her house, she lives by herself and as per patient's sister she may have not been taking her home medications correctly, neurologically she is not exhibiting focal deficits. She had given a history of her parents having Alzheimers, but only her mother was afflicted by the disease. At the time of my visit she is in no acute distress, she denies, fever, no neck stiffness, no sick contacts. No cough sputum productions, no abdominal pain, no nauseas vomiting or diarrhea has been reported. The patient denies urinary symptoms. She has been at [facility] the request of the ER for evaluation of her altered mental status which at the time of my visit has resolved. I also got some details from her sister over the phone which has related concerns about her sister not taking medications at home properly. Plan of care explained detail and all of their concerns were addressed to the best of my abilities 03/04/2020 Patient seems to be waking up more and she is not exhibiting neurological deficits. She will work with PT, patient seems to be procupied with her medication and not beeing able to sleep, I have reassrued her and explained the side effects of benzodiazepines on her mentation. We will cotsoninue to monitor her evolution clinically 03/05/2020 No acute events reported overnight, case discussed with nursing staff patient in no acute distress no complaints during my visit patient continues to complain of short-term memory. B12 level has been reviewed and somewhat low this could play a role in her cognitive impairment. Will supplement her B12 reassess in the a.m. and work with case management for a safe discharge plan she would like to return home Vitals Vitals Vital Signs Date Time Temp Pulse Resp B/P (MAP) Pulse Ox O2 Delivery O2 Flow Rate FiO2 03/05/20 11:12 Room Air 03/05/20 11:00 98.6 78 18 148/72 (97) 100 98.6 Physical Exam General: Alert, Oriented X3, Cooperative Heart: Regular rate, Normal S1, Normal S2 Lungs: Clear, Wheezing Abdomen: Normal bowel sounds, Soft Extremities: No clubbing, No cyanosis Skin: No rashes, No breakdown Labs LABS Laboratory Tests Test 03/04/20 16:53 03/04/20 20:46 03/05/20 07:27 Glucose (Fingerstick) 230 mg/dL (70-99) 160 mg/dL (70-99) 96 mg/dL (70-99) Assessment and Plan Assessmemt and Plan Problems Medical Problems: (1) Altered mental status Status: Acute Comment Review of Relevant I have reviewed the following items staci (where applicable) has been applied. Labs Laboratory Tests Test 03/03/20 16:40 03/03/20 20:41 03/04/20 07:44 03/04/20 07:51 Glucose (Fingerstick) 164 mg/dL (70-99) 143 mg/dL (70-99) 56 mg/dL (70-99) White Blood Count 3.9 x10^3/uL (4.0-11.0) Red Blood Count 3.86 x10^6/uL (3.50-5.40) Hemoglobin 11.3 g/dL (12.0-15.5) Hematocrit 34.4 % (36.0-47.0) Mean Corpuscular Volume 89 fL (79-100) Mean Corpuscular Hemoglobin 29 pg (25-35) Mean Corpuscular Hemoglobin Concent 33 g/dL (31-37) Red Cell Distribution Width 15.8 % (11.5-14.5) Platelet Count 157 x10^3/uL (140-400) Neutrophils (%) (Auto) 43 % (31-73) Lymphocytes (%) (Auto) 48 % (24-48) Monocytes (%) (Auto) 6 % (0-9) Eosinophils (%) (Auto) 3 % (0-3) Basophils (%) (Auto) 1 % (0-3) Neutrophils # (Auto) 1.6 x10^3/uL (1.8-7.7) Lymphocytes # (Auto) 1.9 x10^3/uL (1.0-4.8) Monocytes # (Auto) 0.2 x10^3/uL (0.0-1.1) Eosinophils # (Auto) 0.1 x10^3/uL (0.0-0.7) Basophils # (Auto) 0.0 x10^3/uL (0.0-0.2) Sodium Level 146 mmol/L (136-145) Potassium Level 3.2 mmol/L (3.5-5.1) Chloride Level 108 mmol/L (98-107) Carbon Dioxide Level 30 mmol/L (21-32) Anion Gap 8 (6-14) Blood Urea Nitrogen 10 mg/dL (7-20) Creatinine 0.9 mg/dL (0.6-1.0) Estimated GFR (Cockcroft-Gault) 62.6 Glucose Level 76 mg/dL (70-99) Calcium Level 9.3 mg/dL (8.5-10.1) C-Reactive Protein, Quantitative 21.6 mg/L (0-3.3) Vitamin B12 Level 256 pg/mL (247-911) Thyroid Stimulating Hormone (TSH) 0.618 uIU/mL (0.358-3.74) Test 03/04/20 08:02 03/04/20 11:46 03/04/20 16:53 03/04/20 20:46 Glucose (Fingerstick) 74 mg/dL (70-99) 104 mg/dL (70-99) 230 mg/dL (70-99) 160 mg/dL (70-99) Test 03/05/20 07:27 Glucose (Fingerstick) 96 mg/dL (70-99) Laboratory Tests Test 03/04/20 16:53 03/04/20 20:46 03/05/20 07:27 Glucose (Fingerstick) 230 mg/dL (70-99) 160 mg/dL (70-99) 96 mg/dL (70-99) Microbiology 03/02/20 Urine Culture - Final, Complete Medications Current Medications Morphine Sulfate (Morphine Sulfate) 2 mg PRN Q2HR PRN IV SEVERE PAIN 7-10 Last administered on 03/04/20at 03:07; Start 03/03/20 at 02:45 Ondansetron HCl (Zofran) 4 mg PRN Q6HRS PRN IVP NAUSEA/VOMITING 1ST CHOICE; Start 03/03/20 at 02:45 Sodium Chloride 1,000 ml @ 75 mls/hr [id number] IV Last administered on 03/05/20at 03:01; Start 03/03/20 at 03:00 Nicotine (Nicoderm Cq 21mg) 1 patch DAILY TD Last administered on 03/05/20at 07:53; Start 03/03/20 at 09:00 Acetaminophen (Tylenol) 650 mg PRN Q4HRS PRN PO TEMP OVER 100.4F OR MILD PAIN; Start 03/03/20 at 10:45 Albuterol Sulfate (Ventolin Neb Soln) 2.5 mg PRN Q4HRS PRN NEB SHORTNESS OF BREATH; Start 03/03/20 at 10:45 Aripiprazole (Abilify) 2 mg DAILY PO Last administered on 03/05/20at 07:52; Start 03/03/20 at 11:00 Aspirin (Ecotrin) 325 mg BID PO Last administered on 03/05/20at 07:52; Start 03/03/20 at 21:00 Atorvastatin Calcium (Lipitor) 40 mg QHS PO Last administered on 03/04/20at 20:38; Start 03/03/20 at 21:00 Bupropion HCl (Wellbutrin Xl) 450 mg DAILYWBKFT PO Last administered on 03/05/20at 07:52; Start 03/04/20 at 08:00 Vitamin D (Vitamin D3) 5,000 unit DAILY PO Last administered on 03/05/20at 07:52; Start 03/03/20 at 12:00 Cyclobenzaprine HCl (Flexeril) 10 mg QHS PO Last administered on 03/04/20at 20:37; Start 03/03/20 at 21:00 Docusate Sodium (Colace) 100 mg PRN BID PRN PO HARD STOOLS; Start 03/03/20 at 10:45 Glipizide (Glucotrol) 5 mg BID PO Last administered on 03/04/20at 08:29; Start 03/03/20 at 11:30; Stop 03/04/20 at 10:48; Status DC Multivitamins (Thera M Plus) 1 tab DAILY PO Last administered on 03/05/20at 07:52; Start 03/04/20 at 09:00 Nicotine (Nicoderm Cq 21mg) 1 patch DAILY TD ; Start 03/03/20 at 12:00; Status Cancel Olanzapine (ZyPREXA ZYDIS) 5 mg PRN BID PRN PO ANXIETY / AGITATION-2ND CHOICE; Start 03/03/20 at 10:45 Oxycodone/ Acetaminophen (Percocet 5/325) 1 tab PRN Q4HRS PRN PO MODERATE PAIN Last administered on 03/05/20at 07:58; Start 03/03/20 at 10:45 Polyethylene Glycol (miraLAX PACKET) 17 gm PRN DAILY PRN PO CONSTIPATION; Start 03/03/20 at 10:45 Senna/Docusate Sodium (Senna Plus) 1 tab DAILY PO Last administered on 03/05/20at 07:52; Start 03/03/20 at 12:00 Alprazolam (Xanax) 2 mg PRN BID PRN PO ANXIETY / AGITATION; Start 03/03/20 at 11:30 Non-Formulary Medication (Budesonide/ Formoterol Fumarate (Symbicort 80-4.5 Mcg Inhaler)) 2 puff BID IH ; Start 03/03/20 at 21:00; Status UNV Liothyronine Sodium (Cytomel) 25 mcg DAILY PO Last administered on 03/05/20at 07:53; Start 03/03/20 at 12:00 [place] Carbonate ([place] Carbonate) 150 mg TID PO Last administered on 03/05/20at 07:52; Start 03/03/20 at 21:00 Pantoprazole Sodium (Protonix) 40 mg DAILYAC PO Last administered on 03/05/20at 07:52; Start 03/03/20 at 11:30 Budesonide (Pulmicort) 0.5 mg RTBID NEB Last administered on 03/05/20at 07:18; Start 03/03/20 at 12:00 Albuterol Sulfate (Ventolin Neb Soln) 2.5 mg Q6HRS NEB Last administered on 03/03/20at 20:50; Start 03/03/20 at 12:00; Stop 03/04/20 at 02:01; Status DC Albuterol Sulfate (Ventolin Neb Soln) 2.5 mg RTQID NEB Last administered on 03/05/20at 11:12; Start 03/04/20 at 08:00 Potassium Chloride (Klor-Con) 40 meq 1X ONCE PO Last administered on 03/04/20at 12:07; Start 03/04/20 at 10:45; Stop 03/04/20 at 10:46; Status DC Glipizide (Glucotrol) 5 mg BIDAC PO Last administered on 03/05/20at 07:52; Start 03/04/20 at 16:30 Active Scripts Active Percocet 5-325 Mg Tablet (Oxycodone/Acetaminophen) 1 Each Tablet 1 Tab PO PRN Q4HRS PRN 10 Days Thera-M Tablet (Multivits,Ca,Minerals/Iron/Fa) 1 Each Tablet 1 Tab PO DAILY 30 Days Vitamin D3 (Cholecalciferol (Vitamin D3)) 125 Mcg Capsule 5,000 Unit PO DAILY 30 Days Senna-Time S Tablet (Sennosides/Docusate Sodium) 1 Each Tablet 1 Tab PO DAILY 14 Days Polyethylene Glycol 3350 17 Gm Powd.pack 17 Gm PO PRN DAILY PRN 14 Days Aspirin Ec (Aspirin) 325 Mg Tablet.dr 325 Mg PO BID 30 Days Dok (Docusate Sodium) 100 Mg Capsule 100 Mg PO PRN BID PRN 30 Days Olanzapine Odt (Olanzapine) 5 Mg Tab.rapdis 5 Mg PO PRN BID PRN 30 Days Tylenol (Acetaminophen) 325 Mg Tablet 650 Mg PO PRN Q4HRS PRN 30 Days NICODERM CQ 21mg (Nicotine) 1 Each Patch.td24 1 Patch TP DAILY Proair Hfa (Albuterol Sulfate) 8.5 Gm Hfa.aer.ad 2.5 Mg NEB PRN Q4HRS PRN 30 Days Symbicort 80-4.5 Mcg Inhaler (Budesonide/Formoterol Fumarate) 10.2 Gm Hfa.aer.ad 2 Puff IH BID Reported Omeprazole 40 Mg Capsule.dr 40 Mg PO DAILY Alprazolam 2 Mg Tablet 1 Tab PO BID PRN Cyclobenzaprine Hcl 10 Mg Tablet 1 Tab PO QHS [place] Carbonate 450 Mg Tablet.er 450 Mg PO HS Abilify (Aripiprazole) 2 Mg Tablet 1 Tab PO DAILY 30 Days Bupropion Xl (Bupropion Hcl) 150 Mg Tab.er.24h 3 Tab PO DAILYWBKFT Liothyronine Sodium 25 Mcg Tablet 1 Tab PO DAILY 30 Days Atorvastatin Calcium 40 Mg Tablet 40 Mg PO DAILY Glipizide 5 Mg Tablet 1 Tab PO BID Vitals/I & O Vital Sign - Last 24 Hours 03/04/20 03/04/20 03/04/20 03/04/20 15:00 15:15 15:30 19:00 Temp 97.4 98.0 97.4 98.0 Pulse 89 80 Resp 20 18 B/P (MAP) 111/55 (73) 127/67 (87) Pulse Ox 97 97 O2 Delivery Room Air Room Air Room Air Room Air 03/04/20 03/04/20 03/04/20 03/04/20 19:35 19:44 20:40 20:44 Resp 20 20 Pulse Ox 98 O2 Delivery Room Air Room Air Room Air Room Air 03/04/20 03/05/20 03/05/20 03/05/20 23:00 01:28 02:28 03:00 Temp 98.1 98.0 98.1 98.0 Pulse 84 72 Resp 18 20 20 18 B/P (MAP) 137/48 (77) 143/78 (99) Pulse Ox 95 98 O2 Delivery Room Air Room Air Room Air Room Air 03/05/20 03/05/20 03/05/20 03/05/20 07:00 07:17 07:58 08:00 Temp 98.6 98.6 Pulse 76 Resp 18 B/P (MAP) 153/76 (101) Pulse Ox 100 98 O2 Delivery Room Air Room Air Room Air Room Air 03/05/20 03/05/20 03/05/20 08:58 11:00 11:12 Temp 98.6 98.6 Pulse 78 Resp 18 B/P (MAP) 148/72 (97) Pulse Ox 100 O2 Delivery Room Air Room Air Room Air Intake and Output 03/04/20 03/04/20 03/05/20 15:00 23:00 07:00 Intake Total 480 ml 240 ml 1800 ml Balance 480 ml 240 ml 1800 ml Nutrition Consultation Dietary Evaluation: Recommendations by RD: Dietary education by RD, Increase Calorie Intake, Protein supplementation Comments: REC ADA/Cardiac diet Glucerna bid continue mvi per wound protocal Expected Outcomes/Goals: to meet >75% est nutr needs Malnutrition Findings: Body Fat Depletion (Non Severe: Mild Depletion Weight Status: Appropriate Justicifation of Admission Dx: Justifications for Admission: Justification of Admission Dx: Yes Altered Mental Status: Altered Mental Status NATHANIEL PEREZ MD Mar 05, 2020 14:00
[2020-03-05 15:00] VITALS: BP 156/82
[2020-03-05] MEDS ORDERED: CYANOCOBALAMIN (VITAMIN B-12) 1,000 MCG/ML VIAL. IM ONE ×2 (15:15→18:00)
[2020-03-05 19:00] VITALS: BP 149/65
[2020-03-05] MEDS: ATORVASTATIN CALCIUM 40 MG TABLET. PO SCH (20:38)
[2020-03-05] MEDS: CYCLOBENZAPRINE 10 MG TABLET. PO SCH (20:39)
[2020-03-05] MEDS: ALPRAZolam 1 MG TABLET PO PRN (22:26)
[2020-03-05 22:59] VITALS: BP 150/69
[2020-03-06] MEDS: oxyCODONE/APAP 5/325 1 TAB TABLET PO PRN ×4 (02:03→21:08)
[2020-03-06 03:00] VITALS: BP 142/83
[2020-03-06] MEDS: LIOTHYRONINE 5 MCG TABLET. PO SCH (05:49)
[2020-03-06] MEDS: PANTOPRAZOLE 40 MG TABLET.DR. PO SCH (05:50)
[2020-03-06 07:00] VITALS: BP 149/79
[2020-03-06] MEDS: CHOLECALCIFEROL (VITAMIN D3) 5,000 UNIT CAPSULE PO SCH (08:13)
[2020-03-06] MEDS: CYANOCOBALAMIN (VITAMIN B-12) 1,000 MCG TABLET. PO SCH (08:13)
[2020-03-06] MEDS: NICOTINE 21MG PATCH. TD SCH (08:13)
[2020-03-06] MEDS: ARIPiprazole 2 MG TABLET PO SCH (08:13)
[2020-03-06] MEDS: SENNOSIDES/DOCUSATE 8.6/50MG TABLET. PO SCH (08:13)
[2020-03-06] MEDS: glipiZIDE 5 MG TABLET PO SCH ×2 (08:13→17:33)
[2020-03-06] MEDS: buPROPion XL 150 MG TAB.ER.24H. PO SCH (08:13)
[2020-03-06] MEDS: ASPIRIN ENTERIC COATED 325 MG TABLET.DR. PO SCH ×2 (08:13→21:00)
[2020-03-06] MEDS: LITHIUM CARBONATE 150 MG CAPSULE. PO SCH ×3 (08:14→21:00)
[2020-03-06] MEDS: MULTIVITAMIN with MINERAL TABLET. PO SCH (08:14)
[2020-03-06] MEDS: ALBUTEROL SULFATE 2.5 MG/3 ML NEBU. NEB SCH ×4 (09:16→21:33)
[2020-03-06] MEDS: BUDESONIDE 0.5 MG/2 ML NEBU. NEB SCH ×2 (09:16→21:33)
[2020-03-06 11:00] VITALS: BP 150/73
[2020-03-06] MEDS: IV NORMAL SALINE 1000ML BAG 1,000 ML IV SCH (11:00)
--- NOTE | 2020-03-06 14:53 | PDOC ---
PROGRESS NOTES Date of Service: DATE: 03/06/20 TIME: 14:49 Chief Complaint Chief Complaint Encephalopathy which may have been prompted by benzodiazepine missuse and probably contributing to an underlying cognitive impairment documented on her previous admission History of left intertrochanteric hip fracture - Fall at home - traumatic per patient Hypokalemia OPAL - likely vasomotor nephropathy, will hydrate Tobacco dependence - counseled on cessation COPD - will place on nebs prn Type 2 diabetes - will place on sliding scale Hearing impairment - not wearing hearing aides Mild cognitive impairment - likely progressing to Alzheimers dementia as her mother not her father like she had related in her past admission. Vitamin D deficiency - 5000u daily Vitamin b12 deficiency plan: We will start Remeron Awaiting for Covid test Patient will be transferred to a half-way facility once medically optimized and Covid test has been reported b12 injection administered and will continue with p.o. supplementation hopefully discharge in the next 24 to 48 hours. Pending clilnical course. DVT prophylaxis: Lovenox History of Present Illness History of Present Illness History of Present Illness Ms Woods is a 64 year old female w/ PMHx 2ppd smoker, COPD, depression, DM2, fatty liver admitted after a fall at home. The patient had an admission on january for Acute left intertrochanteric hip fracture - traumatic due to fall. Ortho consulted s/p IM nailing.02/06: S/p intramedullary implant, with interlocking screws on 02/06/2020. She has transitioned from a rehab to her house, she lives by herself and as per patient's sister she may have not been taking her home medications correctly, neurologically she is not exhibiting focal deficits. She had given a history of her parents having Alzheimers, but only her mother was afflicted by the disease. At the time of my visit she is in no acute distress, she denies, fever, no neck stiffness, no sick contacts. No cough sputum productions, no abdominal pain, no nauseas vomiting or diarrhea has been reported. The patient denies urinary symptoms. She has been at [facility] the request of the ER for evaluation of her altered mental status which at the time of my visit has resolved. I also got some details from her sister over the phone which has related concerns about her sister not taking medications at home properly. Plan of care explained detail and all of their concerns were addressed to the best of my abilities 03/04/2020 Patient seems to be waking up more and she is not exhibiting neurological deficits. She will work with PT, patient seems to be procupied with her medication and not beeing able to sleep, I have reassrued her and explained the side effects of benzodiazepines on her mentation. We will cotninue to monitor her evolution clinically 03/05/2020 No acute events reported overnight, case discussed with nursing staff patient in no acute distress no complaints during my visit patient continues to complain of short-term memory. B12 level has been reviewed and somewhat low this could play a role in her cognitive impairment. Will supplement her B12 reassess in the a.m. and work with case management for a safe discharge plan she would like to return home 03/06/2020 Patient complaining of insomnia yesterday. I will discontinue Xanax at the present time given that the patient should slowly be tapered off benzodiazepines. This should only be given if the patient is experiencing withdrawal symptoms which in my opinion she has not exhibited. I have explained the side effects of medications and the importance of finding an alternative option for her insomnia she relates to me that she has spent several years battling with this insomnia, and the opinion of her family members whom I have contacted over the phone they are fearful that the medications have had a toll on the patient's mentation. We will start Remeron as discussed in my interview today and follow results in the a.m. Vitals Vitals Vital Signs Date Time Temp Pulse Resp B/P (MAP) Pulse Ox O2 Delivery O2 Flow Rate FiO2 03/06/20 14:45 Room Air 03/06/20 12:36 98 03/06/20 11:00 98.0 79 16 150/73 (98) 98.0 Physical Exam General: Alert, Oriented X3, Cooperative Heart: Regular rate, Normal S1, Normal S2 Lungs: Clear, Wheezing Abdomen: Normal bowel sounds, Soft Extremities: No clubbing, No cyanosis Skin: No rashes, No breakdown Labs LABS Laboratory Tests Test 03/05/20 16:51 03/05/20 19:59 03/06/20 07:30 03/06/20 11:52 Glucose (Fingerstick) 195 mg/dL (70-99) 224 mg/dL (70-99) 99 mg/dL (70-99) 168 mg/dL (70-99) Assessment and Plan Assessmemt and Plan Problems Medical Problems: (1) Altered mental status Status: Acute Comment Review of Relevant I have reviewed the following items staci (where applicable) has been applied. Labs Laboratory Tests Test 03/04/20 16:53 03/04/20 20:46 03/05/20 07:27 03/05/20 16:51 Glucose (Fingerstick) 230 mg/dL (70-99) 160 mg/dL (70-99) 96 mg/dL (70-99) 195 mg/dL (70-99) Test 03/05/20 19:59 03/06/20 07:30 03/06/20 11:52 Glucose (Fingerstick) 224 mg/dL (70-99) 99 mg/dL (70-99) 168 mg/dL (70-99) Laboratory Tests Test 03/05/20 16:51 03/05/20 19:59 03/06/20 07:30 03/06/20 11:52 Glucose (Fingerstick) 195 mg/dL (70-99) 224 mg/dL (70-99) 99 mg/dL (70-99) 168 mg/dL (70-99) Microbiology 03/02/20 Urine Culture - Final, Complete Medications Current Medications Morphine Sulfate (Morphine Sulfate) 2 mg PRN Q2HR PRN IV SEVERE PAIN 7-10 Last administered on 03/04/20at 03:07; Start 03/03/20 at 02:45 Ondansetron HCl (Zofran) 4 mg PRN Q6HRS PRN IVP NAUSEA/VOMITING 1ST CHOICE; Start 03/03/20 at 02:45 Sodium Chloride 1,000 ml @ 75 mls/hr [id number] IV Last administered on 03/05/20at 03:01; Start 03/03/20 at 03:00 Nicotine (Nicoderm Cq 21mg) 1 patch DAILY TD Last administered on 03/06/20at 08:13; Start 03/03/20 at 09:00 Acetaminophen (Tylenol) 650 mg PRN Q4HRS PRN PO TEMP OVER 100.4F OR MILD PAIN; Start 03/03/20 at 10:45 Albuterol Sulfate (Ventolin Neb Soln) 2.5 mg PRN Q4HRS PRN NEB SHORTNESS OF BREATH; Start 03/03/20 at 10:45 Aripiprazole (Abilify) 2 mg DAILY PO Last administered on 03/06/20at 08:13; Sta rt 03/03/20 at 11:00 Aspirin (Ecotrin) 325 mg BID PO Last administered on 03/06/20at 08:13; Start 03/03/20 at 21:00 Atorvastatin Calcium (Lipitor) 40 mg QHS PO Last administered on 03/05/20at 20:38; Start 03/03/20 at 21:00 Bupropion HCl (Wellbutrin Xl) 450 mg DAILYWBKFT PO Last administered on 03/06/20at 08:13; Start 03/04/20 at 08:00 Vitamin D (Vitamin D3) 5,000 unit DAILY PO Last administered on 03/06/20at 08:13; Start 03/03/20 at 12:00 Cyclobenzaprine HCl (Flexeril) 10 mg QHS PO Last administered on 03/05/20at 20:3 9; Start 03/03/20 at 21:00 Docusate Sodium (Colace) 100 mg PRN BID PRN PO HARD STOOLS; Start 03/03/20 at 10:45 Glipizide (Glucotrol) 5 mg BID PO Last administered on 03/04/20at 08:29; Start 03/03/20 at 11:30; Stop 03/04/20 at 10:48; Status DC Multivitamins (Thera M Plus) 1 tab DAILY PO Last administered on 03/06/20at 08:14; Start 03/04/20 at 09:00 Nicotine (Nicoderm Cq 21mg) 1 patch DAILY TD ; Start 03/03/20 at 12:00; Status Cancel Olanzapine (ZyPREXA ZYDIS) 5 mg PRN BID PRN PO ANXIETY / AGITATION-2ND CHOICE; Start 03/03/20 at 10:45 Oxycodone/ Acetaminophen (Percocet 5/325) 1 tab PRN Q4HRS PRN PO MODERATE PAIN Last administered on 03/06/20at 14:45; Start 03/03/20 at 10:45 Polyethylene Glycol (miraLAX PACKET) 17 gm PRN DAILY PRN PO CONSTIPATION; Start 03/03/20 at 10:45 Senna/Docusate Sodium (Senna Plus) 1 tab DAILY PO Last administered on 03/06/20at 08:13; Start 03/03/20 at 12:00 Alprazolam (Xanax) 2 mg PRN BID PRN PO ANXIETY / AGITATION Last administered on 03/05/20at 22:26; Start 03/03/20 at 11:30 Non-Formulary Medication (Budesonide/ Formoterol Fumarate (Symbicort 80-4.5 Mcg Inhaler)) 2 puff BID IH ; Start 03/03/20 at 21:00; Status UNV Liothyronine Sodium (Cytomel) 25 mcg DAILY PO Last administered on 03/06/20at 05:49; Start 03/03/20 at 12:00 Seibert Carbonate (Seibert Carbonate) 150 mg TID PO Last administered on 03/06/20at 14:45; Start 03/03/20 at 21:00 Pantoprazole Sodium (Protonix) 40 mg DAILYAC PO Last administered on 03/06/20at 05:50; Start 03/03/20 at 11:30 Budesonide (Pulmicort) 0.5 mg RTBID NEB Last administered on 03/06/20at 09:16; Start 03/03/20 at 12:00 Albuterol Sulfate (Ventolin Neb Soln) 2.5 mg Q6HRS NEB Last administered on 03/03/20at 20:50; Start 03/03/20 at 12:00; Stop 03/04/20 at 02:01; Status DC Albuterol Sulfate (Ventolin Neb Soln) 2.5 mg RTQID NEB Last administered on 03/06/20at 12:36; Start 03/04/20 at 08:00 Potassium Chloride (Klor-Con) 40 meq 1X ONCE PO Last administered on 03/04/20at 12:07; Start 03/04/20 at 10:45; Stop 03/04/20 at 10:46; Status DC Glipizide (Glucotrol) 5 mg BIDAC PO Last administered on 03/06/20at 08:13; Start 03/04/20 at 16:30 Cyanocobalamin (Vitamin B-12) 1 mcg 1X ONCE IM ; Start 03/05/20 at 15:15; Stop 03/05/20 at 15:16; Status Cancel Cyanocobalamin (Vitamin B-12) 1,000 mcg DAILY PO Last administered on 03/06/20at 08:13; Start 03/06/20 at 09:00 Cyanocobalamin (Vitamin B-12) 1,000 mcg 1X ONCE IM Last administered on 03/05/20at 17:59; Start 03/05/20 at 18:00; Stop 03/05/20 at 18:01; Status DC Mirtazapine (Remeron) 7.5 mg QHS PO ; Start 03/06/20 at 21:00 Active Scripts Active Percocet 5-325 Mg Tablet (Oxycodone/Acetaminophen) 1 Each Tablet 1 Tab PO PRN Q4HRS PRN 10 Days Thera-M Tablet (Multivits,Ca,Minerals/Iron/Fa) 1 Each Tablet 1 Tab PO DAILY 30 Days Vitamin D3 (Cholecalciferol (Vitamin D3)) 125 Mcg Capsule 5,000 Unit PO DAILY 30 Days Senna-Time S Tablet (Sennosides/Docusate Sodium) 1 Each Tablet 1 Tab PO DAILY 14 Days Polyethylene Glycol 3350 17 Gm Powd.pack 17 Gm PO PRN DAILY PRN 14 Days Aspirin Ec (Aspirin) 325 Mg Tablet.dr 325 Mg PO BID 30 Days Dok (Docusate Sodium) 100 Mg Capsule 100 Mg PO PRN BID PRN 30 Days Olanzapine Odt (Olanzapine) 5 Mg Tab.rapdis 5 Mg PO PRN BID PRN 30 Days Tylenol (Acetaminophen) 325 Mg Tablet 650 Mg PO PRN Q4HRS PRN 30 Days NICODERM CQ 21mg (Nicotine) 1 Each Patch.td24 1 Patch TP DAILY Proair Hfa (Albuterol Sulfate) 8.5 Gm Hfa.aer.ad 2.5 Mg NEB PRN Q4HRS PRN 30 Days Symbicort 80-4.5 Mcg Inhaler (Budesonide/Formoterol Fumarate) 10.2 Gm Hfa.aer.ad 2 Puff IH BID Reported Omeprazole 40 Mg Capsule.dr 40 Mg PO DAILY Alprazolam 2 Mg Tablet 1 Tab PO BID PRN Cyclobenzaprine Hcl 10 Mg Tablet 1 Tab PO QHS Seibert Carbonate 450 Mg Tablet.er 450 Mg PO HS Abilify (Aripiprazole) 2 Mg Tablet 1 Tab PO DAILY 30 Days Bupropion Xl (Bupropion Hcl) 150 Mg Tab.er.24h 3 Tab PO DAILYWBKFT Liothyronine Sodium 25 Mcg Tablet 1 Tab PO DAILY 30 Days Atorvastatin Calcium 40 Mg Tablet 40 Mg PO DAILY Glipizide 5 Mg Tablet 1 Tab PO BID Vitals/I & O Vital Sign - Last 24 Hours 03/05/20 03/05/20 03/05/20 03/05/20 15:00 15:29 19:00 19:14 Temp 98.2 98.9 98.2 98.9 Pulse 72 89 Resp 18 16 B/P (MAP) 156/82 (106) 149/65 (93) Pulse Ox 100 97 O2 Delivery Room Air Room Air Room Air Room Air 03/05/20 03/05/20 03/05/20 03/05/20 19:54 20:00 20:14 22:59 Temp 98.0 98.0 Pulse 90 Resp 20 16 B/P (MAP) 150/69 (96) Pulse Ox 100 100 95 O2 Delivery Room Air Room Air Room Air Room Air 03/06/20 03/06/20 03/06/20 03/06/20 02:03 03:00 03:03 07:00 Temp 97.9 97.7 97.9 97.7 Pulse 78 76 Resp 20 14 20 16 B/P (MAP) 142/83 (102) 149/79 (102) Pulse Ox 95 96 96 97 O2 Delivery Room Air Room Air Room Air Room Air 03/06/20 03/06/20 03/06/20 03/06/20 07:42 08:14 09:15 09:17 Pulse Ox 98 O2 Delivery Room Air Room Air Room Air Room Air 03/06/20 03/06/20 03/06/20 11:00 12:36 14:45 Temp 98.0 98.0 Pulse 79 Resp 16 B/P (MAP) 150/73 (98) Pulse Ox 99 98 O2 Delivery Room Air Room Air Room Air Intake and Output 03/05/20 03/05/20 03/06/20 15:00 23:00 07:00 Intake Total 300 ml 1360 ml 240 ml Balance 300 ml 1360 ml 240 ml Nutrition Consultation Dietary Evaluation: Recommendations by RD: Dietary education by RD, Increase Calorie Intake, Protein supplementation Comments: REC ADA/Cardiac diet Glucerna bid continue mvi per wound protocal Expected Outcomes/Goals: to meet >75% est nutr needs Malnutrition Findings: Body Fat Depletion (Non Severe: Mild Depletion Weight Status: Appropriate Justicifation of Admission Dx: Justifications for Admission: Justification of Admission Dx: Yes Altered Mental Status: Altered Mental Status NATHANIEL PEREZ MD Mar 06, 2020 14:52
[2020-03-06 15:00] VITALS: BP 135/73
[2020-03-06 19:20] VITALS: BP 141/79
[2020-03-06] MEDS ORDERED: MIRTAZAPINE 7.5 MG TABLET. PO SCH (21:00)
[2020-03-06] MEDS: CYCLOBENZAPRINE 10 MG TABLET. PO SCH (21:00)
[2020-03-06] MEDS: ATORVASTATIN CALCIUM 40 MG TABLET. PO SCH (21:00)
[2020-03-06] MEDS: ALPRAZolam 1 MG TABLET PO PRN (21:01)
[2020-03-06 23:17] VITALS: BP 186/93
[2020-03-07 03:18] VITALS: BP 163/81
[2020-03-07 07:00] VITALS: BP 161/66
[2020-03-07] MEDS: ALBUTEROL SULFATE 2.5 MG/3 ML NEBU. NEB SCH ×2 (07:25→11:36)
[2020-03-07] MEDS: BUDESONIDE 0.5 MG/2 ML NEBU. NEB SCH (07:25)
[2020-03-07] MEDS: MULTIVITAMIN with MINERAL TABLET. PO SCH (08:24)
[2020-03-07] MEDS: ASPIRIN ENTERIC COATED 325 MG TABLET.DR. PO SCH (08:25)
[2020-03-07] MEDS: buPROPion XL 150 MG TAB.ER.24H. PO SCH (08:25)
[2020-03-07] MEDS: PANTOPRAZOLE 40 MG TABLET.DR. PO SCH (08:25)
[2020-03-07] MEDS: LIOTHYRONINE 5 MCG TABLET. PO SCH (08:25)
[2020-03-07] MEDS: LITHIUM CARBONATE 150 MG CAPSULE. PO SCH (08:25)
[2020-03-07] MEDS: CHOLECALCIFEROL (VITAMIN D3) 5,000 UNIT CAPSULE PO SCH (08:25)
[2020-03-07] MEDS: CYANOCOBALAMIN (VITAMIN B-12) 1,000 MCG TABLET. PO SCH (08:25)
[2020-03-07] MEDS: glipiZIDE 5 MG TABLET PO SCH (08:25)
[2020-03-07] MEDS: SENNOSIDES/DOCUSATE 8.6/50MG TABLET. PO SCH (08:25)
[2020-03-07] MEDS: ARIPiprazole 2 MG TABLET PO SCH (08:25)
[2020-03-07] MEDS: NICOTINE 21MG PATCH. TD SCH (08:26)
[2020-03-07] MEDS: oxyCODONE/APAP 5/325 1 TAB TABLET PO PRN ×2 (08:26→12:24)
[2020-03-07] MEDS ORDERED: MIRT-7 PO (10:04)
--- NOTE | 2020-03-07 10:05 | SNU/HH DC ---
DISCHARGE ORDERS DISCHARGE INFORMATION: DISCHARGE DATE: Mar 07, 2020 FINAL DIAGNOSIS Problems Medical Problems: (1) Altered mental status Status: Acute CONDITION ON DISCHARGE: Stable CODE STATUS: Code Status: Full RESIDENTIAL: SNF STAY <30 DAYS: Yes POST DISCHARGE ORDERS: ACTIVITY ORDERS: Activity as tolerated WEIGHT BEARING STATUS: No restrictions, Full weight bearing, As tolerated BATHING ORDERS: Shower-keep dressing dry DIET AFTER DISCHARGE: Cardiac WOUND/INCISION CARE: No wound care needed CHECKS AFTER DISCHARGE: CHECKS AFTER DISCHARGE: Check blood press - daily, Check blood sugar, ac/hs, Check your Temp as needed TREATMENT/EQUIPMENT ORDERS: ADAPTIVE EQUIPMENT NEEDED: None, Front wheeled walker Physical Therapy For: Evalulation/Treatment Occupational Therapy For: Evaluation/Treatment Speech Language Pathology For: Evaluation/Treatment DISCHARGE MEDICATIONS: Home Meds Active Scripts Alprazolam (ALPRAZOLAM) 1 Mg Tablet, 1 TAB PO BID for anxiety, #10 TAB Prov:NATHANIEL PEREZ MD 03/07/20 Mirtazapine (MIRTAZAPINE) 15 Mg Tablet, 1 TAB PO QHS for insomnia, #30 TAB 0 Refills Prov:NATHANIEL PEREZ MD 03/07/20 Oxycodone/Apap 5-325 (PERCOCET 5-325 MG TABLET ) 1 Each Tablet, 1 TAB PO PRN Q4HRS PRN for MODERATE PAIN for 10 Days, #30 TAB Prov:SHERIDAN CAMEJO MD 02/11/20 Multivits,Ca,Minerals/Iron/Fa (THERA-M TABLET) 1 Each Tablet, 1 TAB PO DAILY for SUPPLEMENT for 30 Days, #30 TAB Prov:SHERIDAN CAMEJO MD 02/11/20 Cholecalciferol (Vitamin D3) (Vitamin D3) 125 Mcg Capsule, 5000 UNIT PO DAILY for SUPPLEMENT for 30 Days, #30 CAP Prov:SHERIDAN CAMEJO MD 02/11/20 Sennosides/Docusate Sodium (SENNA-TIME S TABLET) 1 Each Tablet, 1 TAB PO DAILY for PRN CONSTIPATION for 14 Days, #14 TAB Prov:SHERIDAN CAMEJO MD 02/11/20 Polyethylene Glycol 3350 (POLYETHYLENE GLYCOL 3350) 17 Gm Powd.pack, 17 GM PO PRN DAILY PRN for CONSTIPATION for 14 Days, #14 PKT Prov:SHERIDAN CAMEJO MD 12/14/20 Aspirin (ASPIRIN EC) 325 Mg Tablet.dr, 325 MG PO BID for DVT PROPHYLAXIS for 30 Days, #60 TAB.SR Prov:SHERIDAN CAMEJO MD 02/11/20 Docusate Sodium (DOK) 100 Mg Capsule, 100 MG PO PRN BID PRN for HARD STOOLS for 30 Days, #60 CAP Prov:SHERIDAN CAMEJO MD 01/15/20 Olanzapine (OLANZAPINE ODT) 5 Mg Tab.rapdis, 5 MG PO PRN BID PRN for ANXIETY / AGITATION for 30 Days, #60 TAB Prov:SHERIDAN CAMEJO MD 01/15/20 Acetaminophen (TYLENOL) 325 Mg Tablet, 650 MG PO PRN Q4HRS PRN for TEMP OVER 100.4F OR MILD PAIN for 30 Days, #60 TAB Prov:SHERIDAN CAMEJO MD 01/15/20 Nicotine (NICODERM CQ 21mg) 1 Each Patch.td24, 1 PATCH TP DAILY for SMoking ce ssation, #28 PATCH 11 Refills Prov:TEODORO BETTENCOURT MD 05/31/18 Albuterol Sulfate (Proair Hfa) 8.5 Gm Hfa.aer.ad, 2.5 MG NEB PRN Q4HRS PRN for SHORTNESS OF BREATH for 30 Days, #1 INHALER 2 Refills Prov:TEODORO BETTENCOURT MD 05/30/18 Budesonide/Formoterol Fumarate (SYMBICORT 80-4.5 MCG INHALER) 10.2 Gm Hfa.aer.ad, 2 PUFF IH BID for COPD, #10.2 GM 5 Refills Prov:TEODORO BETTENCOURT MD 05/30/18 Reported Medications Omeprazole (OMEPRAZOLE) 40 Mg Capsule.dr, 40 MG PO DAILY for GERD, CAP 02/06/20 Cyclobenzaprine Hcl (CYCLOBENZAPRINE HCL) 10 Mg Tablet, 1 TAB PO QHS for muscle spasms, #30 TAB 02/06/20 [place] Carbonate (LITHIUM CARBONATE) 450 Mg Tablet.er, 450 MG PO HS for bipolar, TAB.SR 02/06/20 Aripiprazole (ABILIFY) 2 Mg Tablet, 1 TAB PO DAILY for depression for 30 Days, #30 TAB 0 Refills 02/06/20 Bupropion Hcl (BUPROPION XL) 150 Mg Tab.er.24h, 3 TAB PO DAILYWBKFT for depression, #30 TAB 2 Refills 02/06/20 Liothyronine Sodium (LIOTHYRONINE SODIUM) 25 Mcg Tablet, 1 TAB PO DAILY for thyroid for 30 Days, #30 TAB 0 Refills 02/06/20 Atorvastatin Calcium (ATORVASTATIN CALCIUM) 40 Mg Tablet, 40 MG PO DAILY for FOR CHOLESTEROL, #30 TAB 0 Refills 02/06/20 Glipizide (GLIPIZIDE) 5 Mg Tablet, 1 TAB PO BID, #60 TAB 3 Refills 05/10/16 Discontinued Reported Medications Alprazolam (ALPRAZOLAM) 2 Mg Tablet, 1 TAB PO BID PRN for ANXIETY / AGITATION, #60 TAB 02/06/20 NATHANIEL PEREZ MD Mar 07, 2020 10:05
[2020-03-07] MEDS ORDERED: ALPR1TAB6 PO (10:06)
[2020-03-07 11:00] VITALS: BP 143/91
[2020-03-07 11:37] LABS: LI < 0.2 mmol/L (0.6-1.2)
--- NOTE | 2020-03-07 12:14 | NUR ---
MEDICATIONS AND SUAZO FROM [facility] RETURNED TO PATIENT. CALLED AND UPDATED DMITRIY AT [facility] THAT THESE BELONGINGS WERE WITH THE PT.
--- NOTE | 2020-03-07 12:53 | NUR ---
PT DISCHARGED TO [facility]. REPORT GIVEN TO [facility]. IV REMOVED. BELONGINGS WERE TAKEN WITH THE PATIENT. ASSISTED TO WHEELCHAIR AND WAS TAKEN BY TRANSPORTATION.
--- NOTE | 2020-03-07 18:30 | PDOC3 ---
Discharge Summary Visit Information Date of Admission: Mar 03, 2020 Date of Discharge: Mar 07, 2020 Admitting Diagnosis Comment: Encephalopathy which may have been prompted by benzodiazepine missuse and probably contributing to an underlying cognitive impairment documented on her previous admission History of left intertrochanteric hip fracture - Fall at home - traumatic per patient Hypokalemia OPAL - likely vasomotor nephropathy, will hydrate Tobacco dependence - counseled on cessation COPD - will place on nebs prn Type 2 diabetes - will place on sliding scale Hearing impairment - not wearing hearing aides Mild cognitive impairment - likely progressing to Alzheimers dementia as her mother not her father like she had related in her past admission. Vitamin D deficiency - 5000u daily Final Diagnosis Problems Medical Problems: (1) Metabolic encephalopathy Status: Acute Encephalopathy which may have been prompted by benzodiazepine missuse and probably contributing to an underlying cognitive impairment documented on her previous admission History of left intertrochanteric hip fracture - Fall at home - traumatic per patient Hypokalemia OPAL - likely vasomotor nephropathy, will hydrate Tobacco dependence - counseled on cessation COPD - will place on nebs prn Type 2 diabetes - will place on sliding scale Hearing impairment - not wearing hearing aides Mild cognitive impairment - likely progressing to Alzheimers dementia as her mother not her father like she had related in her past admission. Vitamin D deficiency - 5000u daily Vitamin b12 deficiency Brief Hospital Course Allergies Allergies Coded Allergies Type Severity Reaction Last Updated Verified No Known Drug Allergies 06/07/16 No Vital Signs Vital Signs Date Time Temp Pulse Resp B/P (MAP) Pulse Ox O2 Delivery O2 Flow Rate FiO2 03/07/20 12:24 Room Air 03/07/20 11:00 98.1 88 16 143/91 (108) 99 98.1 Lab Results Laboratory Tests Test 03/05/20 19:59 03/06/20 07:30 03/06/20 11:52 03/06/20 17:06 Glucose (Fingerstick) 224 mg/dL (70-99) 99 mg/dL (70-99) 168 mg/dL (70-99) 226 mg/dL (70-99) Test 03/06/20 21:05 03/07/20 07:37 03/07/20 10:43 Glucose (Fingerstick) 132 mg/dL (70-99) 102 mg/dL (70-99) [place] Level < 0.2 mmol/L (0.6-1.2) [place] Last Dose Date 03/07/20 [place] Last Dose Time 824 Laboratory Tests Test 03/06/20 21:05 03/07/20 07:37 03/07/20 10:43 Glucose (Fingerstick) 132 mg/dL (70-99) 102 mg/dL (70-99) [place] Level < 0.2 mmol/L (0.6-1.2) [place] Last Dose Date 03/07/20 [place] Last Dose Time 824 Brief Hospital Course History of Present Illness Ms Woods is a 64 year old female w/ PMHx 2ppd smoker, COPD, depression, DM2, fatty liver admitted after a fall at home. The patient had an admission on january for Acute left intertrochanteric hip fracture - traumatic due to fall. Ortho consulted s/p IM nailing.02/06: S/p intramedullary implant, with interlocking screws on 02/06/2020. She has transitioned from a rehab to her house, she lives by herself and as per patient's sister she may have not been taking her home medications correctly, neurologically she is not exhibiting focal deficits. She had given a history of her parents having Alzheimers, but only her mother was afflicted by the disease. At the time of my visit she is in no acute distress, she denies, fever, no neck stiffness, no sick contacts. No cough sputum productions, no abdominal pain, no nauseas vomiting or diarrhea has been reported. The patient denies urinary symptoms. She has been at [facility] the request of the ER for evaluation of her altered mental status which at the time of my visit has resolved. I also got some details from her sister over the phone which has related concerns about her sister not taking medications at home properly. Plan of care explained detail and all of their concerns were addressed to the best of my abilities 03/04/2020 Patient seems to be waking up more and she is not exhibiting neurological deficits. She will work with PT, patient seems to be procupied with her medication and not beeing able to sleep, I have reassrued her and explained the side effects of benzodiazepines on her mentation. We will cotninue to monitor her evolution clinically 03/05/2020 No acute events reported overnight, case discussed with nursing staff patient in no acute distress no complaints during my visit patient continues to complain of short-term memory. B12 level has been reviewed and somewhat low this could play a role in her cognitive impairment. Will supplement her B12 reassess in the a.m. and work with case management for a safe discharge plan she would like to return home 03/06/2020 Patient complaining of insomnia yesterday. I will discontinue Xanax at the present time given that the patient should slowly be tapered off benzodiazepines. This should only be given if the patient is experiencing withdrawal symptoms which in my opinion she has not exhibited. I have explained the side effects of medications and the importance of finding an alternative option for her insomnia she relates to me that she has spent several years battling with this insomnia, and the opinion of her family members whom I have contacted over the phone they are fearful that the medications have had a toll on the patient's mentation. We will start Remeron as discussed in my interview today and follow results in the a.m. 03/07/2020 Patient in good spirits to be transferring to the facility where she will continue with her recovery and the patient medication profile has been cleaned up somewhat. She responded well to Remeron 7.5 and I have increased the dose to 50 mg a week and care for her insomnia that seems to be the most concerning part for her. We discussed the importance of continuing with vitamin B12 supplementation so we can hopefully see improvements in her condition and she can safely transfer home soon. Greater than 35 minutes were spent in the discharge process the patient counseling coordination of care and arrangements for a safe discharge, signs and symptoms of concern and when to seek medical attention were discussed with the patient prior to discharge as well. Physical Exam General: Alert, Oriented X3, Cooperative Heart: Regular rate, Normal S1, Normal S2 Lungs: Clear, Wheezing Abdomen: Normal bowel sounds, Soft Extremities: No clubbing, No cyanosis Skin: No rashes, No breakdown Assessment Assessment IMAGING REPORT Signed PATIENT: RHINA WOODS ACCOUNT: [id number] : 1955 LOCATION: ER AGE: 64 SEX: F EXAM STATUS: PRE ER ORD. PHYSICIAN: GRACIELA CLEMENTS APRN REASON: ALTERED MS, FALL , SLIRRED JUMBLED SPEECH PROCEDURE: CT HEAD WO CONTRAST Exam: CT head INDICATION: Altered mental status, fall TECHNIQUE: Sequential axial images through the head were obtained without the administration of IV contrast. Comparisons: 01/12/2020 FINDINGS: No focal parenchymal lesion or hemorrhage is identified. There is no midline shift or sulcal effacement. Mild patchy evidence in the periventricular white matter, similar to prior exam. No acute vascular territory infarction is identified. Zhu-white distinction is preserved. The ventricular system is within normal limits without compression hydrocephalus. The basal cisterns are well maintained. The visualized portions of the paranasal sinuses and mastoid air cells are well- pneumatized. No acute fractures. IMPRESSION: No acute traumatic intracranial abnormality. Exposure: One or more of the following in the visualized dose reduction techniques were utilized for this examination: 1. Automated exposure control 2. Adjustment of the MA and/or KV according to patient size Use of iterative of reconstructive technique Electronically signed by: Wilner Lezama MD (03/02/2020 7:22 PM) [facility] Discharge Information Condition at Discharge: Improved Follow Up: Weeks Disposition/Orders: D/C to Another Facility Scheduled Alprazolam (Alprazolam) 1 Mg Tablet, 1 TAB PO BID for anxiety, #10 Prescribed by: NATHANIEL PEREZ MD on 03/07/20 1006 Aripiprazole (Abilify) 2 Mg Tablet, 1 TAB PO DAILY for depression for 30 Days, #30 Ref 0 (Reported) Entered as Reported by: FERN VEGA on 02/06/20455 Last Action: Continued on 03/03/20 104 by NATHANIEL PEREZ MD Aspirin (Aspirin Ec) 325 Mg Tablet.dr, 325 MG PO BID for DVT PROPHYLAXIS for 30 Days, #60 Prescribed by: SHERIDAN CAMEJO MD on 02/11/20 1402 Last Action: Continued on 03/03/20 1049 by NATHANIEL PEREZ MD Atorvastatin Calcium (Atorvastatin Calcium) 40 Mg Tablet, 40 MG PO DAILY for FOR CHOLESTEROL, #30 Ref 0 (Reported) Entered as Reported by: FERN VEGA on 02/06/206 Last Action: Continued on 03/03/20 104 by NATHANIEL PEREZ MD Budesonide/Formoterol Fumarate (Symbicort 80-4.5 Mcg Inhaler) 10.2 Gm Hfa.aer.ad, 2 PUFF IH BID for COPD, #10.2 Ref 5 Prescribed by: TEODORO BETTENCOURT MD on 05/30/18 1434 Last Action: Converted on 03/03/201048 by NATHANIEL PEREZ MD Bupropion Hcl (Bupropion Xl) 150 Mg Tab.er.24h, 3 TAB PO DAILYWBKFT for depression, #30 Ref 2 (Reported) Entered as Reported by: FERN VEGA on 02/06/20455 Last Action: Continued on 03/03/201048 by NATHANIEL PEREZ MD Cholecalciferol (Vitamin D3) (Vitamin D3) 125 Mcg Capsule, 5,000 UNIT PO DAILY for SUPPLEMENT for 30 Days, #30 Prescribed by: SHERIDAN CAMEJO MD on 02/11/20 1402 Last Action: Continued on 03/03/201048 by NATHANIEL PEREZ MD Cyclobenzaprine Hcl (Cyclobenzaprine Hcl) 10 Mg Tablet, 1 TAB PO QHS for muscle spasms, #30 (Reported) Entered as Reported by: FERN VEGA on 02/06/20455 Last Action: Continued on 03/03/201048 by NATHANIEL PEREZ MD Glipizide (Glipizide) 5 Mg Tablet, 1 TAB PO BID, #60 Ref 3 (Reported) Entered as Reported by: THA SWAN on 05/10/16 1706 Last Action: Continued on 03/03/201048 by NATHANIEL PEREZ MD Liothyronine Sodium (Liothyronine Sodium) 25 Mcg Tablet, 1 TAB PO DAILY for thyroid for 30 Days, #30 Ref 0 (Reported) Entered as Reported by: FERN VEGA on 02/06/20455 Last Action: Converted on 03/03/201049 by NATHANIEL PEREZ MD [place] Carbonate ([place] Carbonate) 450 Mg Tablet.er, 450 MG PO HS for bipolar, (Reported) Entered as Reported by: FERN VEGA on 02/06/20455 Last Action: Converted on 03/03/201049 by NATHANIEL PEREZ MD Mirtazapine (Mirtazapine) 15 Mg Tablet, 1 TAB PO QHS for insomnia, #30 Ref 0 Prescribed by: NATHANIEL PEREZ MD on 03/07/20 1004 Multivits,Ca,Minerals/Iron/Fa (Thera-M Tablet) 1 Each Tablet, 1 TAB PO DAILY for SUPPLEMENT for 30 Days, #30 Prescribed by: SHERIDAN CAMEJO MD on 02/11/20 1402 Last Action: Continued on 03/03/201048 by NATHANIEL PEREZ MD Nicotine (NICODERM CQ 21mg) 1 Each Patch.td24, 1 PATCH TP DAILY for SMoking cessation, #28 Ref 11 Prescribed by: TEODORO BETTENCOURT MD on 05/31/18 1159 Last Action: Continued on 03/03/201048 by NATHANIEL PEREZ MD Omeprazole (Omeprazole) 40 Mg Capsule.dr, 40 MG PO DAILY for GERD, (Reported) Entered as Reported by: FERN VEGA on 02/06/20 0456 Last Action: Converted on 03/03/20 1050 by NATHANIEL PEREZ MD Sennosides/Docusate Sodium (Senna-Time S Tablet) 1 Each Tablet, 1 TAB PO DAILY for PRN CONSTIPATION for 14 Days, #14 Prescribed by: SHERIDAN CAMEJO MD on 02/11/20 1402 Last Action: Continued on 03/03/201048 by NATHANIEL PEREZ MD Scheduled PRN Acetaminophen (Tylenol) 325 Mg Tablet, 650 MG PO PRN Q4HRS PRN for TEMP OVER 100.4F OR MILD PAIN for 30 Days, #60 Prescribed by: SHERIDAN CAMEJO MD on 01/15/20 1148 Last Action: Continued on 03/03/201048 by NATHANIEL PEREZ MD Albuterol Sulfate (Proair Hfa) 8.5 Gm Hfa.aer.ad, 2.5 MG NEB PRN Q4HRS PRN for SHORTNESS OF BREATH for 30 Days, #1 Ref 2 Prescribed by: TEODORO BETTENCOURT MD on 05/30/18 1434 Last Action: Continued on 03/03/20 104 by NATHANIEL PEREZ MD Docusate Sodium (Dok) 100 Mg Capsule, 100 MG PO PRN BID PRN for HARD STOOLS for 30 Days, #60 Prescribed by: SHERIDAN CAMEJO MD on 01/15/20 1148 Last Action: Continued on 03/03/20 104 by NATHANIEL PEREZ MD Olanzapine (Olanzapine Odt) 5 Mg Tab.rapdis, 5 MG PO PRN BID PRN for ANXIETY / AGITATION for 30 Days, #60 Prescribed by: SHERIDAN CAMEJO MD on 01/15/20 1148 Last Action: Continued on 03/03/201048 by NATHANIEL PEREZ MD Oxycodone/Apap 5-325 (Percocet 5-325 Mg Tablet ) 1 Each Tablet, 1 TAB PO PRN Q4HRS PRN for MODERATE PAIN for 10 Days, #30 Prescribed by: SHERIDAN CAMEJO MD on 02/11/20 140 Last Action: Continued on 03/03/201048 by NATHANIEL PEREZ MD Polyethylene Glycol 3350 (Polyethylene Glycol 3350) 17 Gm Powd.pack, 17 GM PO PRN DAILY PRN for CONSTIPATION for 14 Days, #14 Prescribed by: SHERIDAN CAMEJO MD on 02/11/20 1402 Last Action: Continued on 03/03/201048 by NATHANIEL PEREZ MD Discontinued Medications Alprazolam (Alprazolam) 2 Mg Tablet, 1 TAB PO BID PRN for ANXIETY / AGITATION, #60 (Reported) Entered as Reported by: FERN VEGA on 02/06/20 0456 Last Action: Converted on 03/03/201048 by NATHANIEL PEREZ MD Justicifation of Admission Dx: Justifications for Admission: Justification of Admission Dx: Yes Altered Mental Status: Altered Mental Status NATHANIEL PEREZ MD Mar 07, 2020 18:30
== END 2020-03-07 12:55 | DRG 682 ==
LOC: ER 18:25 → 4 NORTH 23:52
PROVIDERS: ADMIT Internal Medicine; ATTEND Internal Medicine
DX: N17.0 Acute kidney failure with tubular necrosis (principal); G93.41 Metabolic encephalopathy; E11.9 Type 2 diabetes mellitus without complications; E53.8 Deficiency of other specified B group vitamins; E55.9 Vitamin D deficiency, unspecified; E87.6 Hypokalemia; F02.80 Dementia in other diseases classified elsewhere, unspecified severity, without behavioral disturbance, psychotic disturbance, mood disturbance, and anxiety; F17.200 Nicotine dependence, unspecified, uncomplicated; G30.9 Alzheimer's disease, unspecified; G47.00 Insomnia, unspecified; H91.90 Unspecified hearing loss, unspecified ear; J44.9 Chronic obstructive pulmonary disease, unspecified; W18.39XA Other fall on same level, initial encounter; K76.0 Fatty (change of) liver, not elsewhere classified; M17.12 Unilateral primary osteoarthritis, left knee; Z82.0 Family history of epilepsy and other diseases of the nervous system; Z90.49 Acquired absence of other specified parts of digestive tract; Z90.710 Acquired absence of both cervix and uterus; F32.9 Major depressive disorder, single episode, unspecified; Y93.89 Activity, other specified; Y92.89 Other specified places as the place of occurrence of the external cause; Y99.8 Other external cause status; Z71.6 Tobacco abuse counseling; Z20.822 Contact with and (suspected) exposure to COVID-19
CPT/HCPCS: 36415; 70450; 73502; 73562; 80048; 80053; 80178; 80307; 81001; 82607; 82962; 83735; 83880; 84443; 84484; 85025; 86140; 87086; 87106; 93005; 94640; 94760; 99285; J2270; J3420; J7030; U0003; 97110-GP; 97116-GP; 97530-GO; 97530-GP; 97535-GO; G0378; J7613; J7626

== ENCOUNTER 2020-10-13 06:44 | Emergency (ER) | payer MEDICARE ==
[~2020-10-13] VITALS: Ht 172.7 cm; Wt 82.0 kg
[~2020-10-13 06:44] MED LIST changes: +ALPR1TAB6 PO; +BUPR300T92 PO; +DOCU-148 PO; -DOCU-153 PO; +EMPA10TA PO; +ERGO500089 PO; +LITH300T30 PO; +METF-658 PO; +MIRT-7 PO; +PARO20TA3 PO; +ZOLP10TA PO
[2020-10-13 07:03] VITALS: BP 109/64
[2020-10-13] MEDS ORDERED: HYDROcodone/APAP 5/325MG 1 TAB TABLET PO ONE (07:15)
--- NOTE | 2020-10-13 07:18 | PHYS DOC ---
Past Medical History Past Medical History: COPD, Depression, Diabetes-Type II, Other Additional Past Medical Histor: "liver problems", FALLS, POOR HISTORIAN Past Surgical History: Appendectomy, Hysterectomy, Tonsillectomy Smoking Status: Current Every Day Smoker Alcohol Use: Rarely Drug Use: None General Adult EDM: Chief Complaint: LOWER EXT PAIN Problems: (1) Right thigh pain HPI: HPI: 65-year-old female with a history of frequent falls at baseline presents to the emergency department complaining of right thigh pain, right hip pain, right buttock pain after a fall approximately 4 hours ago. She reports the fall occurred around 3 AM when she was ambulating around her house. She reports falling onto her right buttock and thigh area and now has pain in this area. Sh kika denies any further pain, head trauma, loss consciousness. She reports frequent falls over the past 1 year. She reports being evaluated at and other hospitals for similar occurrences. The patient denies nausea, vomiting, fever, chills, chest pain, shortness of breath, abdominal pain, urinary symptoms, cough, or any other complaints. She lives in an apartment and uses a walker to get around her home. Review of Systems: Review of Systems: Constitutional: Denies fever or chills. Eyes: Denies change in vision, pain. HENT: Denies congestion or sore throat. Respiratory: Denies cough or shortness of breath. Cardiovascular: Denies chest pain or edema. GI: Denies abdominal pain, nausea. : Denies change in urination, dysuria. Musculoskeletal: Admits to right thigh pain, hip pain. Skin: Denies rash, skin change. Neurologic: Denies headache, focal weakness. Psychiatric: Denies depression or anxiety. All other systems reviewed as negative except for what was mentioned in the HPI. Heart Score: C/O Chest Pain: No Family History: Family History: Noncontributory Current Medications: My Orders - ALEN ALVARADO DO Procedure Category Date Status Time Femur Right RAD 10/13/20 Logged 07:04 Pelvis RAD 10/13/20 Logged 07:04 Hydrocodone/Apap PHA 10/13/20 In Process 5/325mg (Lortab 5/325) 07:15 Cbc W [employer] LAB 10/13/20 Logged 07:05 Basic Metabolic Panel LAB 10/13/20 Logged 07:05 12 Lead Ekg EKG 10/13/20 Logged 07:07 Allergies: Allergies: Allergies Coded Allergies Type Severity Reaction Last Updated Verified No Known Drug Allergies 06/07/16 No Physical Exam: PE: Constitutional: No acute distress, non-toxic appearance. HENT: Atraumatic, normocephalic. Eyes: Conjunctiva normal, normal tracking. Neck: Normal range of motion, supple. Cardiovascular: Heart rate regular rhythm. 2+ dorsalis pedis pulses, capillary refill less than 2 seconds bilateral lower extremities Lungs & Thorax: No respiratory distress, symmetrical expansion. Abdomen: Soft, no tenderness Skin: Warm, dry, no overlying skin changes over the lower extremities. Back: No Lumbar or Sacral tenderness to palpation. Extremities: No external sign of trauma over the lower extremities. Tenderness to the posterior aspect of the proximal right thigh. Right hip tenderness to palpation along the iliac crest. No tenderness to the foot, ankles, leg, bilaterally. Pelvis stable. Patient is able to power herself to roll along the bed with the right lower extremity. No logroll tenderness to the thigh/hip bilaterally. No asymmetrical swelling. Neurologic: Alert and oriented X 3. Normal motor function of the lower extremities bilaterally. Normal sensory function of the lower extremities. No focal deficits noted. GCS 15. Psychologic: Affect normal, judgment normal, mood normal. Current Patient Data: Labs: Laboratory Tests Test 10/13/20 07:45 White Blood Count 17.3 x10^3/uL (4.0-11.0) Red Blood Count 3.89 x10^6/uL (3.50-5.40) Hemoglobin 11.8 g/dL (12.0-15.5) Hematocrit 34.8 % (36.0-47.0) Mean Corpuscular Volume 90 fL (79-100) Mean Corpuscular Hemoglobin 30 pg (25-35) Mean Corpuscular Hemoglobin Concent 34 g/dL (31-37) Red Cell Distribution Width 15.9 % (11.5-14.5) Platelet Count 340 x10^3/uL (140-400) Neutrophils (%) (Auto) 61 % (31-73) Lymphocytes (%) (Auto) 28 % (24-48) Monocytes (%) (Auto) 8 % (0-9) Eosinophils (%) (Auto) 3 % (0-3) Basophils (%) (Auto) 1 % (0-3) Neutrophils # (Auto) 10.5 x10^3/uL (1.8-7.7) Lymphocytes # (Auto) 4.8 x10^3/uL (1.0-4.8) Monocytes # (Auto) 1.4 x10^3/uL (0.0-1.1) Eosinophils # (Auto) 0.5 x10^3/uL (0.0-0.7) Basophils # (Auto) 0.1 x10^3/uL (0.0-0.2) Sodium Level 141 mmol/L (136-145) Potassium Level 4.2 mmol/L (3.5-5.1) Chloride Level 107 mmol/L (98-107) Carbon Dioxide Level 29 mmol/L (21-32) Anion Gap 5 (6-14) Blood Urea Nitrogen 14 mg/dL (7-20) Creatinine 1.2 mg/dL (0.6-1.0) Estimated GFR (Cockcroft-Gault) 44.8 Glucose Level 136 mg/dL (70-99) Calcium Level 8.5 mg/dL (8.5-10.1) Troponin I Quantitative < 0.017 ng/mL (0.000-0.055) OZ-Ufw-N-Type Natriuretic Peptide 214 pg/mL (0-124) Vital Signs: Vital Signs Date Time Temp Pulse Resp B/P (MAP) Pulse Ox O2 Delivery O2 Flow Rate FiO2 10/13/20 07:03 98.7 80 12 109/64 (94) 96 Room Air 98.7 EKG: EKG: Normal sinus rhythm rate of 70, T wave inversions in V2, V3 without reciprocal changes, no ectopic beats, slight right axis deviation, normal IL, QRS, and QTc intervals. Impression: No STEMI. Interpreted by me, Alen Alvarado D.O. compared with previous EKG performed on 09/12/2020. There is a T wave flattening in the beforementioned leads with incomplete right bundle branch block that is not seen on today's EKG. On EKG on 03/02/2020 there is right axis deviation Radiology/Procedures: Radiology/Procedures: EXAMINATION: XR PELVIS 1-2V, XR FEMUR_RIGHT CLINICAL HISTORY: Right thigh pain TECHNIQUE: XR PELVIS 1-2V, XR FEMUR_RIGHT Number of Images/Views: 2 pelvis, 4 femur COMPARISON: Right hip radiograph 09/12/2020 FINDINGS: Left femoral cephalomedullary valentin with remote intertrochanteric fracture deformity, incompletely evaluated but similar to prior study. Axial joint space narrowing in the right hip. Pubic symphysis and SI joints maintained. Partially visualized lumbar degenerative changes. Degenerative changes in the right knee incompletely evaluated. No acute fracture. Small area of mild cortical thickening along the lateral aspect of the proximal to mid right femoral diaphysis, nonspecific but could be related to stress reaction. Vascular calcifications. IMPRESSION: No acute fracture. Nonspecific small area of cortical thickening along the right lateral femur, possibly related to stress reaction. Recommend clinical correlation and consider femoral MRI for further evaluation if indicated. Additional nonacute findings as described. Electronically signed by: Sal Bateman DO (10/13/2020 7:55 AM) Course & Med Decision Making: Course & Med Decision Making Labs and imaging are unremarkable, patient is comfortable with going back to her residence. She was able to walk with a steady gait upon discharge examination and appears to be able to do her activities of daily living. She was counseled on return precautions and understands when to return to the emergency department. Departure Departure Impression: Primary Impression: Right buttock pain Disposition: HOME / SELF CARE / HOMELESS Condition: GOOD Referrals: JOSEPH HODGE (PCP) Patient Instructions: Musculoskeletal Pain Additional Instructions: You were seen in the emergency department for a musculoskeletal problem that will likely get better over time. You may utilize something called the "RICE" protocol (Rest, Ice, Compresses, Elevation) to help alleviate your pain: ? Hold off on doing intense exercise that may make the pain worse. Sometimes gentle stretching can provide relief, but be careful to avoid further injury. It is important to perform gentle range of motion exercises to prevent stiff joints and chronic pain. ? Use ice packs over the affected area to help decrease your pain. Ice can work as a numbing agent over your painful area. For the first 24 hours, apply ice 2-4 times per day for a maximum 15-20 minutes each time. Ice should be in a plastic bag. ? You may use warm compresses to help improve blood flow and decrease swelling. Alternating with ice packs and warm compresses works well. ? You may elevate the affected area to help improve drainage and reduce swelling, which will also help your pain. ALEN ALVARADO DO Oct 13, 2020 07:18
--- NOTE | 2020-10-13 07:57 | RAD ---
EXAMINATION: XR PELVIS 1-2V, XR FEMUR_RIGHT CLINICAL HISTORY: Right thigh pain TECHNIQUE: XR PELVIS 1-2V, XR FEMUR_RIGHT Number of Images/Views: 2 pelvis, 4 femur COMPARISON: Right hip radiograph 09/12/2020 FINDINGS: Left femoral cephalomedullary valentin with remote intertrochanteric fracture deformity, incompletely eval uated but similar to prior study. Axial joint space narrowing in the right hip. Pubic symphysis and S I joints maintained. Partially visualized lumbar degenerative changes. Degenerative changes in the ri ght knee incompletely evaluated. No acute fracture. Small area of mild cortical thickening along the lateral aspect of the proximal to mid right femoral diaphysis, nonspecific but could be related to st ress reaction. Vascular calcifications. IMPRESSION: No acute fracture. Nonspecific small area of cortical thickening along the right lateral femur, possibly related to stre ss reaction. Recommend clinical correlation and consider femoral MRI for further evaluation if indica erika. Additional nonacute findings as described. Electronically signed by: Sal Bateman DO (10/13/2020 7:55 AM) [id number]
[2020-10-13 08:05] LABS: BASO # 0.1 x10^3/uL (0.0-0.2); BASO % 1 % (0-3); EOS # 0.5 x10^3/uL (0.0-0.7); EOS % 3 % (0-3); HEMATOCRIT 34.8 % (36.0-47.0); HEMOGLOBIN 11.8 g/dL (12.0-15.5); LYMPH # 4.8 x10^3/uL (1.0-4.8); LYMPH % 28 % (24-48); MEAN CORPUSCULAR HEMOGLOBIN 30 pg (25-35); MEAN CORPUSCULAR HGB CONC 34 g/dL (31-37); MEAN CORPUSCULAR VOLUME 90 fL (79-100); MONO # 1.4 x10^3/uL (0.0-1.1); MONO % 8 % (0-9); NEUT # 10.5 x10^3/uL (1.8-7.7); NEUT % 61 % (31-73); PLATELET COUNT 340 x10^3/uL (140-400); RED BLOOD COUNT 3.89 x10^6/uL (3.50-5.40); RED CELL DISTRIBUTION WIDTH 15.9 % (11.5-14.5); WHITE BLOOD COUNT 17.3 x10^3/uL (4.0-11.0)
[2020-10-13 08:14] LABS: CALCIUM 8.5 mg/dL (8.5-10.1); CREATININE 1.2 mg/dL (0.6-1.0); GFR 44.8; POTASSIUM 4.2 mmol/L (3.5-5.1)
--- NOTE | 2020-10-13 09:10 | RAD ---
XR CHEST 1V History: Fall. Comparison: 02/06/2020 Technique: Portable AP radiograph of the chest. Findings: The lungs are mildly hypoinflated with elevation of the right diaphragm. There is subtle increased in terstitial opacity. No pleural effusion or pneumothorax. The cardiac silhouette and pulmonary vascula ture are within normal limits. Osseous structures and soft tissues are unremarkable. Impression: 1. Diffuse interstitial opacities, may be related to hypoinflation and vascular crowding, differenti al also includes but not limited to atypical infectious process and interstitial disease. Electronically signed by: Rip Ponce MD (10/13/2020 9:08 AM) [id number]
--- NOTE | 2020-10-13 10:06 | NUR ---
Pt reported improvement of her symptoms/ability to ambulate compared to at home. Pt reports pain at the base of her right buttock that radiates up to the top of her buttock with each step with her right foot. Pt reports her pain with each step of her right foot at a 6/10. Jami BRISCOE/Dr. Alvarado notified of road-test results/observtions.
--- NOTE | 2020-10-13 18:33 | EKG ---
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
== END 2020-10-13 10:20 | disposition home or self-care (01) ==
LOC: ER 06:44
DX: M54.5 Low back pain (principal); G89.11 Acute pain due to trauma; M25.551 Pain in right hip; M79.651 Pain in right thigh; J44.9 Chronic obstructive pulmonary disease, unspecified; E11.9 Type 2 diabetes mellitus without complications; F17.200 Nicotine dependence, unspecified, uncomplicated; Z90.89 Acquired absence of other organs; Z90.710 Acquired absence of both cervix and uterus; W18.39XA Other fall on same level, initial encounter; Y93.89 Activity, other specified; Y92.89 Other specified places as the place of occurrence of the external cause; Y99.8 Other external cause status
CPT/HCPCS: 36415; 71045; 72170; 80048; 83880; 84484; 85025; 93005; 99285-25